=== PATIENT | female | born 1995 | race Caucasian/White ===

== ENCOUNTER 2023-02-07 14:22 | Emergency (ER) | payer BC, SELFPAY ==
[2023-02-07 14:32] VITALS: BP 116/73; PULSE 90; RESP 18; TEMP 36.6; O2SAT 98; BMI 31.1
[2023-02-07 15:15] LABS: Internal Control Within Normal Limits; Strep A Antigen Screen Negative
[2023-02-07 15:16] LABS: Influenza Virus A Antigen Negative; Influenza Virus B Antigen Negative; Internal Control Within Normal Limits; SARS-CoV-2 Ag NEGATIVE (NEGATIVE)
--- NOTE | 2023-02-07 15:25 | ED.GENADUL1 ---
HPI - General Adult General Chief complaint: Upper Respiratory Infection Stated complaint: NAUSEA Time Seen by Provider: 02/07/23 14:53 Source: patient Mode of arrival: walk-in Limitations: no limitations History of Present Illness HPI narrative: Patient presented to us with almost few days history of nausea vomiting and bodyaches and sore throat and runny nose, the patient has been have similar symptoms, no other complaints Related Data Previous Rx's Medication Instructions Recorded ondansetron 4 mg disintegrating 4 mg PO TID PRN nausea and 02/07/23 tablet vomiting 2 days #6 tabs Allergies Allergy/AdvReac Type Severity Reaction Status Date / Time Penicillins AdvReac Intermediate Verified 02/07/23 14:32 Review of Systems ROS Status of ROS 10 or more systems reviewed and unremarkable except as noted in history and below [facility] Social History Smoking status: Current some day smoker Exam Narrative Exam Narrative: Nurses notes and vital signs reviewed and patient is not hypoxic. General: Well-appearing and in no apparent distress. Skin: Warm, dry, no pallor noted. No rash. Head: Normocephalic, atraumatic. Neck: Supple, non-tender. Eye: Pupils are equal, round and EOMI. No scleral icterus. Ears, Nose, Mouth, and Throat: TM are clear, no nasal mucosal hypertrophy. Oral mucosa is moist, no posterior oropharynx erythema, uvula is mid-line Cardiovascular: Regular Rate and Rhythm without murmur, gallop or rub. Respiratory: No accessory muscle use or respiratory distress. Lungs are clear to auscultation, no wheezing, rales or rhonchi Chest Wall: no tenderness Back: No midline thoracic or lumbar vertebral tenderness. No CVA tenderness Musculoskeletal: normal ROM, no calf or popliteal tenderness, no lower extremity edema/swelling GI: Abdomen is soft, non-distended. Normal bowel sounds. No masses appreciated. No tenderness to palpation. No rebound, guarding, or rigidity noted. Neurological: A&O x4. No cranial nerve dysfunction observed. No truncal ataxia. Moves all extremities. Sensation intact. Psychiatric: Cooperative and interactive. Normal mood and affect. Constitutional Vital Signs, click to edit/add: Last Vital Signs Temp 97.9 F 02/07/23 14:32 Pulse 90 02/07/23 14:32 Resp 18 02/07/23 14:32 BP 116/73 02/07/23 14:32 Pulse Ox 98 02/07/23 14:32 O2 Del Method Room Air 02/07/23 14:32 Course Course Hospital Course: Strep and COVID test are negative and the patient was discharged after being treated with Zofran to continue supportive care at home The patient is to follow up with primary care physician in next 2-3 days or to return to the emergency department should any of the signs or symptoms worsen or new symptoms develop. The patient agrees with the following Diagnosis and Treatment plan and the patient will be discharged home. Vital Signs Vital signs: Vital Signs Temperature 97.9 F 02/07/23 14:32 Pulse Rate 90 02/07/23 14:32 Respiratory Rate 18 02/07/23 14:32 Blood Pressure 116/73 02/07/23 14:32 Pulse Oximetry 98 02/07/23 14:32 Oxygen Delivery Method Room Air 02/07/23 14:32 Temperature 97.9 F 02/07/23 14:32 Pulse Rate 90 02/07/23 14:32 Respiratory Rate 18 02/07/23 14:32 Blood Pressure 116/73 02/07/23 14:32 Pulse Oximetry 98 02/07/23 14:32 Oxygen Delivery Method Room Air 02/07/23 14:32 Medical Decision Making Lab Data Labs: Lab Results 02/07/23 Range/Units 14:39 SARS-CoV-2 (PCR) Negative (NEGATIVE) Influenza Type A Ag Negative Influenza Type B Ag Negative Streptococcus Screen Negative Discharge Plan Discharge Chief Complaint: Upper Respiratory Infection Clinical Impression: Acute viral syndrome Patient Disposition: Home, Self-Care Time of Disposition Decision: 15:26 Prescriptions / Home Meds: New ondansetron 4 mg tablet,disintegrating 4 mg PO TID PRN (Reason: nausea and vomiting) 2 Days Qty: 6 0RF Instructions: Viral Syndrome (ED) Stand Alone Forms: Portal Instructions Referrals: Physician,Non-Staff, MD [Primary Care Provider] - 1 week
[2023-02-07] MEDS: ONDANSETRON 4 MG RAPDIS TABLET SL (15:33)
[2023-02-07 15:35] VITALS: BP 136/88; PULSE 88; RESP 18; O2SAT 98
[2023-02-09 13:31] LABS: SARS-CoV-2 NAA INCONCLUSIVE (NOT DETECTE)
== END 2023-02-07 15:38 | disposition home or self-care (01) ==
PROVIDERS: Emergency Provider Emergency Medicine
DX: B34.9 Viral infection, unspecified (principal); F17.200 Nicotine dependence, unspecified, uncomplicated
CPT/HCPCS: 87070; 87635; 87804; 87811; 87880; 99284

== ENCOUNTER 2023-02-17 13:11 | Emergency (ER) | payer BC, SELFPAY ==
[2023-02-17 13:16] VITALS: BP 132/80; PULSE 77; RESP 16; TEMP 36.6; O2SAT 97; BMI 31.1
--- OUTSIDE RECORDS SUMMARY | 2023-02-17 13:18 | XMS_ITS | CCD ---
Author Name Unknown Address [address] [facility] [address] [place] [address] Organization [facility] Care Team Providers Care [id number] Application Developer Name Role Phone LIA LINTON Primary Care Physician Unavailab le NON STAFF Primary Care Provider UnavailZANDRA Simon Attending Provider ROSY SEVERINO Admitting Unavailable ROSY SEVERINO Attending Unavailable ANGELY LINTON Primary Care Unavailable DR DARIA HSIEH Consulting Unavailable MERE ROSY Consulting Unavailable ALON CASH Consulting Unavailable ANGELY LINTON Admitting Unavailable ANGELY LINTON Attending Unavailable ANGELY LINTON Primary Care Unavailable ANGELY LINTON Consulting Unavailable SHERRY LINTONA David Primary Care Unavailable ROSY SEVERINO Consulting Unavailable MARCIE SEVERINOYL Admitting Unavailable ROSY SEVERINO Attending Unavailable ZANDRA Linton Primary Care Provider DO Greyson Reyna Emergency Provider [phone] NO FAMILY, PHYSICIAN Primary Care Provider Unava ilable Fannie Blasria Unavailable Lefty GARCIA Attending Unavailable Sanjeev Ramos Admitting Unavailable Sanjeev Ramos Attending Unavailable Coy Soriano Attending Unavailable DO Dacia Blas Attending Provider [phone] Greyson Reyna Admitting Unavailable Greyson Reyna Attending Unavailable Angely Linton Primary Care UnavailGreyson Azul Admitting Unavailable Greyson Reyna Attending Unavailable NO FAMILY, PHYSICIAN Primary Care Unavailable Wan Dacia Ziggy Admitting Unavailable Wan Dacia Ziggy Primary Care Unavailable Wan Dacia Ziggy Attending Unavailable Allergies Allergy Classification Reported Allergen(s) Allergy Type Date of Onset Reaction(s) Facility (7 sources) Penicillin; Translations: [penicillin] Drug Allergy 2 Eruption of skin (disorder), rash [facility] (5 sources) Penicillins; Translations: [Penicillins] Allergy to substance [address] [facility] Medications Current Medications Medication Drug Class(es) Dates Sig (Normalized) Sig (Original) ALPRAZolam 0.5 mg oral tablet (1 source) Benzodiazepine Start: 01-18-2023 take 1 tablet by mouth twice daily as needed ALPRAZolam 0.5 MG 1 tablet PRN panic attack Orally Twice a day for 6 days Jan, Active cephalexin 500 mg oral capsule (1 source) Cephalosporin Antibacterial Start: 05-21-2021 End: 05-28-2021 take 1 capsule by mouth every twelve hours Keflex 500 mg Cap 500 mg = 1 cap(s), Oral, q12hr, X 7 day(s), # 14 cap(s), Refills(s) 0, Pharmacy: [facility], 157, cm, 05/21/21 9:37:00 EDT, Height/Length Dosing, 93.6, kg, 05/21/21 9:37:00 EDT, Weight Dosing Start Date: 05/21/21 Stop Date: 05/28/21 Status: Ordered doxycycline hyclate 100 mg oral capsule (2 sources) Tetracycline-class Drug Start: 10-11-2022 take 100 mg by mouth twice daily Doxycycline Hyclate Active 100 MG PO Twice daily October 10, 2022 11:00pm erythromycin 0.005 mg/mg ophthalmic ointment (1 source) Macrolide, Macrolide Antimicrobial Start: 11-19-2022 End: 11-24-2022 erythromycin Opth 0.5% Oint 1/4 inch ribbon, Eye-Both, As Directed for 5 day(s), 3.5 gm, Refill(s) 0, [facility], 157, cm, 11/19/22 10:43:00 EDT, Height/Length Dosing, 87.7, kg, 11/19/22 10:43:00 EDT, Weight Dosing Start Date: 11/19/22 Stop Date: 11/24/22 Status: Ordered ferrous sulfate (4 sources) Start: 09-17-2020 ferrous sulfate Refills(s) 0 Start Date: 09/17/20 Status: Ordered Prilosec (4 sources) Proton Pump Inhibitor Start: 09-17-2020 Prilosec Refills(s) 0 Start Date: 09/17/20 Status: Ordered oxyCODONE hydrochloride 5 mg oral tablet (6 sources) Opioid Agonist Start: 08-06-2021 oxyCODONE 5 mg Tab 5 mg = 1 tab(s), Oral, q6hr, PRN Pain 8-10, # 7 tab(s), Refills(s) 0, Pharmacy: [facility], 158, cm, 08/06/21 5:46:00 EDT, Height/Length Dosing, 76.9, kg, 08/06/21 5:46:00 EDT, Weight Dosing Start Date: 08/06/21 Status: Ordered Start: 08-06-2021 oxyCODONE 5 mg Cap 5 mg = 1 cap(s), Oral, q6hr, PRN Pain 8- 10, # 7 cap(s), Refills(s) 0, Pharmacy: [facility], 158, cm, 08/06/21 5:46:00 EDT, Height/Length Dosing, 76.9, kg, 08/06/21 5:46:00 EDT, Weight Dosing Start Date: 08/06/21 Status: Ordered Multivitamins with Vitamin B Complex, Vitamin C, Minerals and L-Methylfolate oral capsule (4 sources) Start: 05-13-2020 Multivitamins with Vitamin B Complex, Vitamin C, Minerals and L-Methylfolate oral capsule 1 cap(s), Oral, Daily, 30 cap(s), Refill(s) 0 Start Date: 05/13/20 Status: Ordered promethazine hydrochloride 25 mg oral tablet (4 sources) Phenothiazine Start: 05-21-2021 take 1 tablet by mouth three times daily promethazine 25 mg Tab 25 mg = 1 tab(s), Oral, TID, # 15 tab(s), Refills(s) 0, Pharmacy: [facility], 157, cm, 05/21/21 9:37:00 EDT, Height/Length Dosing, 93.6, kg, 05/21/21 9:37:00 EDT, Weight Dosing Start Date: 05/21/21 Status: Ordered Zofran ODT 4 mg Tab-Dis (7 sources) Start: 08-06-2021 take 1 tablet by mouth every eight hours as needed for nausea Zofran ODT 4 mg Tab-Dis 4 mg = 1 tab(s), Oral, q8hr, PRN Nausea/Vomiting, # 12 tab(s), Refills(s) 0, Pharmacy: [facility], 158, cm, 08/06/21 5:46:00 EDT, Height/Length Dosing, 76.9, kg, 08/06/21 5:46:00 EDT, Weight Dosing Start Date: 08/06/21 Status: Ordered Start: 05-21-2021 take 1 tablet by heraclio th three times daily Zofran ODT 4 mg Tab-Dis 4 mg = 1 tab(s), Oral, TID, # 15 tab(s), Refills(s) 0, Pharmacy: [facility], 157, cm, 05/21/21 9:37:00 EDT, Height/Length Dosing, 93.6, kg, 05/21/21 9:37:00 EDT, Weight Dosing Start Date: 05/21/21 Status: Ordered Completed/Discontinued Medications Medication Drug Class(es) Dates Sig (Normalized) Sig (Original) ibuprofen 600 mg oral tablet (12 sources) Nonsteroidal Anti-inflammatory Drug Start: 01-29-2021 End: 10-11-2022 take 600 mg by mouth every eight hours Ibuprofen Discontinued 600 MG PO Q8H January 29, 2021 12:00am October 11, 2022 4:54am Start: 09-19-2020 take 1 tablet by heraclio th every six hours ibuprofen 600 mg Tab 600 mg = 1 tab(s), Oral, q6hr, # 15 tab(s), Refills(s) 0, Pharmacy: [facility], 157, cm, 09/17/20 21:15:00 EDT, Height/Length Dosing, 93.2, kg, 09/17/20 21:15:00 EDT, Weight Dosing Start Date: 09/19/20 Status: Ordered Start: 10-11-2017 End: 04-30-2020 take 600 mg by mouth every eight hours Ibuprofen Discontinued 600 MG PO Q8H October 10, 2017 11:00pm April 30, 2020 11:25am naproxen 500 mg oral tablet (7 sources) Nonsteroidal Anti-inflammatory Drug Start: 05-21-2021 End: 10-11-2022 take 500 mg by mouth twice daily Naproxen Discontinued 500 MG PO Twice daily July 23, 2022 11:00pm October 11, 2022 4:54am ondansetron 4 mg disintegrating oral tablet (4 sources) Serotonin-3 Receptor Antagonist Start: 01-29-2021 End: 10-11-2022 take 4 mg by mouth every eight hours Ondansetron Discontinued 4 MG PO Q8H January 29, 2021 12:00am October 11, 2022 4:54am Pseudoephedrine-Guai fenesin (Mucinex D Maximum Strength) 120-1,200 mg tablet extended release 12 hr (4 sources) Start: 10-11-2017 End: 04-30-2020 take 120-1200 mg by mouth every twelve hours Pseudoephedrine-G uaifenesin (Mucinex D Maximum Strength) 120-1,200 mg tablet extended release 12 hr Discontinued 1 TAB PO Daily October 10, 2017 11:00pm April 30, 2020 11:25am Start: 10-11-2017 End: 04-30-2020 take 120-1200 mg by mouth every twelve hours Pseudoephedrine-Guaifenesin (Mucinex D Maximum Strength) 120-1,200 mg tablet extended release 12 hr Discontinued 1 TAB PO Daily October 11, 2017 12:00am April 30, 2020 12:25pm Problems Active Problems Problem Classification Problem Date Documented Date Episodic/Chronic Abdominal pain (2 sources) Pelvic and perineal pain; Translations: [Pelvic and perineal pain] Onset: 08-06-2021 Episodic Acute bronchitis (1 source) Acute bronchitis; Translations: [Acute bronchitis] Episodic Anxiety disorders (4 sources) Panic disorder [episodic paroxysmal anxiety]; Translations: [Generalized anxiety disorder] Chronic Genitourinary symptoms and ill-defined conditions (1 source) History of urinary tract infection; Translations: [Personal history of urinary (tract) infections] Episodic Induced (1 source) Secondary hemorrhage due to and following induced termination of ; Translations: [Delayed or excessive hemorrhage following (induced) termination of ] Episodic Inflammation; infection of eye (except that caused by tuberculosis or sexually transmitteddisease) (1 source) Photokeratitis, bilateral; Translations: [Bilateral photokeratitis of eyes] Onset: 11-19-2022 Episodic Intracranial injury (4 sources) Concussion with no loss of consciousness; Translations: [Concussion without loss of consciousness, initial encounter] 01-29-2021 Episodic Malaise and fatigue (1 source) Other fatigue; Translations: [OTHER FATIGUE] Onset: 10-27-2021 Episodic Nutritional deficiencies (1 source) Vitamin D deficiency, unspecified; Translations: [VITAMIN D DEFICIENCY UNSPECIFIED] Onset: 10-27-2021 Chronic Open wounds of head; neck; and trunk (4 sources) Scalp laceration; Translations: [Laceration without foreign body of scalp, initial encounter] 01-29-2021 Episodic Other aftercare (4 sources) Surgical follow-up; Translations: [Encounter for removal of sutures] 02-10-2021 Episodic Other aftercare (1 source) Other residential (current) drug therapy Episodic Other complications of (1 source) Complication of , childbirth and/or the puerperium; Translations: [Other specified diseases and conditions complicating ] Episodic Other connective tissue disease (3 sources) Pain in right finger(s); Translations: [PAIN IN RIGHT FINGERS] Onset: 12-01-2021 Episodic Other female genital disorders (1 source) Abnormal uterine bleeding; Translations: [Abnormal uterine and vaginal bleeding, unspecified] Onset: 08-06-2021 Chronic Other injuries and conditions due to external causes (4 sources) Closed injury of head; Translations: [Unspecified injury of head, initial encounter] 01-29-2021 Episodic Other nervous system disorders (3 sources) Carpal tunnel syndrome; Translations: [Carpal tunnel syndrome, unspecified upper limb] 07-24-2022 Chronic Other screening for suspected conditions (not mental disorders or infectious disease) (3 sources) Encounter for screening for diabetes mellitus; Translations: [Encounter for screening for lipoid disorders] Onset: 10-27-2021 Episodic Other upper respiratory infections (4 sources) Upper respiratory infection; Translations: [Acute upper respiratory infection, unspecified] 05-07-2020 Episodic Skin and subcutaneous tissue infections (3 sources) Cellulitis of right finger; Translations: [Paronychia] Onset: 12-02-2021 10-11-2022 Episodic Sprains and strains (3 sources) Sprain of shoulder; Translations: [Unspecified sprain of unspecified shoulder joint, initial encounter] 07-24-2022 Episodic Substance-related disorders (1 source) Nicotine dependence, cigarettes, uncomplicated; Translations: [NICOTINE DEPEND CIGARETTES UNCOMP] Onset: 12-02-2021 Chronic Substance-related disorders (4 sources) Marijuana user 05-13-2020 Episodic Unclassified (1 source) Other residential (current) drug therapy; Translations: [Other residential (current) drug therapy] Onset: 01-18-2023 Unclassified (1 source) Fever, unspecified; Translations: [Fever, unspecified] Onset: 10-11-2022 Unclassified (1 source) Pain in right shoulder; Translations: [Pain in right shoulder] Onset: 07-24-2022 Urinary tract infections (2 sources) Urinary tract infectious disease; Translations: [Urinary tract infection, site not specified] Onset: 05-21-2021 Episodic Past or Other Problems Problem Classification Problem Date Documented Da te Episodic/Chronic Hemorrhage during ; abruptio placenta; placenta previa (4 sources) Hemorrhage in early , unspecified; Translations: [HEMORRHAGE EARLY UNS] Onset: 07-12-2021 Episodic Unclassified (8 sources) Onset: 05-13-2020 Resolved: 09-18-2020 09-20-2020 Results Test Name Value Interpretation Reference Range Facility [facility], Urineon Toxassure, Urine Summary FINAL Normal . [facility] Comment on above: Order Comment: Reaso n for Exam High risk medication use Specimen Comment: ToxAssure, ToxAssure FLEX or MAT drug testing: Specimen Comment: -Technical component - Data analysis performed at Specimen Comment: [address], [place] [address]. Result Comment: ==== TOXASSURE COMP DRUG ANALYSIS,UR ==== Test Result Flag Units Drug Present Fluoxetine PRESENT Norfluoxetine PRESENT Norfluoxetine is an expected metabolite of fluoxetine. ==== Test Result Flag Units Ref Range Creatinine 210 mg/dL >=20 ==== Declared Medications: Medication list was not provided. ==== For clinical consultation, please call . ==== Performed at: [facility] [address] [place] [id number] Cota: Lacy Herron [facility], Phone: [phone] PERFORMED BY: [facility] [place] [address] PATHOLOGIST LOCOMOTIVE DRIVER LE HERRON M.D. Performed By: #### T OXASSURE #### [facility] , URINE DRUG SCREEN (IN-HOUSE) on 01-18-2023 URINE DRUG SCREEN (IN-HOUSE) [employer] Other .HPV Genotypes 16/18,45on HPV 16 DNA Probe+sig amp Ql (Cvx) Negative Invalid Interpretation Code Negative [facility] Comment on above: Performed By: #### 3 [id number] #### [facility] [address] [place] [address] HPV 18+45 E6+E7 mRNA DAYNA+probe Ql (Cvx) Positive Abnormal Negative [facility] Comment on above: Result Comment: Perf ormed at: =[facility] [employer] [address] [place], [place] [id number] MD Elaine Cedeño Performed By: #### 3 [id number], [id number] #### [facility] [address] [place] [address] .HPV, Aptima High 16/18,45on 01-13-2023 HPV 16+18+31+33+35+39+45+ 51+52+56+58+59+66+68 DNA Probe+sig amp Ql (Cvx) Positive Abnormal Negative [facility] Comment on above: Result Comment: This nucleic acid amplification test detects fourteen high-risk HPV types (16,18,31,33,35,39,45,51,52,56,58,59,66,68) without differentiation. Performed at: =G [employer] [address] [id number] MD Elaine Cedeño Performed By: #### 3 [id number], [id number], [id number] #### [facility] [address] [place] [address] PAP [id number] 01-13-2023 Cytology report Cyto stain Doc (Cvx/Vag) Note Abnormal [facility] Comment on above: Result Comment: TEST S RESULT FLAG UNITS REF RANGE LAB Clinician Provided Cytology Information Source.............[employer] No. of containers..01 ThinPrep Vial DIAGNOSIS: [A] 01 EPITHELIAL CELL ABNORMALITY. LOW GRADE SQUAMOUS INTRAEPITHELIAL LESION (LSIL). ATYPICAL SQUAMOUS CELLS, CANNOT EXCLUDE HIGH-GRADE SQUAMOUS INTRAEPITHELIAL LESION (ASC-H). Specimen adequacy: 01 Satisfactory for evaluation. Endocervical and/or squamous metaplastic cells (endocervical component) are present. Performed by: Candy Zelaya, Liner Helper (ASC) Electronically si... Keya Cramer MD, Pathologist . 01 Pathologist ICD10: 01 R87.612, R87.611 Note: Note 01 The Pap smear is a screening test designed to aid in the detection of premalignant and malignant conditions of the uterine cervix. It is not a diagnostic procedure and should not be used as the sole means of detecting cervical cancer. Both false-positive and false-negative reports do occur. Test Methodology: Note 01 This liquid based ThinPrep(R) pap test was screened with the use of an image guided system. . 01 See below for HPV testing results. FLAG LEGEND: L-Low Normal,H-High Normal,LL-Alert Low,HH-Alert High <-Panic Low,>-Panic High,A-Abnormal,AA-Critical Abnormal Performed at: [facility] [id number] [place] [address] Gala Henry MD, Performed at: [id number] [id number] MD Elaine Cedeño Performed By: #### 3 [id number], [id number], [id number], [id number] #### [facility] [address] [place] [address] Physician Read PAPon 023 Pathologist review Jovanny (Unsp spec) [Interp] Note Invalid Interpretation Code [facility] Comment on above: Result Comment: TEST S RESULT FLAG UNITS REF RANGE LAB Physician Read Pap Note 01 Performed FLAG LEGEND: L-Low Normal,H-High Normal,LL-Alert Low,HH-Alert High <-Panic Low,>-Panic High,A-Abnormal,AA-Critical Abnormal Performed at: 01 [address] [facility] [address] [place] [address] Gala Henry MD, Performed at: [facility] [address] [place], [place] [id number] MD Elaine Cedeño Performed By: #### 3 [id number], [id number], [id number], [id number] #### [facility] [address] [place] [address] PAP [id number] 01-06-2023 Collection Technique BRUSH-SPATULA Normal F [facility] Comment on above: Performed By: #### 3 [id number], [id number], [id number] #### [facility] [address] [place] [address] Gynecological Body Site ENDOCERVIX Normal [facility] Comment on above: Performed By: #### 3 [id number], [id number], [id number], [id number] #### [facility] [address] [place] [address] Physician Orderon 01-06-2023 Physician Order [id number] #1.00TIFF Normal [facility] Registrationon 11-20-2022 Registration [id number] #1.00TIFF Normal [facility] Consenton 11-19-2022 Consent [id number] #1.00TIFF Normal [facility] Consent for Treatmenton 11-08 Consent for Treatment [id number] #1.00TIFF Normal [facility] Discharge Instructionson Discharge Instructions [id number] #1.00TIFF Normal [facility] ED Clinical Summaryon 2022 ED Clinical Summary [address] [address] ED Clinical Summary Person Information Name: AKOSUA ORTIZ [facility]iff[facility] Age: 27 Years : 1995 Sex: Female Language: South Korean PCP: LIA LINTON Marital Status: Single Phone: [phone] Visit Id: Visit Reason: Eye foreign body; BILATERAL EYE PAIN Speciality: Acuity: 4 Enc Type: Emergency Med Service: Emergency Arrival: 11/19/2022 10:31:28 Discharge: 11/19/2022 12:22:09 LOS: 000 01:51 Checkin: 11/19/2022 10:31:28 Checkout: 11/19/2022 12:22:09 Dispo Type: Home (Routine DC) EVENTS: Event Name Event Status Request Date/Time Start Date/Time Complete Date/Time Arrive Complete 11/19/2022 10:31:28 11/19/2022 10:31:28 11/19/2022 10:31:28 Document Home Meds Request 11/19/2022 10:31:28 Triage Complete 11/19/2022 10:31:28 11/19/2022 10:43:29 11/19/2022 10:43:29 Workers Comp Request 11/19/2022 10:43:30 Bed Assign Complete 11/19/2022 10:43:43 11/19/2022 10:43:43 11/19/2022 10:43:43 Dr Exam Complete 11/19/2022 10:43:43 11/19/2022 10:46:05 11/19/2022 10:46:05 RN Exam Complete 11/19/2022 10:43:43 11/19/2022 11:05:03 11/19/2022 11:05:03 Meds Admin Complete 11/19/2022 10:45:55 11/19/2022 11:15:22 Registration Complete 11/19/2022 10:46:05 11/19/2022 11:55:59 11/19/2022 11:55:59 Discharge Complete 11/19/2022 11:48:14 11/19/2022 12:22:13 11/19/2022 12:22:13 Reg Complete Request 11/19/2022 11:55:59 Reg Bed Request Complete 11/19/2022 11:55:59 11/19/2022 11:55:59 11/19/2022 11:55:59 Transfer Complete 11/19/2022 12:22:13 11/19/2022 12:22:13 11/19/2022 12:22:13 ADDRESS: [facility] [place] [id number] PHYS DOC NOTES: MEDICAL INFORMATION: Prescriptions Given: New Medications [facility], [address] [place], [place] [id number], [phone] erythromycin ophthalmic (erythromycin Opth 0.5% Oint) 1/4 inch ribbon Both eyes As Directed for 5 Days. Refills: 0. Medications to Continue with No Changes Other Medications ferrous sulfate ibuprofen (ibuprofen 600 mg Tab) 1 Tablets By Mouth every 6 hours. Refills: 0. multivitamin, ( Multivitamins with Vitamin B Complex, Vitamin C, Minerals and L-Methylfolate oral capsule) 1 Capsules By Mouth every day. naproxen (Naprosyn 500 mg Tab) 1 Tablets By Mouth 2 times a day as needed for pain. Refills: 0. omeprazole (Prilosec) ondansetron (Zofran ODT 4 mg Tab-Dis) 1 Tablets By Mouth every 8 hours as needed Nausea/Vomiting. Refills: 0. ondansetron (Zofran ODT 4 mg Tab-Dis) 1 Tablets By Mouth 3 times a day. Refills: 0. oxycodone (oxyCODONE 5 mg Cap) 1 Capsules By Mouth every 6 hours as needed Pain 8-10. Refills: 0. oxycodone (oxyCODONE 5 mg Tab) 1 Tablets By Mouth every 6 hours as needed Pain 8-10. Refills: 0. promethazine (promethazine 25 mg Tab) 1 Tablets By Mouth 3 times a day. Refills: 0. PATIENT EDUCATION INFORMATION: Instructions: Ultraviolet Keratitis; How to Use Eye Drops and Eye Ointments Follow up: With: Address: When: Occupational Health: [facility] [phone] In 3 days 11/22/2022 Comments: follow-up occupational health for your Workmen's Comp claim. With: Address: When: Ree Ulloa [facility] [address], [place] [id number] [facility] (1) In 2 days 11/21/2022 Comments: Repeat exam in 48 hours, return to the ED with new or worsening symptoms. Use ibuprofen for discomfort. Use eye ointment as prescribed. 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 History of Present Illness 27-year-old female to the emergency department with chief complaint of foreign body sensation in her bilateral eyes. 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 Patient reports she was wearing her shield. She denies any grinding or standing. She reports she has pain and foreign body sensation in her bilateral eyes ever since. She denies any injuries. She denies any vision changes. Review of Systems A 10 point review of systems is negative except as noted above. Medical and Surgical History: Reviewed and noted Social history: Lives at home Tobacco: Denies Physical Exam Vitals & Measurements T: 36.7 ?C(Oral) HR: 81(Peripheral) RR: 18 BP: 126/82 SpO2: 98% HT: 157 cm WT: 87.7 kg BMI: 35.58 VITALS: I have reviewed the triage vital signs. GENERAL: Well developed, well appearing adult in no acute distress. NEURO: Alert and oriented. Moves all extremities. Face is symmetric and expressive. EYES: PERRL. Conjunctival injection bilaterally. No Milena sign. There is punctate uptake diffusely consistent with UV keratitis. No hyphema. No foreign bodies noted. No lacerations noted. No abrasions noted. Globes are soft bilaterally. SKIN: Warm and dry. Normal turgor. No rash or lesions appreciated. PSYCH: Mood, affect, and interaction is appropriate to the setting. Medical Decision Making 27-year-old female to the emergency department with what appears to be Welders flash. Vital stable, the patient is afebrile. Patient reports her visual acuity is intact, no changes. We will treat with her erythromycin ointment. Follow-up with ophthalmology for repeat exam. Return precautions were discussed. All questions were answered. The patient was discharged home. Assessment/Plan Industrial Maintenance Technician's flash of both eyes (H16.133: Photokeratitis, bilateral) Orders: erythromycin ophthalmic, 1/4 inch ribbon, Eye-Both, As Directed for 5 day(s), 3.5 gm, Refill(s) 0, [facility], 157, cm, 11/19/22 10:43:00 EDT, Height/Length Dosing, 87.7, kg, 11/19/22 10:43:00 EDT, Weight Dosing fluorescein ophthalmic, 1 mg, 1 EA, Test, OPTH, Once, Stop date 11/19/22 10:45:00 EDT, STAT, Start date 11/19/22 10:45:00 EDT tetracaine ophthalmic, 2 drop(s), Soln-Opth, Eye-Both, Once, Stop date 11/19/22 10:45:00 EDT, STAT, Start date 11/19/22 10:45:00 EDT Medications Administered Given fluorescein ophthalmic 1 mg test, 1 mg, OPTH tetracaine Opth 0.5% Fany, 2 drop(s), Eye-Both Disposition Plan Patient Discharge Condition Stable Discharge Disposition Home Discharge Prescription List Prescriptions erythromycin Opth 0.5% Oint, 1/4 inch ribbon, Eye-Both, As Directed Follow-up With When Contact Information Occupational Health: [facility] [place] [phone] In 3 days 11/22/2022 EDT Additional Instructions: follow-up occupational health for your Workmen's Comp claim. Ree Ray In 2 days 11/21/2022 EDT 278 [facility] [address] [place] [id number] Business (1) Additional Instructions: Repeat exam in 48 hours, return to the ED with new or worsening symptoms. Use ibuprofen for discomfort. Use eye ointment as prescribed. Patient Education Ultraviolet Keratitis How to Use Eye Drops and Eye Ointments Problem List/Past Medical History Ongoing Marijuana use Historical Medications Inpatient No active inpatient medications Home erythromycin Opth 0.5% Oint, 1/4 inch ribbon, Eye-Both, As Directed ferrous sulfate ibuprofen 600 mg Tab, 600 mg= 1 tab(s), Oral, q6hr Naprosyn 500 mg Tab, 500 mg= 1 tab(s), Oral, BID, PRN oxyCODONE 5 mg Cap, 5 mg= 1 cap(s), Oral, q6hr, PRN oxyCODONE 5 mg Tab, 5 mg= 1 tab(s), Oral, q6hr, PRN Multivitamins with Vitamin B Complex, Vitamin C, Minerals and L-Methylfolate oral capsule, 1 cap(s), Oral, Daily Prilosec promethazine 25 mg Tab, 25 mg= 1 tab(s), Oral, TID Zofran ODT 4 mg Tab-Dis, 4 mg= 1 tab(s), Oral, TID Zofran ODT 4 mg Tab-Dis, 4 mg= 1 tab(s), Oral, q8hr, PRN Allergies penicillin (Rash) Social History Alcohol - Denies Alcohol Use, 09/17/2020 Current, 05/13/2020 Substance Abuse - Denies Substance Abuse, 09/17/2020 Past, Marijuana, IV drug use: No., 05/13/2020 Tobacco - Denies Tobacco Use, 09/17/2020 Never (less than 100 in lifetime) Tobacco Use:. Never Smokeless Tobacco Use:., 05/13/2020 Lab Results No qualifying data available. Diagnostic Results No qualifying data available. Normal [facility] Comment on above: Result Comment: Elec tronically Signed By: Coy Soriano DO\.br\Date and Time Signed: 11/19/22 14:42 EDT ED Patient Education Noteon 11-19-2022 ED Patient Education Note Caregiving How to Use Eye Drops and Eye Ointments Your health care provider may prescribe or recommend eye drops or ointments to treat dry eye syndrome, allergies, infections, and other eye conditions. Eye drops and ointments may also be used during an eye exam or before or after surgery on your eye. You should use eye drops and ointments only as told by your health care provider. You may need to have a caregiver or family member help you place eye drops or ointment in your eye. What are the risks? ? Burning or itching sensations. ? Tears. ? Redness. ? Allergic reactions. ? Swollen eyelids. ? Blurry vision. ? Infection. How to use eye drops Follow these steps when putting eye drops in your eye: 1. Wash your hands with soap and water for at least 20 seconds. 2. Follow any instructions for mixing or shaking eye drops prior to using them. 3. straight line edger front of a mirror so that you can see your eye well. 4. Place one finger under your eye and use it to gently pull your lower lid downward. This forms a small pocket to place the drop. Keep that finger in place. 5. Using your other hand, hold the dropper between your thumb and index finger. 6. Position the dropper just above the edge of your lower eyelid. Do not touch the dropper to your lid or your eyeball. 7. Steady your hand. One way to do this is to lean your index finger against your brow. 8. Look up slightly. 9. Slowly and gently squeeze the recommended number of drops into your eye near the lower lid. If you are not sure whether you got a drop in your eye, you can safely place another drop. 10. Gently close your eye. Try not to squeeze your eye closed. Doing so can decrease the amount of medicine that stays in your eye 11. Place a finger between your lower eyelid and your nose. Press gently for 1 minute. This increases the amount of time that the medicine is exposed to the eye and can help prevent certain side effects. 12. Do not rub your eye. How to apply eye ointments Follow these steps when applying eye ointments: 1. Wash your hands with soap and water for at least 20 seconds. 2. straight line edger front of a mirror so that you can see your eye well. 3. Place one finger under your eye and use it to gently pull your lower lid downward. Keep that finger in place. 4. Using your other hand, hold the tip of the tube between your thumb and index finger. Brace your other fingers against your cheek or nose. 5. Hold the tube just above the edge of your lower eyelid. Do not touch the tube to your lid or your eyeball. 6. Squeeze the end of the tube to apply a thin layer of the recommended amount of ointment to the inside of your lower lid. 7. Let go of your lower lid. 8. Gently pull up on your upper lid and look down. This will spread the ointment over the surface of your eye. 9. Let go of the upper lid. 10. Gently close your eyes. Do not squeeze your eye closed. Doing so can decrease the amount of medicine that stays in your eye. If you can, leave your eyes closed for 1 minute. 11. Do not rub your eyes. If you applied the ointment correctly, your vision will be blurry for a while. This is normal. Preventing infection ? Before and after using eye drops or ointments, wash your hands with soap and water for at least 20 seconds.. ? Try not to touch the tip of the dropper or tube to your eye. A dropper or tube that has touched the eye can get germs on it (get contaminated). ? Before and after using the drops or ointments, use a clean facial tissue to wipe the dropper or tube or use clean water to wash off the dropper or tube. General tips ? Make sure you use the eye drops or ointment only as told by your health care provider. ? Ask for help from a caregiver or family member if you are unable to apply the eye drops or ointment. ? If you have been told to use both eye drops and an eye ointment, apply the eye drops first, waiting at least 5 minutes between drops and then wait at least 5 minutes before you apply the ointment. ? Keep all follow-up visits. This is important. Contact a health care provider if: ? Your eyes become itchy. ? Your eyelids swell. ? Your eyes hurt. ? Any symptom that the eye drops or ointments were supposed to treat gets worse. ? You have pus or watery mucus coming out of your eye. ? You have new crust on your eyelashes or near your eye. Summary ? Your health care provider may prescribe or recommend eye drops or ointments to relieve symptoms like redness, dryness, and itchiness. ? Be sure to wash your hands with soap and water for at least 20 seconds before applying eye drops or ointment. ? You may need to have a caregiver or family member help you place eye drops or ointment in your eye. ? Use eye drops or ointment only as told by your health care provider. This information is not intended to replace advice given to you by your health care provider. Make sure you dis (more content not included)... 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 It is important that you follow up with a doctor, nurse practitioner, or physician?s golf course assistant for ongoing care. If your symptoms become worse or you do not improve as expected and you are unable to reach your usual health care provider, you should return to the Emergency Department. We are available 24 hours a day. LAMONTEJuan AKOSUA David has been given the following list of patient education materials, prescriptions and follow-up instructions: Follow-up Instructions: With: Address: When: Occupational Health: [facility] [place] [phone] In 3 days 11/22/2022 Comments: follow-up occupational health for your Workmen's Comp claim. With: Address: When: Reetanika Bell [address] [place] [address] [address], [place] [phone] Business (1) In 2 days 11/21/2022 Comments: Repeat exam in 48 hours, return to the ED with new or worsening symptoms. Use ibuprofen for discomfort. Use eye ointment as prescribed. In the event that this physician does not participate in your insurance network, please consult with your insurance company to find a nearby participating provider. Patient Education Materials: Ultraviolet Keratitis; How to Use Eye Drops and Eye Ointments A MESSAGE TO ALL PATIENTS REGARDING OPIOIDS PRESCRIPTION OPIOIDS: WHAT YOU NEED TO KNOW Prescription opioids can be used to help relieve cpzhxoyb-lm-crzwyf pain and are often prescribed following a surgery or injury, or for certain health conditions. These medications can be an important part of the treatment but also come with serious risks. It is important to work with your healthcare provider to make sure you are getting the safest, most effective care. WHAT ARE THE RISKS AND SIDE EFFECTS OF OPIOID USE? Prescription opioids carry serious risks of addiction and overdose, especially with prolonged use. An opioid overdose, often marked by slowed breathing, can cause sudden . The use of prescription opioids can have a number of side effects as well, even when taken as directed: ? Tolerance?meaning you might need to take more of the medication for the same pain relief ? Physical dependence?meaning you have symptoms of withdrawal when a medication is stopped ? Increased sensitivity to pain ? Constipation ? Nausea, vomiting, and dry mouth ? Sleepiness and dizziness ? Confusion ? Depression ? Low levels of testosterone that can result in lower sex drive, energy, and strength ? Itching and sweating RISKS ARE GREATER WITH: ? History of drug misuse, substance use disorder, or overdose ? Mental health conditions (such as depression or anxiety) ? Sleep apnea ? Older age (65 years and older) ? Avoid alcohol while taking prescription opioids. Also, unless specifically advised by your health care provider, medications to avoid include: ? Benzodiazepines (such as Xanax or Valium) ? Muscle relaxants (such as Soma or Flexeril) ? Hypnotics (such as Ambien or Lunesta) ? Other prescription opioids KNOW YOUR OPTIONS Talk to your health care provider about ways to manage your pain that don?t involve prescription opioids. Some of these options may actually work better and have fewer risks and side effects. Options may include: ? Pain relievers such as acetaminophen, ibuprofen, and naproxen ? Some medication that are also used for depression or seizures ? Physical therapy and exercise ? Cognitive behavioral therapy, a psychological, goal-directed approach, in which patients learn how to modify physical, behavioral, and emotional triggers of pain and stress. IF YOU ARE PRESCRIBED OPIOIDS FOR PAIN: ? Never take opioids in greater amounts or more often than prescribed. ? Follow up with your primary health care provider. o Work together to create a plan on how to manage your pain. o Talk about ways to help manage your pain that don?t involve prescription opioids. o Talk about any and all concerns and side effects. ? Help prevent misuse and abuse o Never sell or share prescription opioids. o Never use another person?s prescription opioids. ? Store prescription opioids in a secure place and out of reach of others (this may include visitors, children, friends, and family). ? Safely dispose of unused prescription opioids: Find your community drug take-back program or your pharmacy mail-back program, or flush them down the toilet, following guid (more content not included)... Normal [facility] Workers Comp Formson 023 Workers Comp Forms [id number] #[id number] Normal [facility] COVID CepheidOrdered By: Desiree Reyna on 10-11-2022 SARS-CoV-2 (COVID-19) Ab IA Ql Negative Negative [facility] Comment on above: This is a duplicate Cepheid Xpert Xpress CoV-2/Flu/RSV Plus RNA by RT-PCR result to be used for statistical tracking purpose only. SARS-CoV-2 (COVID-19) RNA DAYNA+probe Ql (Unsp spec) [facility] COVID-19 / Flu A/B / RSV PCR on 10-11-2022 SARS-CoV-2 (COVID-19) RNA DAYNA+probe Ql (Unsp spec) COVID-19 Cepheid Result Negative for SARS-CoV-2 RNA by RT-PCR Flu A Cepheid Result Negative for Flu A RNA by RT-PCR Flu B Cepheid Result Negative for Flu B RNA by RT-PCR RSV Cepheid Result Negative for RSV RNA by RT-PCR COVID19 Blank Space Reference: Negative COVID19 Blank Space Cepheid Disclaimer The Cepheid Xpert Xpress CoV-2/Flu/RSV Plus has Cepheid Disclaimer not been FDA cleared or approved; this test has Cepheid Disclaimer been authorized by FDA under an EUA for use by Cepheid Disclaimer authorized laboratories; this test has been Cepheid Disclaimer authorized only for the simultaneous qualitative Cepheid Disclaimer detection and differentiation of nucleic acids from Cepheid Disclaimer SARS-CoV-2, influenza A, influenza B, and Cepheid Disclaimer respiratory syncytial virus (RSV), and not for any Cepheid Disclaimer other viruses or pathogens; and this test is only Cepheid Disclaimer authorized for the duration of the declaration that Cepheid Disclaimer circumstances exist justifying the authorization of Cepheid Disclaimer emergency use of in vitro diagnostic tests for Cepheid Disclaimer detection and/or diagnosis of COVID-19 under Cepheid Disclaimer Section 564(b)(1) of the Act, 21 U.S.C. 360bbb- Cepheid Disclaimer 3(b)(1), unless the authorization is terminated or Cepheid Disclaimer revoked sooner. PERFORMED BY: [place] [address] PATHOLOGIST LOCOMOTIVE DRIVER LE HERRON M.D. Normal [facility] Comment on above: Performed By: #### C OVID19 FLU RSV, CEPHEID NEG #### [address] Cepheid COVID PCR Negativeon 10-11-2022 SARS-CoV-2 (COVID-19) RNA DAYNA+probe Ql (Unsp spec) Negative Normal Negative [facility] Comment on above: Result Comment: This is a duplicate Cepheid Xpert Xpress CoV-2/Flu/RSV Plus RNA by RT-PCR result to be used for statistical tracking purpose only. PERFORMED BY: [place] [address] PATHOLOGIST LOCOMOTIVE DRIVER LE HERRON M.D. Performed By: #### C OVID19 FLU RSV, CEPHEID NEG #### [address] XR shoulder RT min 2V*on XR shoulder RT min 2V* [facility] Main [place] [address] [place] [address] XRay Report Signed Patient: Akosua Ortiz MR#: [id number] : 1995 Acct:[id number] Age/Sex: 27 / F ADM Date: 07/24/22 Loc: ER Room: Type: [facility] ER Attending Dr: Copies to: Greyson Reyna DO Ordering Provider: Greyson Reyna DO Date of Service: 07/24/22 XR/XR shoulder RT min 2V*: Extremity Injury, Upper RIGHT SHOULDER - 3 views CLINICAL HISTORY: Right arm pain with numbness and tingling. COMPARISON: Chest x-ray 04/30/2020 AP, Y and Grashey views were obtained. There is no evidence of fracture or dislocation. There are no significant soft tissue abnormalities. XR/XR shoulder RT min 2V* IMPRESSION: NO ACUTE BONY INJURY. Impression dictated by: Hyun Briones M.D.07/24/2022 8:57 AM Dictation Location: [place] [address] Transcribed By: [facility] 07/24/22856 Dictated By: Hyun Briones MD 07/24/2256 Signed By: 07/24/2257 Normal [facility] Urine culture routineOrdered By: Angely Linton on 09-17-2021 Bacteria identified Cx Nom (U) Escherichia coli [facility] VIT D 25-OH LABCORPon 2021 Vitamin D, 25-Hydroxy 38.4 ng/mL Normal 30.0-100.0 [facility] Comment on above: Result Comment: Saundra min D deficiency has been defined by the [place] of [employer] and an Endocrine Society practice guideline as a level of serum 25-OH vitamin D less than 20 ng/mL (1,2). The Endocrine Society went on to further define vitamin D insufficiency as a level between 21 and 29 ng/mL (2). 1. IOM ([place] of [employer]). 2010. Dietary reference intakes for calcium and D. [place]: The National Academies Press. 2. Sarah MF, Mp [place], Cortney KLEIN, et al. Evaluation, treatment, and prevention of vitamin D deficiency: an Endocrine Society clinical practice guideline. JCEM. 2010; 96(7):1911-30. Performed By: #### V ITADLC #### [facility] [address] [place] [address] [address] Lauren Quezada CBC AUTO DIFFon 09-11-2021 BASO # 0.0 103/ul Normal 0.0-0.1 [facility] Comment on above: Performed By: #### C BC ####[facility] [address] [place] [address]DrOxana Quezada Basophils/100 WBC (Bld) 0.6 % Normal 0.2-2.0 [facility] Comment on above: Performed By: #### C BC ####[facility] [address] [place] [address]DrOxana Quezada EO # 0.0 103/ul Normal 0.0-0.7 [facility] Comment on above: Performed By: #### C BC ####[facility] [address] [place] [address]Dr. Lauren Quezada Eosinophils/100 WBC (Bld) 0.5 % Critically low 0.9-7.0 [facility] Comment on above: Performed By: #### C BC ####[facility] [address] [place], [place] [address]Dr. Lauren Quezada Erythrocyte distribution width (RBC) [Ratio] 13.6 % Normal 11.0-15.0 [facility] Comment on above: Performed By: #### C BC ####[facility] [address] [place], [place] [address]Dr. Lauren Quezada Hematocrit (Bld) [Volume fraction] 36.3 % Normal 36.0-48.0 [facility] Comment on above: Performed By: #### C BC ####[facility] [address] [place], [place] [address]Dr. Lauren Quezada Hemoglobin (Bld) [Mass/Vol] 12.0 g/dL Normal 12.0-16.0 [facility] Comment on above: Performed By: #### C BC ####[facility] [address] [place], [place] [address]Dr. Lauren Quezada IG # 0.01 10e3/ul Normal 0.00-0.03 [facility] Comment on above: Performed By: #### C BC ####[facility] [address] [place], [place] [address]Dr. Lauren Quezada IG % 0.2 % Normal 0.0-0.5 [facility] Comment on above: Performed By: #### C BC ####[facility] [address] [place], [place] [address]Dr. Lauren Quezada LYMPH # 2.3 103/ul Normal 1.2-3.8 [facility] Comment on above: Performed By: #### C BC ####[facility] [address] [place], [place] [address]Dr. Lauren Quezada Lymphocytes/100 WBC (Bld) 36.6 % Normal 20.5-60.0 [facility] Comment on above: Performed By: #### C BC ####[facility] [address] [place] [address]Dr. Lauren Quezada MANUAL DIFF REQ NO Normal [facility] Comment on above: Performed By: #### C BC ####[facility] [address] [place] [address]Dr. Lauren Quezada MCH (RBC) [Entitic mass] 27.6 pg Normal 26.7-34.0 [facility] Comment on above: Performed By: #### C BC ####[facility] [address] [place] [address]Dr. Lauren Quezada MCHC (RBC) [Mass/Vol] 33.1 g/dL Normal 29.9-35.2 [facility] Comment on above: Performed By: #### C BC ####[facility] [address] [place], [place] [address]Dr. Lauren Quezada MCV (RBC) [Entitic vol] 83.4 fL Normal 81.0-99.0 [facility] Comment on above: Performed By: #### C BC ####[facility] [address] [place], [place] [address]Dr. Lauren Quezada MONO # 0.5 103/ul Normal 0.3-0.8 [facility] Comment on above: Performed By: #### C BC ####[facility] [address] [place], [place] [address]Dr. Lauren Quezada Monocytes/100 WBC (Bld) 7.3 % Normal 1.7-12.0 [facility] Comment on above: Performed By: #### C BC ####[facility] [address] [place], [place] [address]Dr. Lauren Quezada NEUT # 3.4 103/ul Normal 1.4-6.5 [facility] Comment on above: Performed By: #### C BC ####[facility] [address] [place], [place] [address]Dr. Lauren Quezada Neutrophils/100 WBC (Bld) 54.8 % Normal 43.0-75.0 [facility] Comment on above: Performed By: #### C BC ####[facility] [address] [place] [address]Dr. Lauren Quezada Platelet mean volume (Bld) [Entitic vol] 10.6 fL Normal 9.5-13.5 [facility] Comment on above: Performed By: #### C BC ####[facility] [address] [place] [address]Dr. Lauren Quezada PLT 282 103/ul Normal 150-450 [facility] Comment on above: Performed By: #### C BC ####[facility] [address] [place] [address]Dr. Lauren Quezada RBC 4.35 106/ul Normal 4.20-5.40 [facility] Comment on above: Performed By: #### C BC ####[facility] [address] [place] [address]Dr. Lauren Quezaad WBC 6.2 103/ul Normal 4.0-11.0 [facility] Comment on above: Performed By: #### C BC ####[facility] [address] [place] [address]DrOxana Quezada FREE T4on 09-11-2021 Free T4 [Mass/Vol] 0.78 ng/dL Normal 0.76-1.46 [facility] Comment on above: Performed By: #### F T4 #### [facility] [address] [place] [address] [address] Lauren Quezada GLYCOHEMOGLOBIN A1Con 2021 ADA RECOMMENDATION SEE BELOW Normal [facility] Comment on above: Result Comment: ADA RECOMMENDED LIMIT 4.0 - 6.0 ADA THERAPEUTIC TARGET < 7.0 ACTION SUGGESTED > 7.0 Performed By: #### A 1C #### [facility] [address] [place] [address] [address] Lauren Quezada Glucose [Mass/Vol] 114 mg/dL Normal [facility] Comment on above: Performed By: #### A 1C #### [facility] [address] [place] [address] [address] Lauren Quezada HbA1c (Bld) [Mass fraction] 5.6 % Normal 4.5-6.2 [facility] Comment on above: Performed By: #### A 1C #### [facility] [address] [place] [address] [address] Lauren Quezada LIPID PROFILEon 09-11-2021 CHOL-HDL RATIO NORM SEE BELOW Normal [facility] Comment on above: Result Comment: 3.3 - 4.4 LOW RISK 4.4 - 7.1 AVERAGE RISK 7.1 - 11.0 MODERATE RISK >11.0 HIGH RISK Performed By: #### C MP, TSH, LIPID #### [facility] [address] [place] [address] [address] Lauren Quezada Cholesterol [Mass/Vol] 152 mg/dL Normal <=200 [facility] Comment on above: Performed By: #### C MP, TSH, LIPID #### [facility] [address] [place] [address] Dr. Lauren Quezada Cholesterol in HDL [Mass/Vol] 43 mg/dL Normal 40-60 [facility] Comment on above: Performed By: #### C MP, TSH, LIPID #### [facility] [address] [place] [address] [address] Lauren Quezada Cholesterol in LDL [Mass/Vol] 96.4 mg/dL Normal [facility] Comment on above: Performed By: #### C MP, TSH, LIPID #### [facility] [address] [place] [address] [address] Lauren Quezada Cholesterol.total/Cho lesterol in HDL [Mass ratio] 3.5 {ratio} Normal [facility] Comment on above: Performed By: #### C MP, TSH, LIPID #### [facility] [address] [place] [address] [address] Lauren Quezada HDL NORMAL > or = 60 mg/dl - LOW CARDIOVASCULAR RISK <40 mg/dl - HIGH CARDIOVASCULAR RISK Normal [facility] Comment on above: Performed By: #### C MP, TSH, LIPID #### [facility] [address] [place] [address] [address] Lauren Quezada LDL CALC NORMAL SEE BELOW Normal [facility] Comment on above: Result Comment: <100 mg/dl OPTIMAL 100 - 129 mg/dl NEAR OR ABOVE OPTIMAL 130 - 159 mg/dl BORDERLINE HIGH 160 - 189 mg/dl HIGH >190 mg/dl VERY HIGH Performed By: #### C MP, TSH, LIPID #### [facility] [address] [place] [address] Dr. Lauren Quezada Triglyceride [Mass/Vol] 63 mg/dL Normal <=150 [facility] Comment on above: Performed By: #### C MP, TSH, LIPID #### [facility] [address] [place] [address] Dr. Lauren Quezada VLDL CALC 12.6 mg/dL Normal [facility] Comment on above: Performed By: #### C MP, TSH, LIPID #### [facility] [address] [place] [address] Dr. Lauren Quezada PROF 14(COMP METB)on 022 Albumin [Mass/Vol] 4.1 g/dL Normal 3.4-5.0 [facility] Comment on above: Performed By: #### C MP, TSH, LIPID #### [facility] [address] [place] [address] Dr. Lauren Quezada Albumin/Globulin [Mass ratio] 1.2 {ratio} Normal [facility] Comment on above: Performed By: #### C MP, TSH, LIPID #### [facility] [address] [place] [address] Dr. Lauren Quezada ALP [Catalytic activity/Vol] 66 U/L Normal 46-116 [facility] Comment on above: Performed By: #### C MP, TSH, LIPID #### [facility] [address] [place] [address] Dr. Lauren Quezada ALT [Catalytic activity/Vol] 7 U/L Critically low 14-59 [facility] Comment on above: Performed By: #### C MP, TSH, LIPID #### [facility] [address] [place] [address] Dr. Lauren Quezada Anion gap [Moles/Vol] 12.2 mmol/L Normal [facility] Comment on above: Performed By: #### C MP, TSH, LIPID #### [facility] [address] [address] [address] Lauren Quezada AST [Catalytic activity/Vol] 15 U/L Normal 15-37 [facility] Comment on above: Performed By: #### C MP, TSH, LIPID #### [facility] [address] [address] [address] Lauren Quezada Bilirubin [Mass/Vol] 0.5 mg/dL Normal 0.2-1.0 [facility] Comment on above: Performed By: #### C MP, TSH, LIPID #### [facility] [address] [address] [address] Lauren Quezada Calcium [Mass/Vol] 8.9 mg/dL Normal 8.5-10.1 [facility] Comment on above: Performed By: #### C MP, TSH, LIPID #### [facility] [address] [place] [address] Dr. Lauren Quezada Chloride [Moles/Vol] 103 mmol/L Normal 98-107 [facility] Comment on above: Performed By: #### C MP, TSH, LIPID #### [facility] [address] [place] [address] Dr. Lauren Quezada CO2 [Moles/Vol] 27.4 mmol/L Normal 21.0-32.0 [facility] Comment on above: Performed By: #### C MP, TSH, LIPID #### [facility] [address] [place] [address] Dr. Lauren Quezada Creatinine [Mass/Vol] 0.67 mg/dL Normal 0.55-1.02 [facility] Comment on above: Performed By: #### C MP, TSH, LIPID #### [facility] [address] [address] [address] Lauren Quezada EGFR-AF TURKISH >60 Normal >=60 [facility] Comment on above: Performed By: #### C MP, TSH, LIPID #### [facility] [address] [place] [address] Dr. Lauren Quezada EGFR-NON AF TURKISH >60 Normal >=60 [facility] Comment on above: Performed By: #### C MP, TSH, LIPID #### [facility] [address] [address] [address] Lauren Quezada Globulin (S) [Mass/Vol] 3.4 g/dL Normal [facility] Comment on above: Performed By: #### C MP, TSH, LIPID #### [facility] [address] [address] [address] Lauren Quezada Glucose [Mass/Vol] 75 mg/dL Normal 74-106 [facility] Comment on above: Performed By: #### C MP, TSH, LIPID #### [facility] [address] [place] [address] Dr. Lauren Quezada Potassium [Moles/Vol] 3.6 mmol/L Normal 3.5-5.1 [facility] Comment on above: Performed By: #### C MP, TSH, LIPID #### [facility] [address] [place] [address] Dr. Lauren Quezada Protein [Mass/Vol] 7.5 g/dL Normal 6.4-8.2 [facility] [place] [facility] Comment on above: Performed By: #### C MP, TSH, LIPID #### [facility] [address] [place] [address] Dr. Lauren Quezada Sodium [Moles/Vol] 139 mmol/L Normal 136-145 [facility] Comment on above: Performed By: #### C MP, TSH, LIPID #### [facility] [address] [place] [address] Dr. Lauren Quezada Urea nitrogen [Mass/Vol] 12.0 mg/dL Normal 7.0-18.0 [facility] Comment on above: Performed By: #### C MP, TSH, LIPID #### [facility] [address] [place] [address] Dr. Lauren Quezada Urea nitrogen/Creatinine [Mass ratio] 17.9 mg/mg Normal [facility] Comment on above: Performed By: #### C MP, TSH, LIPID #### [facility] [address] [place] [address] Dr. Lauren Quezada TSHon 09-11-2021 TSH 0.504 uIU/mL Normal 0.358-3.[address] [facility] Comment on above: Performed By: #### C MP, TSH, LIPID #### [facility] [address] [address] [address] Lauren Quezada CHEMISTRYOrdered By: SYSTEM SYSTEM on 08-06-2021 Albumin [Mass/Vol] 4.3 g/dL Normal 3.3 - 5.0 gm/dL [facility] Albumin/Globulin [Mass ratio] 1.3 {ratio} Normal 1.1 - 2.2 [facility] ALP [Catalytic activity/Vol] 43 [iU]/d Normal 21 - 98 Int._Unit/L [facility] ALT No additional P-5'-P [Catalytic activity/Vol] 7 [iU]/d Normal 6 - 46 Int._Unit/L [facility] Anion gap [Moles/Vol] 10 mmol/L Normal 6 - 16 mEq/L [facility] AST [Catalytic activity/Vol] 16 [iU]/d Normal 5 - 43 Int._Unit/L [facility] Bilirubin [Mass/Vol] 0.6 mg/dL Normal 0.0 - 1 .1 mg/dL [facility] Bilirubin.direct [Mass/Vol] mg/dL Normal 0.1 - 0.4 mg/dL [facility] Bilirubin.indirect [Mass or moles/Vol] Unable to Calculate mg/dL Invalid Interpretation Code 0.1 - 0.9 mg/dL [facility] Calcium [Mass/Vol] 9.2 mg/dL Normal 8.9 - 11. 1 mg/dL [facility] Chloride [Moles/Vol] 104 mmol/L Normal 101 - 1 11 mmol/L [facility] CO2 [Moles/Vol] 25 mmol/L Normal 21 - 31 mmol/L [facility] Creatinine [Mass/Vol] 0.6 mg/dL Normal 0.5 - 1.3 mg/dL [facility] GFR/1.73 sq M.predicted among blacks MDRD (S/P/Bld) [Vol rate/Area] mL/min/1.73 m2 Normal >=59mL/min/1 .73 m2 [facility] Chem S GFR/1.73 sq M.predicted among non-blacks MDRD (S/P/Bld) [Vol rate/Area] mL/min/1.73 m2 Normal >=59mL/min/1 .73 m2 [facility] Chem S Globulin (S) [Mass/Vol] 3.4 g/dL Normal 1.4 - 4.0 gm/dL [facility] Glucose [Mass/Vol] 91 mg/dL Normal 55 - 199 mg/dL [facility]n 5175 m[IU]/mL High 1 - 3 mIU/mL [facility] Lipase [Catalytic activity/Vol] 31 U/L Normal 13 - 58 unit/L [facility] Potassium [Moles/Vol] 3.2 mmol/L Low 3.5 - 5.3 mmol/L [facility] Protein [Mass/Vol] 7.7 g/dL Normal 6.0 - 7.8 gm/dL [facility] Sodium [Moles/Vol] 136 mmol/L Normal 135 - 145 mmol/L [facility] Urea nitrogen [Mass/Vol] 13 mg/dL Normal 5 - 21 mg/dL [facility] Urea nitrogen/Creatinine [Mass ratio] 22 mg/mg High 10 - 20 [facility] HEMATOLOGYOrdered By: SYSTEM SYSTEM on 08-06-2021 Basophils/100 WBC (Bld) 0.6 % Normal 0.0 - 2.0 % [facility] Basophils/Leukocytes Auto (Bld) [Pure # fraction] 0.0 E9/L Normal 0.0 - 0.2 E9/L [facility] Eosinophils/100 WBC (Bld) 0.6 % Normal 0.0 - 8.0 % [facility] Eosinophils/Leukocyte s Auto (Bld) [Pure # fraction] 0.0 E9/L Normal 0.0 - 0.5 E9/L [facility] Lymphocytes/100 WBC (Bld) 37.7 % Normal 14.0 - 50.0 % [facility] Lymphocytes/Leukocyte s Auto (Bld) [Pure # fraction] 2.7 E9/L Normal 1.0 - 4.0 E9/L [facility] Monocytes/100 WBC (Bld) 9.0 % Normal 4.0 - 14.0 % [facility] Monocytes/Leukocytes Auto (Bld) [Pure # fraction] 0.6 E9/L Normal 0.2 - 1.0 E9/L [facility] Neutrophils/100 WBC (Bld) 52.1 % Normal 36.0 - 75.0 % [facility] Neutrophils/Leukocyte s Auto (Bld) [Pure # fraction] 3.7 E9/L Normal 2.0 - 7.5 E9/L [facility] HEMATOLOGYOrdered By: Geoffrey Farah on 08-06-2021 Erythrocyte distribution width (RBC) [Ratio] 15.2 % High 10.9 - 14.2 % [facility] Hematocrit (Bld) [Volume fraction] 34.8 % Normal 34.0 - 46.0 % [facility] Hemoglobin (Bld) [Mass/Vol] 11.9 g/dL Low 12.0 - 16.0 gm/dL [facility] MCH (RBC) [Entitic mass] 28.2 pg Normal 27.0 - 34.0 pg [facility] MCHC (RBC) [Mass/Vol] 34.2 g/dL Normal 31.4 - 36.0 gm/dL [facility] MCV (RBC) [Entitic vol] 82.5 fL Normal 80.0 - 100.0 fL [facility] Platelet mean volume (Bld) [Entitic vol] 8.9 fL Normal 6.4 - 10.8 fL [facility] Platelets (Bld) [#/Vol] 287.0 E9/L Normal 150.0 - 500.0 E9/L [facility] RBC (Bld) [#/Vol] 4.2 E12/L Low 4.3 - 5.9 E12/L [facility] WBC corrected for nucl RBC Auto (Bld) [#/Vol] 7.1 E9/L Normal 4.0 - 11.0 E9/L [facility] SEROLOGYOrdered By: Corrine choi on 08-06-2021 HCG.beta subunit (U) [Moles/Vol] Positive (08/06/21 6:08 AM) Normal [facility] URINALYSISOrdered By: Corrine Jc on 08-06-2021 Bilirubin Ql (U) Negative (08/06/21 6:08 AM) Normal Negative [facility]A Auto SS Clarity (U) Clear (08/06/21 6:08 AM) Normal Clear [facility] SS Color (U) Yellow (08/06/21 6:08 AM) Normal Yellow [facility] Auto SS Epithelial cells.squamous LM.HPF (Urine sed) [#/Area] 3-4 /HPF Normal 0-2/HPF [facility]A Aut o SS Glucose Test strip (U) [Mass/Vol] Negative (08/06/21 6:08 AM) Normal Negative [facility] Hemoglobin Ql (U) 2+ *ABN* (08/06/21 6:08 AM) Invalid Interpretation Code Negative [facility] Ketones (U) [Mass/Vol] Negative (08/06/21 6:08 AM) Normal Negative [facility] Auto SS [place].plasma/Lithiu m.RBC (Bld) [Mass ratio] 0-3 /HPF Normal 0-3/HPF [facility] Mucus Ql (Urine sed) 3+ (08/06/21 6:08 AM) Normal [facility] Nitrite Ql (U) Negative (08/06/21 6:08 AM) Normal Negative [facility] pH (U) 6.0 *NA* (08/06/21 6:08 AM) Invalid Interpretation Code 5.0 - 9.0 [facility] Protein (U) [Mass/Vol] Negative (08/06/21 6:08 AM) Normal Negative [facility] Specific gravity (U) [Rel density] >=1.030 *NA* (08/06/21 6:08 AM) Invalid Interpretation Code 1.005 - 1.030 [facility] UA Spec Desc Clean Catch (08/06/21 6:08 AM) Normal [facility] Urobilinogen Qn (U) 0.5474415 {Lashay'U}/dL Normal 0.0 - 1.0 EU/dL [facility] WBC Auto Ql (U) Negative (08/06/21 6:08 AM) Normal Negative [facility] Auto SS WBC LM.HPF (Urine sed) [#/Area] 0-5 /HPF Normal 0-5/HPF [facility] SS GENITAL CULTUREon 07-16-2021 Genital Culture, Routine Final report Normal [facility] Comment on above: Performed By: #### C XGENIT ####[facility] [id number] [place], [place] [id number]. Lauren Quezada Result 1 Comment Normal [facility] Comment on above: Result Comment: Rout ine genital tori. Performed By: #### C XGENIT ####[facility] [id number] [place], [place] [address]TyDr. Lauren Quezada CBC AUTO DIFFon 07-12-2021 BASO # 0.1 103/ul Normal 0.0-0.1 [facility] Comment on above: Performed By: #### C BC #### [facility] [address] [address] [address] Lauren Quezada Basophils/100 WBC (Bld) 0.8 % Normal 0.2-2.0 [facility] Comment on above: Performed By: #### C BC #### [facility] [address] [address] [address] Lauren Quezada EO # 0.1 103/ul Normal 0.0-0.7 [facility] Comment on above: Performed By: #### C BC #### [facility] [address] [address] [address] Lauren Quezada Eosinophils/100 WBC (Bld) 1.5 % Normal 0.9-7.0 [facility] Comment on above: Performed By: #### C BC #### [facility] [address] [address] [address] Lauren Quezada Erythrocyte distribution width (RBC) [Ratio] 13.7 % Normal 11.0-15.0 [facility] Comment on above: Performed By: #### C BC #### [facility] [address] [address] [address] Lauren Quezada Hematocrit (Bld) [Volume fraction] 31.5 % Critically low 36.0-48.0 [facility] Comment on above: Performed By: #### C BC #### [facility] [address] [address] [address] Lauren Quezada Hemoglobin (Bld) [Mass/Vol] 10.2 g/dL Critically low 12.0-16.0 [facility] Comment on above: Performed By: #### C BC #### [facility] [address] [place] [address] Dr. Lauren Quezada IG # 0.01 10e3/ul Normal 0.00-0.03 [facility] Comment on above: Performed By: #### C BC #### [facility] [address] [place] [address] Dr. Lauren Quezada IG % 0.2 % Normal 0.0-0.5 [facility] Comment on above: Performed By: #### C BC #### [facility] [address] [place] [address] Dr. Lauren Quezada LYMPH # 2.4 103/ul Normal 1.2-3.8 [facility] Comment on above: Performed By: #### C BC #### [facility] [address] [place] [address] Dr. Lauren Quezada Lymphocytes/100 WBC (Bld) 36.8 % Normal 20.5-60.0 [facility] Comment on above: Performed By: #### C BC #### [facility] [address] [place] [address] Dr. Lauren Quezada MANUAL DIFF REQ NO Normal [facility] Comment on above: Performed By: #### C BC #### [facility] [address] [place] [address] Dr. Lauren Quezada MCH (RBC) [Entitic mass] 27.6 pg Normal 26.7-34.0 [facility] Comment on above: Performed By: #### C BC #### [facility] [address] [place] [address] Dr. Lauren Quezada MCHC (RBC) [Mass/Vol] 32.4 g/dL Normal 29.9-35.2 [facility] Comment on above: Performed By: #### C BC #### [facility] [address] [place] [address] Dr. Lauren Quezada MCV (RBC) [Entitic vol] 85.1 fL Normal 81.0-99.0 [facility] Comment on above: Performed By: #### C BC #### [facility] [address] [address] [address] Lauren Quezada MONO # 0.9 103/ul Critically high 0.3-0.8 [facility] Comment on above: Performed By: #### C BC #### [facility] [address] [address] [address] Lauren Quezada Monocytes/100 WBC (Bld) 13.4 % Critically high 1.7-12.0 [facility] Comment on above: Performed By: #### C BC #### [facility] [address] [place] [address] Dr. Lauren Quezada NEUT # 3.1 103/ul Normal 1.4-6.5 [facility] Comment on above: Performed By: #### C BC #### [facility] [address] [place] [address] Dr. Lauren Quezada Neutrophils/100 WBC (Bld) 47.3 % Normal 43.0-75.0 [facility] Comment on above: Performed By: #### C BC #### [facility] [address] [place] [address] Dr. Lauren Quezada Platelet mean volume (Bld) [Entitic vol] 10.6 fL Normal 9.5-13.5 [facility] Comment on above: Performed By: #### C BC #### [facility] [address] [place] [address] Dr. Lauren Quezada PLT 227 103/ul Normal 150-450 [facility] Comment on above: Performed By: #### C BC #### [facility] [address] [place] [address] Dr. Lauren Quezada RBC 3.70 106/ul Critically low 4.20-5.40 [facility] Comment on above: Performed By: #### C BC #### [facility] [address] [place] [address] Dr. Lauren Quezada WBC 6.5 103/ul Normal 4.0-11.0 [facility] Comment on above: Performed By: #### C BC #### [facility] [address] [address] [address] Lauren Quezada PREG QUANT HCGon 07-12-2021 HCG QUANT 26946 mIU/mL Normal [facility] Comment on above: Performed By: #### P REGQNT ####[facility] [id number] [address]Dr[address] Lauren Quezada HCG RANGE SEE BELOW Normal [facility] Comment on above: Result Comment: 5-50 0-1 WEEK 40-300 1-2 WEEKS 100-1,000 2-3 WEEKS 500-6,000 3-4 WEEKS 5,000-200,000 1-2 MONTHS 10,000-100,000 2-3 MONTHS 3,000-50,000 2ND TRIMESTER 1,000-50,000 3RD TRIMESTER Performed By: #### P REGQNT ####[facility] [id number] [address]Dr. Lauren Quezada PROF CHEM 8 (BAS METB)on Anion gap [Moles/Vol] 11.9 mmol/L Normal [facility] Comment on above: Performed By: #### B MP #### [facility] [address] [address] [address] Lauren Quezada Calcium [Mass/Vol] 8.7 mg/dL Normal 8.5-10.1 [facility] Comment on above: Performed By: #### B MP #### [facility] [address] [place] [address] Dr. Lauren Quezada Chloride [Moles/Vol] 105 mmol/L Normal 98-107 [facility] Comment on above: Performed By: #### B MP #### [facility] [address] [address] [address] Lauren Quezada CO2 [Moles/Vol] 26.7 mmol/L Normal 21.0-32.0 [facility] Comment on above: Performed By: #### B MP #### [facility] [address] [address] [address] Lauren Quezada Creatinine [Mass/Vol] 0.51 mg/dL Critically low 0.55-1.02 [facility] Comment on above: Performed By: #### B MP #### [facility] [address] [address] [address] Lauren Quezada EGFR-AF TURKISH >60 Normal >=60 [facility] Comment on above: Performed By: #### B MP #### [facility] [address] [address] [address] Lauren Quezada EGFR-NON AF TURKISH >60 Normal >=60 [facility] Comment on above: Performed By: #### B MP #### [facility] [address] [address] [address] Lauren Quezada Glucose [Mass/Vol] 77 mg/dL Normal 74-106 [facility] Comment on above: Performed By: #### B MP #### [facility] [address] [address] [address] Lauren Quezada Potassium [Moles/Vol] 3.6 mmol/L Normal 3.5-5.1 [facility] Comment on above: Performed By: #### B MP #### [facility] [address] [place] [address] Dr. Lauren Quezada Sodium [Moles/Vol] 140 mmol/L Normal 136-145 [facility] Comment on above: Performed By: #### B MP #### [facility] [address] [place] [address] Dr. Lauren Quezada Urea nitrogen [Mass/Vol] 10.0 mg/dL Normal 7.0-18.0 [facility] Comment on above: Performed By: #### B MP #### [facility] [address] [address] [address] Lauren Quezada Urea nitrogen/Creatinine [Mass ratio] 19.6 mg/mg Normal [facility] Comment on above: Performed By: #### B MP #### [facility] [address] [place] [address] Dr. Lauren Quezada US PREG TVon 07-12-2021 US PREG TV PELVIC ULTRASOUND CLINICAL HISTORY: Ectopic fetus. COMPARISON: None. FINDINGS: Sonographic imaging of the pelvis was performed via transvaginal approach. The uterus measures 9 x 6.1 x 4.8 cm and demonstrates homogeneous echotexture without focal mass lesion. There is an intrauterine gestational sac identified. The cervix is unremarkable measuring 4 cm with no endocervical fluid or free fluid in the cul-de-sac. A yolk sac and a pole are identified, and there is a crown-rump length of approximately 5.4 mm suggesting an estimated gestational age of 6 weeks 2 days. cardiac activity of 120 bpm is noted. The right ovary measures 3.5 x 3.4 x 2.4 cm and appears to contain a 16 mm hypoechoic structure which may represent corpus luteal cyst or functional change. This is seen on image 19 and image 15. Small follicles are noted within the ovaries bilaterally. The left ovary measures 3.4 x 2.5 x 1.8 cm and appears within normal limits. No free fluid is identified. IMPRESSION: Single live intrauterine with an estimated gestational age of approximately 6 weeks 2 days and cardiac activity of 120 bpm. Probable corpus luteal cyst or functional change within the right ovary. Medical and radiographic follow-up is recommended. Electronically authenticated by: ALON CASH Date: 2021-07-12 01:23 Normal [facility] WET PREPon 07-12-2021 CLUE CELLS NONE SEEN Normal NONE SEEN [facility] Comment on above: Performed By: #### W P #### [facility] [address] [place] [address] Dr. Lauren Quezada FUNGAL ELEMENTS NONE SEEN Normal NONE SEEN [facility] Comment on above: Performed By: #### W P #### [facility] [address] [place] [address] Dr. Lauren Quezada RBC -WET PREP NONE SEEN Normal NONE SEEN [facility] Comment on above: Performed By: #### W P #### [facility] [address] [place] [address] Dr. Lauren Quezada TRICHOMONAS NONE SEEN Normal NONE SEEN [facility] Comment on above: Performed By: #### W P #### [facility] [address] [place] [address] Dr. Lauren Quezada WBC- WET PREP NONE SEEN Normal NONE SEEN [facility] Comment on above: Performed By: #### W P #### [facility] [address] [place] [address] Dr. Lauren Quezada WET PREP BACTERIA RARE Abnormal NONE SEEN [facility] Comment on above: Performed By: #### W P #### [facility] [address] [address] [address] Lauren Quezada CHEMISTRYOrdered By: SYSTEM SYSTEM on 05-21-2021 Albumin [Mass/Vol] 4.3 g/dL Normal 3.3 - 5.0 gm/dL [facility] Albumin/Globulin [Mass ratio] 1.3 {ratio} Normal 1.1 - 2.2 [facility] ALP [Catalytic activity/Vol] 47 [iU]/d Normal 21 - 98 Int._Unit/L [facility] ALT No additional P-5'-P [Catalytic activity/Vol] 11 [iU]/d Normal 6 - 46 Int._Unit/L [facility] Anion gap [Moles/Vol] 12 mmol/L Normal 6 - 16 mEq/L [facility] AST [Catalytic activity/Vol] 19 [iU]/d Normal 5 - 43 Int._Unit/L [facility] Bilirubin [Mass/Vol] 0.7 mg/dL Normal 0.0 - 1 .1 mg/dL [facility] Bilirubin.direct [Mass/Vol] 0.1 mg/dL Normal 0.1 - 0.4 mg/dL [facility] Bilirubin.indirect [Mass or moles/Vol] 0.6 mg/dL Normal 0.1 - 0.9 mg/dL [facility] Calcium [Mass/Vol] 8.9 mg/dL Normal 8.9 - 11. 1 mg/dL [facility] Chloride [Moles/Vol] 106 mmol/L Normal 101 - 1 11 mmol/L [facility] CO2 [Moles/Vol] 23 mmol/L Normal 21 - 31 mmol/L [facility] Creatinine [Mass/Vol] 0.6 mg/dL Normal 0.5 - 1.3 mg/dL [facility] GFR/1.73 sq M.predicted among blacks MDRD (S/P/Bld) [Vol rate/Area] mL/min/1.73 m2 Normal >=59mL/min/1 .73 m2 [facility] Chem S GFR/1.73 sq M.predicted among non-blacks MDRD (S/P/Bld) [Vol rate/Area] mL/min/1.73 m2 Normal >=59mL/min/1 .73 m2 [facility] Chem S Globulin (S) [Mass/Vol] 3.2 g/dL Normal 1.4 - 4.0 gm/dL [facility] Glucose [Mass/Vol] 113 mg/dL Normal 55 - 199 mg/dL [facility] Lipase [Catalytic activity/Vol] 25 U/L Normal 13 - 58 unit/L [facility] Potassium [Moles/Vol] 3.9 mmol/L Normal 3.5 - 5.3 mmol/L [facility] Protein [Mass/Vol] 7.5 g/dL Normal 6.0 - 7.8 gm/dL [facility] Sodium [Moles/Vol] 137 mmol/L Normal 135 - 145 mmol/L [facility] Urea nitrogen [Mass/Vol] 14 mg/dL Normal 5 - 21 mg/dL [facility] Urea nitrogen/Creatinine [Mass ratio] 23 mg/mg High 10 - 20 [facility] HEMATOLOGYOrdered By: SYSTEM SYSTEM on 05-21-2021 Basophils/100 WBC (Bld) 0.4 % Normal 0.0 - 2.0 % [facility] Basophils/Leukocytes Auto (Bld) [Pure # fraction] 0.0 E9/L Normal 0.0 - 0.2 E9/L [facility] Eosinophils/100 WBC (Bld) 0.3 % Normal 0.0 - 8.0 % [facility] Eosinophils/Leukocyte s Auto (Bld) [Pure # fraction] 0.0 E9/L Normal 0.0 - 0.5 E9/L [facility] Lymphocytes/100 WBC (Bld) 2.4 % Low 14.0 - 50.0 % [facility] Lymphocytes/Leukocyte s Auto (Bld) [Pure # fraction] 0.2 E9/L Low 1.0 - 4.0 E9/L [facility] Monocytes/100 WBC (Bld) 5.3 % Normal 4.0 - 14.0 % [facility] Monocytes/Leukocytes Auto (Bld) [Pure # fraction] 0.5 E9/L Normal 0.2 - 1.0 E9/L [facility] Neutrophils/100 WBC (Bld) 91.6 % High 36.0 - 75.0 % [facility] Neutrophils/Leukocyte s Auto (Bld) [Pure # fraction] 9.1 E9/L High 2.0 - 7.5 E9/L [facility] HEMATOLOGYOrdered By: Rachel trejo on 05-21-2021 Erythrocyte distribution width (RBC) [Ratio] 15.0 % High 10.9 - 14.2 % [facility] Hematocrit (Bld) [Volume fraction] 38.5 % Normal 34.0 - 46.0 % [facility] Hemoglobin (Bld) [Mass/Vol] 12.9 g/dL Normal 12.0 - 16.0 gm/dL [facility] MCH (RBC) [Entitic mass] 27.5 pg Normal 27.0 - 34.0 pg [facility] MCHC (RBC) [Mass/Vol] 33.6 g/dL Normal 31.4 - 36.0 gm/dL [facility] MCV (RBC) [Entitic vol] 81.8 fL Normal 80.0 - 100.0 fL [facility] Platelet mean volume (Bld) [Entitic vol] 9.0 fL Normal 6.4 - 10.8 fL [facility] Platelets (Bld) [#/Vol] 230.0 E9/L Normal 150.0 - 500.0 E9/L [facility] RBC (Bld) [#/Vol] 4.7 E12/L Normal 4.3 - 5.9 E12/L [facility] WBC corrected for nucl RBC Auto (Bld) [#/Vol] 9.9 E9/L Normal 4.0 - 11.0 E9/L [facility] SEROLOGYOrdered By: Megan beckford on 05-21-2021 Beta hCG Ql Negative (05/21/21 9:54 AM) Normal [facility] URINALYSISOrdered By: Megan Bailey on 05-21-2021 Bacteria LM Ql (Urine sed) 3+ /HPF Invalid Interpretation Code Trace/HPF [facility] UA Auto SS Bilirubin Ql (U) Negative (05/21/21 11:17 AM) Normal Negative [facility] Auto SS Clarity (U) SL CLOUDY Invalid Interpretation Code [facility] UA Auto SS Color (U) Yellow (05/21/21 11:17 AM) Normal Yellow [facility] UA Auto SS Epithelial cells.squamous LM.HPF (Urine sed) [#/Area] 3-4 /HPF Normal 0-2/HPF [facility] UA Aut o SS Glucose Test strip (U) [Mass/Vol] Negative (05/21/21 11:17 AM) Normal Negative [facility] UA Auto SS Hemoglobin Ql (U) Negative (05/21/21 11:17 AM) Normal Negative [facility] UA Auto SS Ketones (U) [Mass/Vol] Negative (05/21/21 11:17 AM) Normal Negative [facility] UA Auto SS [place].plasma/Lithiu m.RBC (Bld) [Mass ratio] 0-3 /HPF Normal 0-3/HPF [facility] UA Auto SS Mucus Ql (Urine sed) 1+ (05/21/21 11:17 AM) Normal [facility] UA Auto SS Nitrite Ql (U) Positive *ABN* (05/21/21 11:17 AM) Invalid Interpretation Code Negative [facility] UA Auto SS pH (U) 6.0 *NA* (05/21/21 11:17 AM) Invalid Interpretation Code 5.0 - 9.0 [facility] UA Auto SS Protein (U) [Mass/Vol] Negative (05/21/21 11:17 AM) Normal Negative [facility] UA Auto SS Specific gravity (U) [Rel density] 1.025 *NA* (05/21/21 11:17 AM) Invalid Interpretation Code 1.005 - 1.030 [facility] UA Auto SS UA Spec Desc Clean Catch (05/21/21 11:17 AM) Normal [facility] UA Auto SS Urobilinogen Qn (U) [id number] {Lashay'U}/dL Normal 0.0 - 1.0 EU/dL [facility] UA Auto SS WBC Auto Ql (U) Trace *ABN* (05/21/21 11:17 AM) Invalid Interpretation Code Negative [facility] UA Auto SS WBC LM.HPF (Urine sed) [#/Area] 0-5 /HPF Normal 0-5/HPF [facility] UA Auto SS Vital Signs Date Time Vital Sign Value Performing Clinician Facility 01-18-2023 09:00-0500 Body height 158.12 cm Dacia Blas Other [facility] Other 01-18-2023 09:00-0500 Body mass index (BMI) [Ratio] 34.87 kg/m2 Daciaziggy Blas Other [facility] Other 01-18-2023 09:00-0500 Body weight 87.18 kg Daciaziggy Blas Other [facility] Other 01-18-2023 09:00-0500 Diastolic blood pressure 66 mm[Hg] Dacia Wan Other [facility] Other 01-18-2023 09:00-0500 Respiratory rate 18 /min Daciaziggy Blas Other [facility] Other 01-18-2023 09:00-0500 SaO2% (BldA) [Mass fraction] 97 % Dacia Blas Other [facility] Other 01-18-2023 09:00-0500 Systolic blood pressure 98 mm[Hg] Dacia Blas Other [facility] Other 11-19-2022 10:40-0400 Body temperature 98.06 [degF] Coy Soriano [facility] 11-19-2022 10:40-0400 Diastolic blood pressure 82 mm[Hg] Coy Soriano [facility] 11-19-2022 10:40-0400 Heart rate 81 /min Coy Soriano [facility] 11-19-2022 10:40-0400 Respiratory rate 18 /min Coy Soriano [facility] 11-19-2022 10:40-0400 SaO2% (BldA) [Mass fraction] 98 % Coy Bo [facility] 11-19-2022 10:40-0400 Systolic blood pressure 126 mm[Hg] Coy Soriano [facility] 10-11-2022 07:52-0400 Diastolic blood pressure 55 mm[Hg] 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 Angely Royer Work Phone: [facility] 10-11-2022 07:52-0400 Heart rate 99 /min 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 Angely Royer Work Phone: [facility] 10-11-2022 07:52-0400 Respiratory rate 18 /min 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 Angely Royer Work Phone: [facility] 10-11-2022 07:52-0400 SaO2% (BldA) [Mass fraction] 98 % 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 Angely Royer Work Phone: [facility] 10-11-2022 07:52-0400 Systolic blood pressure 116 mm[Hg] 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 Angely Royer Work Phone: [facility] 10-11-2022 05:41-0400 Body height 157.48 cm 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 Angely Royer Work Phone: [facility] 10-11-2022 05:41-0400 Body temperature 99.4 [degF] 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 Angely Royer Work Phone: [facility] 10-11-2022 05:41-0400 Body weight 79.37 kg 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 Angely Royer Work Phone: [facility] 07-24-2022 03:01-0400 Body temperature 97.6 [degF] 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 Angely Royer Work Phone: [facility] 07-24-2022 03:01-0400 Diastolic blood pressure 74 mm[Hg] 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 Angely Royer Work Phone: [facility] 07-24-2022 03:01-0400 Heart rate 85 /min 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 Angely Royer Work Phone: [facility] 07-24-2022 03:01-0400 Respiratory rate 18 /min 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 Linton Work Phone: [facility] 07-24-2022 03:01-0400 SaO2% (BldA) [Mass fraction] 99 % 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 Linton Work Phone: [facility] 07-24-2022 03:01-0400 Systolic blood pressure 143 mm[Hg] 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 Linton Work Phone: [facility] 07-24-2022 03:00-0400 Body height 157.48 cm 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 Linton Work Phone: [facility] 07-24-2022 03:00-0400 Body weight 90.8 kg 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 Linton Work Phone: [facility] 08-06-2021 09:40-0400 Diastolic blood pressure 72 mm[Hg] Eren Vitaly [facility] 08-06-2021 09:40-0400 Heart rate 80 /min Eren Vitaly [facility] 08-06-2021 09:40-0400 Respiratory rate 16 /min Eren Vitaly [facility] 08-06-2021 09:40-0400 SaO2% (BldA) [Mass fraction] 99 % Eren Vitaly [facility] 08-06-2021 09:40-0400 Systolic blood pressure 108 mm[Hg] Eren Vitaly [facility] 08-06-2021 07:15-0400 Diastolic blood pressure 65 mm[Hg] Eren Vitaly [facility] 08-06-2021 07:15-0400 Heart rate 86 /min Eren Vitaly [facility] 08-06-2021 07:15-0400 Respiratory rate 16 /min Eren Vitaly [facility] 08-06-2021 07:15-0400 SaO2% (BldA) [Mass fraction] 99 % Eren Vitaly [facility] 08-06-2021 07:15-0400 Systolic blood pressure 103 mm[Hg] Eren Vitaly [facility] 08-06-2021 05:44-0400 Body temperature 97.88 [degF] Eren Viatly [facility] 08-06-2021 05:44-0400 Diastolic blood pressure 74 mm[Hg] Eren Vitaly [facility] 08-06-2021 05:44-0400 Heart rate 72 /min Eren Vitaly [facility] 08-06-2021 05:44-0400 Respiratory rate 16 /min Eren Vitaly [facility] 08-06-2021 05:44-0400 SaO2% (BldA) [Mass fraction] 100 % Eren Vitaly [facility] 08-06-2021 05:44-0400 Systolic blood pressure 131 mm[Hg] Eren Vitaly [facility] 05-21-2021 11:49-0400 Diastolic blood pressure 58 mm[Hg] [facility] 05-21-2021 11:49-0400 Heart rate 90 /min [facility] 05-21-2021 11:49-0400 Mean blood pressure 79 mm[Hg] [facility] 05-21-2021 11:49-0400 Respiratory rate 16 /min [facility] 05-21-2021 11:49-0400 SaO2% (BldA) [Mass fraction] 98 % [facility] 05-21-2021 11:49-0400 Systolic blood pressure 120 mm[Hg] [facility] 05-21-2021 10:59-0400 Diastolic blood pressure 70 mm[Hg] [facility] 05-21-2021 10:59-0400 Heart rate 98 /min [facility] 05-21-2021 10:59-0400 Mean blood pressure 83 mm[Hg] [facility] 05-21-2021 10:59-0400 Respiratory rate 16 /min [facility] 05-21-2021 10:59-0400 SaO2% (BldA) [Mass fraction] 100 % [facility] 05-21-2021 10:59-0400 Systolic blood pressure 109 mm[Hg] [facility] 05-21-2021 09:34-0400 Body temperature 98.06 [degF] [facility] 05-21-2021 09:34-0400 Diastolic blood pressure 58 mm[Hg] [facility] 05-21-2021 09:34-0400 Heart rate 101 /min [facility] 05-21-2021 09:34-0400 Respiratory rate 18 /min [facility] 05-21-2021 09:34-0400 SaO2% (BldA) [Mass fraction] 101 % [facility] 05-21-2021 09:34-0400 Systolic blood pressure 119 mm[Hg] [facility] Encounters Encounter Date Encounter Type Care Provider Facility Start: 01-18-2023 Office outpatient ne w 30 minutes Dacia COLLAZO [facility]ulia Start: 01-18-2023 End: 01-18-2023 ambulatory Dacia Wasserman [facility] Other Start: 01-18-2023 End: 01-18-2023 Departed Referred DO Dacia Blas Work Phone: [facility] [place] Work Phone: Start: 01-06-2023 End: 01-07-2023 ambulatory Sanjeev Ramos Facility:[facility] Start: 01-06-2023 End: 01-06-2023 Lab Drop off Sanjeev De Richard [facility] Start: 11-19-2022 End: 11-20-2022 ambulatory Lefty GARCIA Facility:[facility] Start: 11-19-2022 End: 11-19-2022 Emergency department patient visit Coy Soriano Facility:[facility] Start: 11-19-2022 End: 11-19-2022 Emergency department patient visit Coy Soriano [facility] Start: 10-11-2022 End: 10-11-2022 Emergency department patient visit Greyson Reyna Facility:[facility] Start: 10-11-2022 End: 10-11-2022 Emergency department patient visit ZANDRA Linton Work Phone: [facility] Work Phone: Start: 07-24-2022 End: 07-24-2022 Emergency department patient visit Greyson Reyna Facility:[facility] Start: 07-24-2022 End: 07-24-2022 Emergency department patient visit 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 Linton Work Phone: [facility] Work Phone: Start: 12-01-2021 End: 12-01-2021 ambulatory ANGELY LINTON Facility: Start: 10-27-2021 Encounter for [facility] adult medical examination without abnormal findings ANGELY LINTON [facility] Start: 09-11-2021 End: 09-12-2021 ambulatory ANGELY LINTON Facility:[facility] Start: 09-11-2021 End: 09-12-2021 Encounter for general adult medical examination without abnormal findings ANGELY LINTON Facility:[facility] Start: 09-10-2021 End: 09-10-2021 Departed Referred [facility] [place] Start: 08-06-2021 End: 08-06-2021 Emergency department patient visit Eren SOxana Haider [facility] Start: 07-12-2021 End: 07-12-2021 ambulatory ROSY SEVERINO Facility:[facility] Start: 05-21-2021 End: 05-21-2021 Emergency department patient visit Samantha Perkins [facility] Procedures Date Procedure Procedure Detail Performing Clinician Start: 10-11-2022 SARS-CoV-2, Influenz a & RSV (PCR) ZANDRA Angely Linton Work Phone: Start: 07-24-2022 Plain X-ray of right shoulder ZANDRA Angely Linton Work Phone: Urine culture Plan of Treatment Date Care Activity Detail Author Start: 07-24-2022 Plain X-ray of right shoulder XR shoulder RT min 2V* [facility] Start: 07-24-2022 XR Shoulder - right Views [facility] Drugs identified in Urine [facility] Patient Education [facility] Work Phone: Patient referral [facility] Work Phone: Immunizations Immunization Date Immunization Notes Care Provider Maicol cortez 09-17-2020 tetanus toxoid, reduced diphtheria toxoid, and acellular pertussis vaccine, adsorbed; Translations: [Boost[facility] (Tdap)] [facility] NEGATED: Highlighted row has not occurred!01-18-2023 Flu Shot - Documentation Purposes Only Patient Objection Dacia Blas Other [facility] Other Payers Date Payer Category Payer [facility] [id number] 2023 Unknown [id number] 2022 Unknown [id number] 2022 Self-pay [id number] 1996 Unknown [id number] 1996 Unknown [id number] 1996 Unknown [id number] 1996 Unknown [id number] 1996 Unknown [id number] 1996 Unknown [id number] 1959 Unknown [id number] Unknown Regular Insurance [id number] Unknown HCAP/HFA/FAP Active [id number] Unknown [id number] Unknown [id number] Unknown [id number] Social History Date Type Detail Facility Start: 05-13-2020 End: 02-10-2021 Tobacco smoking status Never smoked tobacco (finding) [facility] Tobacco smoking status Never [facility] Sex Assigned At Female [facility] Start: 1995 Sex Assigned At Female F [facility] Start: 07-24-2022 Tobacco smoking stat us NHIS Smoker (finding) [facility] Start: 10-11-2022 End: 10-11-2022 Tobacco smoking status NHIS Current some day smoker [facility] Functional Status Date Assessment Result Facility 11-19-2022 Functional Status N/A [facility] 08-06-2021 Functional Status N/A [facility] Clinical Notes 05-21-2021 to 01-18-2023 Note Date & Type Note Facility 01-18-2023 Evaluation note Encounter Date Diagnosis Assessment Notes Jan, Generalized anxiety disorder (ICD-10 - F41.1) Discussed options for PRN treatments for anxiety, will trial alprazolam to use occasionally for panic attack. Discussed if anxiety persisting daily should consider trial of daily medication. Will f/u in 2 months for recheck I have personally reviewed the OARRS report for this patient. I have considered the risks of abuse, dependence, addiction and diversion. I believe that it is clinically appropriate for this patient to be prescribed this medication based on documented diagnosis. 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: Photokeratitis, bilateral) Orders: erythromycin ophthalmic, 1/4 inch ribbon, Eye-Both, As Directed for 5 day(s), 3.5 gm, Refill(s) 0, [facility], 157, cm, 11/19/22 10:43:00 EDT, Height/Length Dosing, 87.7, kg, 11/19/22 10:43:00 EDT, Weight Dosing fluorescein ophthalmic, 1 mg, 1 EA, Test, OPTH, Once, Stop date 11/19/22 10:45:00 EDT, STAT, Start date 11/19/22 10:45:00 EDT tetracaine ophthalmic, 2 drop(s), Soln-Opth, Eye-Both, Once, Stop date 11/19/22 10:45:00 EDT, STAT, Start date 11/19/22 10:45:00 EDT [facility]10-12-2023 Hospital Discharge instructions Patient Education 11/19/2022 11:50:54 Ultraviolet Keratitis Ultraviolet Keratitis Ultraviolet keratitis is a condition that occurs when ultraviolet (UV) light damages the cornea. The cornea is the clear cover on the front part of the eye. It helps to focus light, protect the eyes from dust and other objects, and filter UV rays. This condition is often painful but usually improves on its own without treatment. What are the causes? This condition happens when too much UV light enters the cornea. Sources of UV light include: Direct sunlight. Sunlight that has been reflected by snow, sand, or water. Tools used for welding. Halogen lamps. What increases the risk? The following factors may make you more likely to develop this condition: Not wearing eye protection while doing certain activities, such as: ?Welding. ?Participating in snow sports, such as skiing, snowshoeing, or mountaineering. ?Lying in a tanning bed. Using a halogen desk lamp for work. Working regularly with photographic lighting. What are the signs or symptoms? Symptoms of this condition usually start 6 12 hours after UV light has damaged the cornea. Symptomsmay include: Tears, or watery eyes. Light sensitivity. A feeling that there is something gritty in the eyes. Swollen eyelids. Severe eye pain. Decreased vision. How is this diagnosed? This condition is diagnosed based on your symptoms and your recent history of exposure to the sun or strong light. To confirm the diagnosis, your health care provider will examine your eye using an eye drop stain and a special light. How is this treated? This condition usually improves on its own within 24 48 hours with no permanent damage. Your healthcare provider may recommend the following treatment: Putting ice packs on the eyelids to help with pain and swelling. Taking medicines for pain. Applying antibiotic drops or ointment to the eye to prevent infection. Applying dilating drops to temporarily make the pupils bigger. This can decrease light sensitivity. Wearing an eye patch to help with discomfort and healing. In rare cases, a bandage soft contact lens may be used. Follow these instructions at home: Medicines Take vymq-gyt-qpsawwo and prescription medicines only as told by your health care provider. If you were prescribed an antibiotic drop or ointment, apply it as told by your health care provider. Do not stop using the antibiotic even if your condition improves. Managing pain and swelling If directed, put ice on your eye. To do this: Put ice in a plastic bag. Place a towel between your skin and the bag. Leave the ice on for 10 20 minutes, 2 8 times a day. General instructions Wear an eye patch as told by your health care provider. If your health care provider puts patches on your eyes, it is important to leave them on. Do not rub your eyes. Keep all follow-up visits as told by your health care provider. This is important. If you miss these visits, you may develop a severe eye infection or a permanent loss of vision. Contact a health care provider if: Your pain is severe and is not helped with medicines. Your pain or vision problems last more than 48 hours. Get help right away if: Your vision worsens significantly. You have white or yellow discharge in your eye. You have a white spot on your eye. Summary Ultraviolet keratitis is a condition that occurs when ultraviolet (UV) light damages the cornea. Ultraviolet keratitis typically causes light sensitivity, pain, and decreased vision starting 6 12 hours after exposure to strong UV light. This condition usually improves on its own within 24 48 hours with no permanent damage. This information is not intended to replace advice given to you by your health care provider. Make sure you discuss any questions you have with your health care provider. Document Revised: 12/08/2019 Document Reviewed: 12/08/2019 [employer] Patient Education 2022 [employer] 11/19/2022 11:50:54 How to Use Eye Drops and Eye Ointments How to Use Eye Drops and Eye Ointments Your health care provider may prescribe or recommend eye drops or ointments to treat dry eye syndrome, allergies, infections, and other eye conditions. Eye drops and ointments may also be used duringan eye exam or before or after surgery on your eye. You should use eye drops and ointments only as told by your health care provider. You may need to have a caregiver or family member help you place eye drops or ointment in your eye. What are the risks? Burning or itching sensations. Tears. Redness. Allergic reactions. Swollen eyelids. Blurry vision. Infection. How to use eye drops Follow these steps when putting eye drops in your eye: 1.Wash your hands with soap and water for at least 20 seconds. 2.Follow any instructions for mixing or shaking eye drops prior to using them. 3.straight line edger front of a mirror so that you can see your eye well. 4.Place one finger under your eye and use it to gently pull your lower lid downward. This forms a small pocket to place the drop. Keep that finger in place. 5.Using your other hand, hold the dropper between your thumb and index finger. 6.Position the dropper just above the edge of your lower eyelid. Do not touch the dropper to your lid or your eyeball. 7.Steady your hand. One way to do this is to lean your index finger against your brow. 8.Look up slightly. 9.Slowly and gently squeeze the recommended number of drops into your eye near the lower lid. If you are not sure whether you got a drop in your eye, you can safely place another drop. 10.Gently close your eye. Try not to squeeze your eye closed. Doing so can decrease the amount of medicine that stays in your eye 11.Place a finger between your lower eyelid and your nose. Press gently for 1 minute. This increases the amount of time that the medicine is exposed to the eye and can help prevent certain side effects. 12.Do not rub your eye. How to apply eye ointments Follow these steps when applying eye ointments: 1.Wash your hands with soap and water for at least 20 seconds. 2.straight line edger front of a mirror so that you can see your eye well. 3.Place one finger under your eye and use it to gently pull your lower lid downward. Keep that finger in place. 4.Using your other hand, hold the tip of the tube between your thumb and index finger. Brace your other fingers against your cheek or nose. 5.Hold the tube just above the edge of your lower eyelid. Do not touch the tube to your lid or youreyeball. 6.Squeeze the end of the tube to apply a thin layer of the recommended amount of ointment to the inside of your lower lid. 7.Let go of your lower lid. 8.Gently pull up on your upper lid and look down. This will spread the ointment over the surface ofyour eye. 9.Let go of the upper lid. 10.Gently close your eyes. Do not squeeze your eye closed. Doing so can decrease the amount of medicine that stays in your eye. If you can, leave your eyes closed for 1 minute. 11.Do not rub your eyes. If you applied the ointment correctly, your vision will be blurry for a while. This is normal. Preventing infection Before and after using eye drops or ointments, wash your hands with soap and water for at least 20 seconds.. Try not to touch the tip of the dropper or tube to your eye. A dropper or tube that has touched theeye can get germs on it (get contaminated). Before and after using the drops or ointments, use a clean facial tissue to wipe the dropper or tube or use clean water to wash off the dropper or tube. General tips Make sure you use the eye drops or ointment only as told by your health care provider. Ask for help from a caregiver or family member if you are unable to apply the eye drops or ointment. If you have been told to use both eye drops and an eye ointment, apply the eye drops first, waitingat least 5 minutes between drops and then wait at least 5 minutes before you apply the ointment. Keep all follow-up visits. This is important. Contact a health care provider if: Your eyes become itchy. Your eyelids swell. Your eyes hurt. Any symptom that the eye drops or ointments were supposed to treat gets worse. You have pus or watery mucus coming out of your eye. You have new crust on your eyelashes or near your eye. Summary Your health care provider may prescribe or recommend eye drops or ointments to relieve symptoms like redness, dryness, and itchiness. Be sure to wash your hands with soap and water for at least 20 seconds before applying eye drops orointment. You may need to have a caregiver or family member help you place eye drops or ointment in your eye. Use eye drops or ointment only as told by your health care provider. This information is not intended to replace advice given to you by your health care provider. Make sure you discuss any questions you have with your health care provider. Document Revised: 05/28/2021 Document Reviewed: 05/28/2021 [employer] Patient Education 2022 [employer] Follow Up Care 11/19/2022 10:32:09 With:Occupational Health: [facility] [phone] Address:Unknown When:11/22/2022 11:46:37 Comments:follow-up occupational health for your Workmen's Comp claim. With:Ree Bell Address: [address] [place], [place] [id number] Business (1) When:11/21/2022 11:47:08 Comments:Repeat exam in 48 hours, return to the ED with new or worsening symptoms. Use ibuprofen for discomfort. Use eye ointment as prescribed. [facility]06-29-2022 Evaluation + Plan noteExtracted from: Title:ED Note Author:Eren Haider DO Date :08/06/21 Pelvic pain (R10.2: Pelvic a nd perineal pain) Vaginal bleeding (N93.9: Abnormal uterine and vaginal bleeding, unspecified) Orders: ondansetron, 4 mg = 2 mL, Injection, IV Push, Once, Stop date 08/06/21 5:49:00 EDT, STAT, Start date 08/06/21 5:49:00 EDT, 08/06/21 5:49:00 EDT Sodium Chloride 0.9% intravenous solution, 1,000 mL, Soln-IV, IV, Once, Stop date 08/06/21 5:49:00 EDT, STAT, Start date 08/06/21 5:49:00 EDT, Infuse over 61, minute(s) Sodium Chloride 0.9% intravenous solution, Soln-IV, Misc, Once, Stop date 08/06/21 5:58:29 EDT, Physician Stop, 08/06/21 5:58:29 EDT Automated Diff Basic Metabolic Panel Beta hCG Quantitative CBC w/ Auto Diff eGFR Hepatic Function Panel Lipase Level U Beta Hcg Qual UA With Cult Reflex Addendum by Coy Soriano DO on August 06, 2021 09:17:15 EDT Patient signed out to me by Dr. Haidre with quantitative hCG and ultrasound pending. Patient seen examined the bedside. Her abdomen is benign. Her vitals are stable. hCG is elevated. An ultrasound was ordered to rule out ectopic and to evaluate for IUP. Ultrasound report is at 1.6 cm endometrioma which is heterogeneous. There is no definitive gestational sac. There is no ectopic visualized. Patient's history, presentation, exam, diagnostic work-up, vitals were discussed with the on-call [employer] REGISTERED NURSE Dr. Gray. As her was performed at [facility] she reports they would have sent pathology to assure that they obtain products of conception. Her care will be determined by the results of this. He reports that she needs to call the PP office today to follow-up on the pathology report so that they can continue appropriate care depending on those results. I discussed findings and recommendations of my ADVANCED PRACTICE REGISTERED NURSE with the patient. She does show me that she has the phone number for the clinic. I discussed with her that she needs to call the clinic upon discharge to arrange for plan for further care and follow-up with them. She agrees with this plan. Her vitals remained stable. She denies any active vaginal bleeding at this time. Patient requests a work note. She requests a stronger pain medication for home. Return precautions were discussed. All questions were answered. The patient was discharged home. Coy Soriano DO [facility]06-29-2022 Hospital Discharge instructions Patient Education 08/06/2021 09:24:07 Vaginal Bleeding During , First Trimester Vaginal Bleeding During , First Trimester A small amount of bleeding from the vagina (spotting) is relatively common during early . It usually stops on its own. Various things may cause bleeding or spotting during early . Some bleeding may be related to the , and some may not. In many cases, the bleeding is normal and is not a problem. However, bleeding can also be a sign of something serious. Be sure to tell your health care provider about any vaginal bleeding right away. Some possible causes of vaginal bleeding during the first trimester include: Infection or inflammation of the cervix. Growths (polyps) on the cervix. Miscarriage or threatened miscarriage. tissue developing outside of the uterus (ectopic ). A mass of tissue developing in the uterus due to an egg being fertilized incorrectly (molar ). Follow these instructions at home: Activity Follow instructions from your health care provider about limiting your activity. Ask what activities are safe for you. If needed, make plans for someone to help with your regular activities. Do not have sex or orgasms until your health care provider says that this is safe. General instructions Take kkpf-man-gawfhtn and prescription medicines only as told by your health care provider. Pay attention to any changes in your symptoms. Do not use tampons or douche. Write down how many pads you use each day, how often you change pads, and how soaked (saturated) they are. If you pass any tissue from your vagina, save the tissue so you can show it to your health care provider. Keep all follow-up visits as told by your health care provider. This is important. Contact a health care provider if: You have vaginal bleeding during any part of your . You have cramps or labor pains. You have a fever. Get help right away if: You have severe cramps in your back or abdomen. You pass large clots or a large amount of tissue from your vagina. Your bleeding increases. You feel light-headed or weak, or you faint. You have chills. You are leaking fluid or have a gush of fluid from your vagina. Summary A small amount of bleeding (spotting) from the vagina is relatively common during early . Various things may cause bleeding or spotting in early . Be sure to tell your health care provider about any vaginal bleeding right away. This information is not intended to replace advice given to you by your health care provider. Make sure you discuss any questions you have with your health care provider. Document Released: 11/04/2005 Document Revised: 05/16/2019 Document Reviewed: 04/29/2017 [employer] Patient Education 2020 [employer] Follow Up Care 08/06/2021 05:36:46 With:[facility] Address:Unknown When:08/09/2021 09:23:12 Comments:Call the office of the [facility] in which you had your procedure today. Asked them for the results of your pathology testing. Discussed with them your ED visit today for vaginal bleeding and pain. Your hCG level was 5,175 today, discuss this with them. Arrange for follow-upat their clinic. With:LIA LINTON Address:Unknown When:08/09/2021 09:22:50 Comments:Call the office of your primary care doctor to arrange for follow-up within the above-stated timeframe. Follow-up with your primary care doctor about this ED visit. You should review your labs, imaging, and diagnoses from this ED visit with your primary care physician. If you were prescribed medications you should discuss possible side-effects and drug interactions with your pharmacist. Call 911 or go to the nearest Emergency Department if you develop any new or worsening symptoms.Seek immediate medical attention if you develop:worsening abdominal pain, new or worsening nausea, new or worsening vomiting, new or worsening diarrhea, chest pain, shortness of breath, pain with urination, problems urinating, fever, chills, weakness, or any new or worsening symptoms. [facility]04-13-2022 Hospital Discharge instructions Patient Education 05/21/2021 12:12:36 Urinary Tract Infection, Adult Urinary Tract Infection, Adult A urinary tract infection (UTI) is an infection of any part of the urinary tract. The urinary tractincludes the kidneys, ureters, bladder, and urethra. These organs make, store, and get rid of urinein the body. Your health care provider may use other names to describe the infection. An upper UTI affects the ureters and kidneys (pyelonephritis). A lower UTI affects the bladder (cystitis) and urethra (urethritis). What are the causes? Most urinary tract infections are caused by bacteria in your genital area, around the entrance to your urinary tract (urethra). These bacteria grow and cause inflammation of your urinary tract. What increases the risk? You are more likely to develop this condition if: You have a urinary catheter that stays in place (indwelling). You are not able to control when you urinate or have a bowel movement (you have incontinence). You are female and you: ?Use a spermicide or diaphragm for control. ?Have low estrogen levels. ?Are . You have certain genes that increase your risk (genetics). You are sexually active. You take antibiotic medicines. You have a condition that causes your flow of urine to slow down, such as: ?An enlarged prostate, if you are male. ?Blockage in your urethra (stricture). ?A kidney stone. ?A nerve condition that affects your bladder control (neurogenic bladder). ?Not getting enough to drink, or not urinating often. You have certain medical conditions, such as: ?Diabetes. ?A weak disease-fighting system (immunesystem). ?Sickle cell disease. ?Gout. ?Spinal cord injury. What are the signs or symptoms? Symptoms of this condition include: Needing to urinate right away (urgently). Frequent urination or passing small amounts of urine frequently. Pain or burning with urination. Blood in the urine. Urine that smells bad or unusual. Trouble urinating. Cloudy urine. Vaginal discharge, if you are female. Pain in the abdomen or the lower back. You may also have: Vomiting or a decreased appetite. Confusion. Irritability or tiredness. A fever. Diarrhea. The first symptom in older adults may be confusion. In some cases, they may not have any symptoms until the infection has worsened. How is this diagnosed? This condition is diagnosed based on your medical history and a physical exam. You may also have other tests, including: Urine tests. Blood tests. Tests for sexually transmitted infections (STIs). If you have had more than one UTI, a cystoscopy or imaging studies may be done to determine the cause of the infections. How is this treated? Treatment for this condition includes: Antibiotic medicine. Ewsr-xfb-dgvgwjb medicines to treat discomfort. Drinking enough water to stay hydrated. If you have frequent infections or have other conditions such as a kidney stone, you may need to see a health care provider who specializes in the urinary tract (urologist). In rare cases, urinary tract infections can cause sepsis. Sepsis is a life- threatening condition that occurs when the body responds to an infection. Sepsis is treated in the hospital with IV antibiotics, fluids, and other medicines. Follow these instructions at home: Medicines Take lyxd-gnl-frhzjle and prescription medicines only as told by your health care provider. If you were prescribed an antibiotic medicine, take it as told by your health care provider. Do notstop using the antibiotic even if you start to feel better. General instructions Make sure you: ?Empty your bladder often and completely. Do not hold urine for long periods of time. ?Empty your bladder after sex. ?Wipe from front to back after a bowel movement if you are female. Use each tissue one time when you wipe. Drink enough fluid to keep your urine pale yellow. Keep all follow-up visits as told by your health care provider. This is important. Contact a health care provider if: Your symptoms do not get better after 1 2 days. Your symptoms go away and then return. Get help right away if you have: Severe pain in your back or your lower abdomen. A fever. Nausea or vomiting. Summary A urinary tract infection (UTI) is an infection of any part of the urinary tract, which includes the kidneys, ureters, bladder, and urethra. Most urinary tract infections are caused by bacteria in your genital area, around the entrance to your urinary tract (urethra). Treatment for this condition often includes antibiotic medicines. If you were prescribed an antibiotic medicine, take it as told by your health care provider. Do notstop using the antibiotic even if you start to feel better. Keep all follow-up visits as told by your health care provider. This is important. This information is not intended to replace advice given to you by your health care provider. Make sure you discuss any questions you have with your health care provider. Document Released: 11/04/2005 Document Revised: 01/12/2019 Document Reviewed: 08/04/2018 [employer] Patient Education 2020 [employer] Follow Up Care 05/21/2021 09:33:16 With:LIA LINTON Address:Unknown When:05/24/2021 12:01:45 [facility]04-13-2022 Evaluation + Plan noteExtracted from: Title:ED Note Author:Silvestre Gregory PA-C te:05/21/21 UTI (urinary tract infection ) (N39.0: Urinary tract infection, site not specified) Orders: cephalexin, 500 mg = 1 cap(s), Oral, q12hr, X 7 day(s), # 14 cap(s), Refills(s) 0, Pharmacy: [id number], 157, cm, 05/21/21 9:37:00 EDT, Height/Length Dosing, 93.6, kg, 05/21/21 9:37:00 EDT, Weight Dosing ketorolac, 30 mg = 1 mL, Injection, IV Push, Once, Stop date 05/21/21 11:09:00 EDT, STAT, Start date 05/21/21 11:09:00 EDT, 05/21/21 11:09:00 EDT naproxen, 500 mg = 1 tab(s), Oral, BID, PRN for pain, # 20 tab(s), Refills(s) 0, Pharmacy: [id number], 157, cm, 05/21/21 9:37:00 EDT, Height/Length Dosing, 93.6, kg, 05/21/21 9:37:00 EDT, Weight Dosing ondansetron, 4 mg = 1 tab(s), Oral, TID, # 15 tab(s), Refills(s) 0, Pharmacy: [facility], 157, cm, 05/21/21 9:37:00 EDT, Height/Length Dosing, 93.6, kg, 05/21/21 9:37:00 EDT, Weight Dosing ondansetron, 4 mg = 2 mL, Injection, IV Push, Once, Stop date 05/21/21 9:36:00 EDT, STAT, Start date 05/21/21 9:36:00 EDT, 05/21/21 9:36:00 EDT promethazine, 12.5 mg = 0.5 tab(s), Tab, Oral, Once, Stop date 05/21/21 11:31:00 EDT, STAT, Start date 05/21/21 11:31:00 EDT, 05/21/21 11:31:00 EDT Sodium Chloride 0.9% intravenous solution, 1,000 mL, Soln-IV, IV, Once, Stop date 05/21/21 9:36:00 EDT, STAT, Start date 05/21/21 9:36:00 EDT, mL/hr, Infuse over 61, minute(s) Automated Diff Basic Metabolic Panel Beta hCG Qual CBC w/ Auto Diff eGFR Extra Blue Tube Hepatic Function Panel Lipase Level UA With Cult Reflex Urine Culture Diagnostic Tests Pending * Urine Culture 05/21/21 [facility] Work Phone: History general Narrative - Reported* Type Description Date Medical History adhd Medical History bipolar Medical History anxiety Surgical History Hospitalization History see above Hospitalization History child [employer] Other Hospital course Narrative No data available for this section [facility] No data available for this section [facility] No data available for this section [facility] Chief Complaint and Reason for Visit Chief Complaint N39.0 Chief Complaint R Arm Numbness Chief Complaint R Arm Numbness Abscess x3 mos,Concern for Covid Chief Complaint High risk medication use Advance Directives No Advanced Directives Records Found Advance Directive Response Recorded Date/ Time Advance Directives No October 4:18pm Advance Directive Response Recorded Date/ Time Advance Directives No October 3:18pm Summary Purpose Family History No Family History Records Found No data available for this section No data available for this section No Family History Records FoundNo Family History Records Found Additional Source Comments Care Team (unrecognized sect ion and content) Team Status: Inactive Member Role Status Dates NON STAFF Primary Care Provider Active Angely Linton APRN [employer] Attending Provider Heladio gandhi Team Status: Active Member Role Status Dates NON STAFF Primary Care Provider Active Team Status: Active Member Role Status Dates Angely Linton APRN [employer] Primary Care Provider Active Team Status: Inactive Member Role Status Dates Angely Linton APRN [employer] Primary Care Provider Active Greyson Reyna DO Emergency Provider Active Team Status: Active Member Role Status Dates PHYSICIAN NO FAMILY Primary Care Provider Active Team Status: Inactive Member Role Status Dates PHYSICIAN NO FAMILY Primary Care Provider Active Greyson Reyna DO Emergency Provider Active Team Status: Inactive Member Role Status Dates Dacia Blas DO Attending Provider Active Goals (unrecognized section and content) Goals may be documented in a n alternate section INFORMATION SOURCE (unrecogn ized section and content) DATE CREATED AUTHOR 12/02/2021 [facility] DATE CREATED AUTHOR AUTHOR'S ORGANIZ ATION 01/19/2023 [facility] DATE CREATED AUTHOR AUTHOR'S ORGANIZ ATION 01/26/2023 [facility] REASON FOR VISIT (unrecogniz ed section and content) EST CARE FOR RECORDS PERTAINING TO PATIENTS WHO ARE OR HAVE BEEN ENROLLED IN A CHEMICAL DEPENDENCY/SUBSTANCEABUSE PROGRAM, SOME INFORMATION MAY BE OMITTED. This clinical summary was aggregated from multiple sources. Caution should be exercised in using it in the provision of clinical care. This summary normalizes information from multiple sources, and as a consequence, information in this document may materially change the coding, format and clinical context of patient data. In addition, data may be omitted in some cases. CLINICAL DECISIONS SHOULD BE BASED ON THE PRIMARY CLINICAL RECORDS. [facility] [employer] [facility]. provides no warranty or guarantee of the accuracy or completeness of information in this document.
--- NOTE | 2023-02-17 14:40 | ED.EYEPROB1 ---
HPI - Eye Problem General Chief complaint: Eye Problems Stated complaint: DOUBLE VISION Time Seen by Provider: 02/17/23 13:41 Source: patient Mode of arrival: walk-in Limitations: no limitations History of Present Illness HPI Narrative: this patient's here for evaluation of blurry vision. She says started bothering her yesterday. She did not have an abrupt onset of a severe headache neck pain or vomiting. [facility] home from work. She said her eye doctor can't see her for a couple weeks. She has not had her eyes evaluated for nearly 4 years because she just recently got her insurance back. She still wearing her old glasses. She does not have dysarthria or dysphasia. Has not had recent head trauma injury or concussion. Does not have tingling numbness weakness of the extremities. She's not had previous central nervous system disease or stroke. No history of cardiac problems. I don't believe she is on any ongoing medication. She does not have any visual field loss but she describes things as being blurry. Her visual acuity in the left eye is 20/50 in right eye is 20/40 with her corrective lenses.she's not had a drainage discharge or redness of the eye. she is not having globe pain. Related Data Previous Rx's Medication Instructions Recorded ondansetron 4 mg disintegrating 4 mg PO TID PRN nausea and 02/07/23 tablet vomiting 2 days #6 tabs Allergies Allergy/AdvReac Type Severity Reaction Status Date / Time Penicillins AdvReac Intermediate Verified 02/17/23 13:20 [facility] Social History Smoking status: Current every day smoker Exam Narrative Exam Narrative: awake alert no apparent distress ambulation and gait cognition and mentation GCS are all normal. Problem focused eye examination shows extraocular muscles be normal. Pupillary light response is normal. There is no disconjugate gaze. There is no nystagmus. There are no visual field defects or losses. The globes are nontender. Cranial nerves II-12 are normal. Movement of the trunk torso or extremities is normal. There is no dysarthria or dysphasia. She doesn't consistently describe double vision but rather a blurriness of vision. There is noted black spots or floaters. Constitutional Vital Signs, click to edit/add: Last Vital Signs Temp 97.9 F 01/10/24 13:16 Pulse 77 02/17/23 13:16 Resp 16 02/17/23 13:16 BP 132/80 02/17/23 13:16 Pulse Ox 97 02/17/23 13:16 O2 Del Method Room Air 02/17/23 13:16 Course Vital Signs Vital signs: Vital Signs Temperature 97.9 F 02/17/23 13:16 Pulse Rate 77 02/17/23 13:16 Respiratory Rate 16 02/17/23 13:16 Blood Pressure 132/80 02/17/23 13:16 Pulse Oximetry 97 02/17/23 13:16 Oxygen Delivery Method Room Air 02/17/23 13:16 Temperature 97.9 F 02/17/23 13:16 Pulse Rate 77 02/17/23 13:16 Respiratory Rate 16 02/17/23 13:16 Blood Pressure 132/80 02/17/23 13:16 Pulse Oximetry 97 02/17/23 13:16 Oxygen Delivery Method Room Air 02/17/23 13:16 MDM - Eye Problem MDM Narrative Medical decision making narrative: patient came right out and told us that the reason she came in is that she needed a note that she went to the hospital when she left work yesterday. Nonetheless at this history of one to be cautious we did do a CT scan and make sure there is no obvious abnormalities in the brainstem lesion. I don't believe she needs an MR or CTA at this time. I went back and reexamined her any. Did confrontation testing and peripheral field vision testing and it is all normal. I believe her problem may be related to the anterior chambers so she should follow-up with her eye doctor as necessary Discharge Plan Discharge Chief Complaint: Eye Problems Clinical Impression: Visual disturbance, subjective Patient Disposition: Home, Self-Care Time of Disposition Decision: 15:38 Prescriptions / Home Meds: No Action ondansetron 4 mg tablet,disintegrating 4 mg PO TID PRN (Reason: nausea and vomiting) 2 Days Qty: 6 0RF Additional Instructions: follow-up with the local eye doctor as soon as possible to have your vision checked Stand Alone Forms: Portal Instructions Referrals: Dacia Blas DO [Primary Care Provider] - 1 week
--- NOTE | 2023-02-17 14:42 | CT_ITS ---
The [address] [address] Patient Name: AKOSUA ORTIZ MRN: [id number] date: 1995 Sex: F Assigned Patient Location: ER Current Patient Location: ER Accession/Order Number: [id number] Exam Date: 02/17/2023 14:55 Report Date: 02/17/2023 15:09 At the request of: ROCCO PROCTOR Procedure: CT head/brain wo con EXAM: CT scan of the head without contrast. Dose reduction technique used: Automated exposure control and/or adjustment of the mA and/or kV according to patient size and/or use of iterative reconstruction technique. REASON FOR EXAM: double vision COMPARISON: None FINDINGS: No intracranial hemorrhage, mass effect, midline shift, fractures or evidence of acute ischemic infarct. No hydrocephalus. Paranasal sinuses and mastoid air cells are clear. Remainder unremarkable. CT/CT head/brain wo con IMPRESSION: Negative head CT. Electronically authenticated by: JENNIFER BLUM Date: 02/17/2023 15:09
[2023-02-17 15:22] VITALS: BP 117/67; PULSE 74; RESP 18; O2SAT 97
== END 2023-02-17 15:44 | disposition home or self-care (01) ==
PROVIDERS: Emergency Provider Emergency Medicine Emergency Medical Services; PCP Family Medicine
DX: H53.8 Other visual disturbances (principal); F17.210 Nicotine dependence, cigarettes, uncomplicated
CPT/HCPCS: 70450; 99284

== ENCOUNTER 2023-05-25 23:22 | Emergency (ER) | payer BC, SELFPAY ==
[2023-05-25 23:27] VITALS: BP 129/68; PULSE 106; TEMP 36.8; O2SAT 98; BMI 32.0
--- NOTE | 2023-05-25 23:57 | ED_ITS ---
HPI HPI - General Adult General Chief complaint: Upper Respiratory Infection Stated complaint: body aches Time Seen by Provider: 05/25/23 23:51 Source: patient Mode of arrival: walk-in History of Present Illness HPI narrative: patient presents complaining of chills, body aches, nausea and sore throat that started around 4pm. No dyspnea. No urinary symptoms. Denies exposure to anyone ill Onset (ago): hour(s) Related Data Home Medications ?Medication ?Instructions ?Recorded ?Confirmed alprazolam 0.5 mg tablet 0.5 mg PO DAILY PRN anxiety 05/26/23 05/26/23 norethindrone 1 mg-ethinyl 1 tab PO DAILY 05/26/23 05/26/23 estradiol 20 mcg (24)-iron 75 mg (4) tablet (Yovany 24 Fe) quetiapine 50 mg tablet,extended 50 mg PO DAILY 05/26/23 05/26/23 release 24 hr Allergies Allergy/AdvReac Type Severity Reaction Status Date / Time Penicillins AdvReac Intermediate Verified 05/25/23 23:31 Opioid HPI Opioid Management Most Recent Opioid Data: No Data to Display Review of Systems ROS Status of ROS 10 or more systems reviewed and unremark able except as noted in history and below PFSH PFSH Social History Smoking status: Current every day smoker Exam Constitutional Vital Signs, click to edit/add: Last Vital Signs Temp 98.2 F 05/25/23 23:27 Pulse 106 H 05/25/23 23:27 Resp 16 05/25/23 23:27 BP 129/68 05/25/23 23:27 Pulse Ox 98 05/25/23 23:27 O2 Del Method Room Air 05/25/23 23:51 Common normals: no apparent distress, average body habitus, oriented x3, no limitations, healthy appearing, alert and well nourished [facility] Common normals: normocephalic and head/scalp atraumatic Other: mild erythema oral airway Eye Common normals: EOMs intact bilaterally and conjunctivae normal Respiratory Common normals: normal respiratory effort, no retractions, no use of accessory muscles and clear to auscultation bilaterally Cardio Common normals: regular rate, regular rhythm, S1 normal heart sound and S2 normal heart sound GI Common normals: Normal to inspection, nondistended, normoactive bowel sounds present, soft to palpation and non-tender Extremity Common normals: normal to inspection and full ROM Neuro Common normals: oriented x3, CN's II-XII intact bilaterally, moves all extremities and no focal motor deficits Psych Appearance: grossly normal Course Vital Signs Vital signs: Vital Signs Temperature 98.2 F 05/25/23 23:27 Pulse Rate 106 H 05/25/23 23:27 Respiratory Rate 16 05/25/23 23:27 Blood Pressure 129/68 05/25/23 23:27 Pulse Oximetry 98 05/25/23 23:27 Temperature 98.2 F 05/25/23 23:27 Pulse Rate 106 H 05/25/23 23:27 Respiratory Rate 16 05/25/23 23:27 Blood Pressure 129/68 05/25/23 23:27 Pulse Oximetry 98 05/25/23 23:27 Oxygen Delivery Method Room Air 05/25/23 23:51 Medical Decision Making MDM Narrative Medical decision making narrative: patient presents with chills, body aches, nausea and sore throat. strep swab neg. Neg COVID19 and influenza. Patient hydrated with normal saline. WBC mild elevated and UA without signs of infection. Patient in no distress. Advised of working diagnosis of viral syndrome and advised she will need followup recheck Lab Data Labs: Lab Results 05/25/23 05/26/23 05/26/23 Range/Units 23:35 00:12 00:40 WBC 12.8 H (4.0-11.0) 10^3/uL RBC 4.59 (4.20-5.40) 10^6/uL Hgb 13.0 (12.0-16.0) g/dL Hct 40.3 (36.0-48.0) % MCV 87.8 (81.0-99.0) fL MCH 28.3 (26.7-34.0) pg MCHC 32.3 (29.9-35.2) g/dL RDW 12.6 (11.0-15.0) % Plt Count 314 (150-450) 10^3/uL MPV 10.4 (9.5-13.5) fL Neut % (Auto) 84.5 H (43.0-75.0) % Lymph % (Auto) 9.0 L (20.5-60.0) % [place] % (Auto) 5.7 (1.7-12.0) % Eos % (Auto) 0.1 L (0.9-7.0) % Baso % (Auto) 0.5 (0.2-2.0) % Neut # (Auto) 10.8 H (1.4-6.5) 10^3/uL Lymph # (Auto) 1.2 (1.2-3.8) 10^3/uL [place] # (Auto) 0.7 (0.3-0.8) 10^3/uL Eos # (Auto) 0.0 (0.0-0.7) 10^3/uL Baso # (Auto) 0.1 (0.0-0.1) 10^3/uL Abs Immat Gran (auto) 0.03 (0.00-0.03) 10^3/uL Imm/Tot Granulo (auto) 0.2 (0.0-0.5) % Sodium 138 (136-145) mmol/L Potassium 3.9 (3.5-5.1) mmol/L Chloride 103 (98-107) mmol/L Carbon Dioxide 27.5 (21.0-32.0) mmol/L Anion Gap 11.4 BUN 10.0 (7.0-18.0) mg/dL Creatinine 0.80 (0.55-1.02) mg/dL Est GFR ( Amer) >60 (>=60) Est GFR (Non-Af Amer) >60 (>=60) BUN/Creatinine Ratio 12.5 Glucose 95 (74-106) mg/dL Lactate 1.2 (0.4-2.0) mmol/L Calcium 9.2 (8.5-10.1) mg/dL Total Bilirubin 0.3 (0.2-1.0) mg/dL AST 13 L (15-37) U/L ALT 11 L (14-59) U/L Alkaline Phosphatase 62 (46-116) U/L Total Protein 7.8 (6.4-8.2) g/dL Albumin 4.0 (3.4-5.0) g/dL Globulin 3.8 g/dL Albumin/Globulin Ratio 1.1 Urine Color Lt. yellow (YELLOW) Urine Clarity Clear (CLEAR) Urine pH 6.0 (5.0-9.0) Ur Specific [place] 1.025 (1.005-1.025) Urine Protein Negative (NEG/TRACE) mg/dL Urine Glucose (UA) Negative (NEGATIVE) mg/dL Urine Ketones Negative (NEGATIVE) mg/dL Urine Occult Blood Moderate A (NEGATIVE) Urine Nitrite Negative (NEGATIVE) Urine Bilirubin Negative (NEGATIVE) Urine Urobilinogen 0.2 (0.2-1.0) EU/dL Ur Leukocyte Esterase Negative (NEGATIVE) Urine RBC 0-2 (0-2) #/HPF Urine WBC None seen (NONE SEEN) #/HPF Ur Squamous Epith Cells Few A (NONE/RARE) #/LPF Urine Crystals None seen (None Seen) #/HPF Urine Bacteria None seen (NONE SEEN) #/HPF Urine Casts None seen (NONE SEEN) #/LPF Urine Mucus None seen (NONE SEEN) Ur Culture Indicated? No Urine HCG, Qual Negative (NEGATIVE) Influenza Type A Ag Negative Influenza Type B Ag Negative SARS-CoV-2 Ag (CV2AG) Negative (NEGATIVE) Streptococcus Screen Negative Discharge Plan Discharge Stand Alone Forms: Portal Instructions Chief Complaint: Upper Respiratory Infection Clinical Impression: Acute viral syndrome Patient Disposition: Home, Self-Care Prescriptions / Home Meds: No Action quetiapine 50 mg tablet extended release 24 hr 50 mg PO DAILY Yovany 24 Fe 1 mg-20 mcg (24)/75 mg (4) tablet 1 tab PO DAILY alprazolam 0.5 mg tablet 0.5 mg PO DAILY PRN (Reason: anxiety) Print Language: [place] Instructions: Viral Syndrome (ED) Additional Instructions: follow up with your doctor in the next couple of days . Return if any worsening Referrals: Dacia Blas DO [Primary Care Provider] - 1 week Discharge Date/Time: 05/26/23 01:51
[2023-05-25 23:59] LABS: Internal Control Within Normal Limits; Strep A Antigen Screen Negative
[2023-05-26 00:04] LABS: Influenza Virus A Antigen Negative; Influenza Virus B Antigen Negative; Internal Control Within Normal Limits
[2023-05-26 00:05] LABS: SARS-CoV-2 Ag NEGATIVE (NEGATIVE)
[2023-05-26] MEDS: 0.9 % SODIUM CHLORIDE 1,000 ML 999 ML IV (00:20)
[2023-05-26] MEDS: ONDANSETRON PF 4 MG/2 ML VIAL IV (00:21)
[2023-05-26 00:22] LABS: Basophils Absolute Auto 0.1 10^3/uL (0.0-0.1); Basophils Percent Auto 0.5 % (0.2-2.0); Eosinophils Percent Auto 0.1 % (0.9-7.0); Hematocrit 40.3 % (36.0-48.0); Immature Granulocytes Abs Auto 0.03 10^3/uL (0.00-0.03); Immature Granulocytes Pct Auto 0.2 % (0.0-0.5); Lymphocytes Absolute Auto 1.2 10^3/uL (1.2-3.8); Mean Corpuscular HGB Conc 32.3 g/dL (29.9-35.2); Mean Corpuscular Hemoglobin 28.3 pg (26.7-34.0); Mean Corpuscular Volume 87.8 fL (81.0-99.0); Mean Platelet Volume 10.4 fL (9.5-13.5); Monocytes Absolute Auto 0.7 10^3/uL (0.3-0.8); Monocytes Percent Auto 5.7 % (1.7-12.0); Neutrophils Absolute Auto 10.8 10^3/uL (1.4-6.5); Neutrophils Percent Auto 84.5 % (43.0-75.0); Platelet Count 314 10^3/uL (150-450); Red Blood Count 4.59 10^6/uL (4.20-5.40); Red Cell Distribution Width 12.6 % (11.0-15.0); White Blood Count 12.8 10^3/uL (4.0-11.0)
[2023-05-26 00:35] LABS: Alanine Aminotransferase 11 U/L (14-59); Albumin Globulin Ratio 1.1; Alkaline Phosphatase 62 U/L (46-116); Anion Gap 11.4; Aspartate Amino Transferase 13 U/L (15-37); BUN Creatinine Ratio 12.5; Bilirubin Total 0.3 mg/dL (0.2-1.0); Calcium 9.2 mg/dL (8.5-10.1); Carbon Dioxide 27.5 mmol/L (21.0-32.0); Chloride 103 mmol/L (98-107); Estimated GFR (African America >60 (>=60); Estimated GFR (Non-African Ame >60 (>=60); Globulin 3.8 g/dL; Glucose 95 mg/dL (74-106); Potassium 3.9 mmol/L (3.5-5.1); Sodium 138 mmol/L (136-145); Total Protein 7.8 g/dL (6.4-8.2)
[2023-05-26 00:38] LABS: Lactate/Lactic Acid 1.2 mmol/L (0.4-2.0)
[2023-05-26 00:54] LABS: Bilirubin Urine NEGATIVE (NEGATIVE); Blood Urine MODERATE (NEGATIVE); Clarity Urine CLEAR (CLEAR); Color Urine LT. YELLOW (YELLOW); Glucose Urine UA NEGATIVE (NEGATIVE); Ketones Urine NEGATIVE (NEGATIVE); Leukocyte Esterase Urine NEGATIVE (NEGATIVE); Nitrite Urine NEGATIVE (NEGATIVE); Protein Urine NEGATIVE (NEG/TRACE); Specific Gravity Urine 1.025 (1.005-1.025); Urobilinogen Urine 0.2 EU/dL (0.2-1.0)
[2023-05-26 00:55] LABS: HCG Qualitative Urine* NEGATIVE (NEGATIVE); Urine Microscopic Indicated YES
[2023-05-26 01:02] LABS: Bacteria Urine NONE SEEN #/HPF (NONE SEEN); Cast Seen? NONE SEEN #/LPF (NONE SEEN); Crystals Seen? None Seen #/HPF (None Seen); Mucus Urine NONE SEEN (NONE SEEN); RBC Urine 0-2 #/HPF (0-2); Squamous Epithelial Cell Urine FEW #/LPF (NONE/RARE); Urine Culture Indicated NO; WBC Urine NONE SEEN #/HPF (NONE SEEN)
--- OUTSIDE RECORDS SUMMARY | 2023-05-26 01:45 | XMS_ITS | CCD ---
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 [A] 01 EPITHELIAL CELL ABNORMALITY. LOW GRADE SQUAMOUS INTRAEPITHELIAL LESION (LSIL). ATYPICAL SQUAMOUS CELLS, CANNOT EXCLUDE HIGH-GRADE SQUAMOUS INTRAEPITHELIAL LESION (ASC-H). Specimen adequacy: 01 Satisfactory for evaluation. Endocervical and/or squamous metaplastic cells (endocervical component) are present. Performed by: 01 Candy Zelaya, Sales And Business Development Manager (ASC) Electronically si... 01 Keya Cramer MD, Pathologist . 01 Pathologist [...] Low,>-Panic High,A-Abnormal,AA-Critical Abnormal Performed at: [address] [id number] Gala Henry MD, Performed at: [facility] [address] [id number] MD Elaine Cedeño Performed By: #### 3 [id number], [id number], [id number], [id number] ####[address] [place] [address] Physician Read PAPon 023 Pathologist review Jovanny (Unsp spec) [Interp] Note Invalid Interpretation Code [facility] Comment on above: Result Comment: TEST S RESULT FLAG UNITS REF RANGE LAB Physician Read Pap Note 01 Performed FLAG LEGEND: L-Low Normal,H-High Normal,LL-Alert Low,HH-Alert High <-Panic Low,>-Panic High,A-Abnormal,AA-Critical Abnormal Performed at: [address] [place] [address] Gala Henry MD, Performed at: [facility] [address] [id number] MD Elaine Cedeño Performed By: #### 3 [id number], [id number], [id number], [id number] ####[facility] [address] [place] [address] PAP [id number] 01-06-2023 Collection Technique BRUSH-SPATULA Normal F [facility] Comment on above: Performed By: #### 3 [id number], [id number], [id number], [id number] ####[address] [place] [address] Gynecological Body Site ENDOCERVIX Normal [facility] Comment on above: Performed By: #### 3 [id number], [id number], [id number], [id number] ####[address] [place] [address] Physician Orderon 01-06-2023 Physician Order [id number] #1.00TIFF Normal [facility] Registrationon 11-20-2022 Registration [id number] #1.00TIFF Normal [facility] Consenton 11-19-2022 Consent [id number] #1.00TIFF Normal [facility] Consent for Treatmenton 11-08 Consent for Treatment [id number] #1.00TIFF Normal [facility] Discharge Instructionson Discharge Instructions [id number] #1.00TIFF Normal [facility] ED Clinical Summaryon 2022 ED Clinical Summary [address] [address] ED Clinical Summary Person Information Name: AKOSUA ORTIZ [facility] Age: 27 Years : 1995 Sex: Female Language: Pakistani PCP: LIA LINTON Marital Status: Single Phone: [phone] Visit Id: Visit Reason: Eye foreign body; [...] 11/19/2022 12:22:13 11/19/2022 12:22:13 11/19/2022 12:22:13 ADDRESS: [address] [place] [address] [place] [id number] PHYS DOC NOTES: MEDICAL INFORMATION: Prescriptions Given: New Medications [facility], [address] [place] [id number], [phone] erythromycin ophthalmic (erythromycin Opth 0.5% Oint) 1/4 [...] Follow up: With: Address: When: Occupational Health: [facility] [phone] In 3 days 11/22/2022 Comments: follow-up occupational health for your Workmen's Comp claim. With: Address: When: Ree Bell [address] [place] [address] [address], [place] [address] Business (1) In 2 days 11/21/2022 Comments: Repeat exam in 48 hours, return to the ED with new or worsening symptoms. Use ibuprofen for discomfort. Use eye ointment as prescribed. DIAGNOSIS: 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 Normal [facility] ED Note-Physicianon 11-20-19 ED Note-Physician Basic Information [...] answered. The patient was discharged home. 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 Ree Bell In 2 days 11/21/[address] [place] [phone] Business (1) Additional Instructions: Repeat exam in [...] Diagnostic Results No qualifying data available. Normal [facility] Comment on above: Result Comment: Elec tronically [...] eye drops prior to using them. 3. management trainee program stores front of a mirror so that you [...] water for at least 20 seconds. 2. management trainee program stores front of a mirror so that you [...] you dis (more content not included)... Normal [facility] ED Patient Summaryon 023 ED Patient Summary [address] [address] Patient Discharge Instructions Person Information Name: AKOSUA ORTIZ Age: 27 Years Arrival Date: 11/19/2022 10:31:28 Discharge Diagnosis: 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 Primary Care Physician: LIA LINTON Provider Information Primary Provider: Coy Soriano DO Advanced Gmat Tutor:None The exam and treatment you received in the Emergency Department were for an urgent problem and are not intended as complete care. It is important that you follow up with a doctor, nurse practitioner, or physician?s cardiovascular physician assistant for ongoing care. If your symptoms become worse or you do not improve as expected and you are unable to reach your usual health care provider, you should return to the Emergency Department. We are available 24 hours a day. AKOSUA ORTIZ has been given the following list of patient education materials, prescriptions and follow-up instructions: Follow-up Instructions: With: Address: When: Occupational Health: [facility] [phone] In 3 days 11/22/2022 Comments: follow-up occupational health for your Workmen's Comp claim. With: Address: When: Ree Bell [address] [place] [address] [address] [address] Business (1) In 2 days 11/21/2022 Comments: [...] opioids can be used to help relieve pbmsaxhl-ap-keweqg pain and are often prescribed following a [...] toilet, following guid (more content not included)... [facility] Workers Comp Formson 023 Workers Comp Forms [id number] #1.00TIFF [facility] COVID CepheidOrdered By: Desiree Reyna on 10-11-2022 SARS-CoV-2 (COVID-19) Ab IA Ql Negative Negative [facility] Comment on above: This is a duplicate Cepheid Xpert Xpress CoV-2/Flu/RSV Plus RNA by RT-PCR result to be used for statistical tracking purpose only. SARS-CoV-2 (COVID-19) RNA DAYNA+probe Ql (Unsp spec) [facility] COVID-19 / Flu A/B / RSV PCR [...] or Cepheid Disclaimer revoked sooner. PERFORMED BY: [place] [address] PATHOLOGIST RAWHIDE TRIMMER LE HERRON M.D. Normal [facility] Comment on above: Performed By: #### C OVID19 FLU RSV, CEPHEID NEG #### [facility] [address] Cepheid COVID PCR Negativeon 10-11-2022 SARS-CoV-2 (COVID-19) RNA DAYNA+probe Ql (Unsp spec) Negative Normal Negative [facility] Comment on above: Result Comment: This is a duplicate Cepheid Xpert Xpress CoV-2/Flu/RSV Plus RNA by RT-PCR result to be used for statistical tracking purpose only. PERFORMED BY: [facility] [address] [place] [address] PATHOLOGIST RAWHIDE TRIMMER LE HERRON M.D. Performed By: #### C OVID19 FLU RSV, CEPHEID NEG #### [facility] [address] [place] [id number] [facility] XR shoulder RT min 2V*on XR shoulder RT min 2V* [facility] [address] [place] [address] [place] [address] XRay Report Signed Patient: Akosua Ortiz MR#: [id number] 927 : 1995 Acct:[id number] Age/Sex: 27 / F ADM Date: 07/24/22 Loc: ER Room: Type: [facility] ER Attending Dr: Copies to: Greyson Reyna [...] Hyun Briones M.D.07/24/2022 8:57 AM Dictation Location: [place] [address] Transcribed By: [facility] 07/24/22 0857 Dictated By: Hyun Briones MD 07/24/22 0856 Signed By: 07/24/22 0857 Normal [facility] Urine culture routineOrdered By: Елена Linton on 09-17-2021 Bacteria identified Cx Nom (U) Escherichia coli [facility] VIT D 25-OH [facility]on 2021 Vitamin D, 25-Hydroxy 38.4 ng/mL Normal 30.0-100.0 [facility] Comment on above: Result Comment: Saundra min D deficiency has been defined by the [place] of Medicine and an Endocrine Society practice guideline as a level of serum 25-OH vitamin D less than 20 ng/mL (1,2). The Endocrine Society went on to further define vitamin D insufficiency as a level between 21 and 29 ng/mL (2). 1. IOM ([place] of Medicine). 2010. Dietary reference intakes for calcium and D. [place]: The National Academies Press. 2. Sarah CHAVARRIA, Mp TOMLINSON, Cortney KLEIN, et al. Evaluation, treatment, and prevention of vitamin D deficiency: an Endocrine Society clinical practice guideline. JCEM. 2010; 96(7):1911-30. Performed By: #### V ITADLC #### [facility] [address] [place], [place] [address] Dr. Lauren Quezada CBC AUTO DIFFon 09-11-2021 BASO # 0.0 103/ul Normal 0.0-0.1 [facility] Comment on above: Performed By: #### C BC ####[facility] [address] [place] [address]DrOxana Quezada Basophils/100 WBC (Bld) 0.6 % Normal 0.2-2.0 [facility] Comment on above: Performed By: #### C BC ####[facility] [address] [place] [id number] Quezada EO # 0.0 103/ul Normal 0.0-0.7 [facility] Comment on above: Performed By: #### C BC ####[facility] [address] [place] [address]Dr. Lauren Quezada Eosinophils/100 WBC (Bld) 0.5 % Critically low 0.9-7.0 [facility] Comment on above: Performed By: #### C BC ####[facility] [address] [place] [address]DrOxana Quezada Erythrocyte distribution width (RBC) [Ratio] 13.6 % Normal 11.0-15.0 [facility] Comment on above: Performed By: #### C BC ####[facility] [address] [place] [address]DrOxana Quezada Hematocrit (Bld) [Volume fraction] 36.3 % Normal 36.0-48.0 [facility] Comment on above: Performed By: #### C BC ####[facility] [address] [place] [id number]. Lauren Quezada Hemoglobin (Bld) [Mass/Vol] 12.0 g/dL Normal 12.0-16.0 [facility] Comment on above: Performed By: #### C BC ####[facility] [address] [place] [address]Dr. Lauren Quezada IG # 0.01 10e3/ul Normal 0.00-0.03 [facility] Comment on above: Performed By: #### C BC ####[facility] [address] [place] [address]Dr. Lauren Quezada IG % 0.2 % Normal 0.0-0.5 [facility] Comment on above: Performed By: #### C BC ####[facility] [address] [place] [address]Dr. Lauren Quezada LYMPH # 2.3 103/ul Normal 1.2-3.8 [facility] Comment on above: Performed By: #### C BC ####[facility] [address] [place] [address]Dr. Lauren Quezada Lymphocytes/100 WBC (Bld) 36.6 % Normal 20.5-60.0 [facility] Comment on above: Performed By: #### C BC ####[facility] [address] [place] [id number]. Lauren Quezada MANUAL DIFF REQ NO Normal [facility] Comment on above: Performed By: #### C BC ####[facility] [address] [place], [place] [address]Dr. Lauren Quezada MCH (RBC) [Entitic mass] 27.6 pg Normal 26.7-34.0 [facility] Comment on above: Performed By: #### C BC ####[facility] [address] [place] [id number]. Lauren Quezada MCHC (RBC) [Mass/Vol] 33.1 g/dL Normal 29.9-35.2 [facility] Comment on above: Performed By: #### C BC ####[facility] [address] [place] [id number]. Lauren Quezada MCV (RBC) [Entitic vol] 83.4 fL Normal 81.0-99.0 [facility] Comment on above: Performed By: #### C BC ####[facility] [address] [place] [id number]. Lauren Quezada MONO # 0.5 103/ul Normal 0.3-0.8 [facility] Comment on above: Performed By: #### C BC ####[facility] [address] [place], [place] [address]Dr. Lauren Quezada Monocytes/100 WBC (Bld) 7.3 % Normal 1.7-12.0 [facility] Comment on above: Performed By: #### C BC ####[facility] [address] [place], [place] [address]Dr. Lauren Quezada NEUT # 3.4 103/ul Normal 1.4-6.5 [facility] Comment on above: Performed By: #### C BC ####[facility] [address] [place], [place] [address]Dr. Lauren Quezada Neutrophils/100 WBC (Bld) 54.8 % Normal 43.0-75.0 [facility] Comment on above: Performed By: #### C BC ####[facility] [address] [place], [place] [address]Dr. Lauren Quezada Platelet mean volume (Bld) [Entitic vol] 10.6 fL Normal 9.5-13.5 [facility] Comment on above: Performed By: #### C BC ####[facility] [address] [place], [place] [address]Dr. Lauren Quezada PLT 282 103/ul Normal 150-450 [facility] Comment on above: Performed By: #### C BC ####[facility] [address] [place], [place] [address]Dr. Lauren Damien RBC 4.35 106/ul Normal 4.20-5.40 [facility] Comment on above: Performed By: #### C BC ####[facility] [address] [place], [place] [address]IrDr. Lauren Quezada WBC 6.2 103/ul Normal 4.0-11.0 [facility] Comment on above: Performed By: #### C BC ####[facility] [address] [place], [place] [address]WfDr. Lauren Quezada FREE T4on 09-11-2021 Free T4 [Mass/Vol] 0.78 ng/dL Normal 0.76-1.46 [facility] Comment on above: Performed By: #### F T4 #### [facility] [address] [place] [address] [address] Lauren Quezada GLYCOHEMOGLOBIN A1Con 2021 ADA RECOMMENDATION SEE BELOW Normal [facility] Comment on above: Result Comment: ADA RECOMMENDED LIMIT 4.0 - 6.0 ADA THERAPEUTIC TARGET < 7.0 ACTION SUGGESTED > 7.0 Performed By: #### A 1C #### [facility] [address] [place] [address] [address] Lauren Quezada Glucose [Mass/Vol] 114 mg/dL Normal [facility] Comment on above: Performed By: #### A 1C #### [facility] [address] [place] [address] [address] Lauren Quezada HbA1c (Bld) [Mass fraction] 5.6 % Normal 4.5-6.2 [facility] Comment on above: Performed By: #### A 1C #### [facility] [address] [place] [address] [address] Lauren Quezada LIPID PROFILEon 09-11-2021 CHOL-HDL RATIO NORM SEE BELOW Normal [facility] Comment on above: Result Comment: 3.3 - 4.4 LOW RISK 4.4 - 7.1 AVERAGE RISK 7.1 - 11.0 MODERATE RISK >11.0 HIGH RISK Performed By: #### C MP, TSH, LIPID #### [facility] [address] [place] [address] [address] Lauren Quezada Cholesterol [Mass/Vol] 152 mg/dL Normal <=200 [facility] Comment on above: Performed By: #### C MP, TSH, LIPID #### [facility] [address] [place] [address] [address] Lauren Quezada Cholesterol in HDL [Mass/Vol] 43 mg/dL Normal 40-60 [facility] Comment on above: Performed By: #### C MP, TSH, LIPID #### [facility] [address] [place] [address] [address] Lauren Quezada Cholesterol in LDL [Mass/Vol] 96.4 mg/dL Normal [facility] Comment on above: Performed By: #### C MP, TSH, LIPID #### [facility] [address] [place] [address] [address] Lauren Quezada Cholesterol.total/Cho lesterol in HDL [Mass ratio] 3.5 {ratio} Normal [facility] Comment on above: Performed By: #### C MP, TSH, LIPID #### [facility] [address] [place] [address] Dr. Lauren Quezada HDL NORMAL > or = 60 mg/dl - LOW CARDIOVASCULAR RISK <40 mg/dl - HIGH CARDIOVASCULAR RISK Normal [facility] Comment on above: Performed By: #### C MP, TSH, LIPID #### [facility] [address] [place] [address] [address] Lauren Quezada LDL CALC NORMAL SEE BELOW Normal [facility] Comment on above: Result Comment: <100 mg/dl OPTIMAL 100 - 129 mg/dl NEAR OR ABOVE OPTIMAL 130 - 159 mg/dl BORDERLINE HIGH 160 - 189 mg/dl HIGH >190 mg/dl VERY HIGH Performed By: #### C MP, TSH, LIPID #### [facility] [address] [place] [address] [address] Lauren Quezada Triglyceride [Mass/Vol] 63 mg/dL Normal <=150 [facility] Comment on above: Performed By: #### C MP, TSH, LIPID #### [facility] [address] [place] [address] [address] Lauren Quezada VLDL CALC 12.6 mg/dL Normal [facility] Comment on above: Performed By: #### C MP, TSH, LIPID #### [facility] [address] [place] [address] [address] Lauren Quezada PROF 14(COMP METB)on 022 Albumin [Mass/Vol] 4.1 g/dL Normal 3.4-5.0 [facility] Comment on above: Performed By: #### C MP, TSH, LIPID #### [facility] [address] [place] [address] [address] Lauren Quezada Albumin/Globulin [Mass ratio] 1.2 {ratio} Normal [facility] Comment on above: Performed By: #### C MP, TSH, LIPID #### [facility] [address] [place] [address] [address] Lauren Quezada ALP [Catalytic activity/Vol] 66 U/L Normal 46-116 [facility] Comment on above: Performed By: #### C MP, TSH, LIPID #### [facility] [address] [place] [address] [address] Lauren Quezada ALT [Catalytic activity/Vol] 7 U/L Critically low 14-59 [facility] Comment on above: Performed By: #### C MP, TSH, LIPID #### [facility] [address] [place] [address] [address] Lauren Quezada Anion gap [Moles/Vol] 12.2 mmol/L Normal [facility] Comment on above: Performed By: #### C MP, TSH, LIPID #### [facility] [address] [place] [address] [address] Lauren Quezada AST [Catalytic activity/Vol] 15 U/L Normal 15-37 [facility] Comment on above: Performed By: #### C MP, TSH, LIPID #### [facility] [address] [place] [address] [address] Lauren Quezada Bilirubin [Mass/Vol] 0.5 mg/dL Normal 0.2-1.0 [facility] Comment on above: Performed By: #### C MP, TSH, LIPID #### [facility] [address] [place] [address] [address] Lauren Quezada Calcium [Mass/Vol] 8.9 mg/dL Normal 8.5-10.1 [facility] Comment on above: Performed By: #### C MP, TSH, LIPID #### [facility] [address] [place] [address] [address] Lauren Quezada Chloride [Moles/Vol] 103 mmol/L Normal 98-107 [facility] Comment on above: Performed By: #### C MP, TSH, LIPID #### [facility] [address] [place] [address] [address] Lauren Quezada CO2 [Moles/Vol] 27.4 mmol/L Normal 21.0-32.0 [facility] Comment on above: Performed By: #### C MP, TSH, LIPID #### [facility] [address] [place] [address] [address] Lauren Quezada Creatinine [Mass/Vol] 0.67 mg/dL Normal 0.55-1.02 [facility] Comment on above: Performed By: #### C MP, TSH, LIPID #### [facility] [address] [place] [address] Dr. Lauren Quezada EGFR-AF [place]ONG [place]ER >60 Normal >=60 [facility] Comment on above: Performed By: #### C MP, TSH, LIPID #### [facility] [address] [place] [address] Dr. Lauren Quezada EGFR-NON AF [place] >60 Normal >=60 [facility] Comment on above: Performed By: #### C MP, TSH, LIPID #### [facility] [address] [place] [address] Dr. Lauren Quezada Globulin (S) [Mass/Vol] 3.4 g/dL Normal [facility] Comment on above: Performed By: #### C MP, TSH, LIPID #### [facility] [address] [place] [address] Dr. Lauren Quezada Glucose [Mass/Vol] 75 mg/dL Normal 74-106 [facility] Comment on above: Performed By: #### C MP, TSH, LIPID #### [facility] [address] [place] [address] Dr. Lauren Quezada Potassium [Moles/Vol] 3.6 mmol/L Normal 3.5-5.1 [facility] Comment on above: Performed By: #### C MP, TSH, LIPID #### [facility] [address] [place] [address] [address] Lauren Quezada Protein [Mass/Vol] 7.5 g/dL Normal 6.4-8.2 [facility] Comment on above: Performed By: #### C MP, TSH, LIPID #### [facility] [address] [place] [address] [address] Lauren Quezada Sodium [Moles/Vol] 139 mmol/L Normal 136-145 [facility] Comment on above: Performed By: #### C MP, TSH, LIPID #### [facility] [address] [place] [address] Dr. Lauren Quezada Urea nitrogen [Mass/Vol] 12.0 mg/dL Normal 7.0-18.0 [facility] Comment on above: Performed By: #### C MP, TSH, LIPID #### [facility] [address] [place] [address] Dr. Lauren Quezada Urea nitrogen/Creatinine [Mass ratio] 17.9 mg/mg Normal [facility] Comment on above: Performed By: #### C MP, TSH, LIPID #### [facility] [address] [place] [address] Dr. Lauren Quezada TSHon 09-11-2021 TSH 0.504 uIU/mL Normal 0.358-3.740 [facility] Comment on above: Performed By: #### C MP, TSH, LIPID #### [facility] [address] [place] [address] Dr. Lauren Quezada CHEMISTRYOrdered By: SYSTEM SYSTEM [...] mmol/L Normal 6 - 16 mEq/L F C Remisol AST [Catalytic activity/Vol] 16 [iU]/d Normal 5 - 43 Int._Unit/L [facility] Bilirubin [Mass/Vol] 0.6 mg/dL Normal 0.0 - 1 .1 mg/dL [facility] Remisol Bilirubin.direct [Mass/Vol] mg/dL Normal 0.1 - 0.4 mg/dL [facility] Remisol Bilirubin.indirect [Mass or moles/Vol] Unable to Calculate mg/dL Invalid Interpretation Code 0.1 - 0.9 mg/dL [facility] Calcium [Mass/Vol] 9.2 mg/dL Normal 8.9 - 11. 1 mg/dL [facility] Chloride [Moles/Vol] 104 mmol/L Normal 101 - 1 11 mmol/L [facility] CO2 [Moles/Vol] 25 mmol/L Normal 21 - 31 mmol/L [facility] Creatinine [Mass/Vol] 0.6 mg/dL Normal 0.5 - 1.3 mg/dL [facility] GFR/1.73 sq M.predicted among blacks MDRD (S/P/Bld) [Vol rate/Area] mL/min/1.73 m2 Normal >=59mL/min/1 .73 m2 [facility] Chem S GFR/1.73 sq M.predicted among non-blacks MDRD (S/P/Bld) [Vol rate/Area] mL/min/1.73 m2 Normal >=59mL/min/1 .73 m2 [facility] Chem S Globulin (S) [Mass/Vol] 3.4 g/dL Normal 1.4 - 4.0 gm/dL [facility] Glucose [Mass/Vol] 91 mg/dL Normal 55 - 199 mg/dL [facility] [place]n 5175 m[IU]/mL High 1 - 3 mIU/mL [facility] Lipase [Catalytic activity/Vol] 31 U/L Normal 13 - 58 unit/L [facility] Potassium [Moles/Vol] 3.2 mmol/L Low 3.5 - 5.3 mmol/L [facility] Protein [Mass/Vol] 7.7 g/dL Normal 6.0 - 7.8 gm/dL [facility] Sodium [Moles/Vol] 136 mmol/L Normal 135 - 145 mmol/L [facility] Urea nitrogen [Mass/Vol] 13 mg/dL Normal 5 - 21 mg/dL [facility] Urea nitrogen/Creatinine [Mass ratio] 22 mg/mg High 10 - 20 [facility] HEMATOLOGYOrdered By: [employer] on 08-06-2021 Basophils/100 WBC (Bld) 0.6 [...] (U) [Moles/Vol] Positive (08/06/21 6:08 AM) Normal [facility] Sero URINALYSISOrdered By: Corrine Jc on [...] AM) Normal Negative [facility] UA Auto SS Rowena.plasma/Lithiu m.RBC (Bld) [Mass ratio] 0-3 /HPF Normal 0-3/HPF [facility] Auto SS Mucus Ql (Urine sed) 3+ (08/06/21 6:08 AM) Normal [facility] Auto SS Nitrite Ql (U) Negative (08/06/21 6:08 AM) Normal Negative [facility] UA Auto SS pH (U) 6.0 *NA* (08/06/21 6:08 AM) Invalid Interpretation Code 5.0 - 9.0 [facility] Auto SS Protein (U) [Mass/Vol] Negative (08/06/21 6:08 AM) Normal Negative [facility] Auto SS Specific gravity (U) [Rel density] >=1.030 *NA* (08/06/21 6:08 AM) Invalid Interpretation Code 1.005 - 1.030 [facility] Auto SS UA Spec Desc Clean Catch (08/06/21 6:08 AM) Normal [facility] UA Auto SS Urobilinogen Qn (U) [id number] {Lashay'U}/dL Normal 0.0 - 1.0 EU/dL [facility] Auto SS WBC Auto Ql (U) Negative (08/06/21 6:08 AM) Normal Negative [facility] UA Auto SS WBC LM.HPF (Urine sed) [#/Area] 0-5 /HPF Normal 0-5/HPF [facility] UA Auto SS GENITAL CULTUREon 07-16-2021 Genital Culture, Routine Final report Normal [facility] Comment on above: Performed By: #### C XGENIT ####[facility] [id number] [address]Dr. Lauren Quezada Result 1 Comment Normal [facility] Comment on above: Result Comment: Rout ine genital tori. Performed By: #### C XGENIT ####[facility] [id number] [address]Dr. Lauren Quezada CBC AUTO DIFFon 07-12-2021 BASO # 0.1 103/ul Normal 0.0-0.1 [facility] Comment on above: Performed By: #### C BC #### [facility] [address] [address] [address] Lauren Quezada Basophils/100 WBC (Bld) 0.8 % Normal 0.2-2.0 [facility] Comment on above: Performed By: #### C BC #### [facility] [address] [place] [address] Dr. Lauren Quezada EO # 0.1 103/ul Normal 0.0-0.7 [facility] Comment on above: Performed By: #### C BC #### [facility] [address] [place] [address] Dr. Lauren Quezada Eosinophils/100 WBC (Bld) 1.5 % Normal 0.9-7.0 [facility] Comment on above: Performed By: #### C BC #### [facility] [address] [place] [address] Dr. Lauren Quezada Erythrocyte distribution width (RBC) [Ratio] 13.7 % Normal 11.0-15.0 [facility] Comment on above: Performed By: #### C BC #### [facility] [address] [place] [address] Dr. Lauren Quezada Hematocrit (Bld) [Volume fraction] 31.5 % Critically low 36.0-48.0 [facility] Comment on above: Performed By: #### C BC #### [facility] [address] [place] [address] Dr. Lauren Quezada Hemoglobin (Bld) [Mass/Vol] 10.2 g/dL Critically low 12.0-16.0 [facility] Comment on above: Performed By: #### C BC #### [facility] [address] [place] [address] Dr. Lauren Quezada IG # 0.01 10e3/ul Normal 0.00-0.03 [facility] Comment on above: Performed By: #### C BC #### [facility] [address] [place] [address] Dr. Lauren Quezada IG % 0.2 % Normal 0.0-0.5 [facility] Comment on above: Performed By: #### C BC #### [facility] [address] [place] [address] Dr. Lauren Quezada LYMPH # 2.4 103/ul Normal 1.2-3.8 [facility] Comment on above: Performed By: #### C BC #### [facility] [address] [address] [address] Lauren Quezada Lymphocytes/100 WBC (Bld) 36.8 % Normal 20.5-60.0 [facility] Comment on above: Performed By: #### C BC #### [facility] [address] [address] [address] Lauren Quezada MANUAL DIFF REQ NO Normal [facility] Comment on above: Performed By: #### C BC #### [facility] [address] [place] [address] Dr. Lauren Quezada MCH (RBC) [Entitic mass] 27.6 pg Normal 26.7-34.0 [facility] Comment on above: Performed By: #### C BC #### [facility] [address] [place] [address] Dr. Lauren Quezada MCHC (RBC) [Mass/Vol] 32.4 g/dL Normal 29.9-35.2 [facility] Comment on above: Performed By: #### C BC #### [facility] [address] [place] [address] Dr. Lauren Quezada MCV (RBC) [Entitic vol] 85.1 fL Normal 81.0-99.0 [facility] Comment on above: Performed By: #### C BC #### [facility] [address] [place] [address] Dr. Lauren Quezada MONO # 0.9 103/ul Critically high 0.3-0.8 [facility] Comment on above: Performed By: #### C BC #### [facility] [address] [place] [address] Dr. Lauren Quezada Monocytes/100 WBC (Bld) 13.4 % Critically high 1.7-12.0 [facility] Comment on above: Performed By: #### C BC #### [facility] [address] [place] [address] Dr. Lauren Quezada NEUT # 3.1 103/ul Normal 1.4-6.5 [facility] Comment on above: Performed By: #### C BC #### [facility] [address] [address] [address] Lauren Quezada Neutrophils/100 WBC (Bld) 47.3 % Normal 43.0-75.0 [facility] Comment on above: Performed By: #### C BC #### [facility] [id number] Lauren Quezada Platelet mean volume (Bld) [Entitic vol] 10.6 fL Normal 9.5-13.5 [facility] Comment on above: Performed By: #### C BC #### [facility] [address] [address] [address] Lauren Quezada PLT 227 103/ul Normal 150-450 [facility] Comment on above: Performed By: #### C BC #### [facility] [id number] Lauren Quezada RBC 3.70 106/ul Critically low 4.20-5.40 [facility] Comment on above: Performed By: #### C BC #### [facility] [address] [address] [address] Lauren Quezada WBC 6.5 103/ul Normal 4.0-11.0 [facility] Comment on above: Performed By: #### C BC #### [facility] [id number] Lauren Quezada PREG QUANT HCGon 07-12-2021 HCG QUANT 30051 mIU/mL Normal [facility] Comment on above: Performed By: #### P REGQNT ####[facility] [id number] [address]Dr. Lauren Quezada HCG RANGE SEE BELOW Normal [facility] Comment on above: Result Comment: 5-50 0-1 WEEK 40-300 1-2 WEEKS 100-1,000 2-3 WEEKS 500-6,000 3-4 WEEKS 5,000-200,000 1-2 MONTHS 10,000-100,000 2-3 MONTHS 3,000-50,000 2ND TRIMESTER 1,000-50,000 3RD TRIMESTER Performed By: #### P REGQNT ####[facility] [id number] [id number]. Lauren Quezada PROF CHEM 8 (BAS METB)on Anion gap [Moles/Vol] 11.9 mmol/L Normal [facility] Comment on above: Performed By: #### B MP #### [facility] [address] [address] [address] Lauren Quezada Calcium [Mass/Vol] 8.7 mg/dL Normal 8.5-10.1 [facility] Comment on above: Performed By: #### B MP #### [facility] [address] [address] [address] Lauren Quezada Chloride [Moles/Vol] 105 mmol/L Normal 98-107 [facility] Comment on above: Performed By: #### B MP #### [facility] [address] [place] [address] Dr. Lauren Quezada CO2 [Moles/Vol] 26.7 mmol/L Normal 21.0-32.0 [facility] Comment on above: Performed By: #### B MP #### [facility] [address] [address] [address] Lauren Quezada Creatinine [Mass/Vol] 0.51 mg/dL Critically low 0.55-1.02 [facility] Comment on above: Performed By: #### B MP #### [facility] [address] [place] [address] Dr. Lauren Quezada EGFR-AF [place]ER >60 Normal >=60 [facility] Comment on above: Performed By: #### B MP #### [facility] [address] [address] [address] Lauren Quezada EGFR-NON AF [place]ER >60 Normal >=60 [facility] Comment on above: Performed By: #### B MP #### [facility] [address] [address] [address] Lauren Quezada Glucose [Mass/Vol] 77 mg/dL Normal 74-106 [facility] Comment on above: Performed By: #### B MP #### [facility] [address] [place] [address] Dr. Lauren Quezada Potassium [Moles/Vol] 3.6 mmol/L Normal 3.5-5.1 [facility] Comment on above: Performed By: #### B MP #### [facility] [address] [address] [address] Lauren Quezada Sodium [Moles/Vol] 140 mmol/L Normal 136-145 [facility] Comment on above: Performed By: #### B MP #### [facility] [id number] Lauren Quezada Urea nitrogen [Mass/Vol] 10.0 mg/dL Normal 7.0-18.0 [facility] Comment on above: Performed By: #### B MP #### [facility] [address] [place], [place] [id number] Dr. Lauren Quezada Urea nitrogen/Creatinine [Mass ratio] 19.6 mg/mg Normal [facility] Comment on above: Performed By: #### B MP #### [facility] [address] [place], [place] [id number] Dr. Lauren Quezada US PREG TVon 07-12-2021 [...] ALON CASH Date: 2021-07-12 01:23 Normal [facility] WET PREPon 07-12-2021 CLUE CELLS NONE SEEN Normal NONE SEEN [facility] Comment on above: Performed By: #### W P #### [facility] [address] [address] [address] Lauren Quezada FUNGAL ELEMENTS NONE SEEN Normal NONE SEEN [facility] Comment on above: Performed By: #### W P #### [facility] [address] [address] [address] Lauren Quezada RBC -WET PREP NONE SEEN Normal NONE SEEN [facility] Comment on above: Performed By: #### W P #### [facility] [address] [place] [address] Dr. Lauren Quezada TRICHOMONAS NONE SEEN Normal NONE SEEN [facility] Comment on above: Performed By: #### W P #### [facility] [address] [address] [address] Lauren Quezada WBC- WET PREP NONE SEEN Normal NONE SEEN [facility] Comment on above: Performed By: #### W P #### [facility] [address] [address] [address] Lauren Quezada WET PREP BACTERIA RARE Abnormal NONE SEEN [facility] Comment on above: Performed By: #### W P #### [facility] [address] [address] [address] Lauren Quezada CHEMISTRYOrdered By: SYSTEM SYSTEM [...] mmol/L Normal 6 - 16 mEq/L [facility] Remisol AST [Catalytic activity/Vol] 19 [iU]/d Normal 5 - 43 Int._Unit/L [facility] Bilirubin [Mass/Vol] 0.7 mg/dL Normal 0.0 - 1 .1 mg/dL [facility] Bilirubin.direct [Mass/Vol] 0.1 mg/dL Normal 0.1 - 0.4 mg/dL [facility] Bilirubin.indirect [Mass or moles/Vol] 0.6 mg/dL Normal 0.1 - 0.9 mg/dL [facility] Calcium [Mass/Vol] 8.9 mg/dL Normal 8.9 - 11. 1 mg/dL [facility] Chloride [Moles/Vol] 106 mmol/L Normal 101 - 1 11 mmol/L [facility] CO2 [Moles/Vol] 23 mmol/L Normal 21 - 31 mmol/L [facility] Creatinine [Mass/Vol] 0.6 mg/dL Normal 0.5 - 1.3 mg/dL [facility] GFR/1.73 sq M.predicted among blacks MDRD (S/P/Bld) [Vol rate/Area] mL/min/1.73 m2 Normal >=59mL/min/1 .73 m2 [facility] Chem S GFR/1.73 sq M.predicted among non-blacks MDRD (S/P/Bld) [Vol rate/Area] mL/min/1.73 m2 Normal >=59mL/min/1 .73 m2 [facility] Chem S Globulin (S) [Mass/Vol] 3.2 g/dL Normal 1.4 - 4.0 gm/dL [facility] Glucose [Mass/Vol] 113 mg/dL Normal 55 - 199 mg/dL [facility] Lipase [Catalytic activity/Vol] 25 U/L Normal 13 - 58 unit/L [facility] Potassium [Moles/Vol] 3.9 mmol/L Normal 3.5 - 5.3 mmol/L [facility] Protein [Mass/Vol] 7.5 g/dL Normal 6.0 - 7.8 gm/dL [facility] Sodium [Moles/Vol] 137 mmol/L Normal 135 - 145 mmol/L [facility] Urea nitrogen [Mass/Vol] 14 mg/dL Normal [...] 33.6 g/dL Normal 31.4 - 36.0 gm/dL [facility] HemeAutoSS MCV (RBC) [Entitic vol] 81.8 fL Normal 80.0 - 100.0 fL [facility] HemeAutoSS Platelet mean volume (Bld) [Entitic vol] 9.0 fL Normal 6.4 - 10.8 fL [facility]eAutoSS Platelets (Bld) [#/Vol] 230.0 E9/L Normal 150.0 - 500.0 E9/L [facility]eAutoSS RBC (Bld) [#/Vol] 4.7 E12/L Normal 4.3 - 5.9 E12/L [facility] HemeAutoSS WBC corrected for nucl RBC Auto (Bld) [#/Vol] 9.9 E9/L Normal 4.0 - 11.0 E9/L [facility] HemeAutoSS SEROLOGYOrdered By: Megan beckford on 05-21-2021 Beta hCG Ql Negative (05/21/21 9:54 AM) Normal [facility] Man Sero URINALYSISOrdered By: Megan Bailey on 05-21-2021 Bacteria LM Ql (Urine sed) 3+ /HPF Invalid Interpretation Code Trace/HPF [facility] UA Auto SS Bilirubin Ql (U) Negative (05/21/21 11:17 AM) Normal Negative [facility] UA Auto SS Clarity (U) SL CLOUDY Invalid Interpretation Code [facility] UA Auto SS Color (U) Yellow (05/21/21 11:17 AM) Normal Yellow [facility] UA Auto SS Epithelial cells.squamous LM.HPF (Urine sed) [#/Area] 3-4 /HPF Normal 0-2/HPF [facility] Aut o SS Glucose Test strip (U) [Mass/Vol] Negative (05/21/21 11:17 AM) Normal Negative [facility] UA Auto SS Hemoglobin Ql (U) Negative (05/21/21 11:17 AM) Normal Negative [facility] UA Auto SS Ketones (U) [Mass/Vol] Negative (05/21/21 11:17 AM) Normal Negative [facility] UA Auto SS Rowena.plasma/Lithiu m.RBC (Bld) [Mass ratio] 0-3 /HPF Normal 0-3/HPF [facility] UA Auto SS Mucus Ql (Urine sed) 1+ (05/21/21 11:17 AM) Normal [facility] UA Auto SS Nitrite Ql (U) Positive *ABN* (05/21/21 11:17 AM) Invalid Interpretation Code Negative [facility] UA Auto SS pH (U) 6.0 *NA* (05/21/21 11:17 AM) Invalid Interpretation Code 5.0 - 9.0 [facility] UA Auto SS Protein (U) [Mass/Vol] Negative (05/21/21 11:17 AM) Normal Negative [facility] UA Auto SS Specific gravity (U) [Rel density] 1.025 *NA* (05/21/21 11:17 AM) Invalid Interpretation Code 1.005 - 1.030 [facility] UA Auto SS UA Spec Desc Clean Catch (05/21/21 11:17 AM) Normal [facility] UA Auto SS Urobilinogen Qn (U) [id number] {Lashay'U}/dL Normal 0.0 - 1.0 EU/dL [facility] UA Auto SS WBC Auto Ql (U) Trace *ABN* (05/21/21 11:17 AM) Invalid Interpretation Code Negative [facility] UA Auto SS WBC LM.HPF (Urine sed) [#/Area] 0-5 /HPF Normal 0-5/HPF [facility] UA Auto SS Vital Signs Date Time Vital Sign Value Performing Clinician Facility 05-24-2023 15:39-0400 Body height 158.12 cm [facility] 05-24-2023 15:39-0400 Body mass index (BMI) [Ratio] 34 kg/m2 [facility] 05-24-2023 15:39-0400 Body weight 85.02 kg [facility] 05-24-2023 15:39-0400 Diastolic blood pressure 70 mm[Hg] [facility] 05-24-2023 15:39-0400 Heart rate 81 /min [facility] 05-24-2023 15:39-0400 Respiratory rate 18 /min [facility] 05-24-2023 15:39-0400 SaO2% (BldA) [Mass fraction] 97 % [facility] 05-24-2023 15:39-0400 Systolic blood pressure 106 mm[Hg] [facility] 05-18-2023 05:34-0400 Body temperature 98.24 [degF] Erenscot Yanceyner [facility] 05-18-2023 05:34-0400 Diastolic blood pressure 87 mm[Hg] Eren Vitaly [facility] 05-18-2023 05:34-0400 Heart rate 89 /min Eren Vitaly [facility] 05-18-2023 05:34-0400 Respiratory rate 16 /min Eren Vitaly [facility] 05-18-2023 05:34-0400 SaO2% (BldA) [Mass fraction] 97 % Eren Vitaly [facility] 05-18-2023 05:34-0400 Systolic blood pressure 121 mm[Hg] Eren Vitaly [facility] 04-09-2023 10:56-0500 Body height 158.12 cm [facility] 04-09-2023 10:56-0500 Body mass index (BMI) [Ratio] 33.8 kg/m2 [facility] 04-09-2023 10:56-0500 Body weight 84.56 kg [facility] 04-09-2023 10:56-0500 Diastolic blood pressure 70 mm[Hg] [facility] 04-09-2023 10:56-0500 Heart rate 82 /min [facility] 04-09-2023 10:56-0500 Respiratory rate 18 /min [facility] 04-09-2023 10:56-0500 SaO2% (BldA) [Mass fraction] 99 % [facility] 04-09-2023 10:56-0500 Systolic blood pressure 112 mm[Hg] [facility] 01-18-2023 09:00-0500 Body height 158.12 cm Dacia Blas Other [facility] Other 01-18-2023 09:00-0500 Body mass index (BMI) [Ratio] 34.87 kg/m2 Dacia Blas Other [facility] Other 01-18-2023 09:00-0500 Body weight 87.18 kg Dacia Blas Other [facility] Other 01-18-2023 09:00-0500 Diastolic blood pressure 66 mm[Hg] Dacialux Blas Other [facility] Other 01-18-2023 09:00-0500 Respiratory rate 18 /min Dacia Blas Other [facility] Other 01-18-2023 09:00-0500 SaO2% (BldA) [Mass fraction] 97 % Dacia Blas Other [facility] Other 01-18-2023 09:00-0500 Systolic blood pressure 98 mm[Hg] Dacia Blas Other [facility] Other 11-19-2022 10:40-0400 Body temperature 98.06 [degF] Coy Bo [facility] 11-19-2022 10:40-0400 Diastolic blood pressure 82 mm[Hg] Coy Soriano [facility] 11-19-2022 10:40-0400 Heart rate 81 /min Coy Bo [facility] 11-19-2022 10:40-0400 Respiratory rate 18 /min Coy Soriano [facility] 11-19-2022 10:40-0400 SaO2% (BldA) [Mass fraction] 98 % Coy Soriano [facility] 11-19-2022 10:40-0400 Systolic blood pressure 126 mm[Hg] Coy Bo [facility] 10-11-2022 07:52-0400 Diastolic blood pressure 55 mm[Hg] [employer] Елена Reginaldo Work Phone: [facility] 10-11-2022 07:52-0400 Heart rate 99 /min [employer] Елена Reginaldo Work Phone: [facility] 10-11-2022 07:52-0400 Respiratory rate 18 /min [employer] Елена Reginaldo Work Phone: [facility] 10-11-2022 07:52-0400 SaO2% (BldA) [Mass fraction] 98 % [employer] Елена Reginaldo Work Phone: [facility] 10-11-2022 07:52-0400 Systolic blood pressure 116 mm[Hg] [employer] Елена Reginaldo Work Phone: [facility] 10-11-2022 05:41-0400 Body height 157.48 cm [employer] Елена Reginaldo Work Phone: [facility] 10-11-2022 05:41-0400 Body temperature 99.4 [degF] [employer] Елена Reginaldo Work Phone: [facility] 10-11-2022 05:41-0400 Body weight 79.37 kg [employer] Елена Reginaldo Work Phone: [facility] 07-24-2022 03:01-0400 Body temperature 97.6 [degF] [employer] Елена Reginaldo Work Phone: [facility] 07-24-2022 03:01-0400 Diastolic blood pressure 74 mm[Hg] [employer] Елена Reginaldo Work Phone: [facility] 07-24-2022 03:01-0400 Heart rate 85 /min [employer] Елена Reginaldo Work Phone: [facility] 07-24-2022 03:01-0400 Respiratory rate 18 /min [employer] Елена Reginaldo Work Phone: [facility] 07-24-2022 03:01-0400 SaO2% (BldA) [Mass fraction] 99 % [employer] MODE[employer]ilverio Linton Work Phone: [facility] 07-24-2022 03:01-0400 Systolic blood pressure 143 mm[Hg] [employer] Linton Work Phone: [facility] 07-24-2022 03:00-0400 Body height 157.48 cm [employer] Linton Work Phone: [facility] 07-24-2022 03:00-0400 Body weight 90.8 kg [employer] Linton Work Phone: [facility] 08-06-2021 09:40-0400 Diastolic blood pressure 72 mm[Hg] Eren Vitaly [facility] 08-06-2021 09:40-0400 Heart rate 80 /min Eren Vitaly [facility] 08-06-2021 09:40-0400 Respiratory rate 16 /min Eren Vitaly [facility] 08-06-2021 09:40-0400 SaO2% (BldA) [Mass fraction] 99 % Eren Vitaly [facility] 08-06-2021 09:40-0400 Systolic blood pressure 108 mm[Hg] Eren Vitaly [facility] 08-06-2021 07:15-0400 Diastolic blood pressure 65 mm[Hg] Eren Vitaly [facility] 08-06-2021 07:15-0400 Heart rate 86 /min Eren Vitaly [facility] 08-06-2021 07:15-0400 Respiratory rate 16 /min Eren Vitaly [facility] 08-06-2021 07:15-0400 SaO2% (BldA) [Mass fraction] 99 % Eren Vitaly [facility] 08-06-2021 07:15-0400 Systolic blood pressure 103 mm[Hg] Eren Vitaly [facility] 08-06-2021 05:44-0400 Body temperature 97.88 [degF] Eren Vitaly [facility] 08-06-2021 05:44-0400 Diastolic blood pressure 74 mm[Hg] Eren Vitaly [facility] 08-06-2021 05:44-0400 Heart rate 72 /min Eren Vitaly [facility] 08-06-2021 05:44-0400 Respiratory rate 16 /min Eren Vitaly [facility] 08-06-2021 05:44-0400 SaO2% (BldA) [Mass fraction] 100 % Eren Vitaly [facility] [place] 08-06-2021 05:44-0400 Systolic blood pressure 131 mm[Hg] Eren Vitaly [facility] 05-21-2021 11:49-0400 Diastolic blood pressure 58 mm[Hg] [facility] 05-21-2021 11:49-0400 Heart rate 90 /min [facility] 05-21-2021 11:49-0400 Mean blood pressure 79 mm[Hg] [facility] 05-21-2021 11:49-0400 Respiratory rate 16 /min [facility] 05-21-2021 11:49-0400 SaO2% (BldA) [Mass fraction] 98 % [facility] 05-21-2021 11:49-0400 Systolic blood pressure 120 mm[Hg] [facility] 05-21-2021 10:59-0400 Diastolic blood pressure 70 mm[Hg] [facility] 05-21-2021 10:59-0400 Heart rate 98 /min [facility] 05-21-2021 10:59-0400 Mean blood pressure 83 mm[Hg] [facility] 05-21-2021 10:59-0400 Respiratory rate 16 /min [facility] 05-21-2021 10:59-0400 SaO2% (BldA) [Mass fraction] 100 % [facility] 05-21-2021 10:59-0400 Systolic blood pressure 109 mm[Hg] [facility] 05-21-2021 09:34-0400 Body temperature 98.06 [degF] [facility] 05-21-2021 09:34-0400 Diastolic blood pressure 58 mm[Hg] [facility] 05-21-2021 09:34-0400 Heart rate 101 /min [facility] 05-21-2021 09:34-0400 Respiratory rate 18 /min [facility] 05-21-2021 09:34-0400 SaO2% (BldA) [Mass fraction] 101 % [facility] 05-21-2021 09:34-0400 Systolic blood pressure 119 mm[Hg] [facility] Encounters Encounter Date Encounter Type Care Provider Facility Start: 05-24-2023 End: 05-24-2023 ambulatory [facility] Work Phone: Start: 05-24-2023 End: 05-24-2023 Patient encounter procedure [facility] Nishant Work Phone: Start: 05-18-2023 End: 05-18-2023 Emergency department patient visit Eren Haider Facility:[facility] Start: 05-18-2023 End: 05-18-2023 Emergency department patient visit Eren Haider [facility] Start: 04-09-2023 End: 04-09-2023 Patient encounter procedure [facility] Family [facility] [place] Work Phone: Start: 01-18-2023 Office outpatient ne w 30 minutes Daciaflor Blas [facility] [place] Start: 01-18-2023 End: 01-18-2023 ambulatory Dacia Blas [facility] Other Start: 01-18-2023 End: 01-18-2023 Departed Referred DO Dacia Blas Work Phone: [facility] [place] Work Phone: Start: 01-06-2023 End: 01-07-2023 ambulatory Sanjeev Ramos Facility:[facility] Start: 01-06-2023 End: 01-06-2023 Lab Drop off Sanjeev Ramos [facility] Start: 11-19-2022 End: 11-20-2022 ambulatory Lefty SAN LUIS Facility:[facility] Start: 11-19-2022 End: 11-19-2022 Emergency department patient visit Coy Soriano Facility:[facility] Start: 11-19-2022 End: 11-19-2022 Emergency department patient visit Coy Soriano [facility] Start: 10-11-2022 End: 10-11-2022 Emergency department patient visit Greyson Reyna Facility:[facility] Start: 10-11-2022 End: 10-11-2022 Emergency department patient visit ZANDRA Linton Work Phone: [facility] Work Phone: Start: 07-24-2022 End: 07-24-2022 Emergency department patient visit Greyson Reyna Facility:[facility] Start: 07-24-2022 End: 07-24-2022 Emergency department patient visit ZANDRA Marinellisha Reginaldo Work Phone: [facility] Work Phone: Start: 12-01-2021 End: 12-01-2021 ambulatory ЕЛЕНА LINTON Facility:[facility] Start: 10-27-2021 Encounter for genera l adult medical examination without abnormal findings ЕЛЕНА M REGINALDO [facility] Start: 09-11-2021 End: 09-12-2021 ambulatory ЕЛЕНА LINTON Facility:[facility] Start: 09-11-2021 End: 09-12-2021 Encounter for general adult medical examination without abnormal findings ЕЛЕНА LINTON Facility:[facility] Start: 09-10-2021 End: 09-10-2021 Departed Referred [facility] [place] Start: 08-06-2021 End: 08-06-2021 Emergency department patient visit Eren SOxana Haider [facility] Start: 07-12-2021 End: 07-12-2021 ambulatory ROSY MERE Facility:[facility] Start: 05-21-2021 End: 05-21-2021 Emergency department patient visit Samantha Mu Gregorio [facility] Procedures Date Procedure Procedure Detail Performing Clinician Start: 10-11-2022 SARS-CoV-2, Influenz a & RSV (PCR) ZANDRA Елена Linton Work Phone: Start: 07-24-2022 Plain X-ray of right shoulder [employer] Linton Work Phone: Urine culture Plan of Treatment Date Care Activity Detail Author Start: 05-24-2023 Patient referral [facility] Work Phone: Start: 07-24-2022 Plain X-ray of right shoulder XR shoulder RT min 2V* [facility] Start: 07-24-2022 XR Shoulder - right Views [facility] Drugs identified in Urine [facility] Patient Education [facility] Work Phone: Patient referral [facility] Work Phone: Immunizations Immunization Date Immunization Notes Care Provider Maicol cortez 09-17-2020 tetanus toxoid, reduced diphtheria toxoid, and acellular pertussis vaccine, adsorbed; Translations: [Boostrix (Tdap)] Samantha Perkins [facility] NEGATED: Highlighted row has not occurred!01-18-2023 Flu Shot - Documentation Purposes Only Patient Objection Dacia Blas Other [employer] Other Payers Date Payer Category Payer [facility] [id number] 2023 Unknown [id number] 2022 Unknown [id number] 2022 Self-pay [id number] 1996 Unknown [id number] 1996 Unknown [id number] 1996 Unknown [id number] 1996 Unknown [id number] 1996 Unknown [id number] 1996 Unknown [id number] 1996 Unknown [id number] 1959 Unknown [id number] Unknown Regular Insurance [id number] Unknown HCAP/HFA/FAP Active [id number] Unknown [id number] Unknown [id number] Unknown [id number] Social History Date Type Detail Facility Start: 05-13-2020 End: 04-09-2023 Tobacco smoking status Never smoked tobacco (finding) [facility] Tobacco smoking status Never [facility] Sex Assigned At Female [facility] Start: 1995 Sex Assigned At Female [facility] Start: 07-24-2022 Tobacco smoking stat us MEIS Smoker (finding) [facility] Start: 10-11-2022 End: 10-11-2022 Tobacco smoking status NHIS Current some day smoker [facility] Tobacco Current vaping o r e-cigarette use Smokeless Tobacco Use:. [facility] Tobacco smoking status No Smokin g Status Entered [facility] Functional Status Date Assessment Result Facility 05-18-2023 Functional Status N/A [facility] 11-19-2022 Functional Status N/A [facility] 08-06-2021 Functional Status N/A [facility] Clinical Notes 05-21-2021 to 05-24-2023 Note Date & Type Note Facility 05-24-2023 Hospital Discharg e instructions Ambulatory OrdersReferral to Behavioral Health Time Frame: 05/24/23, Location: None Selected [facility] Work Phone: 05-18-2023 Evaluation + Plan note Extrac latha from: Title:ED Note Author:Eren Haider DO Date :05/18/23 Encounter for test with result negative (Z32.02: Encounter for test, result negative) Orders: U Beta Hcg Qual [facility] [place]04-09-2024 Hospital Discharge instructions Patient Education 05/18/2023 06:09:27 Home Test Information Home Test Information Why am I having this test? A home test helps you determine whether you are or not. There are several types of home tests that can be bought at a store or pharmacy. Home tests are very accurate when: You are at least 3 4 weeks . It has been 1 2 weeks since your missed period. You use the test according to the package instructions. What is being tested? A home test detects the presence of a hormone called human chorionic gonadotropin (hCG) in your urine. HCG is produced by cells of the placenta. The placenta is the organ that forms to nourish and support a developing baby. What kind of sample is taken? Home tests require a urine sample. How do I collect samples at home? Most kits use a plastic testing device with a strip of paper that indicates whether there is hCG inyour urine. Follow the test package instructions very carefully for how to test your urine. Depending on the test, you may need to: Urinate directly onto the stick. Urinate into a cup. Wait for the results as directed by the package instructions. The amount of time may be different for each type of test. How do I prepare for this test? For best results, collect the sample the first time you urinate in the morning. This when the concentration of hCG is highest. How are the results reported? Follow the test package instructions for how to read your test results. Depending on the test, results may be displayed as: A plus or a minus sign. One or two lines. or not . What do the results mean? Positive test result A positive home test means that you are . It is important to schedule an appointment with your health care provider to start care. Your health care provider may perform additional testing to confirm the and to determine that you have a normal . Negative test result If you have a negative home test you may want to wait a few days and then repeat the homepregnancy test. Many kits contain a second test as a back-up. If you have a negative test and also have symptoms of , contact your health care provider.Your health care provider can test a sample of your blood to check for . A blood test may return a positive result even if a urine test was negative because blood tests are more accurate. This means blood tests can detect hCG earlier than urine tests. Talk with your health care provider about what your results mean. Some things to know about a home test Sometimes, a home test may report that you are when you are not (false-positive result). This can happen if you: Are taking certain medicines, such as: ?Medicine to control seizures. ?Anti-anxiety medicine. ?Fertility medicine with hCG. Have a medical condition that affects your hormone levels. Had a recent loss (miscarriage) or . Sometimes, a home test may report that you are not when you are (false-negative result). This can happen if you: Take the test too early in your . Before 3 4 weeks of , there may not be enough hCG to detect. Drink a lot of liquid before the test. Use an test. Are taking certain medicines, such as antihistamines or water pills (diuretics). Questions to ask your health care provider Ask your health care provider, or the department that is doing the test: When will my results be ready? How will I get my results? What are my treatment options? What other tests do I need? What are my next steps? Summary A home test helps you determine whether you are or not by detecting the presenceof the hormone human chorionic gonadotropin (hCG) in a sample of your urine. Follow the test package instructions very carefully. For best results, collect the sample the firsttime you urinate in the morning. This when the concentration of hCG is highest. Home tests are very accurate when you are 3 4 weeks or when it has been 1 2 weeks since your missed period. A positive home test means that you are . It is important to schedule an appointment with your health care provider to start care. This information is not intended to replace advice given to you by your health care provider. Make sure you discuss any questions you have with your health care provider. Document Revised: 10/28/2020 Document Reviewed: 10/28/2020 [employer] Patient Education 2022 [employer]. Follow Up Care 05/18/2023 05:31:15 With:LIA LINTON Address:Unknown When:Within 3 Day(s) [facility]12-11-2023 Evaluation note* Encounter Date Diagnosis Assessment Notes Treatment Notes Treatment Clinical Notes Jan, Generalized anxiety disorder (ICD-10 - [...] medication use (ICD-10 - Z79.899) ?positive on benzodiazepines, will send [employer] Other 11-29-2023 Evaluation + Plan note Diagnostic Tests Pending * PAP [id number] 01/06/23 [facility]10-12-2023 Evaluation + Plan noteExtracted from: Title:ED Note Author:Coy Soriano DO Date: 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 (H16.133: Photokeratitis, bilateral) Orders: erythromycin ophthalmic, 1/4 inch ribbon, Eye-Both, As Directed for 5 day(s), 3.5 gm, Refill(s) 0, [facility], 157, cm, 11/19/22 10:43:00 EDT, Height/Length Dosing, 87.7, kg, 11/19/22 10:43:00 EDT, Weight Dosing fluorescein ophthalmic, 1 mg, 1 EA, Test, OPTH, Once, Stop date 11/19/22 10:45:00 EDT, STAT, Start date 11/19/22 10:45:00 EDT tetracaine ophthalmic, 2 drop(s), Soln-Opth, Eye-Both, Once, Stop date 11/19/22 10:45:00 EDT, STAT, Start date 11/19/22 10:45:00 EDT [facility]10-12-2023 Hospital Discharge instructions Patient Education 11/19/2022 11:50:54 [...] Follow these instructions at home: Medicines Take ivik-qxe-ptfyuku and prescription medicines only as told by [...] provider. Document Revised: 12/08/2019 Document Reviewed: 12/08/2019 [employer] Patient Education 2022 [employer]. 11/19/2022 11:50:54 How to Use Eye Drops [...] shaking eye drops prior to using them. 3.management trainee program stores front of a mirror so that you [...] and water for at least 20 seconds. 2.management trainee program stores front of a mirror so that you [...] provider. Document Revised: 05/28/2021 Document Reviewed: 05/28/2021 [employer] Patient Education 2022 [employer]. Follow Up Care 11/19/2022 10:32:09 With:Occupational Health: [facility] [phone] Address:Unknown When:11/22/2022 11:46:37 Comments:follow-up occupational health for your Workmen's Comp claim. With:Ree Bell Address: [address] [place] [employer], [place] [id number] Business (1) When:11/21/2022 11:47:08 Comments:Repeat exam in 48 hours, return to the ED with new or worsening symptoms. Use ibuprofen for discomfort. Use eye ointment as prescribed. [facility]06-29-2022 Evaluation + Plan noteExtracted from: Title:ED Note [...] Patient signed out to me by Dr. Haider with quantitative hCG and ultrasound pending. Patient [...] work-up, vitals were discussed with the on-call SERVICE GIRL Dr. Gray. As her was performed at [facility] she reports they would have sent pathology to assure that they obtain products of conception. Her care will be determined by the results of this. He reports that she needs to call the [facility] office today to follow-up on the pathology report so that they can continue appropriate care depending on those results. I discussed findings and recommendations of my SERVICE GIRL with the patient. She does show me [...] The patient was discharged home. Coy Soriano [facility]06-29-2022 Hospital Discharge instructions Patient Education 08/06/2021 [...] that this is safe. General instructions Take ikmh-ntw-vxhcckb and prescription medicines only as told by [...] 11/04/2005 Document Revised: 05/16/2019 Document Reviewed: 04/29/2017 [employer] Patient Education 2020 [employer]. Follow Up Care 08/06/2021 05:36:46 With:[facility] [...] weakness, or any new or worsening symptoms. [facility]04-13-2022 Hospital Discharge instructions Patient Education 05/21/2021 12:12:36 [...] Treatment for this condition includes: Antibiotic medicine. Qloe-koq-cxzsmzo medicines to treat discomfort. Drinking enough water [...] Follow these instructions at home: Medicines Take vzvj-pjp-jdwumta and prescription medicines only as told by [...] 11/04/2005 Document Revised: 01/12/2019 Document Reviewed: 08/04/2018 [employer] Patient Education 2020 [employer] Follow Up Care 05/21/2021 09:33:16 With:LIA LINTON Address:Unknown When:05/24/2021 12:01:45 [facility]04-13-2022 Evaluation + Plan noteExtracted from: Title:ED Note Author:Silvestre Gregory PA-C te:05/21/21 UTI (urinary tract infection ) (N39.0: Urinary tract infection, site not specified) Orders: cephalexin, 500 mg = 1 cap(s), Oral, q12hr, X 7 day(s), # 14 cap(s), Refills(s) 0, Pharmacy: [facility], 157, cm, 05/21/21 9:37:00 EDT, Height/Length Dosing, 93.6, kg, 05/21/21 9:37:00 EDT, Weight Dosing ketorolac, 30 mg = 1 mL, Injection, IV Push, Once, Stop date 05/21/21 11:09:00 EDT, STAT, Start date 05/21/21 11:09:00 EDT, 05/21/21 11:09:00 EDT naproxen, 500 mg = 1 tab(s), Oral, BID, PRN for pain, # 20 tab(s), Refills(s) 0, Pharmacy: [facility], 157, cm, 05/21/21 9:37:00 EDT, Height/Length Dosing, 93.6, kg, 05/21/21 9:37:00 EDT, Weight Dosing ondansetron, 4 mg = 1 tab(s), Oral, TID, # 15 tab(s), Refills(s) 0, Pharmacy: [facility], 157, cm, 05/21/21 9:37:00 [...] Diagnostic Tests Pending * Urine Culture 05/21/21 [facility] note[facility] assessment information available [facility] Work Phone: Evaluation note* Diagnosis Onset Date Resolution Status Generalized anxiety disorder acute Panic attacks acute Bipolar disorder acute [facility] Work Phone: History general Narrative - Reported* Type Description Date Medical History adhd Medical History bipolar Medical History anxiety Surgical History Hospitalization History see above Hospitalization History child [employer] Other Hospital course Narrative No data available for this section [facility] No data available for this section [facility] No data available for this section [facility] Chief Complaint and Reason for Visit Chief Complaint N39.0 Chief Complaint R Arm Numbness Chief Complaint R Arm Numbness Abscess x3 mos,Concern for Covid Chief Complaint High risk medication use Chief Complaint 2 month f/u mental health/fmla Reason for Visit Generalized anxiety disorder Panic attacks Bipolar disorder Advance Directives Advance Directive Response Recorded Date/ Time Advance Directives No October 4:18pm Advance Directive Response Recorded Date/ Time Advance Directives No October 3:18pm Summary Purpose Family History Relationship Condition Age at Onset Recorded Date/T jennifer father Family history of mental disorder Unknown Hypertension Unknown family member Family history of other condition Unknow n Not Specified Family history of mental disorder Unknow n Additional Source Comments Care Team (unrecognized sect ion and content) Team Status: Inactive Member Role Status Dates NON STAFF Primary Care Provider Active Елена Linton APRN SOLE TRIMMER-C Attending Provider Heladio tive Team Status: Active Member Role Status Dates NON STAFF Primary Care Provider Active Team Status: Active Member Role Status Dates Елена Linton APRN [employer] TRIMMER-C Primary Care Provider Active Team Status: Inactive Member Role Status Dates Елена Linton APRN SOLE TRIMMER-C Primary Care Provider Active Greyson Reyna DO Emergency Provider Active Team Status: Active Member Role Status Dates PHYSICIAN NO FAMILY Primary Care Provider Active Team Status: Inactive Member Role Status Dates PHYSICIAN NO FAMILY Primary Care Provider Active Greyson Reyna DO Emergency Provider Active Team Status: Inactive Member Role Status Dates Dacia Blas DO Attending Provider Active Team Status: Active Member Role Status Dates Dacia Blas DO Primary Care Provider Active Team Status: Inactive Member Role Status Dates Dacia Blas DO Primary Care Provide r, Attending Provider Active Start: April 09, 2023 End: April 09, 2023 Team Status: Inactive Member Role Status Dates Dacia Blas DO Primary Care Provide r, Attending Provider Active Start: May 24, 2023 End: May 24, 2023 Goals (unrecognized section and content) Goals may be documented in a n alternate section INFORMATION SOURCE (unrecogn ized section and content) DATE CREATED AUTHOR 12/02/2021 [facility] DATE CREATED AUTHOR AUTHOR'S ORGANIZ ATION 03/19/2023 [facility] DATE CREATED AUTHOR AUTHOR'S ORGANIZ ATION 05/20/2023 [facility] REASON FOR VISIT (unrecogniz ed section [...] BE BASED ON THE PRIMARY CLINICAL RECORDS. [facility]. provides no warranty or guarantee of the accuracy or completeness of information in this document.
== END 2023-05-26 01:51 | disposition home or self-care (01) ==
LOC: ER 05-26 01:42
PROVIDERS: Emergency Provider Internal Medicine; PCP Family Medicine
DX: B34.9 Viral infection, unspecified (principal); Z20.822 Contact with and (suspected) exposure to COVID-19; Z79.899 Other long term (current) drug therapy
CPT/HCPCS: 36415; 80053; 81001; 83605; 84703; 85025; 87070; 87804; 87811; 87880; 96374; 99284

== ENCOUNTER 2023-08-12 05:35 | Emergency (ER) | payer BC, SELFPAY ==
[2023-08-12 05:40] VITALS: BP 132/53; PULSE 73; TEMP 36.8; O2SAT 99; BMI 32.0
--- OUTSIDE RECORDS SUMMARY | 2023-08-12 05:46 | XMS_ITS ---
Patient Summarization (C-CDA 2.1 CCD) Created on: August 12, 2023 AKOSUA ORTIZ : 1995 Sex: Female Author Organization Sample organization Care Team Providers Care Hr Specialist Name Role Phone LIA LINTON Primary Care Physician Unavailab le NON STAFF Primary Care Provider UnavailZANDRA Simon Attending Provider ROSY SEVERINO Admitting Unavailable ROSY SEVERINO Attending Unavailable ЕЛЕНА LINTON Primary Care Unavailable DR DARIA HSIEH Consulting Unavailable MARCIE SEVERINOYL Consulting Unavailable ALON CASH Consulting Unavailable ЕЛЕНА LINTON Admitting Unavailable ЕЛЕНА LINTON Attending Unavailable ЕЛЕНА LINTON Primary Care Unavailable ЕЛЕНА LINTON Consulting Unavailable ЕЛЕНА LINTON Primary Care Unavailable MARCIE SEVERINOYL Consulting Unavailable MERE, ROSY Admitting Unavailable ROSY SEVERINO Attending Unavailable ZANDRA Linton Primary Care Provider DO Marguerite Reyna Emergency Provider NO FAMILY, PHYSICIAN Primary Care Provider Unava ilable Fannie Blasria Unavailable DO Fannie Blasrilux Wasserman Attending Provider [phone] DO Wan Dacia Lux Primary Care Provider DO Gurjit Winter Emergency Provider Unavai MD Holden Calvin Admit Provider MD Holden Segal Attending Provider Dacia Blas Primary Care Unavailable Holden Segal Admitting Unavailable Holden Segal Attending Unavailable Marguerite Reyna Admitting Unavailable Marguerite Reyna Attending Unavailable NO FAMILY, PHYSICIAN Primary Care Unavailable Wan, Dacia A Admitting Unavailable Wan, Dacia A Primary Care Unavailable Wan Dacia Lux Attending Unavailable Sanjeev Ramos Admitting Unavailable Sanjeev Ramos Attending Unavailable Sanjeev Ramos Admitting Unavailable Sanjeev Ramos Attending Unavailable Sanjeev Ramos Admitting Unavailable Sanjeev Ramos Attending Unavailable Coy Soriano Attending Unavailable Eren Haider Attending Unavailable Lefty GARCIA Attending Unavailable Allergies Allergy Classification Reported Allergen(s) Allergy Type Date of Onset Reaction(s) Facility Penicillins (antibiotic) (2 sources) Penicillin; Translations: [penicillin] Drug Allergy Eruption of skin (disorder) [facility] (8 sources) Penicillin; Translations: [penicillin] Drug Allergy 2 Eruption of skin (disorder), rash [facility] (5 sources) Penicillins; Translations: [Penicillins] Allergy to substance 2 [facility] Encounters Encounter Date Encounter Type Care Provider Facility Start: 08-05-2023 End: 08-05-2023 ambulatory Sanjeev Ramos Facility:[facility] Start: 08-05-2023 End: 08-05-2023 Lab Drop off Sanjeev Ramos [facility] Start: 07-13-2023 End: 07-13-2023 Lab Drop off Sanjeev De Richard [facility] Start: 07-13-2023 End: 07-13-2023 ambulatory Sanjeev Ramos Facility:[facility] Start: 07-09-2023 End: 07-09-2023 ambulatory DO Dacia A Wan Work Phone: [facility] Work Phone: Start: 07-09-2023 End: 07-09-2023 Patient encounter procedure DO Dacia Wan Work Phone: [facility] [place] Work Phone: Start: 06-28-2023 End: 06-28-2023 ambulatory DO Dacia A Wan Work Phone: [facility] Work Phone: Start: 06-28-2023 End: 06-28-2023 Patient encounter procedure DO Dacia Blas Work Phone: [facility] [place] Work Phone: Start: 06-28-2023 Non-patient / Non-visit DO Fannie Blas Work Phone: [facility] [place] Work Phone: Start: 06-24-2023 End: 06-25-2023 Non-patient / Non-visit DO Dacia Blas Work Phone: [facility] Work Phone: Start: 06-23-2023 End: 06-25-2023 Evaluation and management of inpatient DO Dacia Blas Work Phone: [address] Work Phone: Start: 06-02-2023 End: 06-02-2023 ambulatory [facility] Work Phone: Start: 06-02-2023 End: 06-02-2023 Patient encounter procedure [facility] [place] Work Phone: Start: 05-24-2023 End: 05-24-2023 [facility] Work Phone: Start: 05-24-2023 End: 05-24-2023 Patient encounter procedure [facility] [place] Work Phone: Start: 05-18-2023 End: 05-18-2023 Emergency department patient visit Eren Haider [facility] Start: 04-09-2023 End: 04-09-2023 Patient encounter procedure [facility] [place] Work Phone: Start: 01-18-2023 Office outpatient ne w 30 minutes Daciaflor Blas [facility] [place] Start: 01-18-2023 End: 01-18-2023 ambulatory Dacia Blas [facility] [employer] Other Start: 01-18-2023 End: 01-18-2023 Departed Referred DO Dacia Blas Work Phone: [facility] [place] Work Phone: Start: 01-06-2023 End: 01-06-2023 ambulatory Sanjeev Ramos Facility:[facility] Start: 01-06-2023 End: 01-06-2023 Lab Drop off Sanjeev Santino [facility] Start: 11-19-2022 End: 11-19-2022 ambulatory [place]efty [place] Facility:[facility] Start: 11-19-2022 End: 11-19-2022 Emergency department patient visit Coy Soriano [facility] Start: 10-11-2022 End: 10-11-2022 Emergency department patient visit ZANDRA Linton Work Phone: [facility] Work Phone: Start: 07-24-2022 End: 07-24-2022 Emergency department patient visit ROOF TECHNICIANSilverio Linton Work Phone: [facility] Work Phone: Start: 12-01-2021 End: 12-01-2021 ambulatory ЕЛЕНА LINTON Facility:[facility] Start: 10-27-2021 Encounter for genera l adult medical examination without abnormal findings ЕЛЕНА LINTON [facility] Start: 09-11-2021 End: 09-12-2021 ambulatory ЕЛЕНА LINTON Facility:[facility] Start: 09-11-2021 End: 09-12-2021 Encounter for general adult medical examination without abnormal findings ЕЛЕНА LINTON Facility:[facility] Start: 09-10-2021 End: 09-10-2021 Departed [facility] [place] Start: 08-06-2021 End: 08-06-2021 Emergency department patient visit Eren MartinsOxana Vitaly [facility] Start: 07-12-2021 End: 07-12-2021 ambulatory ROSY BEELER Facility: Start: 05-21-2021 End: 05-21-2021 Emergency department patient visit Samantha Perkins [facility] Goals Date Patient Goal Desired Activity /State Immunizations Immunization Date Immunization Notes Care Provider Maicol cortez 09-17-2020 tetanus toxoid, reduced diphtheria toxoid, and acellular pertussis vaccine, adsorbed; Translations: [Boostrix (Tdap)] [facility] NEGATED: Highlighted row has not occurred!01-18-2023 Flu Shot - Documentation Purposes Only Patient Objection Dacia Blas Other [employer] Other Medications Current Medications Medication Drug Class(es) Dates Sig (Normalized) Sig (Original) cephalexin 500 mg oral capsule (1 source) Cephalosporin Antibacterial Start: 05-21-2021 End: 05-28-2021 take 1 capsule by mouth every twelve hours Keflex 500 mg Cap 500 mg = 1 cap(s), Oral, q12hr, X 7 day(s), # 14 cap(s), Refills(s) 0, Pharmacy: [id number], 157, cm, 05/21/21 9:37:00 EDT, Height/Length Dosing, 93.6, kg, 05/21/21 9:37:00 EDT, Weight Dosing Start Date: 05/21/21 Stop Date: 05/28/21 Status: Ordered erythromycin 0.005 mg/mg ophthalmic ointment (1 source) Macrolide, Macrolide Antimicrobial Start: 11-19-2022 End: 11-24-2022 erythromycin Opth 0.5% Oint 1/4 inch ribbon, Eye-Both, As Directed for 5 day(s), 3.5 gm, Refill(s) 0, [facility], 157, cm, 11/19/22 10:43:00 EDT, Height/Length Dosing, 87.7, kg, 11/19/22 10:43:00 EDT, Weight Dosing Start Date: 11/19/22 Stop Date: 11/24/22 Status: Ordered ferrous sulfate (7 sources) Start: 09-17-2020 ferrous sulfate Refills(s) 0 Start Date: 09/17/20 Status: Ordered naproxen 500 mg oral tablet (15 sources) Nonsteroidal Anti-inflammatory Drug Start: 05-21-2021 End: 10-11-2022 take 1 tablet by mouth twice daily as needed for pain Naprosyn 500 mg Tab 500 mg = 1 tab(s), Oral, BID, PRN for pain, # 20 tab(s), Refills(s) 0, Pharmacy: [facility], 157, cm, 05/21/21 9:37:00 EDT, Height/Length Dosing, 93.6, kg, 05/21/21 9:37:00 EDT, Weight Dosing Start Date: 05/21/21 Status: Ordered 24 hr nicotine 0.875 mg/hr transdermal system (3 sources) Cholinergic Nicotinic Agonist Start: 06-26-2023 apply 1 dose transdermal route once daily Nicotine Active 1 PATCH TRANSDERML Daily June 26, 2023 12:00am Start: 06-25-2023 Nicotine Activ e 21 MG TRANSDERML Daily June 25, 2023 12:00am Prilosec (7 sources) Proton Pump Inhibitor Start: 09-17-2020 Prilosec Refills(s) 0 Start Date: 09/17/20 Status: Ordered oxyCODONE hydrochloride 5 mg oral tablet (12 sources) Opioid Agonist Start: 08-06-2021 oxyCODONE 5 mg Tab 5 mg = 1 tab(s), Oral, q6hr, PRN Pain 8-10, # 7 tab(s), Refills(s) 0, Pharmacy: [facility], 158, cm, 08/06/21 5:46:00 EDT, Height/Length Dosing, 76.9, kg, 08/06/21 5:46:00 EDT, Weight Dosing Start Date: 08/06/21 Status: Ordered Start: 08-06-2021 oxyCODONE 5 mg Cap 5 mg = 1 cap(s), Oral, q6hr, PRN Pain 8- 10, # 7 cap(s), Refills(s) 0, Pharmacy: [facility], 158, cm, 08/06/21 5:46:00 EDT, Height/Length Dosing, 76.9, kg, 08/06/21 5:46:00 EDT, Weight Dosing Start Date: 08/06/21 Status: Ordered Multivitamins with Vitamin B Complex, Vitamin C, Minerals and L-Methylfolate oral capsule (7 sources) Start: 05-13-2020 Multivitamins with Vitamin B Complex, Vitamin C, Minerals and L-Methylfolate oral capsule 1 cap(s), Oral, Daily, 30 cap(s), Refill(s) 0 Start Date: 05/13/20 Status: Ordered promethazine hydrochloride 25 mg oral tablet (7 sources) Phenothiazine Start: 05-21-2021 take 1 tablet by mouth three times daily promethazine 25 mg Tab 25 mg = 1 tab(s), Oral, TID, # 15 tab(s), Refills(s) 0, Pharmacy: [facility], 157, cm, 05/21/21 9:37:00 EDT, Height/Length Dosing, 93.6, kg, 05/21/21 9:37:00 EDT, Weight Dosing Start Date: 05/21/21 Status: Ordered Zofran ODT 4 mg Tab-Dis (13 sources) Start: 08-06-2021 take 1 tablet by mouth every eight hours as needed for nausea Zofran ODT 4 mg Tab-Dis 4 mg = 1 tab(s), Oral, q8hr, PRN Nausea/Vomiting, # 12 tab(s), Refills(s) 0, Pharmacy: [facility], 158, cm, 08/06/21 5:46:00 EDT, Height/Length Dosing, 76.9, kg, 08/06/21 5:46:00 EDT, Weight Dosing Start Date: 08/06/21 Status: Ordered Start: 05-21-2021 take 1 tablet by heraclio th three times daily Zofran ODT 4 mg Tab-Dis 4 mg = 1 tab(s), Oral, TID, # 15 tab(s), Refills(s) 0, Pharmacy: [facility], 157, cm, 05/21/21 9:37:00 EDT, Height/Length Dosing, 93.6, kg, 05/21/21 9:37:00 EDT, Weight Dosing Start Date: 05/21/21 Status: Ordered Completed/Discontinued Medications Medication Drug Class(es) Dates Sig (Normalized) Sig (Original) ALPRAZolam 0.5 mg oral tablet (11 sources) Benzodiazepine Start: 04-09-2023 End: 06-25-2023 take 0.5 mg by mouth once daily Alprazolam Discontinued 0.5 MG PO Daily April 09, 2023 12:18pm June 25, 2023 12:07pm Start: 04-09-2023 End: 04-09-2023 take 0.5 mg by mouth twice daily Alprazolam Discontinued 0.5 MG PO Twice daily April 09, 2023 1:00am April 09, 2023 12:20pm Start: 01-18-2023 take 1 tablet by heraclio th twice daily as needed ALPRAZolam 0.5 MG 1 tablet PRN panic attack Orally Twice a day for 6 days Jan, Active doxycycline hyclate 100 mg oral capsule (7 sources) Tetracycline-class Drug Start: 10-11-2022 End: 04-09-2023 take 100 mg by mouth twice daily Doxycycline Hyclate Discontinued 100 MG PO Twice daily October 11, 2022 12:00am April 09, 2023 12:00pm escitalopram 10 mg oral tablet (5 sources) Serotonin Reuptake Inhibitor Start: 06-25-2023 End: 06-28-2023 take 1 tablet by mouth once daily Escitalopram Oxalate (Lexapro) 10 mg tablet Discontinued 10 MG PO Daily June 26, 2023 12:00am June 28, 2023 3:39pm ibuprofen 600 mg oral tablet (20 sources) Nonsteroidal Anti-inflammatory Drug Start: 01-29-2021 End: 10-11-2022 take 600 mg by mouth every eight hours Ibuprofen Discontinued 600 MG PO Q8H January 29, 2021 1:00am October 11, 2022 5:54am Start: 09-19-2020 take 1 tablet by heraclio th every six hours ibuprofen 600 mg Tab 600 mg = 1 tab(s), Oral, q6hr, # 15 tab(s), Refills(s) 0, Pharmacy: [id number], 157, cm, 09/17/20 21:15:00 EDT, Height/Length Dosing, 93.2, kg, 09/17/20 21:15:00 EDT, Weight Dosing Start Date: 09/19/20 Status: Ordered Start: 10-11-2017 End: 04-30-2020 take 600 mg by mouth every eight hours Ibuprofen Discontinued 600 MG PO Q8H October 11, 2017 12:00am April 30, 2020 12:25pm ondansetron 4 mg disintegrating oral tablet (9 sources) Serotonin-3 Receptor Antagonist Start: 01-29-2021 End: 10-11-2022 take 4 mg by mouth every eight hours Ondansetron Discontinued 4 MG PO Q8H January 29, 2021 1:00am October 11, 2022 5:54am Pseudoephedrine-Guaif enesin (Mucinex D Maximum Strength) 120-1,200 mg tablet extended release 12 hr (9 sources) Start: 10-11-2017 End: 04-30-2020 take 120-1200 mg by mouth every twelve hours Pseudoephedrine-Gu aifenesin (Mucinex D Maximum Strength) 120-1,200 mg tablet extended release 12 hr Discontinued 1 TAB PO Daily October 10, 2017 11:00pm April 30, 2020 11:25am Start: 10-11-2017 End: 04-30-2020 take 120-1200 mg by mouth every twelve hours Pseudoephedrine-Guaifenesin (Mucinex D Maximum Strength) 120-1,200 mg tablet extended release 12 hr Discontinued 1 TAB PO Daily October 11, 2017 12:00am April 30, 2020 12:25pm 24 hr QUEtiapine 50 mg extended release oral tablet (5 sources) Atypical Antipsychotic Start: 05-24-2023 End: 06-24-2023 take 50 mg by mouth once daily at bedtime Quetiapine Discontinued 50 MG PO Daily at bedtime May 24, 2023 12:00am June 24, 2023 4:06am Payers Date Payer Category Payer [facility] [id number] 2023 Unknown [id number] 2022 Unknown [id number] 2022 Self-pay [id number] 1995 Unknown [id number] 1996 Unknown [id number] 1996 Unknown [id number] 1996 Unknown [id number] 1996 Unknown [id number] 1996 Unknown [id number] 1996 Unknown [id number] 1996 Unknown [id number] 1996 Unknown [id number] 1959 Unknown [id number] Unknown Regular Insurance [id number] Unknown HCAP/HFA/FAP Active [id number] Unknown [id number] Unknown [id number] Unknown [id number] Plan of Treatment Date Care Activity Detail Author Start: 06-25-2023 [facility] Start: 06-23-2023 Hospital admission [facility] Start: 05-24-2023 Patient referral [facility] Work Phone: Start: 07-24-2022 Plain X-ray of right shoulder XR shoulder RT min 2V* [facility] Start: 07-24-2022 XR Shoulder - right Views [facility] Drugs identified in Urine [facility] Patient Education [facility] Work Phone: Patient referral [facility] Work Phone: Problems Active Problems Problem Classification Problem Date Documented Date Episodic/Chronic Abdominal pain (2 sources) Pelvic and perineal pain; Translations: [Pelvic and perineal pain] Onset: 08-06-2021 Episodic Acute bronchitis (1 source) Acute bronchitis; Translations: [Acute bronchitis] Episodic Anxiety disorders (20 sources) Panic disorder [episodic paroxysmal anxiety]; Translations: [Generalized anxiety disorder] Chronic Attention-deficit, conduct, and disruptive behavior disorders (5 sources) Attention deficit hyperactivity disorder; Translations: [Attention-deficit hyperactivity [...] of eyes] Onset: 11-19-2022 Episodic Intracranial injury (9 sources) Concussion with no loss of consciousness; Translations: [Concussion without loss of consciousness, initial encounter] 01-29-2021 Episodic Malaise and fatigue (1 source) Other fatigue; Translations: [OTHER FATIGUE] Onset: 10-27-2021 Episodic Mood disorders (13 sources) Bipolar disorder; Translations: [Bipolar disorder, unspecified] Onset: 06-23-2023 04-09-2023 Chronic Nutritional deficiencies (2 sources) Vitamin D deficiency, unspecified; Translations: [Unspecified vitamin D deficiency] Onset: 10-27-2021 06-28-2023 Chronic Open wounds of head; neck; and trunk (9 sources) Scalp laceration; Translations: [Laceration without foreign body of scalp, initial encounter] 01-29-2021 Episodic Other aftercare (9 sources) Surgical follow-up; Translations: [Encounter for removal of sutures] 02-10-2021 Episodic Other aftercare (1 source) Other snf (current) drug therapy Episodic Other aftercare (1 source) Encounter for follow-up examination after completed treatment for conditions other than malignant neoplasm; Translations: [Other follow-up examination] 06-28-2023 Episodic Other complications of (1 source) Complication [...] injuries and conditions due to external causes (9 sources) Closed injury of head; Translations: [Unspecified injury of head, initial encounter] 01-29-2021 Episodic Other nervous system disorders (8 sources) Carpal tunnel syndrome; Translations: [Carpal tunnel syndrome, unspecified upper limb] 07-24-2022 Chronic Other screening for suspected conditions (not mental disorders or infectious disease) (4 sources) Encounter for screening for diabetes mellitus; Translations: [Encounter for screening for lipoid disorders] Onset: 10-27-2021 Episodic Other upper respiratory infections (12 sources) Upper respiratory infection; Translations: [Acute upper respiratory infection, unspecified] 05-07-2020 Episodic Skin and subcutaneous tissue infections (8 sources) Cellulitis of right finger; Translations: [Paronychia] Onset: 12-02-2021 10-11-2022 Episodic Sprains and strains (8 sources) Sprain of shoulder; Translations: [Unspecified sprain of unspecified shoulder joint, initial encounter] 07-24-2022 Episodic Substance-related disorders (1 source) Nicotine dependence, cigarettes, uncomplicated; Translations: [NICOTINE DEPEND CIGARETTES UNCOMP] Onset: 12-02-2021 Chronic Substance-related disorders (7 sources) Marijuana user 05-13-2020 Episodic Unclassified (1 source) Other long chain quiller tender (current) drug therapy; Translations: [Other long chain quiller tender (current) drug therapy] Onset: 01-18-2023 Unclassified (1 source) Fever, unspecified; Translations: [Fever, unspecified] Onset: 10-11-2022 Urinary tract infections (2 sources) Urinary tract infectious disease; Translations: [Urinary tract infection, site not specified] Onset: 05-21-2021 Episodic Past or Other Problems Problem Classification Problem Date Documented Da te Episodic/Chronic Hemorrhage during ; abruptio placenta; placenta previa (4 sources) Hemorrhage in early , unspecified; Translations: [HEMORRHAGE EARLY UNS] Onset: 07-12-2021 Episodic Unclassified (14 sources) Onset: 05-13-2020 Resolved: 09-18-2020 09-20-2020 Procedures Date Procedure Procedure Detail Performing Clinician Start: 10-11-2022 SARS-CoV-2, Influenz a & RSV (PCR) ZANDRA Linton Work Phone: Start: 07-24-2022 Plain X-ray of right shoulder ZANDRA Linton Work Phone: Urine culture Results Test Name Value Interpretation Reference Range Facility Physician Orderon 07-13-2023 Physician Order [id number] Normal [facility] ECG 12 lead ECGon 06-24-2023 ECG 12 lead ECG [facility] [address] Electrocardiograph Report Signed Patient: Akosua Ortiz MR#: [id number] : 1995 Acct:[id number] Age/Sex: 27 / F ADM Date: 06/23/23 Loc: Room: [address] [place] [address] Type: ADM IN Attending Dr: Holden Segal MD Ordering Provider: Holden Segal MD Date of Service: 06/24/23 ECG/ECG 12 lead ECG: antipsychotic therapy Copies to: Test Reason : Blood Pressure : / mmHG Vent. Rate : 065 BPM Atrial Rate : 065 BPM P-R Int : 174 ms QRS Dur : 084 ms QT Int : 392 ms P-R-T Axes : 014 057 049 degrees QTc Int : 407 ms Normal sinus rhythm Low voltage QRS Borderline ECG When compared with ECG of 28-FEB-2014 23:21, Nonspecific T wave abnormality now evident in Anterior leads Confirmed by RICO WILL [facility], MARGUERITE ([id number]) on 06/25/2023 7:52:59 AM Referred By: Electronically Signed By:MARGUERITE GÓMEZ MD [facility] Transcribed By: MUS Signed By Adalberto Gómez MD 06/25/23 0757 Normal [facility] Alanine aminotransferase [En zymatic activity/volume] in Serum or PlasmaOrdered By: Gurjit Winter on 06-23-2023 ALT [Catalytic activity/Vol] 16 U/L Normal 7-52 [facility] Comment on above: Performed By: #### L IPID, CMP, ETOH, CBC, TSH3 wRFLX, [id number] #### [facility] [address] [place] [address] [place] Albumin [Mass/volume] in Ser um or Plasma by Bromocresol green (BCG) dye binding methoOrdered By: Gurjit Winter on 06-23-2023 Albumin BCG dye [Mass/Vol] 4.3 g/dL 3.5-5.7 [facility] Alkaline phosphatase [Enzyma tic activity/volume] in Serum or PlasmaOrdered By: Gurjit Winter on 06-23-2023 ALP [Catalytic activity/Vol] 46 U/L Normal 34-104 [facility] Comment on above: Performed By: #### L IPID, CMP, ETOH, CBC, TSH3 wRFLX, [id number] #### [facility] [address] [place] [id number] [facility] Amphetamine Screen Ql (U)Ord ered By: Gurjit Winter on 06-23-2023 Amphetamines Ql (U) Negative Negative [facility] Aspartate aminotransferase [ Enzymatic activity/volume] in Serum or PlasmaOrdered By: Gurjit Winter on 06-23-2023 AST [Catalytic activity/Vol] 22 U/L Normal 13-39 [facility] Comment on above: Performed By: #### L IPID, CMP, ETOH, CBC, TSH3 wRFLX, [id number] #### [facility] [address] [place] [address] Automated basophil %Ordered By: Gurjit Winter on 06-23-2023 Basophils/100 WBC (Bld) 0.4 % Normal . [facility] Comment on above: Performed By: #### L IPID, CMP, ETOH, CBC, TSH3 wRFLX, [id number] #### [address] Automated basophil countOrde red By: Gurjit Winter on 06-23-2023 Basophils (Bld) [#/Vol] 0.0 10*3/uL Normal 0.0-0.2 [facility] Comment on above: Result Comment: PERF ORMED BY: [place] [address] PATHOLOGIST NEURO UROLOGIST LE HERRON M.D. Performed By: #### L IPID, CMP, ETOH, CBC, TSH3 wRFLX, [id number] #### [address] Automated blood monocyte cou ntOrdered By: Gurjit Winter on 06-23-2023 Monocytes (Bld) [#/Vol] 0.6 10*3/uL Normal 0.0-0.8 [facility] Comment on above: Performed By: #### L IPID, CMP, ETOH, CBC, TSH3 wRFLX, [id number] #### [address] Automated eosinophil %Ordere d By: Gurjit Winter on 06-23-2023 Eosinophils/100 WBC (Bld) 0.4 % Normal . [facility] Comment on above: Performed By: #### L IPID, CMP, ETOH, CBC, TSH3 wRFLX, [id number] #### [facility] [address] Automated eosinophil countOr dered By: Gurjit Winter on 06-23-2023 Eosinophils (Bld) [#/Vol] 0.0 10*3/uL Normal 0.0-0.45 [facility] Comment on above: Performed By: #### L IPID, CMP, ETOH, CBC, TSH3 wRFLX, [id number] #### [facility] [address] Automated monocyte %Ordered By: Gurjit Winter on 06-23-2023 Monocytes/100 WBC (Bld) 9.8 % Normal . [facility] Comment on above: Performed By: #### L IPID, CMP, ETOH, CBC, TSH3 wRFLX, [id number] #### [facility] [address] [place] [address] Automated neutrophil %Ordere d By: Gurjit Winter on 06-23-2023 Neutrophils/100 WBC (Bld) 53.7 % Normal . [facility] Comment on above: Performed By: #### L IPID, CMP, ETOH, CBC, TSH3 wRFLX, [id number] #### [facility] [address] [place] [address] [place] Bacteria [Presence] in Urine by AutomatedOrdered By: Gurjit Winter on 06-23-2023 Bacteria Auto Ql (U) None seen [HPF] None Seen [facility] Barbiturates [Presence] in U rine by Screen methodOrdered By: Gurjit Winter on 06-23-2023 Barbiturates Screen Ql (U) Negative Negative [facility] Benzodiazepines Screen Ql (U )Ordered By: Gurjit Winter on 06-23-2023 Benzodiazepines Ql (U) Positive Negative [facility] Benzoylecgonine [Presence] i n Urine by Screen methodOrdered By: Gurjit Winter on 06-23-2023 Benzoylecgonine Screen Ql (U) Negative Negative [facility] Bilirubin Test strip Ql (U)O rdered By: Gurjit Winter on 06-23-2023 Bilirubin Ql (U) Negative Negative [facility] Bilirubin.total [Mass/volume ] in Serum or PlasmaOrdered By: Gurjit Winter on 06-23-2023 Bilirubin [Mass/Vol] 0.3 mg/dL Normal 0.3-1.0 [facility] Comment on above: Performed By: #### L IPID, CMP, ETOH, CBC, TSH3 wRFLX, [id number] #### [facility] [address] [place] [address] [place] Calcium [Mass/volume] in Ser um or PlasmaOrdered By: Gurjit Winter on 06-23-2023 Calcium [Mass/Vol] 9.0 mg/dL Normal 8.6-10.3 [facility] Comment on above: Performed By: #### L IPID, CMP, ETOH, CBC, TSH3 wRFLX, [id number] #### [facility] [address] [place] [address] [place] Cannabinoids [Presence] in U rine by Screen methodOrdered By: Gurjit Winter on 06-23-2023 Cannabinoids Screen Ql (U) Negative Negative [facility] Comment on above: These are unconfirme d results and should not be used for legal purposes. Drug Cut-Off Concentration: AMPH 1000 ng/mL BRANDEE 200 ng/mL LAWRENCE 200 ng/mL COCM 300 ng/mL OP 300 ng/mL PCP 25 ng/mL THC 20 ng/mL Carbon dioxide, total [Moles /volume] in Serum or PlasmaOrdered By: Gurjit Winter on 06-23-2023 CO2 [Moles/Vol] 29.6 mmol/L Normal 21.0-31.0 [facility] Comment on above: Performed By: #### L IPID, CMP, ETOH, CBC, TSH3 wRFLX, [id number] #### [facility] [address] [place] [id number] [place] Chloride [Moles/volume] in S claude or PlasmaOrdered By: Gurjit Winter on 06-23-2023 Chloride [Moles/Vol] 107 mmol/L Normal 98-107 [facility] Comment on above: Performed By: #### L IPID, CMP, ETOH, CBC, TSH3 wRFLX, [id number] #### [facility] [address] [place] [address] [place] Cholesterol [Mass/volume] in Serum or PlasmaOrdered By: Gurjit Winter on 06-23-2023 Cholesterol [Mass/Vol] 162 mg/dL Normal 140-200 [facility] Comment on above: Chol less than 200 m g/dl low riskChol 201-239 mg/dl borderline riskChol 240 mg/dl and greater high risk Result Comment: Chol less than 200 mg/dl low risk Chol 201-239 mg/dl borderline risk Chol 240 mg/dl and greater high risk Performed By: #### L IPID, CMP, ETOH, CBC, TSH3 wRFLX, [id number] #### [facility] [address] [place] [id number] [facility] Cholesterol in LDL Calc [Mas s/Vol]Ordered By: Gurjit Winter on 06-23-2023 Cholesterol in LDL [Mass/Vol] 107 mg/dL 0-100 [facility] Comment on above: LDL ATP III CLASSIFI CATIONLDL less than 100 mg/dL OptimalLDL 100-129 mg/dL Near or above optimalLDL 130-159 mg/dL Borderline highLDL 160-189 mg/dL HighLDL greater than 189 mg/dL Very high Cholesterol in VLDL Calc [Ma ss/Vol]Ordered By: Gurjit Winter on 06-23-2023 Cholesterol in VLDL [Mass/Vol] 20 mg/dL [facility] Color of Urine by AutoOrdere d By: Gurjit Winter on 06-23-2023 Color (U) Yellow Normal Yellow [facility] Comment on above: Order Comment: Name Collection Type:: Clean-Voided Midstream Performed By: #### U RDS, UHCG, ADDONUAPLUS #### [facility] [address] [place] [id number] [facility] Complete Blood Count Auto Di ffon 06-23-2023 Mean Corpuscular HGB Conc 33.8 g/dL Normal 32.0-35.0 [facility] Comment on above: Performed By: #### L IPID, CMP, ETOH, CBC, TSH3 wRFLX, [id number] #### [address] Monocytes/100 WBC (Bld) 18.86 % Normal 0.00-20.00 [facility] Comment on above: Performed By: #### L IPID, CMP, ETOH, CBC, TSH3 wRFLX, [id number] #### [address] NRBC% 0.1 /100{WBC} Normal 0-0.5 [facility] Comment on above: Performed By: #### L IPID, CMP, ETOH, CBC, TSH3 wRFLX, [id number] #### [address] Comprehensive Metabolic Pane celia 06-23-2023 Albumin [Mass/Vol] 4.3 g/dL Normal 3.5-5.7 [facility] Comment on above: Performed By: #### L IPID, CMP, ETOH, CBC, TSH3 wRFLX, [id number] #### [address] Creatinine Clr Calc Pharmacy 148.61 Normal [facility] Comment on above: Result Comment: PERF ORMED BY: [place] [address] PATHOLOGIST NEURO UROLOGIST LE HERRON M.D. Performed By: #### L IPID, CMP, ETOH, CBC, TSH3 wRFLX, [id number] #### [address] GFR/1.73 sq M.predicted MDRD (S/P/Bld) [Vol rate/Area] mL/min/{1.73_m2} Normal [facility] Comment on above: Performed By: #### L IPID, CMP, ETOH, CBC, TSH3 wRFLX, [id number] #### [address] Creatinine [Mass/volume] in Serum or PlasmaOrdered By: Gurjit Winter on 06-23-2023 Creatinine [Mass/Vol] 0.57 mg/dL Low 0.60-1.20 [facility] Comment on above: Performed By: #### L IPID, CMP, ETOH, CBC, TSH3 wRFLX, [id number] #### [facility] [address] [place] [address] [place] Dipstick and Microscopicon 0 06-23-2023 Appearance (U) Cloudy Critically abnormal Clear [facility] Comment on above: Order Comment: Name Collection Type:: Clean-Voided Midstream Performed By: #### U RDS, UHCG, ADDONUAPLUS #### [facility] [address] [place] [address] [place] Bacteria,Urine None Seen Normal None Seen [facility] Comment on above: Order Comment: Name Collection Type:: Clean-Voided Midstream Performed By: #### U RDS, UHCG, ADDONUAPLUS #### [place] [address] [place] Bilirubin,Urine Negative Normal Negative [facility] Comment on above: Order Comment: Name Collection Type:: Clean-Voided Midstream Performed By: #### U RDS, UHCG, ADDONUAPLUS #### [place] [address] [place] Glucose Ql (U) Normal Normal Normal [facility] Comment on above: Order Comment: Name Collection Type:: Clean-Voided Midstream Performed By: #### U RDS, UHCG, ADDONUAPLUS #### [place] [id number] [place] Hyaline Casts,Urine 0-8 Normal 0-8 [facility] Comment on above: Order Comment: Name Collection Type:: Clean-Voided Midstream Performed By: #### U RDS, UHCG, ADDONUAPLUS #### [place] [address] [place] Ketones Ql (U) Negative Normal Negative [facility] Comment on above: Order Comment: Name Collection Type:: Clean-Voided Midstream Performed By: #### U RDS, UHCG, ADDONUAPLUS #### [place] [address] [place] Leukocyte esterase Test strip Ql (U) Negative Normal Negative [facility] Comment on above: Order Comment: Name Collection Type:: Clean-Voided Midstream Performed By: #### U RDS, UHCG, ADDONUAPLUS #### [place] [address] [place] Nitrite,Urine Negative Normal Negative [facility] Comment on above: Order Comment: Name Collection Type:: Clean-Voided Midstream Performed By: #### U RDS, UHCG, ADDONUAPLUS #### [place] [address] [place] Occult Blood,Urine Negative Normal Negative [facility] Comment on above: Order Comment: Name Collection Type:: Clean-Voided Midstream Performed By: #### U RDS, UHCG, ADDONUAPLUS #### [place] [address] [place] Protein,Urine Negative Normal Negative [facility] Comment on above: Order Comment: Name Collection Type:: Clean-Voided Midstream Performed By: #### U RDS, UHCG, ADDONUAPLUS #### [place] [address] [place] RBC,Urine 5-9 High 0-4 [facility] Comment on above: Order Comment: Name Collection Type:: Clean-Voided Midstream Performed By: #### U RDS, UHCG, ADDONUAPLUS #### [place] [address] [place] Specificy [place],Urine 1.020 Normal 1.001-1.030 [facility] Comment on above: Order Comment: Name Collection Type:: Clean-Voided Midstream Performed By: #### U RDS, UHCG, ADDONUAPLUS #### [place] [address] [place] Squamous Epithelial Cell,Urine 3-4 High 0-2 [facility] Comment on above: Order Comment: Name Collection Type:: Clean-Voided Midstream Performed By: #### U RDS, UHCG, ADDONUAPLUS #### [address] Urobilinogen,Urine Normal Normal Normal [facility] Comment on above: Order Comment: Name Collection Type:: Clean-Voided Midstream Performed By: #### U RDS, UHCG, ADDONUAPLUS #### [place] [address] [place] WBC,Urine 1-2 Normal 0-4 [facility] Comment on above: Order Comment: Name Collection Type:: Clean-Voided Midstream Performed By: #### U RDS, UHCG, ADDONUAPLUS #### [address] Drug Screen,Urineon 06-23-19 24 Amphetamine Screen,Urine Negative Normal Negative [facility] Comment on above: Performed By: #### U RDS, UHCG, ADDONUAPLUS #### [address] Barbiturate Screen,Urine Negative Normal Negative [facility] Comment on above: Performed By: #### U RDS, UHCG, ADDONUAPLUS #### [address] Benzodiazepines Screen,Urine Positive High Negative [facility] Comment on above: Performed By: #### U RDS, UHCG, ADDONUAPLUS #### [address] Cannabinoid Screen,Urine Negative Normal Negative [facility] Comment on above: Result Comment: Thes e are unconfirmed results and should not be used for legal purposes. Drug Cut-Off Concentration: AMPH 1000 ng/mL BRANDEE 200 ng/mL LAWRENCE 200 ng/mL COCM 300 ng/mL OP 300 ng/mL PCP 25 ng/mL THC 20 ng/mL PERFORMED BY: [place] [address] PATHOLOGIST NEURO UROLOGIST LE HERRON M.D. Performed By: #### U RDS, UHCG, ADDONUAPLUS #### [facility] [address] Cocaine Screen,Urine Negative Normal Negative [facility] Comment on above: Performed By: #### U RDS, UHCG, ADDONUAPLUS #### [facility] [address] Opiate Screen,Urine Negative Normal Negative [facility] Comment on above: Performed By: #### U RDS, UHCG, ADDONUAPLUS #### [facility] [address] Phencyclidine Screen,Urine Negative Normal Negative [facility] Comment on above: Performed By: #### U RDS, UHCG, ADDONUAPLUS #### [facility] [address] [place] [address] Erythrocyte distribution wid th [Ratio] by Automated countOrdered By: Gurjit Winter on 06-23-2023 Erythrocyte distribution width (RBC) [Ratio] 13.7 % Normal 11.9-15.3 [facility] Comment on above: Performed By: #### L IPID, CMP, ETOH, CBC, TSH3 wRFLX, [id number] #### [facility] [address] [place] [address] Erythrocytes [#/area] in Uri ne sediment by Automated countOrdered By: Gurjit Winter on 06-23-2023 RBC Auto (Urine sed) [#/Area] 5-9 [HPF] 0-4 [facility] Erythrocytes [#/volume] in B lood by Automated countOrdered By: Gurjit Winter on 06-23-2023 RBC (Bld) [#/Vol] 4.51 10*6/uL Normal 3.60-5.00 [facility] Comment on above: Performed By: #### L IPID, CMP, ETOH, CBC, TSH3 wRFLX, [id number] #### [facility] [address] [place] [address] Ethanol [Mass/volume] in Ser um or PlasmaOrdered By: Gurjit Winter on 06-23-2023 Ethanol [Mass/Vol] mg/dL Normal [facility] Comment on above: Performed By: #### L IPID, CMP, ETOH, CBC, TSH3 wRFLX, [id number] #### [facility] [address] [place] [id number] [place] Ethanol [Mass/Vol] TNP [facility] Comment on above: Test not performed Ethyl Alcohol Profileon 06-08 Percent Ethanol Not performed Normal [facility] Comment on above: Result Comment: PERF ORMED BY: [place] [address] PATHOLOGIST NEURO UROLOGIST LE HERRON M.D. Performed By: #### L IPID, CMP, ETOH, CBC, TSH3 wRFLX, [id number] #### [facility] [address] Glucose [Mass/volume] in Ser um or PlasmaOrdered By: Gurjit Winter on 06-23-2023 Glucose [Mass/Vol] 76 mg/dL Normal 70-100 [facility] Comment on above: ADA recommended refe rence rangeRandom Glucose Reference Range is dependent on time and content of last meal. Glucose of more than 200 mg/dL in a nonstressed, ambulatory subject supports the diagnosis of Diabetes Mellitus. Result Comment: [place] om Glucose Reference Range is dependent on time and content of last meal. Glucose of more than 200 mg/dL in a nonstressed, ambulatory subject supports the diagnosis of Diabetes Mellitus. ADA recommended reference range Performed By: #### L IPID, CMP, ETOH, CBC, TSH3 wRFLX, [id number] #### [facility] [address] [place] [id number] [facility] HCG ( test) IA.rapi d Ql (U)Ordered By: Gurjit Winter on 06-23-2023 HCG ( test) Ql (U) Negative [facility] HCG,Urineon 06-23-2023 Beta HCG ( test) Ql (U) Negative Normal [facility] Comment on above: Order Comment: Name Collection Type:: Clean-Voided Midstream Result Comment: PERF ORMED BY: [facility] [address] PATHOLOGIST NEURO UROLOGIST LE HERRON M.D. Performed By: #### U RDS, UHCG, ADDONUAPLUS #### [address] Hematocrit [Volume Fraction] of Blood by Automated countOrdered By: Gurjit Winter on 06-23-2023 Hematocrit (Bld) [Volume fraction] 37.5 % Normal 34.0-46.4 [facility] Comment on above: Performed By: #### L IPID, CMP, ETOH, CBC, TSH3 wRFLX, [id number] #### [facility] [address] [place] [address] Hemoglobin [Mass/volume] in BloodOrdered By: Gurjit Winter on 06-23-2023 Hemoglobin (Bld) [Mass/Vol] 12.7 g/dL Normal 11.8-15.4 [facility] Comment on above: Performed By: #### L IPID, CMP, ETOH, CBC, TSH3 wRFLX, [id number] #### [facility] [address] [place] [address] Ketones Auto test strip (U) [Mass/Vol]Ordered By: Gurjit Winter on 06-23-2023 Ketones (U) [Mass/Vol] Negative Negative [facility] - UrinalysisOrder ed By: Gurjit Winter on 06-23-2023 Hyaline casts LM Ql (Urine sed) 0-8 [LPF] 0-8 [facility] Leukocytes [#/area] in Urine sediment by Automated countOrdered By: Gurjit Winter on 06-23-2023 WBC Auto (Urine sed) [#/Area] 1-2 [HPF] 0-4 [facility] Leukocytes [#/volume] correc latha for nucleated erythrocytes in Blood by Automated counOrdered By: Gurjit Winter on 06-23-2023 WBC corrected for nucl RBC Auto (Bld) [#/Vol] 6.4 10*3/uL 3.8-11.6 [facility] Leukocytes [#/volume] in Blo od by Automated countOrdered By: Gurjit Winter on 06-23-2023 WBC (Bld) [#/Vol] 6.4 10*3/uL Normal 3.8-11.6 [facility] Comment on above: Performed By: #### L IPID, CMP, ETOH, CBC, TSH3 wRFLX, [id number] #### [facility] [address] Lipid Panelon 06-23-2023 LDL Cholesterol,Calculated 107 mg/dL High 0-100 [facility] Comment on above: Result Comment: LDL ATP III CLASSIFICATION LDL less than 100 mg/dL Optimal LDL 100-129 mg/dL Near or above optimal LDL 130-159 mg/dL Borderline high LDL 160-189 mg/dL High LDL greater than 189 mg/dL Very high Performed By: #### L IPID, CMP, ETOH, CBC, TSH3 wRFLX, [id number] #### [address] Triglyceride w/Reflex 102 mg/dL Normal 0-149 [facility] Comment on above: Result Comment: TRIG ATP III CLASSIFICATION TRIG less than 150 mg/dL Normal TRIG 150-199 mg/dL Borderline high TRIG 200-500 mg/dL High TRIG greater than 500 mg/dL Very high Standard traceable to the Center for Disease Conrtrol and Prevention (CDC) test method. Performed By: #### L IPID, CMP, ETOH, CBC, TSH3 wRFLX, [id number] #### [address] VLDL CHOLESTEROL 20 mg/dL Normal [facility] Comment on above: Performed By: #### L IPID, CMP, ETOH, CBC, TSH3 wRFLX, [id number] #### [facility] [address] Lymphocytes [#/volume] in Bl ood by Automated countOrdered By: Gurjit Winter on 06-23-2023 Lymphocytes (Bld) [#/Vol] 2.3 10*3/uL Normal 1.00-4.8 [facility] Comment on above: Performed By: #### L IPID, CMP, ETOH, CBC, TSH3 wRFLX, [id number] #### [place] [address] [place] Lymphocytes/100 leukocytes i n Blood by Automated countOrdered By: Gurjit Winter on 06-23-2023 Lymphocytes/100 WBC (Bld) 35.7 % Normal . [facility] Comment on above: Performed By: #### L IPID, CMP, ETOH, CBC, TSH3 wRFLX, [id number] #### [address] MCH [Entitic mass] by Automa latha countOrdered By: Gurjit Winter on 06-23-2023 MCH (RBC) [Entitic mass] 28.1 pg Normal 24.7-34.3 [facility] Comment on above: Performed By: #### L IPID, CMP, ETOH, CBC, TSH3 wRFLX, [id number] #### [address] MCHC Auto (RBC) [Mass/Vol]Or dered By: Gurjit Winter on 06-23-2023 MCHC (RBC) [Mass/Vol] 33.8 g/dL 32.0-35.0 [facility] MCV [Entitic volume] by Auto mated countOrdered By: Gurjit Winter on 06-23-2023 MCV (RBC) [Entitic vol] 83.2 fL Normal 80-100 [facility] Comment on above: Performed By: #### L IPID, CMP, ETOH, CBC, TSH3 wRFLX, [id number] #### [address] Monocyte distribution width [Entitic volume] in Blood by AutomatedOrdered By: Gurjit Winter on 06-23-2023 Monocyte distribution width Auto (Bld) [Entitic vol] 18.86 % 0.00-20.00 [facility] Neutrophils [#/volume] in Bl ood by Automated countOrdered By: Gurjit Winter on 06-23-2023 Neutrophils (Bld) [#/Vol] 3.4 10*3/uL Normal 1.8-7.7 [facility] Comment on above: Performed By: #### L IPID, CMP, ETOH, CBC, TSH3 wRFLX, [id number] #### [facility] [address] Nitrite Test strip Ql (U)Ord ered By: Gurjit Winter on 06-23-2023 Nitrite Ql (U) Negative Negative [facility] No Panel InformationOrdered By: Gurjit Winter on 06-23-2023 Estimated GFR (CKD-EPI) > 60.0 mL/Min [facility] Creatinine Clearance (Chem 148.61 [facility] Nucleated erythrocytes [Pres ence] in Blood by Automated countOrdered By: Gurjit Winter on 06-23-2023 Nucleated RBC Auto Ql (Bld) 0.1 /100{WBC} 0-0.5 [facility] Opiates [Presence] in Urine by Screen methodOrdered By: Gurjit Winter on 06-23-2023 Opiates Screen Ql (U) Negative Negative [facility] Phencyclidine Screen Ql (U)O rdered By: Gurjit Winter on 06-23-2023 Phencyclidine Ql (U) Negative Negative [facility] Platelet mean volume [Entiti c volume] in Blood by Automated countOrdered By: Gurjit Winter on 06-23-2023 Platelet mean volume (Bld) [Entitic vol] 8.7 fL Normal 6.3-10.7 [facility] Comment on above: Performed By: #### L IPID, CMP, ETOH, CBC, TSH3 wRFLX, [id number] #### [facility] [address] [place] [address] [place] Platelets [#/volume] in Bloo d by Automated countOrdered By: Gurjit Winter on 06-23-2023 Platelets (Bld) [#/Vol] 306 10*3/uL Normal 150-450 [facility] Comment on above: Performed By: #### L IPID, CMP, ETOH, CBC, TSH3 wRFLX, [id number] #### [facility] [address] Potassium [Moles/volume] in Serum or PlasmaOrdered By: Gurjit Winter on 06-23-2023 Potassium [Moles/Vol] 3.6 mmol/L Normal 3.5-5.1 [facility] Comment on above: Performed By: #### L IPID, CMP, ETOH, CBC, TSH3 wRFLX, [id number] #### [address] Protein Auto test strip (U) [Mass/Vol]Ordered By: Gurjit Winter on 06-23-2023 Protein (U) [Mass/Vol] Negative Negative [facility] Protein [Mass/volume] in Ser um or PlasmaOrdered By: Gurjit Winter on 06-23-2023 Protein [Mass/Vol] 7.3 g/dL Normal 6.4-8.9 [facility] Comment on above: Performed By: #### L IPID, CMP, ETOH, CBC, TSH3 wRFLX, [id number] #### [address] Serum globulin measurement b y calculation (mass/volume)Ordered By: Gurjit Winter on 06-23-2023 Globulin (S) [Mass/Vol] 3.0 g/dL Normal [facility] Comment on above: Performed By: #### L IPID, CMP, ETOH, CBC, TSH3 wRFLX, [id number] #### [address] Serum or plasma albumin/glob ulin mass ratioOrdered By: Gurjit Winter on 06-23-2023 Albumin/Globulin [Mass ratio] 1.4 {ratio} Normal [facility] Comment on above: Performed By: #### L IPID, CMP, ETOH, CBC, TSH3 wRFLX, [id number] #### [address] Serum or plasma anion gap de terminationOrdered By: Gurjit Winter on 06-23-2023 Anion gap [Moles/Vol] 8.0 mmol/L Normal 6.0-15.0 [facility] Comment on above: Performed By: #### L IPID, CMP, ETOH, CBC, TSH3 wRFLX, [id number] #### [facility] [address] Serum or plasma high density lipoprotein (HDL) cholesterol measurementOrdered By: Gurjit Winter on 06-23-2023 Cholesterol in HDL [Mass/Vol] 35 mg/dL Normal 23-92 [facility] Comment on above: HDL CHOL ATP-III CLA SSIFICATION Cardiovascular RiskHDL > or equal to 60 mg/dL LOWHDL < 40 mg/dL HIGH Result Comment: HDL CHOL ATP-III CLASSIFICATION Cardiovascular Risk HDL > or equal to 60 mg/dL LOW HDL < 40 mg/dL HIGH Performed By: #### L IPID, CMP, ETOH, CBC, TSH3 wRFLX, [id number] #### [facility] [address] [place] [address] Serum or plasma total choles terol/high density lipoprotein (HDL) cholesterol mass ratOrdered By: Gurjit Winter on 06-23-2023 Cholesterol.total/Hannah sterol in HDL [Mass ratio] 4.6 {ratio} Normal <5.0 [facility] Comment on above: Performed By: #### L IPID, CMP, ETOH, CBC, TSH3 wRFLX, [id number] #### [facility] [address] [place] [address] Sodium [Moles/volume] in Ser um or PlasmaOrdered By: Gurjit Winter on 06-23-2023 Sodium [Moles/Vol] 141 mmol/L Normal 136-145 [facility] Comment on above: Performed By: #### L IPID, CMP, ETOH, CBC, TSH3 wRFLX, [id number] #### [facility] [address] [place] [address] Specific gravity Auto test s trip (U) [Rel density]Ordered By: Gurjit Winter on 06-23-2023 Specific gravity (U) [Rel density] 1.020 1.001-1.030 [facility] Squamous epithelial cells de tection in urine sediment by light microscopyOrdered By: Gurjit Winter on 06-23-2023 Epithelial cells.squamous LM Ql (Urine sed) 3-4 [HPF] 0-2 [facility] Thyroid Stim Hormone w/Rflxo n 06-23-2023 Thyroid Stim Hormone w/Rflx 0.95 u[iU]/mL Normal 0.45-5.33 [facility] Comment on above: Performed By: #### L IPID, CMP, ETOH, CBC, TSH3 wRFLX, [id number] #### [facility] [address] Thyrotropin [Units/volume] i n Serum or PlasmaOrdered By: Gurjit Winter on 06-23-2023 TSH Qn 0.95 m[IU]/L 0.45-5.33 [facility] Triglyceride [Mass/volume] i n Serum or PlasmaOrdered By: Gurjit Winter on 06-23-2023 Triglyceride [Mass/Vol] 102 mg/dL 0-149 [facility] Comment on above: TRIG ATP III CLASSIF ICATIONTRIG less than 150 mg/dL NormalTRIG 150-199 mg/dL Borderline highTRIG 200-500 mg/dL High TRIG greater than 500 mg/dL Very highStandard traceable to the Center for Disease Conrtrol and Prevention (CDC) test method. Urea nitrogen [Mass/volume] in Serum or PlasmaOrdered By: Gurjit Winter on 06-23-2023 Urea nitrogen [Mass/Vol] 6 mg/dL Low 7-25 [facility] Comment on above: Performed By: #### L IPID, CMP, ETOH, CBC, TSH3 wRFLX, [id number] #### [facility] [address] [address] Urine clarity by refractomet ry automatedOrdered By: Gurjit Winter on 06-23-2023 Clarity Refractometry automated (U) Cloudy Clear [facility] Urine glucose measurement by automated test strip (mass/volume)Ordered By: Gurjit Winter on 06-23-2023 Glucose Auto test strip (U) [Mass/Vol] Normal mg/dL Normal [facility] Urine hemoglobin detection b y automated test stripOrdered By: Gurjit Winter on 06-23-2023 Hemoglobin Auto test strip Ql (U) Negative Negative [facility] Urine leukocyte esterase det ection by automated test stripOrdered By: Gurjit Winter on 06-23-2023 Leukocyte esterase Auto test strip Ql (U) Negative Negative [facility] Urine pH measurement by auto mated test stripOrdered By: Gurjit Winter on 06-23-2023 pH (U) 6.0 [pH] Normal 5.0-9.0 [facility] Comment on above: Order Comment: Name Collection Type:: Clean-Voided Midstream Performed By: #### U RDS, UHCG, ADDONUAPLUS #### [facility] [address] Urobilinogen Auto test strip (U) [Mass/Vol]Ordered By: Gurjit Winter on 06-23-2023 Urobilinogen (U) [Mass/Vol] Normal mg/dL Normal [facility] Vitamin D 25 Hydroxy Totalon 06-23-2023 Vitamin D 25 Hydroxy Total 24.6 ng/mL Low 30-100 [facility] Comment on above: Result Comment: ALEJANDRA MIN D STATUS 25(OH)VITAMIN D RANGE (ng/mL) Deficient <20 Insufficient 20 to <30 Sufficient 30 to 100 Reference: Sarah MF,Mp NC, Cortney KLEIN, et al. Evaluation,treatment, and prevention of vitamin D deficiency; an Endocrine Society clinical practice guideline. JCEM. 2010; 96(7):1911-30. PERFORMED BY: [place] [address] PATHOLOGIST NEURO UROLOGIST LE HERRON M.D. Performed By: #### L IPID, CMP, ETOH, CBC, TSH3 wRFLX, [id number] #### [facility] [address] [place] [address] Vitamin D+Metabolites [Mass/ volume] in Serum or PlasmaOrdered By: Gurjit Winter on 06-23-2023 Vitamin D+Metabolites [Mass/Vol] 24.6 ng/mL 30-100 [facility] Comment on above: VITAMIN D STATUS 25( [place])VITAMIN D RANGE (ng/mL) Deficient <20 Insufficient 20 to <30Sufficient 30 to 100Reference: Sarah MF,Mp NC, Cortney KLEIN, et al. Evaluation,treatment, and prevention of vitamin D deficiency; an Endocrine Society clinical practice guideline. JCEM. 2010; 96(3):1911-30. Consent for Treatmenton Consent for Treatment [id number]#1 .00TIFF Normal [facility] Discharge Instructionson Discharge Instructions [id number]# 1.00TIFF Normal [facility] ED Clinical Summaryon 2023 ED Clinical Summary [place] [id number] ED Clinical Summary Person Information Name: AKOSUA ORTIZ Tiff/[facility] Age: 27 Years : 1995 Sex: Female Language: Namibian PCP: LIA LINTON Marital Status: Single Phone: [phone] Visit Id: Visit Reason: Medical problem - [...] 05/18/2023 06:09:26 05/18/2023 06:09:26 05/18/2023 06:09:26 ADDRESS: [address] [place] [address] [place] [id number] [facility] DOC NOTES: MEDICAL INFORMATION: Prescriptions Given: Medications [...] Encounter for test with result negative Normal [facility] ED Note-Physicianon 05-18-19 ED Note-Physician Basic Information Time Seen: Eren Haider DO 05/18/2023 05:35 Chief Complaint Wants test. Concerned [...] and Complexity of Problems Differential Diagnosis: [] MDM Data External documents reviewed: N/A My EKG [...] 05:51:00) Diagnostic Results No qualifying data available. Normal [facility] Comment on above: Result Comment: Elec [...] provider. Document Revised: 10/28/2020 Document Reviewed: 10/28/2020 Elsevier Patient Education ? 2022 [employer] Normal [facility] ED Patient Summaryon 024 ED Patient Summary [address] [address] Patient Discharge Instructions Person Information Name: AKOSUA ORTIZ Age: 27 Years Arrival Date: 05/18/2023 05:28:58 Discharge Diagnosis: Encounter for test with result negative Primary Care Physician: LIA LINTON Provider Information Primary Provider: Eren Haider DO Advanced Glove Tagger:Irvin The exam and treatment you received in the Emergency Department were for an urgent problem and are not intended as complete care. It is important that you follow up with a doctor, nurse practitioner, or physician?s administrative assistant receptionist for ongoing care. If your symptoms become [...] opioids can be used to help relieve veahuujv-sd-xftfxv pain and are often prescribed following a [...] guidance from the Food and Drug Administration (www.fda.gov/Drugs/Re sourcesForYou). ? Visit www.cdc.gov/drugoverd ose to learn about the risks of opioids abuse and overdose. ? If you believe you may be struggling with addiction, tell your health respiratory care instructor and ask for guidance or call SAMHSA?S National Helpline at 9-235-766-HELP. v Source: US Department of Health and Human Services/Center for Disease C (more content not included)... Normal [facility] U BetaHcg QualOrdered By: Don Pinzon on 05-18-2023 HCG.beta subunit (U) [Moles/Vol] Negative Normal [facility] Comment on above: Performed By: #### 2 [id number] ####[facility] [address] [place] [address] Toxassure, Urineon 3 Toxassure, Urine Summary FINAL Normal . [facility] Comment on above: Order Comment: Reaso n for Exam High risk medication use Specimen Comment: ToxAssure, ToxAssure FLEX or MAT drug testing: Specimen Comment: -Technical component - Data analysis performed at Specimen Comment: [address] , [place] [address]. Result Comment: ====== TOXASSURE COMP DRUG ANALYSIS,UR ====== Test Result Flag Units Drug Present Fluoxetine PRESENT Norfluoxetine PRESENT Norfluoxetine is an expected metabolite of fluoxetine. ====== Test Result Flag Units Ref Range Creatinine 210 mg/dL >=20 ====== Declared Medications: Medication list was not provided. ====== For clinical consultation, please call . ====== Performed at: [facility] [address] [place] [id number] Medical Records Library Professor: Lacy Herron [facility], Phone: [phone] PERFORMED BY: [place] [address] PATHOLOGIST NEURO UROLOGIST LE HERRON M.D. Performed By: #### L IPID, CMP, ETOH, CBC, TSH3 wRFLX, [id number] #### [facility] [address] URINE DRUG SCREEN (IN-HOUSE) on 01-18-2023 URINE DRUG SCREEN (IN-HOUSE) [employer] Other .HPV Genotypes 16/18,45on HPV 16 DNA Probe+sig amp Ql (Cvx) Negative Invalid Interpretation Code Negative [facility] Comment on above: Performed By: #### 3 [id number], [id number], [id number], [id number] ####[facility] [address] [place] [address] HPV 18+45 E6+E7 mRNA DAYNA+probe Ql (Cvx) Positive Abnormal Negative [facility] Comment on above: Result Comment: Perf ormed at: [facility] [address] [place] [id number] MD Elaine Cedeño Performed By: #### 3 [id number], [id number], [id number], [id number] ####[facility] [address] [place] [address] .HPV, Aptima High 16/18,45on 01-13-2023 HPV 16+18+31+33+35+39+45+51 +52+56+58+59+66+68 DNA Probe+sig amp Ql (Cvx) Positive Abnormal Negative [facility] Comment on above: Result Comment: This nucleic acid amplification test detects fourteen high-risk HPV types (16,18,31,33,35,39,45,51,52,56,58,59,66,68) without differentiation. Performed at: [facility] [address] [place], [place] [id number] MD Elaine Cedeño Performed By: #### 3 [id number], [id number], [id number], [id number] ####[facility] [address] [place] [address] PAP [id number] 01-13-2023 Cytology report Cyto stain Doc (Cvx/Vag) Note Abnormal [facility] Comment on above: Result Comment: TEST S [...] component) are present. Performed by: Candy Zelaya, Warehouse Material Handler (ASCP) Electronically si... 01 Keya Cramer MD, Pathologist [...] High <-Panic Low,>-Panic High,A-Abnormal,AA-Critical Abnormal Performed at: [facility] [address] Gala Henry MD, Performed at: [facility] [address] [id number] MD Elaine Cedeño Performed By: #### 3 [id number], [id number], [id number], [id number] ####[facility] [address] [place] [address] Physician Read Saul 023 Pathologist review Jovanny (Unsp spec) [Interp] Note Invalid Interpretation Code [facility] Comment on above: Result Comment: TEST S RESULT FLAG UNITS REF RANGE LAB Physician Read Pap Note 01 Performed FLAG LEGEND: L-Low Normal,H-High Normal,LL-Alert Low,HH-Alert High <-Panic Low,>-Panic High,A-Abnormal,AA-Critical Abnormal Performed at: [address] [address] Gala Henry MD, Performed at: [facility] [id number] MD Elaine Cedeño Performed By: #### 3 [id number], [id number], [id number], [id number] ####[place] [address] [place] [address] PAP [id number] 01-06-2023 Collection Technique BRUSH-SPATULA Normal [facility] Comment on above: Performed By: #### 3 [id number], [id number], [id number], [id number] ####[facility] [address] [place] [address] Gynecological Body Site ENDOCERVIX Normal [facility] Comment on above: Performed By: #### 3 [id number], [id number], [id number], [id number] ####[place] [address] [place] [address] Physician Orderon 01-06-2023 Physician Order [id number]#1 .00TIFF Normal [facility] Registrationon 11-20-2022 Registration [id number]#1 .00TIFF Normal [facility] Consenton 11-19-2022 Consent [id number]#1 .00TIFF Normal [facility] Consent for Treatmenton 11-08 Consent for Treatment [id number]#1 .00TIFF Normal [facility] Discharge Instructionson Discharge Instructions [id number]#1 .00TIFF Normal [facility] ED Clinical Summaryon 2022 ED Clinical Summary [place] [id number] ED Clinical Summary Person Information Name: AKOSUA ORTIZ Tiff/[facility] Age: 27 Years : 1995 Sex: Female Language: Namibian PCP: LIA LINTON Marital Status: Single Phone: [phone] Visit Id: Visit Reason: Eye foreign body; [...] 11/19/2022 12:22:13 11/19/2022 12:22:13 11/19/2022 12:22:13 ADDRESS: [address] [place] [address] MIGUELITO BEDNER [place] [id number] PHYS DOC NOTES: MEDICAL INFORMATION: Prescriptions Given: New Medications [facility], [address] [place], [place] [id number], [phone] erythromycin ophthalmic (erythromycin Opth 0.5% Oint) 1/4 [...] up: With: Address: When: Occupational Health: [facility] [phone] In 3 days 11/22/2022 Comments: follow-up occupational health for your Workmen's Comp claim. With: Address: When: Ree Bell [address] [place] [address] [address], [place] [address] [facility] (1) In 2 days 11/21/2022 Comments: Repeat exam in 48 hours, return to the ED with new or worsening symptoms. Use ibuprofen for discomfort. Use eye ointment as prescribed. 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 The patient was discharged home. 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 Ree Bell In 2 days 11/21/2022 EDT [address] [place] [address]- Business (1) Additional Instructions: Repeat exam in [...] Diagnostic Results No qualifying data available. Normal [facility] Comment on above: Result Comment: Elec tronically Signed By: Coy Soriano DO.br\Date and Time Signed: 11/19/22 14:42 EDT ED [...] eye drops prior to using them. 3. grinder dresser front of a mirror so that you [...] water for at least 20 seconds. 2. grinder dresser front of a mirror so that you [...] you dis (more content not included)... 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 It is important that you follow up with a doctor, nurse practitioner, or physician?s administrative assistant receptionist for ongoing care. If your symptoms become [...] Instructions: With: Address: When: Occupational Health: [facility] [phone] In 3 days 11/22/2022 Comments: follow-up occupational health for your Workmen's Comp claim. With: Address: When: Ree Bell [address] [place] [address] [address], [place] [address] Business (1) In 2 days 11/21/2022 Comments: [...] opioids can be used to help relieve vetdirvv-ib-mjvisa pain and are often prescribed following a [...] following guid (more content not included)... Normal [facility] Workers Comp Formson 023 Workers Comp Forms [id number]#1 .00TIFF [facility] COVID CepheidOrdered By: Desiree Reyna on 10-11-2022 SARS-CoV-2 (COVID-19) Ab IA Ql Negative Negative [facility] Comment on above: This is a duplicate Cepheid Xpert Xpress CoV-2/Flu/RSV Plus RNA by RT-PCR result to be used for statistical tracking purpose only. SARS-CoV-2 (COVID-19) RNA DAYNA+probe Ql (Unsp spec) [facility] COVID-19 / Flu A/B / RSV PCR [...] or Cepheid Disclaimer revoked sooner. PERFORMED BY: [facility] [address] [place] [address] PATHOLOGIST NEURO UROLOGIST LE HERRON M.D. Normal [facility] Comment on above: Performed By: #### C OVID19 FLU RSV, CEPHEID NEG #### [address] Cepheid COVID PCR Negativeon 10-11-2022 SARS-CoV-2 (COVID-19) RNA DAYNA+probe Ql (Unsp spec) Negative Normal Negative [facility] Comment on above: Result Comment: This is a duplicate Cepheid Xpert Xpress CoV-2/Flu/RSV Plus RNA by RT-PCR result to be used for statistical tracking purpose only. PERFORMED BY: [facility] [address] [place] [address] PATHOLOGIST NEURO UROLOGIST LE HERRON M.D. Performed By: #### L IPID, CMP, ETOH, CBC, TSH3 wRFLX, [id number] #### [facility] [address] Urine culture routineOrdered By: Елена Linton on 09-17-2021 Bacteria identified Cx Nom (U) Escherichia coli [facility] VIT D 25-OH LABCORPon 2021 Vitamin D, 25-Hydroxy 38.4 ng/mL Normal 30.0-100.0 [facility] Comment on above: Result Comment: Alejandra min D deficiency has been defined by the [place] of Medicine and an Endocrine Society practice guideline as a level of serum 25-OH vitamin D less than 20 ng/mL (1,2). The Endocrine Society went on to further define vitamin D insufficiency as a level between 21 and 29 ng/mL (2). 1. IOM ([place] of Medicine). 2010. Dietary reference intakes for calcium and D. [place]: The National Academies Press. 2. Sarah MF, Mp NC, Cortney KLEIN, et al. Evaluation, treatment, and prevention of vitamin D deficiency: an Endocrine Society clinical practice guideline. JCEM. 2010; 96(7):1911-30. Performed By: #### V ITADLC #### [facility] [address] [place], [place] [address] Dr. Lauren Quezada CBC AUTO DIFFon 09-11-2021 BASO # 0.0 103/ul Normal 0.0-0.1 [facility] Comment on above: Performed By: #### C BC ####[facility] [address] [place], [place] [address]HjDr. Lauren Quezada Basophils/100 WBC (Bld) 0.6 % Normal 0.2-2.0 [facility] Comment on above: Performed By: #### C BC ####[facility] [address] [place] [address]Dr. Lauren Quezada EO # 0.0 103/ul Normal 0.0-0.7 [facility] Comment on above: Performed By: #### C BC ####[facility] [address] [place], [place] [address]Dr. Lauren Quezada Eosinophils/100 WBC (Bld) 0.5 % Critically low 0.9-7.0 [facility] Comment on above: Performed By: #### C BC ####[facility] [address] [place], [place] [address]Dr. Lauren Quezada Erythrocyte distribution width (RBC) [Ratio] 13.6 % Normal 11.0-15.0 [facility] Comment on above: Performed By: #### C BC ####[facility] [address] [place], [place] [address]Dr. Lauren Quezada Hematocrit (Bld) [Volume fraction] 36.3 % Normal 36.0-48.0 [facility] Comment on above: Performed By: #### C BC ####[facility] [address] [place], [place] [address]Dr. Lauren Quezada Hemoglobin (Bld) [Mass/Vol] 12.0 g/dL Normal 12.0-16.0 [facility] Comment on above: Performed By: #### C BC ####[facility] [address] [place], [place] [address]Dr. aLuren Quezada IG # 0.01 10e3/ul Normal 0.00-0.03 [facility] Comment on above: Performed By: #### C BC ####[facility] [address] [place], [place] [address]Dr. Lauren Quezada IG % 0.2 % Normal 0.0-0.5 [facility] Comment on above: Performed By: #### C BC ####[facility] [address] [place], [place] [address]Dr. Carlaruby Quezada LYMPH # 2.3 103/ul Normal 1.2-3.8 [facility] Comment on above: Performed By: #### C BC ####[facility] [address] [place] [address]Dr. Lauren Damien Lymphocytes/100 WBC (Bld) 36.6 % Normal 20.5-60.0 [facility] Comment on above: Performed By: #### C BC ####[facility] [address] [place] [address]Dr. Carlaruby Quezada MANUAL DIFF REQ NO Normal [facility] Comment on above: Performed By: #### C BC ####[facility] [address] [place] [address]Dr. Lauren Damien MCH (RBC) [Entitic mass] 27.6 pg Normal 26.7-34.0 [facility] Comment on above: Performed By: #### C BC ####[facility] [address] [place], [place] [address]Dr. Carlaruby Quezada MCHC (RBC) [Mass/Vol] 33.1 g/dL Normal 29.9-35.2 [facility] Comment on above: Performed By: #### C BC ####[facility] [address] [place], [place] [address]Dr. Carlaruby Quezada MCV (RBC) [Entitic vol] 83.4 fL Normal 81.0-99.0 [facility] Comment on above: Performed By: #### C BC ####[facility] [address] [place], [place] [address]Dr. Lauren Quezada MONO # 0.5 103/ul Normal 0.3-0.8 [facility] Comment on above: Performed By: #### C BC ####[facility] [address] [place], [place] [address]Dr. Carlaruby Quezada Monocytes/100 WBC (Bld) 7.3 % Normal 1.7-12.0 [facility] Comment on above: Performed By: #### C BC ####[facility] [address] [place], [place] [address]Dr. Lauren Quezada NEUT # 3.4 103/ul Normal 1.4-6.5 [facility] Comment on above: Performed By: #### C BC ####[facility] [address] [place] [address]Dr. Lauren Quezada Neutrophils/100 WBC (Bld) 54.8 % Normal 43.0-75.0 [facility] Comment on above: Performed By: #### C BC ####[facility] [address] [place] [address]Dr. Lauren Quezada Platelet mean volume (Bld) [Entitic vol] 10.6 fL Normal 9.5-13.5 [facility] Comment on above: Performed By: #### C BC ####[facility] [address] [place] [address]Dr. Lauren Quezada PLT 282 103/ul Normal 150-450 [facility] Comment on above: Performed By: #### C BC ####[facility] [address] [place] [address]Dr. Lauren Quezada RBC 4.35 106/ul Normal 4.20-5.40 [facility] Comment on above: Performed By: #### C BC ####[facility] [address] [place], [place] [address]Dr. Lauren Quezada WBC 6.2 103/ul Normal 4.0-11.0 [facility] Comment on above: Performed By: #### C BC ####[facility] [address] [place] [address]DrOxana Quezada FREE T4on 09-11-2021 Free T4 [Mass/Vol] 0.78 ng/dL Normal 0.76-1.46 [facility] Comment on above: Performed By: #### F T4 #### [facility] [address] [place] [address] Dr. Lauren Quezada GLYCOHEMOGLOBIN A1Con 2021 ADA RECOMMENDATION SEE BELOW Normal [facility] Comment on above: Result Comment: ADA RECOMMENDED LIMIT 4.0 - 6.0 ADA THERAPEUTIC TARGET < 7.0 ACTION SUGGESTED > 7.0 Performed By: #### A 1C #### [facility] [address] [place] [address] [address] Lauren Quezada Glucose [Mass/Vol] 114 mg/dL Normal [facility] Comment on above: Performed By: #### A 1C #### [facility] [address] [place] [address] [address] Lauren Quezada HbA1c (Bld) [Mass fraction] 5.6 % Normal 4.5-6.2 [facility] Comment on above: Performed By: #### A 1C #### [facility] [address] [place] [address] [address] Lauren Quezada LIPID PROFILEon 09-11-2021 CHOL-HDL RATIO NORM SEE BELOW Normal [facility] Comment on above: Result Comment: 3.3 - 4.4 LOW RISK 4.4 - 7.1 AVERAGE RISK 7.1 - 11.0 MODERATE RISK >11.0 HIGH RISK Performed By: #### C MP, TSH, LIPID #### [facility] [address] [place] [address] Dr. Lauren Quezada Cholesterol [Mass/Vol] 152 mg/dL Normal <=200 Th [facility] Comment on above: Performed By: #### C MP, TSH, LIPID #### [facility] [address] [place] [address] Dr. Lauren Quezada Cholesterol in HDL [Mass/Vol] 43 mg/dL Normal 40-60 [facility] Comment on above: Performed By: #### C MP, TSH, LIPID #### [facility] [address] [place] [address] Dr. Lauren Quezada Cholesterol in LDL [Mass/Vol] 96.4 mg/dL Normal [facility] Comment on above: Performed By: #### C MP, TSH, LIPID #### [facility] [address] [place] [address] Dr. Lauren Quezada Cholesterol.total/Hannah sterol in HDL [Mass ratio] 3.5 {ratio} Normal [facility] Comment on above: Performed By: #### C MP, TSH, LIPID #### [facility] [address] [place] [address] Dr. Lauren Quezada HDL NORMAL > or = 60 mg/dl - LO W CARDIOVASCULAR RISK <40 mg/dl - HIGH CARDIOVASCULAR RISK Normal [facility] Comment on above: Performed By: #### C MP, TSH, LIPID #### [facility] [address] [address] [address] Lauren Quezada LDL CALC NORMAL SEE BELOW Normal [facility] Comment on above: Result Comment: <100 mg/dl OPTIMAL 100 - 129 mg/dl NEAR OR ABOVE OPTIMAL 130 - 159 mg/dl BORDERLINE HIGH 160 - 189 mg/dl HIGH >190 mg/dl VERY HIGH Performed By: #### C MP, TSH, LIPID #### [facility] [address] [address] [address] Lauren Quezada Triglyceride [Mass/Vol] 63 mg/dL Normal <=150 T [facility] Comment on above: Performed By: #### C MP, TSH, LIPID #### [facility] [address] [place] [address] Dr. Lauren Quezada VLDL CALC 12.6 mg/dL Normal [facility] Comment on above: Performed By: #### C MP, TSH, LIPID #### [facility] [address] [place] [address] Dr. Lauren Quezada PROF 14(COMP METB)on 022 Albumin [Mass/Vol] 4.1 g/dL Normal 3.4-5.0 [facility] Comment on above: Performed By: #### C MP, TSH, LIPID #### [facility] [address] [place] [address] Dr. Lauren Quezada Albumin/Globulin [Mass ratio] 1.2 {ratio} Normal [facility] Comment on above: Performed By: #### C MP, TSH, LIPID #### [facility] [address] [address] [address] Lauren Quezada ALP [Catalytic activity/Vol] 66 U/L Normal 46-116 [facility] Comment on above: Performed By: #### C MP, TSH, LIPID #### [facility] [address] [place] [address] Dr. Lauren Quezada ALT [Catalytic activity/Vol] 7 U/L Critically low 14-59 [facility] Comment on above: Performed By: #### C MP, TSH, LIPID #### [facility] [address] [place] [address] Dr. Lauren Quezada Anion gap [Moles/Vol] 12.2 mmol/L Normal Th [facility] Comment on above: Performed By: #### C MP, TSH, LIPID #### [facility] [address] [address] [address] Lauren Quezada AST [Catalytic activity/Vol] 15 U/L Normal 15-37 [facility] Comment on above: Performed By: #### C MP, TSH, LIPID #### [facility] [address] [address] [address] Lauren Quezada Bilirubin [Mass/Vol] 0.5 mg/dL Normal 0.2-1.0 [facility] Comment on above: Performed By: #### C MP, TSH, LIPID #### [facility] [address] [place] [address] Dr. Lauren Quezada Calcium [Mass/Vol] 8.9 mg/dL Normal 8.5-10.1 [facility] Comment on above: Performed By: #### C MP, TSH, LIPID #### [facility] [address] [place] [address] Dr. Lauren Quezada Chloride [Moles/Vol] 103 mmol/L Normal 98-107 [facility] Comment on above: Performed By: #### C MP, TSH, LIPID #### [facility] [address] [place] [address] Dr. Lauren Quezada CO2 [Moles/Vol] 27.4 mmol/L Normal 21.0-32.0 [facility] Comment on above: Performed By: #### C MP, TSH, LIPID #### [facility] [address] [place] [address] Dr. Lauren Quezada Creatinine [Mass/Vol] 0.67 mg/dL Normal 0.55-1.02 [facility] Comment on above: Performed By: #### C MP, TSH, LIPID #### [facility] [address] [place] [address] Dr. Lauren Quezada EGFR-AF NAMIBIAN >60 Normal >=60 [facility] Comment on above: Performed By: #### C MP, TSH, LIPID #### [facility] [address] [address] [address] Lauren Quezada EGFR-NON AF NAMIBIAN >60 Normal >=60 [facility] Comment on above: Performed By: #### C MP, TSH, LIPID #### [facility] [address] [place] [address] Dr. Lauren Quezada Globulin (S) [Mass/Vol] 3.4 g/dL Normal T [facility] Comment on above: Performed By: #### C MP, TSH, LIPID #### [facility] [address] [place] [address] Dr. Lauren Quezada Glucose [Mass/Vol] 75 mg/dL Normal 74-106 [facility] Comment on above: Performed By: #### C MP, TSH, LIPID #### [facility] [address] [place] [address] Dr. Lauren Quezada Potassium [Moles/Vol] 3.6 mmol/L Normal 3.5-5.1 [facility] Comment on above: Performed By: #### C MP, TSH, LIPID #### [facility] [address] [place] [address] Dr. Lauren Quezada Protein [Mass/Vol] 7.5 g/dL Normal 6.4-8.2 [facility] Comment on above: Performed By: #### C MP, TSH, LIPID #### [facility] [address] [place] [address] Dr. Lauren Quezada Sodium [Moles/Vol] 139 mmol/L Normal 136-145 [facility] Comment on above: Performed By: #### C MP, TSH, LIPID #### [facility] [address] [place] [address] Dr. Lauren Quezada Urea nitrogen [Mass/Vol] 12.0 mg/dL Normal 7.0-18.0 [facility] Comment on above: Performed By: #### C MP, TSH, LIPID #### [facility] [address] [place] [address] Dr. Lauren Quezada Urea nitrogen/Creatinine [Mass ratio] 17.9 mg/mg Normal [facility] Comment on above: Performed By: #### C MP, TSH, LIPID #### [facility] [address], [place] [address] Dr. Lauren Quezada TSHon 09-11-2021 TSH 0.504 uIU/mL Normal 0.358-3.740 [facility] Comment on above: Performed By: #### C MP, TSH, LIPID #### [facility] [address] [place], [place] [address] Dr. Lauren Quezada CHEMISTRYOrdered By: SYSTEM SYSTEM [...] 10 mmol/L Normal 6 - 16 mEq/L [facility] Remisol AST [Catalytic activity/Vol] 16 [iU]/d Normal [...] MDRD (S/P/Bld) [Vol rate/Area] mL/min/1.73 m2 Normal >=59mL/min/ 1.73 m2 [facility] Chem S GFR/1.73 sq M.predicted among non-blacks MDRD (S/P/Bld) [Vol rate/Area] mL/min/1.73 m2 Normal >=59mL/min/ 1.73 m2 [facility] Chem S Globulin (S) [Mass/Vol] 3.4 g/dL Normal 1.4 - 4.0 gm/dL [facility] Glucose [Mass/Vol] 91 mg/dL Normal 55 - 199 mg/dL [facility] HCG.beta subunit Qn 5175 m[IU]/mL High 1 - 3 mIU/mL [facility] Lipase [Catalytic activity/Vol] 31 U/L Normal 13 - 58 unit/L [facility] Potassium [Moles/Vol] 3.2 mmol/L Low 3.5 [...] Normal 0.0 - 8.0 % [facility] HemeAutoSS Eosinophils/Leukocytes Auto (Bld) [Pure # fraction] 0.0 E9/L Normal 0.0 - 0.5 E9/L [facility]eAutoSS Lymphocytes/100 WBC (Bld) 37.7 % Normal 14.0 - 50.0 % [facility]eAutoSS Lymphocytes/Leukocytes Auto (Bld) [Pure # fraction] 2.7 E9/L Normal 1.0 - 4.0 E9/L [facility]eAutoSS Monocytes/100 WBC (Bld) 9.0 % Normal 4.0 - 14.0 % [facility]eAutoSS Monocytes/Leukocytes Auto (Bld) [Pure # fraction] 0.6 E9/L Normal 0.2 - 1.0 E9/L [facility]eAuto[facility] Neutrophils/100 WBC (Bld) 52.1 % Normal 36.0 - 75.0 % [facility]eAutoSS Neutrophils/Leukocytes Auto (Bld) [Pure # fraction] 3.7 E9/L [...] HemeAutoSS Platelets (Bld) [#/Vol] 287.0 E9/L Normal 150. 0 - 500.0 E9/L [facility]eAutoSS RBC (Bld) [...] AM) Normal Negative [facility] UA Auto SS [place].plasma/[place]. RBC (Bld) [Mass ratio] 0-3 /HPF Normal 0-3/HPF [facility] UA A uto SS Mucus Ql (Urine sed) 3+ (08/06/21 [...] [facility] UA Auto SS Urobilinogen Qn (U) [id number] {Lashay'U}/dL Normal 0.0 - 1.0 EU/dL [facility] UA Auto SS WBC Auto Ql (U) Negative (08/06/21 6:08 AM) Normal Negative [facility] UA Auto SS WBC LM.HPF (Urine sed) [#/Area] 0-5 /HPF Normal 0-5/HPF [facility] UA Auto SS GENITAL CULTUREon 07-16-2021 Genital Culture, Routine Final report Normal [facility] Comment on above: Performed By: #### C XGENIT ####[facility] [id number] [address]Dr. Lauren Quezada Result 1 Comment Normal [facility] Comment on above: Result Comment: Rout ine genital tori. Performed By: #### C XGENIT ####[facility] [id number] [address]Dr. Lauren Quezada CBC AUTO DIFFon 07-12-2021 BASO # 0.1 103/ul Normal 0.0-0.1 [facility] Comment on above: Performed By: #### C BC #### [facility] [address] [address] [address] Lauren Quezada Basophils/100 WBC (Bld) 0.8 % Normal 0.2-2.0 [facility] Comment on above: Performed By: #### C BC #### [facility] [address] [address] [address] Lauren Quezada EO # 0.1 103/ul Normal 0.0-0.7 [facility] Comment on above: Performed By: #### C BC #### [facility] [address] [address] [address] Lauren Quezada Eosinophils/100 WBC (Bld) 1.5 % Normal 0.9-7.0 [facility] Comment on above: Performed By: #### C BC #### [facility] [address] [address] [address] Lauren Quezada Erythrocyte distribution width (RBC) [Ratio] 13.7 % Normal 11.0-15.0 [facility] Comment on above: Performed By: #### C BC #### [facility] [address] [address] [address] Lauren Quezada Hematocrit (Bld) [Volume fraction] 31.5 % Critically low 36.0-48.0 [facility] Comment on above: Performed By: #### C BC #### [facility] [address] [place] [address] Dr. Lauren Quezada Hemoglobin (Bld) [Mass/Vol] 10.2 g/dL Critically low 12.0-16.0 [facility] Comment on above: Performed By: #### C BC #### [facility] [address] [place] [address] Dr. Lauren Quezada IG # 0.01 10e3/ul Normal 0.00-0.03 [facility] Comment on above: Performed By: #### C BC #### [facility] [address] [place] [address] Dr. Lauren Quezada IG % 0.2 % Normal 0.0-0.5 [facility] Comment on above: Performed By: #### C BC #### [facility] [address] [place] [address] Dr. Lauren Quezada LYMPH # 2.4 103/ul Normal 1.2-3.8 [facility] Comment on above: Performed By: #### C BC #### [facility] [address] [place] [address] Dr. Lauren Quezada Lymphocytes/100 WBC (Bld) 36.8 % Normal 20.5-60.0 [facility] Comment on above: Performed By: #### C BC #### [facility] [address] [place] [address] Dr. Lauren Quezada MANUAL DIFF REQ NO Normal [facility] Comment on above: Performed By: #### C BC #### [facility] [address] [place] [address] Dr. Lauren Quezada MCH (RBC) [Entitic mass] 27.6 pg Normal 26.7-34.0 [facility] Comment on above: Performed By: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 [facility] Fam[facility]x Problem: Diagnosed with Mental Illness Social History Smoking Status: Current every day smoker Tobacco Type: e-cigarettes Substance Use Type: None Meds Medications and Allergies Allergies Penicillins Allergy (Unknown, Verified 06/02/23 09:54) Hives, rash Home Medications alprazolam 0.5 mg tablet 0.5 mg PO DAILY PRN anxiety 30 days #30 tabs 04/09/23 [Rx Confirmed 06/23/23] Exam Physical Exam Vital Signs: Temp Pulse Resp BP Pulse Ox O2 Del Method 98.2 F 70 16 94/51 L 100 Room Air 06/24/23 07:30 06/24/23 07:30 06/24/23 07:30 06/24/23 07:30 06/24/23 07:30 06/24/23 09:00 Results - Psychiatry Labs 06/23/23 17:59 06/23/23 17:59 Psychiatry Labs: 06/23/23 06/23/23 17:59 18:07 RBC 4.51 Hgb 12.7 Hct 37.5 MCV 83.2 MCH 28.1 MCHC 33.8 RDW 13.7 Plt Count 306 MPV 8.7 Sodium 141 Potassium 3.6 Chloride 107 Carbon Dioxide 29.6 Anion Gap 8.0 BUN 6 L Creatinine 0.57 L Calcium 9.0 Total Bilirubin 0.3 AST 22 ALT 16 Alkaline Phosphatase 46 Total Protein 7.3 Albumin 4.3 Urine Color Yellow Urine Appearance Cloudy A Urine pH 6.0 Ur Specific Og[place] 1.020 Urine Protein Negative Urine Glucose (UA) Normal Urine Ketones Negative Urine Occult Blood Negative Urine Nitrite Negative Ur Leukocyte Esterase Negative Urine RBC 5-9 H Urine WBC 1-2 Assessment/Plan (1) Bipolar disorder: Plan Bipolar disorder by history Prescriptions reviewed and last Xanax prescription was in April Consider other medications once patient is more cooperative for assessment Documented By: Holden Segal MD 06/24/23 1202 Signed By: <Electronically signed by Holden Segal MD> 06/24/23 1206 [facility] Work Phone: 1(172) 614-995304-15-2024 Hospital Discharge instructionsAmbulatory Orders* Referral to Behavioral Health Time Frame: 05/24/23, Location: None [facility] Work Phone: 1(180) 315-122504-09-2024 Evaluation + Plan noteExtracted from: Title:ED Note Author:Vitaly Eren JANEOxana Date :05/18/23 Encounter for test with result negative (Z32.02: Encounter for test, result negative) Orders: U Beta Hcg Qual [facility]04-09-2024 Hospital Discharge instructions Patient Education 05/18/2023 06:09:27 [...] provider. Document Revised: 10/28/2020 Document Reviewed: 10/28/2020 [employer] Patient Education 2022 [employer]. 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 (H16.133: Photokeratitis, bilateral) Orders: erythromycin ophthalmic, 1/4 inch ribbon, Eye-Both, As Directed for 5 day(s), 3.5 gm, Refill(s) 0, [id number], 157, cm, 11/19/22 10:43:00 EDT, Height/Length Dosing, 87.7, kg, 11/19/22 10:43:00 EDT, Weight Dosing fluorescein ophthalmic, 1 mg, 1 EA, Test, OPTH, Once, Stop date 11/19/22 10:45:00 EDT, STAT, Start date 11/19/22 10:45:00 EDT tetracaine ophthalmic, 2 drop(s), Soln-Opth, Eye-Both, Once, Stop date 11/19/22 10:45:00 EDT, STAT, Start date 11/19/22 10:45:00 EDT [facility]10-12-2023 Hospital Discharge instructions Patient Education 11/19/2022 11:50:54 [...] Follow these instructions at home: Medicines Take vqso-ofe-dnkeuui and prescription medicines only as told by [...] provider. Document Revised: 12/08/2019 Document Reviewed: 12/08/2019 [employer] Patient Education 2022 [employer]. 11/19/2022 11:50:54 How to Use Eye Drops [...] shaking eye drops prior to using them. 3.grinder dresser front of a mirror so that you [...] and water for at least 20 seconds. 2.grinder dresser front of a mirror so that you [...] provider. Document Revised: 05/28/2021 Document Reviewed: 05/28/2021 [employer] Patient Education 2022 [employer]. Follow Up Care 11/19/2022 10:32:09 With:Occupational Health: [facility] [phone] Address:Unknown When:11/22/2022 11:46:37 Comments:follow-up occupational health for your Workmen's Comp claim. With:Ree Bell Address: [address] [place] [id number] Business (1) When:11/21/2022 11:47:08 Comments:Repeat exam in 48 hours, return to the ED with new or worsening symptoms. Use ibuprofen for discomfort. Use eye ointment as prescribed. [facility]06-29-2022 Evaluation + Plan noteExtracted from: Title:ED Note [...] work-up, vitals were discussed with the on-call DIMMER BOARD OPERATOR Dr. Gray. As her was performed at [facility] she reports they would have sent pathology to assure that they obtain products of conception. Her care will be determined by the results of this. He reports that she needs to call the [facility] office today to follow-up on the pathology report so that they can continue appropriate care depending on those results. I discussed findings and recommendations of my DIMMER BOARD OPERATOR with the patient. She does show me [...] The patient was discharged home. Coy Soriano [facility]06-29-2022 Hospital Discharge instructions Patient Education 08/06/2021 09:24:07 [...] that this is safe. General instructions Take ucfd-olp-dyxlaac and prescription medicines only as told by [...] 11/04/2005 Document Revised: 05/16/2019 Document Reviewed: 04/29/2017 [employer] Patient Education 2020 [employer]. Follow Up Care 08/06/2021 05:36:46 With:[facility] [...] weakness, or any new or worsening symptoms. [facility]04-13-2022 Hospital Discharge instructions Patient Education 05/21/2021 12:12:36 [...] Treatment for this condition includes: Antibiotic medicine. Crxb-skj-lcjajml medicines to treat discomfort. Drinking enough water [...] Follow these instructions at home: Medicines Take qzvz-xrd-dbihbos and prescription medicines only as told by [...] 11/04/2005 Document Revised: 01/12/2019 Document Reviewed: 08/04/2018 [employer] Patient Education [employer]. Follow Up Care 05/21/2021 09:33:16 With:LIA LINTON Address:Unknown When:05/24/2021 12:01:45 [facility]04-13-2022 Evaluation + Plan noteExtracted from: Title:ED Note Author:Silvestre Gregory PA-C te:05/21/21 UTI (urinary tract infection ) (N39.0: Urinary tract infection, site not specified) Orders: cephalexin, 500 mg = 1 cap(s), Oral, q12hr, X 7 day(s), # 14 cap(s), Refills(s) 0, Pharmacy: [facility], 157, cm, 05/21/21 9:37:00 EDT, Height/Length Dosing, 93.6, kg, 05/21/21 9:37:00 EDT, Weight Dosing ketorolac, 30 mg = 1 mL, Injection, IV Push, Once, Stop date 05/21/21 11:09:00 EDT, STAT, Start date 05/21/21 11:09:00 EDT, 05/21/21 11:09:00 EDT naproxen, 500 mg = 1 tab(s), Oral, BID, PRN for pain, # 20 tab(s), Refills(s) 0, Pharmacy: [facility], 157, cm, 05/21/21 9:37:00 EDT, Height/Length Dosing, 93.6, kg, 05/21/21 9:37:00 EDT, Weight Dosing ondansetron, 4 mg = 1 tab(s), Oral, TID, # 15 tab(s), Refills(s) 0, Pharmacy: [facility], 157, cm, 05/21/21 9:37:00 [...] Diagnostic Tests Pending * Urine Culture [facility]21/21 [facility] information available [facility] Work Phone: Evaluation note* Diagnosis Onset Date Resolution Status Generalized anxiety disorder acute Panic attacks acute Bipolar disorder acute [facility] Work Phone: Evaluation note* Diagnosis Onset Date Resolution Status Generalized anxiety disorder acute Panic attacks acute Bipolar disorder acute Bipolar disorder acute URI (upper respiratory infection) acute Bipolar disorder acute [facility] Work Phone: Evaluation note* Diagnosis Onset Date Resolution Status URI (upper respiratory infection) acute Generalized anxiety disorder acute Vitamin D insufficiency none active Hospital discharge follow-up noneactive [facility] Work Phone: History general Narrative - Reported* Type Description Date Medical History adhd Medical History bipolar Medical History anxiety Surgical History Hospitalization History see above Hospitalization History child [facility] [facility] course Narrative No data available for this section [facility] No data available for this section [facility] No data available for this section [facility] Chief Complaint and Reason for Visit Chief Complaint N39.0 Chief Complaint R Arm Numbness Chief Complaint R Arm Numbness Abscess x3 mos,Concern for Covid Chief Complaint High risk medication use Chief Complaint 2 month f/u mental health/fmla Reason for Visit Generalized anxiety disorder Panic attacks Bipolar disorder Chief Complaint 2 month f/u mental health/fmla 1 WEEK Reason for Visit Generalized anxiety disorder Panic attacks Bipolar disorder Chief Complaint 2 month f/u mental health/fmla 1 WEEK mhp took xanax mhp took xanax Reason for Visit Generalized anxiety disorder Panic attacks Bipolar disorder Bipolar disorder URI (upper respiratory infection) Bipolar disorder Chief Complaint 2 month f/u mental health/fmla 1 WEEK mhp took xanax mhp took xanax Amb Documentation FMLA paperwork/hospital follow up Reason for Visit Generalized anxiety disorder Panic attacks Bipolar disorder Bipolar disorder URI (upper respiratory infection) Bipolar disorder Chief Complaint mental health/fmla 1 WEEK mhp took xanax mhp took xanax Amb Documentation FMLA paperwork/hospital follow up talk about medication/ additional paperwork Reason for Visit URI (upper respirato ry infection) Generalized anxiety disorder Vitamin D insufficiency Hospital discharge follow-up Advance Directives No Advanced Directives Records Found Advance Directive Response Recorded Date/ Time Advance Directives No October 4:18pm Advance Directive Response Recorded Date/ Time Advance Directives No October 3:18pm Summary Purpose Family History No Family History Records Found Relationship Condition Age at Onset Recorded Date/T jennifer father Family history of mental disorder Unknown Hypertension Unknown family member Family history of other condition Unknow n Not Specified Family history of mental disorder Unknow n Additional Source Comments Care Team (unrecognized sect ion and content) Team Status: Inactive Member Role Status Dates NON STAFF Primary Care Provider Active Елена Brit Royer , ROOF TECHNICIAN [employer]AR [employer]C Attending Provider Heladio gandhi Team Status: Active Member Role Status Dates NON STAFF Primary Care Provider Active Team Status: Active Member Role Status Dates Елена Linton APRN [employer]AR [employer]ER-C Primary Care Provider Active Team Status: Inactive Member Role Status Dates Елена Linton APRN GEAR SH[employer]ER-C Primary Care Provider Active Marguerite Reyna , DO Emergency Provider Active Team Status: Active Member Role Status Dates PHYSICIAN NO FAMILY Primary Care Provider Active Team Status: Inactive Member Role Status Dates PHYSICIAN NO FAMILY Primary Care Provider Active Marguerite Reyna , DO Emergency Provider Active Team Status: Inactive Member Role Status Dates Dacia Blas , DO Attending Provider Active Team Status: Active Member Role Status Dates Dacia Blas , DO Primary Care Provider Active Team Status: Inactive Member Role Status Dates Dacia Blas , DO Primary Care Provide r, Attending Provider Active Start: April 09, 2023 End: April 09, 2023 Team Status: Inactive Member Role Status Dates Dacia Blas , DO Primary Care Provide r, Attending Provider Active Start: May 24, 2023 End: May 24, 2023 Team Status: Inactive Member Role Status Dates Dacia Blas , DO Primary Care Provide r, Attending Provider Active Start: June 02, 2023 End: June 02, 2023 Team Status: Inactive Member Role Status Dates Dacia Blas , DO Primary Care Provider Active Start: June 23, 2023 End: June 25, 2023 Gurjit Winter , DO Emergency Provider Active Start: June 23, 2023 End: June 25, 2023 Holden Segal MD Admit Provider, Atte nding Provider Active Start: June 23, 2023 End: June 25, 2023 Team Status: Active Member Role Status Dates Dacia Blas , DO Primary Care Provider Active Start: June 24, 2023 Gurjit Winter , DO Emergency Provider Active Start: June 24, 2023 Holden Segal MD Admit Provider, Atte nding Provider, Other Provider Active Start: June 24, 2023 Team Status: Active Member Role Status Dates Dacia Blas , DO Primary Care Provider Active Start: June 28, 2023 Griselda Munoz LPN Attending Provider Active Sta rt: June 28, 2023 Team Status: Inactive Member Role Status Dates Dacia Blas DO Primary Care Provider Active Start: June 28, 2023 End: June 28, 2023 Lonnie Pemberton APRN Attending Provider Active Start: June 28, 2023 End: June 28, 2023 Team Status: Active Member Role Status Dates Dacia Blas , Primary Care Provider Active Start: June 24, 2023 End: June 25, 2023 Gurjit Winter DO Emergency Provider Active Start: June 24, 2023 End: June 25, 2023 Holden Segal MD Admit Provider, Atte nding Provider, Other Provider Active Start: June 24, 2023 End: June 25, 2023 Team Status: Inactive Member Role Status Dates Dacia Blas DO Primary Care Provider Active Start: July 09, 2023 End: July 09, 2023 Lonnie Pemberton APRN Attending Provider Active Start: July 09, 2023 End: July 09, 2023 Goals (unrecognized section and content) Goals may be documented in a n alternate section INFORMATION SOURCE (unrecogn ized section and content) DATE CREATED AUTHOR 12/02/2021 [facility] DATE CREATED AUTHOR AUTHOR'S ORGANIZ ATION 07/31/2023 [facility] DATE CREATED AUTHOR AUTHOR'S ORGANIZ ATION 08/07/2023 [facility] REASON FOR VISIT (unrecogniz ed section [...] BE BASED ON THE PRIMARY CLINICAL RECORDS. [employer] provides no warranty or guarantee of the accuracy or completeness of information in this document.
--- NOTE | 2023-08-12 05:53 | ED_ITS ---
HPI - Female Genitourinary General Chief complaint: Urogenital-Female Stated complaint: VAGINAL BLEEDING Time Seen by Provider: 08/12/23 05:50 History of Present Illness HPI Narrative: [id number] LMP 07/01. Presents complaining of spotting this AM. mild cramping. No nausea or vomiting. Feels well. No urinary symptoms. Noticed blood after wiping Related Data Home Medications ?Medication ?Instructions ?Recorded ?Confirmed alprazolam 0.5 mg tablet 0.5 mg PO DAILY PRN anxiety 05/26/23 05/26/23 norethindrone 1 mg-ethinyl 1 tab PO DAILY 05/26/23 05/26/23 estradiol 20 mcg (24)-iron 75 mg (4) tablet (Yovany 24 Fe) quetiapine 50 mg tablet,extended 50 mg PO DAILY 05/26/23 05/26/23 release 24 hr Allergies Allergy/AdvReac Type Severity Reaction Status Date / Time Penicillins AdvReac Intermediate Hives Verified 08/12/23 05:43 Review of Systems ROS Status of ROS 10 or more systems reviewed and unremark able except as noted in history and below PFSH PFS Social History Smoking status: Current every day smoker Exam Constitutional Vital Signs, click to edit/add: Last Vital Signs Temp 98.3 F 08/12/23 05:40 Pulse 78 08/12/23 07:02 Resp 18 08/12/23 07:02 BP 130/70 08/12/23 07:02 Pulse Ox 98 08/12/23 07:02 O2 Del Method Room Air 08/12/23 05:40 Common normals: no apparent distress, average body habitus, oriented x3, no limitations, healthy appearing, alert and well nourished [facility] Common normals: normocephalic and head/scalp atraumatic Eye Common normals: PERRL, EOMs intact bilaterally and conjunctivae normal Respiratory Common normals: normal respiratory effort, no retractions, no use of accessory muscles and clear to auscultation bilaterally Cardio Common normals: regular rate, regular rhythm, S1 normal heart sound and S2 normal heart sound GI Common normals: Normal to inspection, nondistended, normoactive bowel sounds present, soft to palpation and non-tender Common normals: external appearance normal, appearance of the vagina normal and appearance of the cervix normal Other: small amount of discharge in vault. No blood seen Extremity Common normals: normal to inspection and full ROM Neuro Common normals: oriented x3, CN's II-XII intact bilaterally, moves all extremities, no focal motor deficits and no sensory deficits noted Psych Appearance: grossly normal Course Vital Signs Vital signs: Vital Signs Temperature 98.3 F 08/12/23 05:40 Pulse Rate 73 08/12/23 05:40 Respiratory Rate 18 08/12/23 05:40 Blood Pressure 132/53 08/12/23 05:40 Pulse Oximetry 99 08/12/23 05:40 Oxygen Delivery Method Room Air 08/12/23 05:40 Temperature 98.3 F 08/12/23 05:40 Pulse Rate 78 08/12/23 07:02 Respiratory Rate 18 08/12/23 07:02 Blood Pressure 130/70 08/12/23 07:02 Pulse Oximetry 98 08/12/23 07:02 Oxygen Delivery Method Room Air 08/12/23 05:40 MDM - Female Genitourinary MDM Narrative Medical decision making narrative: [id number] presents <2 months with spotting this AM. Mild cramping. Normal vital signs. speculum exam with small amount of discharge. No blood seen. samples collected for GC/chlamydia/wet prep Lab Data Labs: Lab Results 08/12/23 08/12/23 Range/Units 06:02 06:30 WBC 7.0 (4.0-11.0) 10^3/uL RBC 3.90 L (4.20-5.40) 10^6/uL Hgb 11.3 L (12.0-16.0) g/dL Hct 34.0 L (36.0-48.0) % MCV 87.2 (81.0-99.0) fL MCH 29.0 (26.7-34.0) pg MCHC 33.2 (29.9-35.2) g/dL RDW 13.8 (11.0-15.0) % Plt Count 270 (150-450) 10^3/uL MPV 10.8 (9.5-13.5) fL Neut % (Auto) 52.4 (43.0-75.0) % Lymph % (Auto) 35.3 (20.5-60.0) % Garden % (Auto) 10.8 (1.7-12.0) % Eos % (Auto) 0.6 L (0.9-7.0) % Baso % (Auto) 0.6 (0.2-2.0) % Neut # (Auto) 3.7 (1.4-6.5) 10^3/uL Lymph # (Auto) 2.5 (1.2-3.8) 10^3/uL Garden # (Auto) 0.8 (0.3-0.8) 10^3/uL Eos # (Auto) 0.0 (0.0-0.7) 10^3/uL Baso # (Auto) 0.0 (0.0-0.1) 10^3/uL Abs Immat Gran (auto) 0.02 (0.00-0.03) 10^3/uL Imm/Tot Granulo (auto) 0.3 (0.0-0.5) % Sodium 139 (136-145) mmol/L Potassium 3.8 (3.5-5.1) mmol/L Chloride 104 (98-107) mmol/L Carbon Dioxide 25.1 (21.0-32.0) mmol/L Anion Gap 13.7 BUN 10.0 (7.0-18.0) mg/dL Creatinine 0.55 (0.55-1.02) mg/dL Est GFR ( Amer) >60 (>=60) Est GFR (Non-Af Amer) >60 (>=60) BUN/Creatinine Ratio 18.2 Glucose 105 (74-106) mg/dL Calcium 8.7 (8.5-10.1) mg/dL HCG, Quant 32237 mIU/mL Urine Color Lt. yellow (YELLOW) Urine Clarity Clear (CLEAR) Urine pH 6.5 (5.0-9.0) Ur Specific [place] 1.025 (1.005-1.025) Urine Protein Negative (NEG/TRACE) mg/dL Urine Glucose (UA) Negative (NEGATIVE) mg/dL Urine Ketones Negative (NEGATIVE) mg/dL Urine Occult Blood Trace-i (NEGATIVE) Urine Nitrite Negative (NEGATIVE) Urine Bilirubin Negative (NEGATIVE) Urine Urobilinogen 0.2 (0.2-1.0) EU/dL Ur Leukocyte Esterase Negative (NEGATIVE) Urine RBC 0-2 (0-2) #/HPF Urine WBC 2-5 A (NONE SEEN) #/HPF Ur Squamous Epith Cells Moderate A (NONE/RARE) #/LPF Urine Crystals None seen (None Seen) #/HPF Amorphous Sediment Moderate Urine Bacteria Small A (NONE SEEN) #/HPF Urine Casts None seen (NONE SEEN) #/LPF Urine Mucus Moderate A (NONE SEEN) Ur Culture Indicated? No Discharge Plan Discharge Stand Alone Forms: Portal Instructions Chief Complaint: Urogenital-Female Clinical Impression: Miscarriage, threatened, early Patient Disposition: Home, Self-Care Prescriptions / Home Meds: No Action quetiapine 50 mg tablet extended release 24 hr 50 mg PO DAILY Yovany 24 Fe 1 mg-20 mcg (24)/75 mg (4) tablet 1 tab PO DAILY alprazolam 0.5 mg tablet 0.5 mg PO DAILY PRN (Reason: anxiety) Print Language: Puerto Rican Instructions: Threatened Miscarriage (ED) Additional Instructions: follow up with your Pitch Filler as planned. Return if increased bleeding or pain Referrals: Dacia Blas DO [Primary Care Provider] - 1 week Discharge Date/Time: 08/12/23 07:03
[2023-08-12 06:19] LABS: Bilirubin Urine NEGATIVE (NEGATIVE); Blood Urine TRACE-I (NEGATIVE); Clarity Urine CLEAR (CLEAR); Color Urine LT. YELLOW (YELLOW); Glucose Urine UA NEGATIVE (NEGATIVE); Ketones Urine NEGATIVE (NEGATIVE); Leukocyte Esterase Urine NEGATIVE (NEGATIVE); Nitrite Urine NEGATIVE (NEGATIVE); Protein Urine NEGATIVE (NEG/TRACE); Specific Gravity Urine 1.025 (1.005-1.025); Urobilinogen Urine 0.2 EU/dL (0.2-1.0); pH Urine 6.5 (5.0-9.0)
[2023-08-12 06:20] LABS: Urine Microscopic Indicated YES
[2023-08-12 06:31] LABS: Amorphous Sediment Urine MODERATE; Bacteria Urine SMALL #/HPF (NONE SEEN); Cast Seen? NONE SEEN #/LPF (NONE SEEN); Crystals Seen? None Seen #/HPF (None Seen); Mucus Urine MODERATE (NONE SEEN); RBC Urine 0-2 #/HPF (0-2); Squamous Epithelial Cell Urine MODERATE #/LPF (NONE/RARE); Urine Culture Indicated NO
[2023-08-12 07:02] VITALS: BP 130/70; PULSE 78; O2SAT 98
[2023-08-12 07:22] LABS: Basophils Percent Auto 0.6 % (0.2-2.0); Eosinophils Percent Auto 0.6 % (0.9-7.0); Hemoglobin 11.3 g/dL (12.0-16.0); Immature Granulocytes Abs Auto 0.02 10^3/uL (0.00-0.03); Immature Granulocytes Pct Auto 0.3 % (0.0-0.5); Lymphocytes Absolute Auto 2.5 10^3/uL (1.2-3.8); Lymphocytes Percent Auto 35.3 % (20.5-60.0); Mean Corpuscular HGB Conc 33.2 g/dL (29.9-35.2); Mean Corpuscular Volume 87.2 fL (81.0-99.0); Mean Platelet Volume 10.8 fL (9.5-13.5); Monocytes Absolute Auto 0.8 10^3/uL (0.3-0.8); Monocytes Percent Auto 10.8 % (1.7-12.0); Neutrophils Absolute Auto 3.7 10^3/uL (1.4-6.5); Neutrophils Percent Auto 52.4 % (43.0-75.0); Platelet Count 270 10^3/uL (150-450); Red Cell Distribution Width 13.8 % (11.0-15.0)
[2023-08-12 07:23] LABS: Anion Gap 13.7; BUN Creatinine Ratio 18.2; Calcium 8.7 mg/dL (8.5-10.1); Carbon Dioxide 25.1 mmol/L (21.0-32.0); Chloride 104 mmol/L (98-107); Estimated GFR (African America >60 (>=60); Estimated GFR (Non-African Ame >60 (>=60); Glucose 105 mg/dL (74-106); Potassium 3.8 mmol/L (3.5-5.1); Sodium 139 mmol/L (136-145)
[2023-08-12 07:46] LABS: HCG Quantitative 14462 mIU/mL
[2023-08-16 21:07] LABS: Neisseria gonorrhoeae, NAA Negative (Negative)
== END 2023-08-12 07:03 | disposition home or self-care (01) ==
PROVIDERS: Emergency Provider Internal Medicine; PCP Family Medicine
DX: O20.0 Threatened abortion (principal); Z3A.00 Weeks of gestation of pregnancy not specified
CPT/HCPCS: 36415; 80048; 81001; 84702; 85025; 87210; 87491; 87591; 99283

== ENCOUNTER 2023-08-18 00:41 | Emergency (ER) | payer BC, SELFPAY ==
[2023-08-18 00:44] VITALS: BP 122/67; PULSE 73; TEMP 36.8; O2SAT 99; BMI 32.0
--- NOTE | 2023-08-18 01:21 | ED.ABDPAIN1 ---
HPI - Abdominal Pain General Chief Complaint: Abdominal Pain Stated Complaint: ABD PAIN Time Seen by Provider: 08/18/23 00:45 Source: patient Mode of arrival: walk-in Limitations: no limitations History of Present Illness HPI narrative: This 28-year-old female G4, P1 who was last menstrual period was at the end of June and was seen here on August 11 due to cramping and bleeding presents for evaluation and requesting a work note. The patient states she works at [employer] and cannot do the heavy lifting that they require of her for a twin or 12-hour shifts. She states she wants to continue working but cannot do the heavy lifting. She denies that she is having any abdominal pain at this time but has intermittent abdominal cramps and had some light vaginal bleeding that was she was seen for on August 11. She has not seen an SENIOR COLDFUSION DEVELOPER at this time. At the time she was seen on August 11 her beta quantitative hCG was greater than 14,000. She has a follow-up appointment with Dr. Farrar but not until September. Related Data Home Medications ?Medication ?Instructions ?Recorded ?Confirmed alprazolam 0.5 mg tablet 0.5 mg PO DAILY PRN anxiety 05/26/23 05/26/23 norethindrone 1 mg-ethinyl 1 tab PO DAILY 05/26/23 05/26/23 estradiol 20 mcg (24)-iron 75 mg (4) tablet (Yovany 24 Fe) quetiapine 50 mg tablet,extended 50 mg PO DAILY 05/26/23 05/26/23 release 24 hr Allergies Allergy/AdvReac Type Severity Reaction Status Date / Time Penicillins AdvReac Intermediate Hives Verified 08/12/23 05:43 Review of Systems ROS Status of ROS 10 or more systems reviewed and unremarkable except as noted in history and below [facility] Social History Smoking status: Current every day smoker Exam Narrative Exam Narrative: Patient is awake alert oriented x 3, no distress noted, vital signs reviewed and are stable. HEENT exam is normal. Lungs are clear, heart regular rate and rhythm S1-S2, pulses are brisk and equal bilaterally. Abdomen is soft, nondistended nontender with no rebound guarding or rigidity. Patient declined pelvic exam. Lower extremity exam is normal with no calf swelling or tenderness. Constitutional Vital Signs, click to edit/add: Last Vital Signs Temp 98.3 F 08/18/23 00:44 Pulse 73 08/18/23 00:44 Resp 15 08/18/23 00:44 BP 122/67 08/18/23 00:44 Pulse Ox 99 08/18/23 00:44 O2 Del Method Room Air 08/18/23 00:44 Course Vital Signs Vital signs: Vital Signs Temperature 98.3 F 08/18/23 00:44 Pulse Rate 73 08/18/23 00:44 Respiratory Rate 15 08/18/23 00:44 Blood Pressure 122/67 08/18/23 00:44 Pulse Oximetry 99 08/18/23 00:44 Oxygen Delivery Method Room Air 08/18/23 00:44 Temperature 98.3 F 08/18/23 00:44 Pulse Rate 73 08/18/23 00:44 Respiratory Rate 15 08/18/23 00:44 Blood Pressure 122/67 08/18/23 00:44 Pulse Oximetry 99 08/18/23 00:44 Oxygen Delivery Method Room Air 08/18/23 00:44 MDM - Abdominal Pain MDM Narrative Medical decision making narrative: This 28 year old female presents requesting a note for her job. Her last menstrual period was in June. She was seen on August 11 for some cramping and vaginal bleeding and was told that she may have a threatened miscarriage. This is her fourth . She terminated 1 , had 1 miscarriage and has 1 child. She has not been seen by an SENIOR COLDFUSION DEVELOPER yet but has an appointment in September with Dr. Farrar. Her vital signs are stable. She denies any vaginal bleeding or zakia abdominal pain at this time. She declined a pelvic exam or any blood work. Her quant was greater than 14,000 on August 11. She states she is strictly here for a work note because she cannot do the heavy lifting for 8-10 or 12 hours at her current job. She states she wants to work but request a work note for lifting nothing greater than 15 pounds. She was encouraged to return to the emergency department for abdominal pain vaginal bleeding. I did offer her an outpatient ultrasound requisition but she declined this as well. She was discharged home with a note for work. Discharge Plan Discharge Stand Alone Forms: Portal Instructions Chief Complaint: Abdominal Pain Clinical Impression: Miscarriage, threatened, early Patient Disposition: Home, Self-Care Time of Disposition Decision: 01:20 Condition: Good Prescriptions / Home Meds: No Action quetiapine 50 mg tablet extended release 24 hr 50 mg PO DAILY Yovany 24 Fe 1 mg-20 mcg (24)/75 mg (4) tablet 1 tab PO DAILY alprazolam 0.5 mg tablet 0.5 mg PO DAILY PRN (Reason: anxiety) Print Language: Bermudian Instructions: Threatened Miscarriage (ED) Referrals: Bill Farrar DO [Physician] - 1 week Dacia Blas DO [Primary Care Provider] - 1 week
== END 2023-08-18 01:39 | disposition home or self-care (01) ==
PROVIDERS: Emergency Provider Emergency Medicine; PCP Family Medicine
DX: O20.0 Threatened abortion (principal); Z3A.00 Weeks of gestation of pregnancy not specified
CPT/HCPCS: 99281

== ENCOUNTER 2023-09-02 01:19 | Emergency (ER) | payer BC, SELFPAY ==
[2023-09-02 01:22] VITALS: BP 121/74; PULSE 113; TEMP 37.1; O2SAT 95; BMI 33.8
--- OUTSIDE RECORDS SUMMARY | 2023-09-02 01:26 | XMS_ITS | CCD ---
Author Organization [facility] CliniSyct Care Team Providers Care Slip Maker Name Role Phone LIA LINTON Primary Care Physician Unavailab isela NON STAFF Primary Care Provider UnavailZANDRA Simon Attending Provider [phone] ROSY SEVERINO Admitting Unavailable ROSY SEVERINO Attending Unavailable ЕЛЕНА LINTON Primary Care Unavailable DR DARIA HSIEH Consulting Unavailable ROSY SEVERINO Consulting Unavailable ALON CASH Consulting Unavailable ЕЛЕНА LINTON Admitting Unavailable ЕЛЕНА LINTON Attending Unavailable ЕЛЕНА LINTON Primary Care Unavailable ЕЛЕНА LINTON Consulting Unavailable ЕЛЕНА LINTON Primary Care Unavailable ROSY SEVERINO Consulting Unavailable ROSY SEVERINO Admitting Unavailable ROSY SEVERINO Attending Unavailable ZANDRA Linton Primary Care Provider DO Marguerite Reyna Emergency Provider NO FAMILY, PHYSICIAN Primary Care Provider Unava ilable Dacia Blas Unavailable DO Dacia Blas Attending Provider [phone] DO Dacia Blas Primary Care Provider DO Gurjit Winter Emergency Provider Unavai MD Holden Calvin Admit Provider MD Holden Segal Attending Provider [phone] Sanjeev Ramos Admitting Unavailable Sanjeev Ramos Attending Unavailable Coy Soriano Attending Unavailable DO Eren Haider Attending Unavailable Sanjeev Ramos Attending Unavailable Sanjeev Ramos Admitting Unavailable Lefty GARCIA Attending Unavailable Sanjeev Ramos Attending Unavailable Sanjeev Ramos Admitting Unavailable Sanjeev Ramos Admitting Unavailable Sanjeev Ramos Attending Unavailable Sanjeev Ramos Attending Unavailable Sanjeev Ramos Admitting Unavailable Marguerite Reyna Admitting Unavailable Marguerite Reyna Attending Unavailable NO FAMILY, PHYSICIAN Primary Care Unavailable Dacia Blas Admitting Unavailable Dacia Blas Attending Unavailable Dacia Blas Primary Care Unavailable David Jones Admitting Unavailab David Harrington Attending Unavailab le Dacia Blas Primary Care Unavailable Dacia Blas Primary Care Unavailable Holden Segal Admitting Unavailable Holden Segal Attending Unavailable Allergies Allergy Classification Reported Allergen(s) Allergy Type Date of Onset Reaction(s) Facility Penicillins (antibiotic) (1 source) Penicillin; Translations: [penicillin] Drug Allergy Eruption of skin (disorder) [facility] (10 sources) Penicillin; Translations: [penicillin] Drug Allergy 2 Eruption of skin (disorder), rash [facility] (5 sources) Penicillins; Translations: [Penicillins] Allergy to substance 2 [facility] Medications Current Medications Medication Drug Class(es) Dates Sig (Normalized) Sig (Original) cephalexin 500 mg oral capsule (1 source) Cephalosporin Antibacterial Start: 05-21-2021 End: 05-28-2021 take 1 capsule by mouth every twelve hours Keflex 500 mg Cap 500 mg = 1 cap(s), Oral, q12hr, X 7 day(s), # 14 cap(s), Refills(s) 0, Pharmacy: [facility], 157, cm, 05/21/21 9:37:00 EDT, Height/Length Dosing, 93.6, kg, 05/21/21 9:37:00 EDT, Weight Dosing Start Date: 05/21/21 Stop Date: 05/28/21 Status: Ordered erythromycin 0.005 mg/mg ophthalmic ointment (1 source) Macrolide, Macrolide Antimicrobial Start: 11-19-2022 End: 11-24-2022 erythromycin Opth 0.5% Oint 1/4 inch ribbon, Eye-Both, As Directed for 5 day(s), 3.5 gm, Refill(s) 0, [facility], 157, cm, 11/19/22 10:43:00 EDT, Height/Length Dosing, 87.7, kg, 11/19/22 10:43:00 EDT, Weight Dosing Start Date: 11/19/22 Stop Date: 11/24/22 Status: Ordered ferrous sulfate (8 sources) Start: 09-17-2020 ferrous sulfate Refills(s) 0 Start Date: 09/17/20 Status: Ordered naproxen 500 mg oral tablet (16 sources) Nonsteroidal Anti-inflammatory Drug Start: 05-21-2021 End: 10-11-2022 take 1 tablet by mouth twice daily as needed for pain Naprosyn 500 mg Tab 500 mg = 1 tab(s), Oral, BID, PRN for pain, # 20 tab(s), Refills(s) 0, Pharmacy: [facility], 157, cm, 05/21/21 9:37:00 [...] TRANSDERML Daily June 25, 2023 12:00am Prilosec (8 sources) Proton Pump Inhibitor Start: 09-17-2020 Prilosec Refills(s) 0 Start Date: 09/17/20 Status: Ordered oxyCODONE hydrochloride 5 mg oral tablet (14 sources) Opioid Agonist Start: 08-06-2021 oxyCODONE 5 mg Tab 5 mg = 1 tab(s), Oral, q6hr, PRN Pain 8-10, # 7 tab(s), Refills(s) 0, Pharmacy: [facility], 158, cm, 08/06/21 5:46:00 EDT, Height/Length Dosing, 76.9, kg, 08/06/21 5:46:00 EDT, Weight Dosing Start Date: 08/06/21 Status: Ordered Start: 08-06-2021 oxyCODONE 5 mg Cap 5 mg = 1 cap(s), Oral, q6hr, PRN Pain 8- 10, # 7 cap(s), Refills(s) 0, Pharmacy: [facility], 158, cm, 08/06/21 5:46:00 EDT, Height/Length Dosing, 76.9, kg, 08/06/21 5:46:00 EDT, Weight Dosing Start Date: 08/06/21 Status: Ordered Multivitamins with Vitamin B Complex, Vitamin C, Minerals and L-Methylfolate oral capsule (8 sources) Start: 05-13-2020 Multivitamins with Vitamin B Complex, Vitamin C, Minerals and L-Methylfolate oral capsule 1 cap(s), Oral, Daily, 30 cap(s), Refill(s) 0 Start Date: 05/13/20 Status: Ordered promethazine hydrochloride 25 mg oral tablet (8 sources) Phenothiazine Start: 05-21-2021 take 1 tablet by mouth three times daily promethazine 25 mg Tab 25 mg = 1 tab(s), Oral, TID, # 15 tab(s), Refills(s) 0, Pharmacy: [facility], 157, cm, 05/21/21 9:37:00 EDT, Height/Length Dosing, 93.6, kg, 05/21/21 9:37:00 EDT, Weight Dosing Start Date: 05/21/21 Status: Ordered Zofran ODT 4 mg Tab-Dis (15 sources) Start: 08-06-2021 take 1 tablet by mouth every eight hours as needed for nausea Zofran ODT 4 mg Tab-Dis 4 mg = 1 tab(s), Oral, q8hr, PRN Nausea/Vomiting, # 12 tab(s), Refills(s) 0, Pharmacy: [facility], 158, cm, 08/06/21 5:46:00 EDT, Height/Length Dosing, 76.9, kg, 08/06/21 5:46:00 EDT, Weight Dosing Start Date: 08/06/21 Status: Ordered Start: 05-21-2021 take 1 tablet by heraclio th three times daily Zofran ODT 4 mg Tab-Dis 4 mg = 1 tab(s), Oral, TID, # 15 tab(s), Refills(s) 0, Pharmacy: [facility], 157, cm, 05/21/21 9:37:00 [...] q6hr, # 15 tab(s), Refills(s) 0, Pharmacy: [facility], 157, cm, 09/17/20 21:15:00 [...] 24, 2023 12:00am June 24, 2023 4:06am Problems Active Problems Problem Classification Problem Date [...] 02-10-2021 Episodic Other aftercare (1 source) Other exterminator (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) drug therapy Episodic Other aftercare (1 [...] CIGARETTES UNCOMP] Onset: 12-02-2021 Chronic Substance-related disorders (8 sources) Marijuana user 05-13-2020 Episodic Unclassified (1 source) Other exterminator (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) drug therapy; Translations: [Other exterminator (current) drug therapy] Onset: 01-18-2023 Unclassified (1 [...] [HEMORRHAGE EARLY UNS] Onset: 07-12-2021 Episodic Unclassified (16 sources) Onset: 05-13-2020 Resolved: 09-18-2020 09-20-2020 Results Test Name Value Interpretation Reference Range Facility C Urineon 08-21-2023 Bacteria identified Cx Nom (U) Microbiology PROCEDURE: Urine Culture [R1] SOURCE: U CleanCatch BODY SITE: COLLECTED DATE/TIME: 08/19/2023 08:45 EDT RECEIVED DATE/TIME: 08/19/2023 18:20 EDT START DATE/TIME: 08/19/2023 18:20 EDT FREE TEXT SOURCE: Richard WILL, Sanjeev Ramos MD, Sanjeev De FINAL REPORTS Final Report [] Verified Date/Time: 08/21/2023 09:51 EDT 1,000 cfu/ml Mixed skin contaminants Performing Locations R1: This test was performed at: [facility], [address] [place] [address], [id number] , [place], Normal [facility] Comment on above: Performed By: #### 2 [id number] #### [facility] [address] [place] [address] HIV Screen 4th Generation wR fxon 08-21-2023 HIV 1+2 Ab+HIV1 p24 Ag IA Ql Non-Reactive Invalid Interpretation Code Non Reactive [facility] Comment on above: Result Comment: HIV- 1/HIV-2 antibodies and HIV-1 p24 antigen were NOT detected. There is no laboratory evidence of HIV infection. HIV Negative Performed at: [address] [id number] PhD Travis Blank Performed By: #### 9 [id number] #### [facility] [address] [place] [address] Hep Bs Agon 08-21-2023 HBV surface Ag IA Ql Negative Invalid Interpretation Code Negative [facility] Comment on above: Result Comment: Perf ormed at: [address] [id number] PhD Travis Blank Performed By: #### 2 [id number] #### [facility] [address] [place] [address] RPR with Conf Rfxon 08-21-19 24 Reagin Ab RPR Ql (S) Non-Reactive Invalid Interpretation Code Non Reactive [facility] Comment on above: Result Comment: Perf ormed at: [address] [id number] PhD Travis Blank Performed By: #### 1 [id number] #### [facility] [address] [place] [address] Rubella IgGon 08-21-2023 Rubella virus IgG Qn (S) 1.52 [IU]/mL Invalid Interpretation Code Immune >0.99 [facility] Comment on above: Result Comment: Non- immune <0.90 Equivocal 0.90 - 0.99 Immune >0.99 Performed at: [address] [id number] PhD Travis Blank Performed By: #### 1 [id number] #### [facility] [address] [place] [address] ABO/Rhon 08-19-2023 ABO/Rh Positive Invalid Interpretation Code [facility] Comment on above: Performed By: #### 2 [id number] #### [facility] [address] [place] [address] ABSCon 08-19-2023 ABSC Gel Interp Negative Normal [facility] Comment on above: Performed By: #### 1 [id number] #### [facility] [address] [place] [address] BLOOD BANKOrdered By: Pascale Zavala on 08-19-2023 ABO/Rh Interp Positive Invalid Interpretation Code [facility] BB Subsection ABSC Gel Interp Negative (08/19/23 8:48 AM) Normal [facility] BB Subsection Physician Orderon 07-13-2023 Physician Order [id number] Normal [facility] ECG 12 lead ECGon 06-24-2023 ECG 12 lead ECG [facility] Main [address] [address] Electrocardiograph Report Signed Patient: Akosua Ortiz MR#: [id number] : 1995 Acct:[id number] Age/Sex: 27 / F ADM Date: 06/23/23 Loc: Room: 3Z2448-5 Type: ADM IN Attending Dr: Holden Segal [...] in Anterior leads Confirmed by [facility] ([id number] on 06/25/2023 7:52:59 AM Referred By: Electronically Signed By:MARGUERITE GÓMEZ MD [facility] Transcribed By: MUS Signed By Adalberto Gómez MD 06/25/23 0753 Normal [facility] Alanine aminotransferase [En zymatic activity/volume] in Serum or PlasmaOrdered By: Gurjit Winter on 06-23-2023 ALT [Catalytic activity/Vol] 16 U/L Normal 7-52 [facility] Comment on above: Performed By: #### E CELESTINO, LIPID, TSH3 wRFLX, [id number], CBC, CMP #### [address] Albumin [Mass/volume] in Ser um or Plasma by Bromocresol green (BCG) dye binding methoOrdered By: Gurjit Winter on 06-23-2023 Albumin BCG dye [Mass/Vol] 4.3 g/dL 3.5-5.7 [facility] Alkaline phosphatase [Enzyma tic activity/volume] in Serum or PlasmaOrdered By: Gurjit Winter on 06-23-2023 ALP [Catalytic activity/Vol] 46 U/L Normal 34-104 [facility] Comment on above: Performed By: #### E CELESTINO, LIPID, TSH3 wRFLX, [id number], CBC, CMP #### [address] Amphetamine Screen Ql (U)Ord ered By: Gurjit Winter on 06-23-2023 Amphetamines Ql (U) Negative Negative [facility] Aspartate aminotransferase [ Enzymatic activity/volume] in Serum or PlasmaOrdered By: Gurjit Winter on 06-23-2023 AST [Catalytic activity/Vol] 22 U/L Normal 13-39 [facility] Comment on above: Performed By: #### E CELESTINO, LIPID, TSH3 wRFLX, [id number], CBC, CMP #### [address] Automated basophil %Ordered By: Gurjit Winter on 06-23-2023 Basophils/100 WBC (Bld) 0.4 % Normal . [facility] Comment on above: Performed By: #### E CELESTINO, LIPID, TSH3 wRFLX, [id number], CBC, CMP #### [address] Automated basophil countOrde red By: Gurjit Winter on 06-23-2023 Basophils (Bld) [#/Vol] 0.0 10*3/uL Normal 0.0-0.2 [facility] Comment on above: Result Comment: PERF ORMED BY: [place] [address] PATHOLOGIST PIT CLERK LE HERRON M.D. Performed By: #### E CELESTINO, LIPID, TSH3 wRFLX, [id number], CBC, CMP #### [address] Automated blood monocyte cou ntOrdered By: Gurjit Winter on 06-23-2023 Monocytes (Bld) [#/Vol] 0.6 10*3/uL Normal 0.0-0.8 [facility] Comment on above: Performed By: #### E CELESTINO, LIPID, TSH3 wRFLX, [id number], CBC, CMP #### [facility] [address] Automated eosinophil %Ordere d By: Gurjit Winter on 06-23-2023 Eosinophils/100 WBC (Bld) 0.4 % Normal . [facility] Comment on above: Performed By: #### E CELESTINO, LIPID, TSH3 wRFLX, [id number], CBC, CMP #### [address] Automated eosinophil countOr dered By: Gurjit Winter on 06-23-2023 Eosinophils (Bld) [#/Vol] 0.0 10*3/uL Normal 0.0-0.45 [facility] Comment on above: Performed By: #### E CELESTINO, LIPID, TSH3 wRFLX, [id number], CBC, CMP #### [address] Automated monocyte %Ordered By: Gurjit Winter on 06-23-2023 Monocytes/100 WBC (Bld) 9.8 % Normal . [facility] Comment on above: Performed By: #### E CELESTINO, LIPID, TSH3 wRFLX, [id number], CBC, CMP #### [facility] [address] [place] [address] Automated neutrophil %Ordere d By: Gurjit Winter on 06-23-2023 Neutrophils/100 WBC (Bld) 53.7 % Normal . [facility] Comment on above: Performed By: #### E CELESTINO, LIPID, TSH3 wRFLX, [id number], CBC, CMP #### [address] Bacteria [Presence] in Urine by AutomatedOrdered By: Gurjit Winter on 06-23-2023 Bacteria Auto Ql (U) None seen [HPF] None Seen [facility] Barbiturates [Presence] in U rine by Screen methodOrdered By: Gurjit Winter on 06-23-2023 Barbiturates Screen Ql (U) Negative Negative [facility] Benzodiazepines Screen Ql (U )Ordered By: Gurjit Winter on 06-23-2023 Benzodiazepines Ql (U) Positive Negative [facility] Benzoylecgonine [Presence] i n Urine by Screen methodOrdered By: Gurjit Winter on 06-23-2023 Benzoylecgonine Screen Ql (U) Negative Negative [facility] Bilirubin Test strip Ql (U)O rdered By: Gurjit Winter on 06-23-2023 Bilirubin Ql (U) Negative Negative [facility] Bilirubin.total [Mass/volume ] in Serum or PlasmaOrdered By: Gurjit Winter on 06-23-2023 Bilirubin [Mass/Vol] 0.3 mg/dL Normal 0.3-1.0 [facility] Comment on above: Performed By: #### E CELESTINO, LIPID, TSH3 wRFLX, [id number], CBC, CMP #### [facility] [address] [place] [address] Calcium [Mass/volume] in Ser um or PlasmaOrdered By: Gurjit Winter on 06-23-2023 Calcium [Mass/Vol] 9.0 mg/dL Normal 8.6-10.3 [facility] Comment on above: Performed By: #### E CELESTINO, LIPID, TSH3 wRFLX, [id number], CBC, CMP #### [facility] [address] Cannabinoids [Presence] in U rine by Screen methodOrdered By: Gurjit Winter on 06-23-2023 Cannabinoids Screen Ql (U) Negative Negative [facility] Comment on above: These are unconfirme d results and should not be used for legal purposes. Drug Cut-Off Concentration: AMPH 1000 ng/mL BRANDEE 200 ng/mL LAWRENCE 200 ng/mL COCM 300 ng/mL OP 300 ng/mL PCP 25 ng/mL THC 20 ng/mL Carbon dioxide, total [Moles /volume] in Serum or PlasmaOrdered By: Gurjit Winter on 06-23-2023 CO2 [Moles/Vol] 29.6 mmol/L Normal 21.0-31.0 [facility] Comment on above: Performed By: #### E CELESTINO, LIPID, TSH3 wRFLX, [id number], CBC, CMP #### [facility] [address] [place] [address] [place] Chloride [Moles/volume] in S claude or PlasmaOrdered By: Gurjit Winter on 06-23-2023 Chloride [Moles/Vol] 107 mmol/L Normal 98-107 [facility] Comment on above: Performed By: #### E CELESTINO, LIPID, TSH3 wRFLX, [id number], CBC, CMP #### [facility] [address] [place] [id number] [place] Cholesterol [Mass/volume] in Serum or PlasmaOrdered By: Gurjit Winter on 06-23-2023 Cholesterol [Mass/Vol] 162 mg/dL Normal 140-200 [facility] Comment on above: Chol less than 200 m g/dl low riskChol 201-239 mg/dl borderline riskChol 240 mg/dl and greater high risk Result Comment: Chol less than 200 mg/dl low risk Chol 201-239 mg/dl borderline risk Chol 240 mg/dl and greater high risk Performed By: #### E CELESTINO, LIPID, TSH3 wRFLX, [id number], CBC, CMP #### [facility] [address] [place] [id number] [place] Cholesterol in LDL Calc [Mas s/Vol]Ordered By: Gurjit Winter on 06-23-2023 Cholesterol in LDL [Mass/Vol] 107 mg/dL 0-100 [facility] Comment on above: LDL ATP III CLASSIFI CATIONLDL less than 100 mg/dL OptimalLDL 100-129 mg/dL Near or above optimalLDL 130-159 mg/dL Borderline highLDL 160-189 mg/dL HighLDL greater than 189 mg/dL Very high Cholesterol in VLDL Calc [Ma ss/Vol]Ordered By: Gurjit Winter on 06-23-2023 Cholesterol in VLDL [Mass/Vol] 20 mg/dL [facility] Color of Urine by AutoOrdere d By: Gurjit Winter on 06-23-2023 Color (U) Yellow Normal Yellow [facility] Comment on above: Order Comment: Name Collection Type:: Clean-Voided Midstream Performed By: #### U RDS, ADDONUAPLUS, UHCG #### [address] Complete Blood Count Auto Di ffon 06-23-2023 Mean Corpuscular HGB Conc 33.8 g/dL Normal 32.0-35.0 [facility] Comment on above: Performed By: #### E CELESTINO, LIPID, TSH3 wRFLX, [id number], CBC, CMP #### [address] Monocytes/100 WBC (Bld) 18.86 % Normal 0.00-20.00 [facility] Comment on above: Performed By: #### E CELESTINO, LIPID, TSH3 wRFLX, [id number], CBC, CMP #### [address] NRBC% 0.1 /100{WBC} Normal 0-0.5 [facility] Comment on above: Performed By: #### E CELESTINO, LIPID, TSH3 wRFLX, [id number], CBC, CMP #### [address] Comprehensive Metabolic Pane celia 06-23-2023 Albumin [Mass/Vol] 4.3 g/dL Normal 3.5-5.7 [facility] Comment on above: Performed By: #### E CELESTINO, LIPID, TSH3 wRFLX, [id number], CBC, CMP #### [address] Creatinine Clr Calc Pharmacy 148.61 Normal [facility] Comment on above: Result Comment: PERF ORMED BY: [place] [address] PATHOLOGIST PIT CLERK LE HERRON M.D. Performed By: #### E CELESTINO, LIPID, TSH3 wRFLX, [id number], CBC, CMP #### [address] GFR/1.73 sq M.predicted MDRD (S/P/Bld) [Vol rate/Area] mL/min/{1.73_m2} Normal [facility] Comment on above: Performed By: #### E CELESTINO, LIPID, TSH3 wRFLX, [id number], CBC, CMP #### [facility] [address] [place] [id number] [place] Creatinine [Mass/volume] in Serum or PlasmaOrdered By: Gurjit Winter on 06-23-2023 Creatinine [Mass/Vol] 0.57 mg/dL Low 0.60-1.20 [facility] Comment on above: Performed By: #### E CELESTINO, LIPID, TSH3 wRFLX, [id number], CBC, CMP #### [facility] [address] [place] [address] [place] Dipstick and Microscopicon 0 06-23-2023 Appearance (U) Cloudy Critically abnormal Clear [facility] Comment on above: Order Comment: Name Collection Type:: Clean-Voided Midstream Performed By: #### U RDS, ADDONUAPLUS, UHCG #### [place] [address] [place] Bacteria,Urine None Seen Normal None Seen [facility] Comment on above: Order Comment: Name Collection Type:: Clean-Voided Midstream Performed By: #### U RDS, ADDONUAPLUS, UHCG #### [facility] [address] [place] [id number] [place] Bilirubin,Urine Negative Normal Negative [facility] Comment on above: Order Comment: Name Collection Type:: Clean-Voided Midstream Performed By: #### U RDS, ADDONUAPLUS, UHCG #### [facility] [address] [place] [id number] [place] Glucose Ql (U) Normal Normal Normal [facility] Comment on above: Order Comment: Name Collection Type:: Clean-Voided Midstream Performed By: #### U RDS, ADDONUAPLUS, UHCG #### [place] [id number] [place] Hyaline Casts,Urine 0-8 Normal 0-8 [facility] Comment on above: Order Comment: Name Collection Type:: Clean-Voided Midstream Performed By: #### U RDS, ADDONUAPLUS, UHCG #### [place] [address] [place] Ketones Ql (U) Negative Normal Negative [facility] Comment on above: Order Comment: Name Collection Type:: Clean-Voided Midstream Performed By: #### U RDS, ADDONUAPLUS, UHCG #### [place] [address] [place] Leukocyte esterase Test strip Ql (U) Negative Normal Negative [facility] Comment on above: Order Comment: Name Collection Type:: Clean-Voided Midstream Performed By: #### U RDS, ADDONUAPLUS, UHCG #### [place] [address] [place] Nitrite,Urine Negative Normal Negative [facility] Comment on above: Order Comment: Name Collection Type:: Clean-Voided Midstream Performed By: #### U RDS, ADDONUAPLUS, UHCG #### [place] [address] [place] Occult Blood,Urine Negative Normal Negative [facility] Comment on above: Order Comment: Name Collection Type:: Clean-Voided Midstream Performed By: #### U RDS, ADDONUAPLUS, UHCG #### [place] [address] [place] Protein,Urine Negative Normal Negative [facility] Comment on above: Order Comment: Name Collection Type:: Clean-Voided Midstream Performed By: #### U RDS, ADDONUAPLUS, UHCG #### [place] [address] [place] RBC,Urine 5-9 High 0-4 [facility] Comment on above: Order Comment: Name Collection Type:: Clean-Voided Midstream Performed By: #### U RDS, ADDONUAPLUS, UHCG #### [place] [address] [place] Specificy [place],Urine 1.020 Normal 1.001-1.030 [facility] Comment on above: Order Comment: Name Collection Type:: Clean-Voided Midstream Performed By: #### U RDS, ADDONUAPLUS, UHCG #### [address] Squamous Epithelial Cell,Urine 3-4 High 0-2 [facility] Comment on above: Order Comment: Name Collection Type:: Clean-Voided Midstream Performed By: #### U RDS, ADDONUAPLUS, UHCG #### [address] Urobilinogen,Urine Normal Normal Normal [facility] Comment on above: Order Comment: Name Collection Type:: Clean-Voided Midstream Performed By: #### U RDS, ADDONUAPLUS, UHCG #### [place] [address] [place] WBC,Urine 1-2 Normal 0-4 [facility] Comment on above: Order Comment: Name Collection Type:: Clean-Voided Midstream Performed By: #### U RDS, ADDONUAPLUS, UHCG #### [address] Drug Screen,Urineon 06-23-19 24 Amphetamine Screen,Urine Negative Normal Negative [facility] Comment on above: Performed By: #### U RDS, ADDONUAPLUS, UHCG #### [address] Barbiturate Screen,Urine Negative Normal Negative [facility] Comment on above: Performed By: #### U RDS, ADDONUAPLUS, UHCG #### [address] Benzodiazepines Screen,Urine Positive High Negative [facility] Comment on above: Performed By: #### U RDS, ADDONUAPLUS, UHCG #### [address] Cannabinoid Screen,Urine Negative Normal Negative [facility] Comment on above: Result Comment: Thes e are unconfirmed results and should not be used for legal purposes. Drug Cut-Off Concentration: AMPH 1000 ng/mL BRANDEE 200 ng/mL LAWRENCE 200 ng/mL COCM 300 ng/mL OP 300 ng/mL PCP 25 ng/mL THC 20 ng/mL PERFORMED BY: [place] [address] PATHOLOGIST PIT CLERK LE HERRON M.D. Performed By: #### U RDS, ADDONUAPLUS, UHCG #### [address] Cocaine Screen,Urine Negative Normal Negative [facility] Comment on above: Performed By: #### U RDS, ADDONUAPLUS, UHCG #### [address] Opiate Screen,Urine Negative Normal Negative [facility] Comment on above: Performed By: #### U RDS, ADDONUAPLUS, UHCG #### [address] Phencyclidine Screen,Urine Negative Normal Negative [facility] Comment on above: Performed By: #### U RDS, ADDONUAPLUS, UHCG #### [address] Erythrocyte distribution wid th [Ratio] by Automated countOrdered By: Gurjit Winter on 06-23-2023 Erythrocyte distribution width (RBC) [Ratio] 13.7 % Normal 11.9-15.3 [facility] Comment on above: Performed By: #### E CELESTINO, LIPID, TSH3 wRFLX, [id number], CBC, CMP #### [facility] [address] [place] [address] Erythrocytes [#/area] in Uri ne sediment by Automated countOrdered By: Gurjit Winter on 06-23-2023 RBC Auto (Urine sed) [#/Area] 5-9 [HPF] 0-4 [facility] Erythrocytes [#/volume] in B lood by Automated countOrdered By: Gurjit Winter on 06-23-2023 RBC (Bld) [#/Vol] 4.51 10*6/uL Normal 3.60-5.00 [facility] Comment on above: Performed By: #### E CELESTINO, LIPID, TSH3 wRFLX, [id number], CBC, CMP #### [facility] [address] Ethanol [Mass/volume] in Ser um or PlasmaOrdered By: Gurjit Winter on 06-23-2023 Ethanol [Mass/Vol] mg/dL Normal [facility] Comment on above: Performed By: #### E CELESTINO, LIPID, TSH3 wRFLX, [id number], CBC, CMP #### [facility] [address] Ethanol [Mass/Vol] TNP [facility] Comment on above: Test not performed Ethyl Alcohol Profileon 06-08 Percent Ethanol Not performed Normal [facility] Comment on above: Result Comment: PERF ORMED BY: [place] [address] PATHOLOGIST PIT CLERK LE HERRON M.D. Performed By: #### E CELESTINO, LIPID, TSH3 wRFLX, [id number], CBC, CMP #### [facility] [address] Glucose [Mass/volume] in Ser um or PlasmaOrdered By: Gurjit Winter on 06-23-2023 Glucose [Mass/Vol] 76 mg/dL Normal 70-100 [facility] Comment on above: ADA recommended refe rence rangeRandom Glucose Reference Range is dependent on time and content of last meal. Glucose of more than 200 mg/dL in a nonstressed, ambulatory subject supports the diagnosis of Diabetes Mellitus. Result Comment: [place] om Glucose Reference Range is dependent on time and content of last meal. Glucose of more than 200 mg/dL in a nonstressed, ambulatory subject supports the diagnosis of Diabetes Mellitus. ADA recommended reference range Performed By: #### E CELESTINO, LIPID, TSH3 wRFLX, [id number], CBC, CMP #### [facility] [address] [place] [id number] [facility] HCG ( test) IA.rapi d Ql (U)Ordered By: Gurjit Winter on 06-23-2023 HCG ( test) Ql (U) Negative [facility] HCG,Urineon 06-23-2023 Beta HCG ( test) Ql (U) Negative Normal [facility] Comment on above: Order Comment: Name Collection Type:: Clean-Voided Midstream Result Comment: PERF ORMED BY: [place] [address] PATHOLOGIST PIT CLERK LE HERRON M.D. Performed By: #### U RDS, ADDONUAPLUS, CG #### [address] Hematocrit [Volume Fraction] of Blood by Automated countOrdered By: Gurjit Winter on 06-23-2023 Hematocrit (Bld) [Volume fraction] 37.5 % Normal 34.0-46.4 [facility] Comment on above: Performed By: #### E CELESTINO, LIPID, TSH3 wRFLX, [id number], CBC, CMP #### [address] Hemoglobin [Mass/volume] in BloodOrdered By: Gurjit Winter on 06-23-2023 Hemoglobin (Bld) [Mass/Vol] 12.7 g/dL Normal 11.8-15.4 [facility] Comment on above: Performed By: #### E CELESTINO, LIPID, TSH3 wRFLX, [id number], CBC, CMP #### [facility] [address] [place] [address] Ketones Auto test strip (U) [Mass/Vol]Ordered By: Gurjit Winter on 06-23-2023 Ketones (U) [Mass/Vol] Negative Negative [facility] Laboratory - UrinalysisOrder ed By: Gurjit Winter on 06-23-2023 Hyaline casts LM Ql (Urine sed) 0-8 [LPF] 0-8 [facility] Leukocytes [#/area] in Urine sediment by Automated countOrdered By: Gurjit Winter on 06-23-2023 WBC Auto (Urine sed) [#/Area] 1-2 [HPF] 0-4 [facility] Leukocytes [#/volume] correc latha for nucleated erythrocytes in Blood by Automated counOrdered By: Gurjit Diggsarthy on 06-23-2023 WBC corrected for nucl RBC Auto (Bld) [#/Vol] 6.4 10*3/uL 3.8-11.6 [facility] Leukocytes [#/volume] in Blo od by Automated countOrdered By: Gurjit Diggsarthy on 06-23-2023 WBC (Bld) [#/Vol] 6.4 10*3/uL Normal 3.8-11.6 [facility] Comment on above: Performed By: #### E CELESTINO, LIPID, TSH3 wRFLX, [id number], CBC, CMP #### [facility] [address] Lipid Panelon 06-23-2023 LDL Cholesterol,Calculated 107 mg/dL High 0-100 [facility] Comment on above: Result Comment: LDL ATP III CLASSIFICATION LDL less than 100 mg/dL Optimal LDL 100-129 mg/dL Near or above optimal LDL 130-159 mg/dL Borderline high LDL 160-189 mg/dL High LDL greater than 189 mg/dL Very high Performed By: #### E CELESTINO, LIPID, TSH3 wRFLX, [id number], CBC, CMP #### [facility] [address] Triglyceride w/Reflex 102 mg/dL Normal 0-149 [facility] Comment on above: Result Comment: TRIG ATP III CLASSIFICATION TRIG less than 150 mg/dL Normal TRIG 150-199 mg/dL Borderline high TRIG 200-500 mg/dL High TRIG greater than 500 mg/dL Very high Standard traceable to the Center for Disease Conrtrol and Prevention (CDC) test method. Performed By: #### E CELESTINO, LIPID, TSH3 wRFLX, [id number], CBC, CMP #### [facility] [address] VLDL CHOLESTEROL 20 mg/dL Normal [facility] Comment on above: Performed By: #### E CELESTINO, LIPID, TSH3 wRFLX, [id number], CBC, CMP #### [facility] [address] [place] [id number] [place] Lymphocytes [#/volume] in Bl ood by Automated countOrdered By: Gurjit Winter on 06-23-2023 Lymphocytes (Bld) [#/Vol] 2.3 10*3/uL Normal 1.00-4.8 [facility] Comment on above: Performed By: #### E CELESTINO, LIPID, TSH3 wRFLX, [id number], CBC, CMP #### [facility] [address] Lymphocytes/100 leukocytes i n Blood by Automated countOrdered By: Gurjit Winter on 06-23-2023 Lymphocytes/100 WBC (Bld) 35.7 % Normal . [facility] Comment on above: Performed By: #### E CELESTINO, LIPID, TSH3 wRFLX, [id number], CBC, CMP #### [facility] [address] MCH [Entitic mass] by Automa latha countOrdered By: Gurjit Winter on 06-23-2023 MCH (RBC) [Entitic mass] 28.1 pg Normal 24.7-34.3 [facility] Comment on above: Performed By: #### E CELESTINO, LIPID, TSH3 wRFLX, [id number], CBC, CMP #### [facility] [address] [place] [address] MCHC Auto (RBC) [Mass/Vol]Or dered By: Gurjit Winter on 06-23-2023 MCHC (RBC) [Mass/Vol] 33.8 g/dL 32.0-35.0 [facility] MCV [Entitic volume] by Auto mated countOrdered By: Gurjit Winter on 06-23-2023 MCV (RBC) [Entitic vol] 83.2 fL Normal 80-100 [facility] Comment on above: Performed By: #### E CELESTINO, LIPID, TSH3 wRFLX, [id number], CBC, CMP #### [facility] [address] Monocyte distribution width [Entitic volume] in Blood by AutomatedOrdered By: Gurjit Winter on 06-23-2023 Monocyte distribution width Auto (Bld) [Entitic vol] 18.86 % 0.00-20.00 [facility] Neutrophils [#/volume] in Bl ood by Automated countOrdered By: Gurjit Winter on 06-23-2023 Neutrophils (Bld) [#/Vol] 3.4 10*3/uL Normal 1.8-7.7 [facility] Comment on above: Performed By: #### E CELESTINO, LIPID, TSH3 wRFLX, [id number], CBC, CMP #### [facility] [address] Nitrite Test strip Ql (U)Ord ered By: Gurjit Winter on 06-23-2023 Nitrite Ql (U) Negative Negative [facility] No Panel InformationOrdered By: Gurjit Winter on 06-23-2023 Estimated GFR (CKD-EPI) > 60.0 mL/Min [facility] Pharmacy Creatinine Clearance (Chem 148.61 [facility] Nucleated erythrocytes [Pres ence] in Blood by Automated countOrdered By: Gurjit Winter on 06-23-2023 Nucleated RBC Auto Ql (Bld) 0.1 /100{WBC} 0-0.5 [facility] Opiates [Presence] in Urine by Screen methodOrdered By: Gurjit Winter on 06-23-2023 Opiates Screen Ql (U) Negative Negative [facility] Phencyclidine Screen Ql (U)O rdered By: Gurjit Winter on 06-23-2023 Phencyclidine Ql (U) Negative Negative [facility] Platelet mean volume [Entiti c volume] in Blood by Automated countOrdered By: Gurjit Winter on 06-23-2023 Platelet mean volume (Bld) [Entitic vol] 8.7 fL Normal 6.3-10.7 [facility] Comment on above: Performed By: #### E CELESTINO, LIPID, TSH3 wRFLX, [id number], CBC, CMP #### [facility] [address] Platelets [#/volume] in Bloo d by Automated countOrdered By: Gurjit Winter on 05-15-2024 Platelets (Bld) [#/Vol] 306 10*3/uL Normal 150-450 [facility] Comment on above: Performed By: #### E CELESTINO, LIPID, TSH3 wRFLX, [id number], CBC, CMP #### [address] Potassium [Moles/volume] in Serum or PlasmaOrdered By: Gurjit Winter on 06-23-2023 Potassium [Moles/Vol] 3.6 mmol/L Normal 3.5-5.1 [facility] Comment on above: Performed By: #### E CELESTINO, LIPID, TSH3 wRFLX, [id number], CBC, CMP #### [address] Protein Auto test strip (U) [Mass/Vol]Ordered By: Gurjit Winter on 06-23-2023 Protein (U) [Mass/Vol] Negative Negative [facility] Protein [Mass/volume] in Ser um or PlasmaOrdered By: Gurjit Winter on 06-23-2023 Protein [Mass/Vol] 7.3 g/dL Normal 6.4-8.9 [facility] Comment on above: Performed By: #### E CELESTINO, LIPID, TSH3 wRFLX, [id number], CBC, CMP #### [address] Serum globulin measurement b y calculation (mass/volume)Ordered By: Gurjit Winter on 06-23-2023 Globulin (S) [Mass/Vol] 3.0 g/dL Normal [facility] Comment on above: Performed By: #### E CELESTINO, LIPID, TSH3 wRFLX, [id number], CBC, CMP #### [facility] [address] [place] [address] Serum or plasma albumin/glob ulin mass ratioOrdered By: Gurjit Winter on 06-23-2023 Albumin/Globulin [Mass ratio] 1.4 {ratio} Normal [facility] Comment on above: Performed By: #### E CELESTINO, LIPID, TSH3 wRFLX, [id number], CBC, CMP #### [facility] [address] Serum or plasma anion gap de terminationOrdered By: Gurjit Winter on 06-23-2023 Anion gap [Moles/Vol] 8.0 mmol/L Normal 6.0-15.0 [facility] Comment on above: Performed By: #### E CELESTINO, LIPID, TSH3 wRFLX, [id number], CBC, CMP #### [facility] [address] Serum or plasma high density lipoprotein (HDL) cholesterol measurementOrdered By: Gurjit Winter on 06-23-2023 Cholesterol in HDL [Mass/Vol] 35 mg/dL Normal 23-92 [facility] Comment on above: HDL CHOL ATP-III CLA SSIFICATION Cardiovascular RiskHDL > or equal to 60 mg/dL LOWHDL < 40 mg/dL HIGH Result Comment: HDL CHOL ATP-III CLASSIFICATION Cardiovascular Risk HDL > or equal to 60 mg/dL LOW HDL < 40 mg/dL HIGH Performed By: #### E CELESTINO, LIPID, TSH3 wRFLX, [id number], CBC, CMP #### [facility] [address] [place] [address] Serum or plasma total choles terol/high density lipoprotein (HDL) cholesterol mass ratOrdered By: Gurjit Winter on 06-23-2023 Cholesterol.total/Hannah sterol in HDL [Mass ratio] 4.6 {ratio} Normal <5.0 [facility] Comment on above: Performed By: #### E CELESTINO, LIPID, TSH3 wRFLX, [id number], CBC, CMP #### [facility] [address] [place] [address] Sodium [Moles/volume] in Ser um or PlasmaOrdered By: Gurjit Winter on 06-23-2023 Sodium [Moles/Vol] 141 mmol/L Normal 136-145 [facility] Comment on above: Performed By: #### E CELESTINO, LIPID, TSH3 wRFLX, [id number], CBC, CMP #### [facility] [address] [place] [address] Specific gravity Auto test s trip (U) [Rel density]Ordered By: Gurjit Winter on 06-23-2023 Specific gravity (U) [Rel density] 1.020 1.001-1.030 [facility] Squamous epithelial cells de tection in urine sediment by light microscopyOrdered By: Gurjit Winter on 06-23-2023 Epithelial cells.squamous LM Ql (Urine sed) 3-4 [HPF] 0-2 [facility] Thyroid Stim Hormone w/Rflxo n 06-23-2023 Thyroid Stim Hormone w/Rflx 0.95 u[iU]/mL Normal 0.45-5.33 [facility] Comment on above: Performed By: #### E CELESTINO, LIPID, TSH3 wRFLX, [id number], CBC, CMP #### [facility] [address] Thyrotropin [Units/volume] i n Serum or PlasmaOrdered By: Gurjit Winter on 06-23-2023 TSH Qn 0.95 m[IU]/L 0.45-5.33 [facility] Triglyceride [Mass/volume] i n Serum or PlasmaOrdered By: Gurjit Winter on 06-23-2023 Triglyceride [Mass/Vol] 102 mg/dL 0-149 [facility] Comment on above: TRIG ATP III CLASSIF ICATIONTRIG less than 150 mg/dL NormalTRIG 150-199 mg/dL Borderline highTRIG 200-500 mg/dL High TRIG greater than 500 mg/dL Very highStandard traceable to the Center for Disease Conrtrol and Prevention (CDC) test method. Urea nitrogen [Mass/volume] in Serum or PlasmaOrdered By: Gurjit Winter on 06-23-2023 Urea nitrogen [Mass/Vol] 6 mg/dL Low 7-25 [facility] Comment on above: Performed By: #### E CELESTINO, LIPID, TSH3 wRFLX, [id number], CBC, CMP #### [facility] [address] [place] [address] [place] Urine clarity by refractomet ry automatedOrdered By: Gurjit Winter on 06-23-2023 Clarity Refractometry automated (U) Cloudy Clear [facility] Urine glucose measurement by automated test strip (mass/volume)Ordered By: Gurjit Winter on 06-23-2023 Glucose Auto test strip (U) [Mass/Vol] Normal mg/dL Normal [facility] Urine hemoglobin detection b y automated test stripOrdered By: Gurjit Winter on 06-23-2023 Hemoglobin Auto test strip Ql (U) Negative Negative [facility] Urine leukocyte esterase det ection by automated test stripOrdered By: Gurjit Winter on 06-23-2023 Leukocyte esterase Auto test strip Ql (U) Negative Negative [facility] Urine pH measurement by auto mated test stripOrdered By: Gurjit Winter on 06-23-2023 pH (U) 6.0 [pH] Normal 5.0-9.0 [facility] Comment on above: Order Comment: Name Collection Type:: Clean-Voided Midstream Performed By: #### U RDS, ADDONUAPLUS, UHCG #### [facility] [address] Urobilinogen Auto test strip (U) [Mass/Vol]Ordered By: Gurjit Winter on 06-23-2023 Urobilinogen (U) [Mass/Vol] Normal mg/dL Normal [facility] Vitamin D 25 Hydroxy Totalon 06-23-2023 Vitamin D 25 Hydroxy Total 24.6 ng/mL Low 30-100 [facility] Comment on above: Result Comment: ALEJANDRA MIN D STATUS 25(OH)VITAMIN D RANGE (ng/mL) Deficient <20 Insufficient 20 to <30 Sufficient 30 to 100 Reference: Sarah MF,Mp NC, Cortney KLEIN, et al. Evaluation,treatment, and prevention of vitamin D deficiency; an Endocrine Society clinical practice guideline. JCEM. 2010; 96(7):1911-30. PERFORMED BY: [place] [address] PATHOLOGIST PIT CLERK LE HERRON M.D. Performed By: #### E CELESTINO, LIPID, TSH3 wRFLX, [id number], CBC, CMP #### [facility] [address] Vitamin D+Metabolites [Mass/ volume] in Serum or PlasmaOrdered By: Gurjit Winter on 06-23-2023 Vitamin D+Metabolites [Mass/Vol] 24.6 ng/mL 30-100 [facility] Comment on above: VITAMIN D STATUS 25( [place])VITAMIN D RANGE (ng/mL) Deficient <20 Insufficient 20 to <30Sufficient 30 to 100Reference: Sarah MF,Mp TOMILNSON, Cortney KLEIN, et al. Evaluation,treatment, and prevention of vitamin D deficiency; an Endocrine Society clinical practice guideline. JCEM. 2010; 96(7):1911-30. Consent for Treatmenton Consent for Treatment [id number] .00TIFF Normal [facility] Discharge Instructionson Discharge Instructions [id number]# 1.00TIFF Normal [facility] ED Clinical Summaryon 2023 ED Clinical Summary [address] [address] ED Clinical Summary Person Information Name: AKOSUA ORTIZ Tiff/[facility] Age: 27 Years : 1995 Sex: Female Language: Palauan PCP: LIA LINTON Marital Status: Single Phone: [phone] Visit Id: Visit Reason: Medical problem - [...] 05/18/2023 06:09:26 05/18/2023 06:09:26 05/18/2023 06:09:26 ADDRESS: [address] [place] [address] [place] [id number] [facility] DOC NOTES: MEDICAL INFORMATION: Prescriptions Given: Medications [...] Encounter for test with result negative Normal [facility] ED Note-Physicianon 05-18-19 ED Note-Physician Basic Information [...] and Complexity of Problems Differential Diagnosis: [] [facility] Data External documents reviewed: N/A My [...] Diagnostic Results No qualifying data available. Normal [facility] Comment on above: Result Comment: Elec tronically [...] Reviewed: 10/28/2020 Elsevier Patient Education ? 2022 [employer] Normal [facility] ED Patient Summaryon 024 ED Patient Summary [place] [id number] Patient Discharge Instructions Person Information Name: AKOSUA ORTIZ Age: 27 Years Arrival Date: 05/18/2023 05:28:58 Discharge Diagnosis: Encounter for test with result negative Primary Care Physician: LIA LINTON Provider Information Primary Provider: Eren Haider DO Advanced Roll Capper:None The exam and treatment you received in the Emergency Department were for an urgent problem and are not intended as complete care. It is important that you follow up with a doctor, nurse practitioner, or physician?s district administrative assistant for ongoing care. If your symptoms [...] opioids can be used to help relieve wtjroueo-tv-xpbhma pain and are often prescribed following a [...] be struggling with addiction, tell your health patient care technician and ask for guidance or call [facility]?S National Helpline at 1-012-820-JHJJ. v Source: US Department of Health and Human Services/Center for Disease C (more content not included)... Normal [facility] SEROLOGYOrdered By: Ashley Pinzon on 05-18-2023 HCG.beta subunit (U) [Moles/Vol] Negative Normal [facility] Man Sero U BetaHcg Qualon 05-18-2023 HCG.beta subunit (U) [Moles/Vol] Negative Normal [facility] Comment on above: Performed By: #### 2 [id number] ####[facility] [id number] [place] [address] Toxassure, Urineon 3 Toxassure, Urine Summary FINAL Normal . [facility] Comment on above: Order Comment: Reaso n for Exam High risk medication use Specimen Comment: ToxAssure, ToxAssure FLEX or MAT drug testing: Specimen Comment: -Technical component - Data analysis performed at Specimen Comment: [address] , [place] [address]. Result Comment: ====== TOXASSURE COMP DRUG ANALYSIS,UR ====== Test Result Flag Units Drug Present Fluoxetine PRESENT Norfluoxetine PRESENT Norfluoxetine is an expected metabolite of fluoxetine. ====== Test Result Flag Units Ref Range Creatinine 210 mg/dL >=20 ====== Declared Medications: Medication list was not provided. ====== For clinical consultation, please call . ====== Performed at: [facility] [address] [place] [id number] Marble Cutter: Lacy Herron [facility], Phone: [phone] PERFORMED BY: [place] [address] [place] [address] PATHOLOGIST PIT CLERK LE HERRON M.D. Performed By: #### T OXASSURE #### [facility] , URINE DRUG SCREEN (IN-HOUSE) on 01-18-2023 URINE DRUG SCREEN (IN-HOUSE) itravel Other .HPV Genotypes 16/18,45on HPV 16 DNA Probe+sig amp Ql (Cvx) Negative Invalid Interpretation Code Negative [facility] Comment on above: Performed By: #### 3 [id number], [id number], [id number], [id number] ####[place] [address] [place] [address] HPV 18+45 E6+E7 mRNA DAYNA+probe Ql (Cvx) Positive Abnormal Negative [facility] Comment on above: Result Comment: Perf ormed at: =G [facility] [id number] MD Elaine Cedeño Performed By: #### 3 [id number], [id number], [id number], [id number] ####[place] [address] [place] [address] .HPV, Aptima High 16/18,45on 01-13-2023 HPV 16+18+31+33+35+39+45+51 +52+56+58+59+66+68 DNA Probe+sig amp Ql (Cvx) Positive Abnormal Negative [facility] Comment on above: Result Comment: This nucleic acid amplification test detects fourteen high-risk HPV types (16,18,31,33,35,39,45,51,52,56,58,59,66,68) without differentiation. Performed at: =G [address] [id number] MD Elaine Cedeño Performed By: #### 3 [id number], [id number], [id number], [id number] ####[place] [address] [place] [address] PAP [id number] 01-13-2023 Cytology report Cyto stain Doc (Cvx/Vag) Note Abnormal [facility] Comment on above: Result Comment: TEST S [...] component) are present. Performed by: Candy Zelaya, Multimedia Instructional Designer ([facility]) Electronically si... Keya Cramer MD, Pathologist . [...] Low,>-Panic High,A-Abnormal,AA-Critical Abnormal Performed at: [address] [facility] [place] [address] Gala Henry MD, Performed at: [facility] [id number] MD Elaine Cedeño Performed By: #### 3 [id number], [id number], [id number], [id number] ####[address] [place] [place] [address] Physician Read PAPon 023 Pathologist review Jovanny (Unsp spec) [Interp] Note Invalid Interpretation Code [facility] Comment on above: Result Comment: TEST S RESULT FLAG UNITS REF RANGE LAB Physician Read Pap Note 01 Performed FLAG LEGEND: L-Low Normal,H-High Normal,LL-Alert Low,HH-Alert High <-Panic Low,>-Panic High,A-Abnormal,AA-Critical Abnormal Performed at: 01 [facility] [address] [id number] Gala Henry MD, Performed at: [facility] [address] [id number] MD Elaine Cedeño Performed By: #### 3 [id number], [id number], [id number], [id number] ####[address] [place] [address] PAP [phone] 01-06-2023 Collection Technique BRUSH-SPATULA Normal [facility] Comment on above: Performed By: #### 3 [id number], [id number], [id number], [id number] ####[address] [place] [address] Gynecological Body Site ENDOCERVIX Normal [facility] Comment on above: Performed By: #### 3 [id number], [id number], [id number], [id number] ####[facility] [address] [id number] Physician Orderon 01-06-2023 Physician Order [id number] .00TIFF Normal [facility] Registrationon 11-20-2022 Registration [id number] .00TIFF Normal [facility] Consenton 11-19-2022 Consent [id number] .00TIFF Normal [facility] Consent for Treatmenton 11-08 Consent for Treatment [id number] .00TIFF Normal [facility] Discharge Instructionson Discharge Instructions [id number] .00TIFF Normal [facility] ED Clinical Summaryon 2022 ED Clinical Summary [address] [address] ED Clinical Summary Person Information Name: AKOSUA ORTIZ/[facility] Age: 27 Years : 1995 Sex: Female Language: Palauan PCP: LIA LINTON Marital Status: Single Phone: [phone] Visit Id: Visit Reason: Eye foreign body; [...] 11/19/2022 12:22:13 11/19/2022 12:22:13 11/19/2022 12:22:13 ADDRESS: [address] [place] [address] [place] [id number] PHYS DOC NOTES: MEDICAL INFORMATION: Prescriptions Given: New Medications [facility], [address] [place], [place] [id number], [phone] erythromycin ophthalmic (erythromycin Opth 0.5% Oint) 1/4 [...] Follow up: With: Address: When: Occupational Health: [facility] [phone] In 3 days 11/22/2022 Comments: follow-up occupational health for your Workmen's Comp claim. With: Address: When: Ree Bell [address] [place] [address] [address], [place] [address] [facility] () In 2 days 11/21/2022 Comments: Repeat exam in 48 hours, return to the ED with new or worsening symptoms. Use ibuprofen for discomfort. Use eye ointment as prescribed. DIAGNOSIS: Gis Software Engineer's flash of both eyes Normal [facility] ED Note-Physicianon 11-20-19 ED Note-Physician Basic Information [...] answered. The patient was discharged home. 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 Ree Bell In 2 days 11/21/[address] [place] [phone] Business (1) Additional Instructions: Repeat exam in [...] Results No qualifying data available. Normal [facility] Comment on above: Result Comment: Elec tronically [...] eye drops prior to using them. 3. historic interpreter front of a mirror so that you [...] water for at least 20 seconds. 2. historic interpreter front of a mirror so that you [...] you dis (more content not included)... Normal [facility] ED Patient Summaryon 023 ED Patient Summary [id number] Patient Discharge Instructions Person Information Name: AKOSUA ORTIZ Age: 27 Years Arrival Date: 11/19/2022 10:31:28 Discharge Diagnosis: Gis Software Engineer's flash of both eyes Primary Care Physician: LIA LINTON Provider Information Primary Provider: Coy Soriano DO Advanced Roll Capper:None The exam and treatment you received in the Emergency Department were for an urgent problem and are not intended as complete care. It is important that you follow up with a doctor, nurse practitioner, or physician?s district administrative assistant for ongoing care. If your symptoms [...] Follow-up Instructions: With: Address: When: Occupational Health: [facility] [phone] In 3 days 11/22/2022 Comments: follow-up occupational health for your Workmen's Comp claim. With: Address: When: [address], [place] [address] Business (1) In 2 days 11/21/2022 Comments: [...] opioids can be used to help relieve ncnuzslq-rb-rtsxzw pain and are often prescribed following a [...] following guid (more content not included)... Normal [facility] Workers Comp Formson 11-19- 023 Workers Comp Forms [id number] .00TIFF Normal [facility] COVID CepheidOrdered By: Desiree Reyna on 10-11-2022 SARS-CoV-2 (COVID-19) Ab IA Ql Negative Negative [facility] Comment on above: This is a duplicate Cepheid Xpert Xpress CoV-2/Flu/RSV Plus RNA by RT-PCR result to be used for statistical tracking purpose only. SARS-CoV-2 (COVID-19) RNA DAYNA+probe Ql (Unsp spec) [facility] COVID-19 / Flu A/B / RSV PCR [...] or Cepheid Disclaimer revoked sooner. PERFORMED BY: [facility] [address] [place] [address] PATHOLOGIST PIT CLERK LE HERRON M.D. Normal [facility] Comment on above: Performed By: #### U DORETHA RANGEL MIGDALIA #### [facility] [id number] [facility] Cepheid COVID PCR Negativeon 10-11-2022 SARS-CoV-2 (COVID-19) RNA DAYNA+probe Ql (Unsp spec) Negative Normal Negative [facility] Comment on above: Result Comment: This is a duplicate Cepheid Xpert Xpress CoV-2/Flu/RSV Plus RNA by RT-PCR result to be used for statistical tracking purpose only. PERFORMED BY: [facility] [address] [place] [address] PATHOLOGIST PIT CLERK LE HERRON M.D. Performed By: #### U RDS, ADDONUAPLUS, CG #### [address] Urine culture routineOrdered By: Елена Linton on 09-17-2021 Bacteria identified Cx Nom (U) Escherichia coli [facility] VIT D 25-OH [facility] 2021 Vitamin D, 25-Hydroxy 38.4 ng/mL Normal 30.0-100.0 [facility] Comment on above: Result Comment: Alejandra min D deficiency has been defined by the [place] of Medicine and an Endocrine Society practice guideline as a level of serum 25-OH vitamin D less than 20 ng/mL (1,2). The Endocrine Society went on to further define vitamin D insufficiency as a level between 21 and 29 ng/mL (2). 1. IOM ([place] of Medicine). 2010. Dietary reference intakes for calcium and D. [place]: The National Academies Press. 2. Sarah MF, Mp [place], Cortney KLEIN, et al. Evaluation, treatment, and prevention of vitamin D deficiency: an Endocrine Society clinical practice guideline. JCEM. 2010; 96(7):1911-30. Performed By: #### V ITADLC #### [facility] [address] [place], [place] [address] Dr. Lauren Quezada CBC AUTO DIFFon 09-11-2021 BASO # 0.0 103/ul Normal 0.0-0.1 [facility] Comment on above: Performed By: #### C BC ####[facility] [address] [place] [address]Dr. Lauren Quezada Basophils/100 WBC (Bld) 0.6 % Normal 0.2-2.0 [facility] Comment on above: Performed By: #### C BC ####[facility] [address] [place] [address]Dr. Lauren Quezada EO # 0.0 103/ul Normal 0.0-0.7 [facility] Comment on above: Performed By: #### C BC ####[facility] [address] [place], [place] [address]Dr. Lauren Quezada Eosinophils/100 WBC (Bld) 0.5 % Critically low 0.9-7.0 [facility] Comment on above: Performed By: #### C BC ####[facility] [address] [place], [place] [address]Dr. Lauren Quezada Erythrocyte distribution width (RBC) [Ratio] 13.6 % Normal 11.0-15.0 [facility] Comment on above: Performed By: #### C BC ####[facility] [address] [place], [place] [address]Dr. Lauren Quezada Hematocrit (Bld) [Volume fraction] 36.3 % Normal 36.0-48.0 [facility] Comment on above: Performed By: #### C BC ####[facility] [address] [place], [place] [address]Dr. Lauren Quezada Hemoglobin (Bld) [Mass/Vol] 12.0 g/dL Normal 12.0-16.0 [facility] Comment on above: Performed By: #### C BC ####[facility] [address] [place], [place] [address]Dr. Lauren Quezada IG # 0.01 10e3/ul Normal 0.00-0.03 [facility] Comment on above: Performed By: #### C BC ####[facility] [address] [place], [place] [address]Dr. Lauren Quezada IG % 0.2 % Normal 0.0-0.5 [facility] Comment on above: Performed By: #### C BC ####[facility] [address] [place] [id number]. Lauren Damien LYMPH # 2.3 103/ul Normal 1.2-3.8 [facility] Comment on above: Performed By: #### C BC ####[facility] [address] [place] [address]Dr. Carlaruby Quezada Lymphocytes/100 WBC (Bld) 36.6 % Normal 20.5-60.0 [facility] Comment on above: Performed By: #### C BC ####[facility] [address] [place] [address]Dr. Carlaruby Quezada MANUAL DIFF REQ NO Normal [facility] Comment on above: Performed By: #### C BC ####[facility] [address] [place] [address]Dr. Carlaruby Quezada MCH (RBC) [Entitic mass] 27.6 pg Normal 26.7-34.0 [facility] Comment on above: Performed By: #### C BC ####[facility] [address] [place] [address]Dr. Carlaruby Quezada MCHC (RBC) [Mass/Vol] 33.1 g/dL Normal 29.9-35.2 [facility] Comment on above: Performed By: #### C BC ####[facility] [address] [place] [address]Dr. Lauren Quezada MCV (RBC) [Entitic vol] 83.4 fL Normal 81.0-99.0 [facility] Comment on above: Performed By: #### C BC ####[facility] [address] [place] [address]Dr. Lauren Quezada MONO # 0.5 103/ul Normal 0.3-0.8 [facility] Comment on above: Performed By: #### C BC ####[facility] [address] [place] [address]Dr. Lauren Quezada Monocytes/100 WBC (Bld) 7.3 % Normal 1.7-12.0 [facility] Comment on above: Performed By: #### C BC ####[facility] [address] [place] [id number]. Lauren Quezada NEUT # 3.4 103/ul Normal 1.4-6.5 [facility] Comment on above: Performed By: #### C BC ####[facility] [address] [place] [address]Dr. Lauren Quezada Neutrophils/100 WBC (Bld) 54.8 % Normal 43.0-75.0 [facility] Comment on above: Performed By: #### C BC ####[facility] [address] [place] [id number]. Lauren Quezada Platelet mean volume (Bld) [Entitic vol] 10.6 fL Normal 9.5-13.5 [facility] Comment on above: Performed By: #### C BC ####[facility] [address] [place] [id number]. Lauren Quezada PLT 282 103/ul Normal 150-450 [facility] Comment on above: Performed By: #### C BC ####[facility] [address] [place] [address]Dr. Lauren Quezada RBC 4.35 106/ul Normal 4.20-5.40 [facility] Comment on above: Performed By: #### C BC ####[facility] [address] [place] [address]Dr. Lauren Quezada WBC 6.2 103/ul Normal 4.0-11.0 [facility] Comment on above: Performed By: #### C BC ####[facility] [address] [place] [address]Dr. Lauren Quezada FREE T4on 09-11-2021 Free T4 [Mass/Vol] 0.78 ng/dL Normal 0.76-1.46 [facility] Comment on above: Performed By: #### F T4 #### [facility] [id number] Lauren Quezada GLYCOHEMOGLOBIN A1Con 2021 ADA RECOMMENDATION SEE BELOW Normal [facility] Comment on above: Result Comment: ADA RECOMMENDED LIMIT 4.0 - 6.0 ADA THERAPEUTIC TARGET < 7.0 ACTION SUGGESTED > 7.0 Performed By: #### A 1C #### [facility] [address] [place] [address] [address] Lauren Quezada Glucose [Mass/Vol] 114 mg/dL Normal [facility] Comment on above: Performed By: #### A 1C #### [facility] [address] [place] [address] [address] Lauren Quezada HbA1c (Bld) [Mass fraction] 5.6 % Normal 4.5-6.2 [facility] Comment on above: Performed By: #### A 1C #### [facility] [address] [place] [address] [address] Lauren Quezada LIPID PROFILEon 09-11-2021 CHOL-HDL RATIO NORM SEE BELOW Normal [facility] Comment on above: Result Comment: 3.3 - 4.4 LOW RISK 4.4 - 7.1 AVERAGE RISK 7.1 - 11.0 MODERATE RISK >11.0 HIGH RISK Performed By: #### C MP, TSH, LIPID #### [facility] [address] [place] [address] Dr. Lauren Quezada Cholesterol [Mass/Vol] 152 mg/dL Normal <=200 [facility] Comment on above: Performed By: #### C MP, TSH, LIPID #### [facility] [address] [place] [address] Dr. Lauren Quezada Cholesterol in HDL [Mass/Vol] 43 mg/dL Normal 40-60 [facility] Comment on above: Performed By: #### C MP, TSH, LIPID #### [facility] [address] [place] [address] Dr. Lauren Quezada Cholesterol in LDL [Mass/Vol] 96.4 mg/dL Normal [facility] Comment on above: Performed By: #### C MP, TSH, LIPID #### [facility] [address] [place] [address] [address] Lauren Quezada Cholesterol.total/Hannah sterol in HDL [Mass ratio] 3.5 {ratio} Normal [facility] Comment on above: Performed By: #### C MP, TSH, LIPID #### [facility] [address] [place] [address] [address] Lauren Quezada HDL NORMAL > or = 60 mg/dl - LO W CARDIOVASCULAR RISK <40 mg/dl - HIGH CARDIOVASCULAR RISK Normal [facility] Comment on above: Performed By: #### C MP, TSH, LIPID #### [facility] [address] [place] [address] [address] Lauren Quezada LDL CALC NORMAL SEE BELOW Normal [facility] Comment on above: Result Comment: <100 mg/dl OPTIMAL 100 - 129 mg/dl NEAR OR ABOVE OPTIMAL 130 - 159 mg/dl BORDERLINE HIGH 160 - 189 mg/dl HIGH >190 mg/dl VERY HIGH Performed By: #### C MP, TSH, LIPID #### [facility] [address] [place] [address] [address] Lauren Quezada Triglyceride [Mass/Vol] 63 mg/dL Normal <=150 [facility] Comment on above: Performed By: #### C MP, TSH, LIPID #### [facility] [address] [place] [address] [address] Lauren Quezada VLDL CALC 12.6 mg/dL Normal [facility] Comment on above: Performed By: #### C MP, TSH, LIPID #### [facility] [address] [place] [address] Dr. Lauren Quezada PROF 14(COMP METB)on 022 Albumin [Mass/Vol] 4.1 g/dL Normal 3.4-5.0 [facility] Comment on above: Performed By: #### C MP, TSH, LIPID #### [facility] [address] [place] [address] Dr. Lauren Quezada Albumin/Globulin [Mass ratio] 1.2 {ratio} Normal [facility] Comment on above: Performed By: #### C MP, TSH, LIPID #### [facility] [address] [place] [address] Dr. Lauren Quezada ALP [Catalytic activity/Vol] 66 U/L Normal 46-116 [facility] Comment on above: Performed By: #### C MP, TSH, LIPID #### [facility] [address] [place] [address] Dr. Lauren Quezada ALT [Catalytic activity/Vol] 7 U/L Critically low 14-59 [facility] Comment on above: Performed By: #### C MP, TSH, LIPID #### [facility] [address] [place] [address] Dr. Lauren Quezada Anion gap [Moles/Vol] 12.2 mmol/L Normal Th e [facility] Comment on above: Performed By: #### C MP, TSH, LIPID #### [facility] [address] [place] [address] Dr. Lauren Quezada AST [Catalytic activity/Vol] 15 U/L Normal 15-37 [facility] Comment on above: Performed By: #### C MP, TSH, LIPID #### [facility] [address] [place] [address] Dr. Lauren Quezada Bilirubin [Mass/Vol] 0.5 mg/dL Normal 0.2-1.0 [facility] Comment on above: Performed By: #### C MP, TSH, LIPID #### [facility] [address] [place] [address] Dr. Lauren Quezada Calcium [Mass/Vol] 8.9 mg/dL Normal 8.5-10.1 [facility] Comment on above: Performed By: #### C MP, TSH, LIPID #### [facility] [address] [place] [address] Dr. Lauren Quezada Chloride [Moles/Vol] 103 mmol/L Normal 98-107 [facility] Comment on above: Performed By: #### C MP, TSH, LIPID #### [facility] [address] [place] [address] Dr. Lauren Quezada CO2 [Moles/Vol] 27.4 mmol/L Normal 21.0-32.0 [facility] Comment on above: Performed By: #### C MP, TSH, LIPID #### [facility] [address] [place] [address] Dr. Lauren Quezada Creatinine [Mass/Vol] 0.67 mg/dL Normal 0.55-1.02 [facility] Comment on above: Performed By: #### C MP, TSH, LIPID #### [facility] [address] [place] [address] [address] Lauren Quezada EGFR-AF GUYANESE >60 Normal >=60 [facility] Comment on above: Performed By: #### C MP, TSH, LIPID #### [facility] [address] [place] [address] [address] Lauren Quezada EGFR-NON AF GUYANESE >60 Normal >=60 [facility] Comment on above: Performed By: #### C MP, TSH, LIPID #### [facility] [address] [place] [address] [address] Lauren Quezada Globulin (S) [Mass/Vol] 3.4 g/dL Normal [facility] Comment on above: Performed By: #### C MP, TSH, LIPID #### [facility] [address] [place] [address] [address] Lauren Quezada Glucose [Mass/Vol] 75 mg/dL Normal 74-106 [facility] Comment on above: Performed By: #### C MP, TSH, LIPID #### [facility] [address] [place] [address] [address] Lauren Quezada Potassium [Moles/Vol] 3.6 mmol/L Normal 3.5-5.1 [facility] Comment on above: Performed By: #### C MP, TSH, LIPID #### [facility] [address] [place] [address] [address] Lauren Quezada Protein [Mass/Vol] 7.5 g/dL Normal 6.4-8.2 [facility] Comment on above: Performed By: #### C MP, TSH, LIPID #### [facility] [address] [place] [address] [address] Lauren Quezada Sodium [Moles/Vol] 139 mmol/L Normal 136-145 [facility] Comment on above: Performed By: #### C MP, TSH, LIPID #### [facility] [address] [place] [address] [address] Lauren Quezada Urea nitrogen [Mass/Vol] 12.0 mg/dL Normal 7.0-18.0 [facility] Comment on above: Performed By: #### C MP, TSH, LIPID #### [facility] [address] [place], [place] [address] Dr. Lauren Quezada Urea nitrogen/Creatinine [Mass ratio] 17.9 mg/mg Normal [facility] Comment on above: Performed By: #### C MP, TSH, LIPID #### [facility] [address] [place], [place] [address] Dr. Lauren Quezada TSHon 09-11-2021 TSH 0.504 uIU/mL Normal 0.358-3.740 [facility] Comment on above: Performed By: #### C MP, TSH, LIPID #### [facility] [address] [place], [place] [address] Dr. Lauren Quezada CHEMISTRYOrdered By: SYSTEM SYSTEM [...] rate/Area] mL/min/1.73 m2 Normal >=59mL/min/ 1.73 m2 FT Chem S GFR/1.73 sq M.predicted among non-blacks MDRD (S/P/Bld) [Vol rate/Area] mL/min/1.73 m2 Normal >=59mL/min/ 1.73 m2 [facility] Chem S Globulin [...] 13 mg/dL Normal 5 - 21 mg/dL FT Remisol Urea nitrogen/Creatinine [Mass ratio] 22 mg/mg [...] 7.1 E9/L Normal 4.0 - 11.0 E9/L [facility] HemeAutoSS SEROLOGYOrdered By: Corrine choi on 08-06-2021 HCG.beta subunit (U) [Moles/Vol] Positive (08/06/21 6:08 AM) Normal [facility] Man Sero URINALYSISOrdered By: Corrine Jc on [...] AM) Normal Negative [facility] UA Auto SS [place].plasma/[place]. RBC (Bld) [Mass ratio] 0-3 /HPF Normal 0-3/HPF [facility] UA A uto [...] [facility] UA Auto SS Urobilinogen Qn (U) [id number] {Lashay'U}/dL Normal 0.0 - 1.0 EU/dL [facility] UA Auto SS WBC Auto Ql (U) Negative (08/06/21 6:08 AM) Normal Negative [facility] UA Auto SS WBC LM.HPF (Urine sed) [#/Area] 0-5 /HPF Normal 0-5/HPF [facility] UA Auto SS GENITAL CULTUREon 07-16-2021 Genital Culture, Routine Final report Normal [facility] Comment on above: Performed By: #### C XGENIT ####[facility] [address] [place] [address]Dr. Lauren Quezada Result [address] [facility] Comment on above: Result Comment: Rout ine genital tori. Performed By: #### C XGENIT ####[facility] [address] [place] [address]Dr. Lauren Quezada CBC AUTO DIFFon 07-12-2021 BASO # 0.1 103/ul Normal 0.0-0.1 [facility] Comment on above: Performed By: #### C BC #### [facility] [address] [place] [address] [address] Lauren Quezada Basophils/100 WBC (Bld) 0.8 % Normal 0.2-2.0 [facility] Comment on above: Performed By: #### C BC #### [facility] [address] [place] [address] [address] Lauren Quezada EO # 0.1 103/ul Normal 0.0-0.7 [facility] Comment on above: Performed By: #### C BC #### [facility] [address] [place] [address] [address] Lauren Quezada Eosinophils/100 WBC (Bld) 1.5 % Normal 0.9-7.0 [facility] Comment on above: Performed By: #### C BC #### [facility] [address] [place] [address] [address] Lauren Quezada Erythrocyte distribution width (RBC) [Ratio] 13.7 % Normal 11.0-15.0 [facility] Comment on above: Performed By: #### C BC #### [facility] [address] [place] [address] Dr. Lauren Quezada Hematocrit (Bld) [Volume fraction] 31.5 % Critically low 36.0-48.0 [facility] Comment on above: Performed By: #### C BC #### [facility] [address] [place] [address] Dr. Lauren Quezada Hemoglobin (Bld) [Mass/Vol] 10.2 g/dL Critically low 12.0-16.0 [facility] Comment on above: Performed By: #### C BC #### [facility] [address] [place] [address] Dr. Lauren Quezada IG # 0.01 10e3/ul Normal 0.00-0.03 [facility] Comment on above: Performed By: #### C BC #### [facility] [address] [place] [address] Dr. Lauren Quezada IG % 0.2 % Normal 0.0-0.5 [facility] Comment on above: Performed By: #### C BC #### [facility] [address] [place] [address] Dr. Lauren Quezada LYMPH # 2.4 103/ul Normal 1.2-3.8 [facility] Comment on above: Performed By: #### C BC #### [facility] [address] [place] [address] Dr. Lauren Quezada Lymphocytes/100 WBC (Bld) 36.8 % Normal 20.5-60.0 [facility] [facility] Comment on above: Performed By: #### C BC #### [facility] [address] [place] [address] Dr. Lauren Quezada MANUAL DIFF REQ NO Normal [facility] Comment on above: Performed By: #### C BC #### [facility] [address] [place] [address] Dr. Lauren Quezada MCH (RBC) [Entitic mass] 27.6 pg Normal 26.7-34.0 [facility] Comment on above: Performed By: #### C BC #### [facility] [address] [place] [address] Dr. Lauren Quezada MCHC (RBC) [Mass/Vol] 32.4 g/dL Normal 29.9-35.2 [facility] Comment on above: Performed By: #### C BC #### [facility] [address] [place] [address] Dr. Lauren Quezada MCV (RBC) [Entitic vol] 85.1 fL Normal 81.0-99.0 [facility] Comment on above: Performed By: #### C BC #### [facility] [address] [place] [address] Dr. Lauren Quezada MONO # 0.9 103/ul Critically high 0.3-0.8 [facility] Comment on above: Performed By: #### C BC #### [facility] [address] [place] [address] Dr. Lauren Quezada Monocytes/100 WBC (Bld) 13.4 % Critically high 1.7-12. 0 [facility] Comment on above: Performed By: #### C BC #### [facility] [address] [place] [address] Dr. Lauren Quezada NEUT # 3.1 103/ul Normal 1.4-6.5 [facility] Comment on above: Performed By: #### C BC #### [facility] [address] [place] [address] Dr. Lauren Quezada Neutrophils/100 WBC (Bld) 47.3 % Normal 43.0-75.0 [facility] Comment on above: Performed By: #### C BC #### [facility] [address] [place] [address] Dr. Lauren Quezada Platelet mean volume (Bld) [Entitic vol] 10.6 fL Normal 9.5-13.5 [facility] Comment on above: Performed By: #### C BC #### [facility] [address] [place] [address] Dr. Lauren Quezada PLT 227 103/ul Normal 150-450 [facility] Comment on above: Performed By: #### C BC #### [facility] [address] [place] [address] Dr. Lauren Quezada RBC 3.70 106/ul Critically low 4.20-5.40 [facility] Comment on above: Performed By: #### C BC #### [facility] [address] [place] [address] Dr. Lauren Quezada WBC 6.5 103/ul Normal 4.0-11.0 [facility] Comment on above: Performed By: #### C BC #### [facility] [address] [place] [address] Dr. Lauren Quezada PREG QUANT HCGon 07-12-2021 HCG QUANT 86711 mIU/mL Normal [facility] Comment on above: Performed By: #### P REGQNT ####[facility] [address] [address]Dr. Lauren Quezada HCG RANGE SEE BELOW Normal [facility] Comment on above: Result Comment: 5-50 0-1 WEEK 40-300 1-2 WEEKS 100-1,000 2-3 WEEKS 500-6,000 3-4 WEEKS 5,000-200,000 1-2 MONTHS 10,000-100,000 2-3 MONTHS 3,000-50,000 2ND TRIMESTER 1,000-50,000 3RD TRIMESTER Performed By: #### P REGQNT ####[facility] [address] [place], [place] [address]Dr. Lauren Quezada PROF CHEM 8 (BAS METB)on Anion gap [Moles/Vol] 11.9 mmol/L Normal [facility] Comment on above: Performed By: #### B MP #### [facility] [address] [place] [address] Dr. Lauren Quezada Calcium [Mass/Vol] 8.7 mg/dL Normal 8.5-10.1 [facility] Comment on above: Performed By: #### B MP #### [facility] [address] [place] [address] Dr. Lauren Quezada Chloride [Moles/Vol] 105 mmol/L Normal 98-107 [facility] Comment on above: Performed By: #### B MP #### [facility] [address] [place] [address] Dr. Lauren Quezada CO2 [Moles/Vol] 26.7 mmol/L Normal 21.0-32.0 [facility] Comment on above: Performed By: #### B MP #### [facility] [address] [address] [address] Lauren Quezada Creatinine [Mass/Vol] 0.51 mg/dL Critically low 0.55-1.02 [facility] Comment on above: Performed By: #### B MP #### [facility] [address] [address] [address] Lauren Quezada EGFR-AF GUYANESE >60 Normal >=60 [facility] Comment on above: Performed By: #### B MP #### [facility] [address] [address] [address] Lauren Quezada EGFR-NON AF GUYANESE >60 Normal >=60 [facility] Comment on above: Performed By: #### B MP #### [facility] [address] [address] [address] Lauren Quezada Glucose [Mass/Vol] 77 mg/dL Normal 74-106 [facility] Comment on above: Performed By: #### B MP #### [facility] [address] [place] [address] Dr. Lauren Quezada Potassium [Moles/Vol] 3.6 mmol/L Normal 3.5-5.1 [facility] Comment on above: Performed By: #### B MP #### [facility] [address] [address] [address] Lauren Quezada Sodium [Moles/Vol] 140 mmol/L Normal 136-145 [facility] Comment on above: Performed By: #### B MP #### [facility] [address] [address] [address] Lauren Quezada Urea nitrogen [Mass/Vol] 10.0 mg/dL Normal 7.0-18.0 [facility] Comment on above: Performed By: #### B MP #### [facility] [address] [address] [address] Lauren Quezada Urea nitrogen/Creatinine [Mass ratio] 19.6 mg/mg Normal [facility] Comment on above: Performed By: #### B MP #### [facility] [address] [address] [address] Lauren Quezada US PREG TVon 07-12-2021 [...] ALON CASH Date: 2021-07-12 01:23 Normal [facility] WET PREPon 07-12-2021 CLUE CELLS NONE SEEN Normal NONE SEEN [facility] Comment on above: Performed By: #### W P #### [facility] [address] [address] [address] Lauren Quezada FUNGAL ELEMENTS NONE SEEN Normal NONE SEEN [facility] Comment on above: Performed By: #### W P #### [facility] [address] [address] [address] Lauren Quezada RBC -WET PREP NONE SEEN Normal NONE SEEN [facility] Comment on above: Performed By: #### W P #### [facility] [address] [address] [address] Lauren Quezada TRICHOMONAS NONE SEEN Normal NONE SEEN [facility] Comment on above: Performed By: #### W P #### [facility] [address] [address] [address] Lauren Quezada WBC- WET PREP NONE SEEN Normal NONE SEEN [facility] Comment on above: Performed By: #### W P #### [facility] [id number] Lauren Quezada WET PREP BACTERIA RARE Abnormal NONE SEEN [facility] Comment on above: Performed By: #### W P #### [facility] [address] [address] [address] Lauren Quezada CHEMISTRYOrdered By: SYSTEM SYSTEM [...] rate/Area] mL/min/1.73 m2 Normal >=59mL/min/ 1.73 m2 [facility] Chem S GFR/1.73 sq M.predicted among non-blacks MDRD (S/P/Bld) [Vol rate/Area] mL/min/1.73 m2 Normal >=59mL/min/ 1.73 m2 [facility] S Globulin (S) [Mass/Vol] 3.2 g/dL [...] 4.7 E12/L Normal 4.3 - 5.9 E12/L [facility] HemeAutoSS WBC corrected for nucl RBC Auto (Bld) [#/Vol] 9.9 E9/L Normal 4.0 - 11.0 E9/L [facility] HemeAutoSS SEROLOGYOrdered By: Megan beckford on 05-21-2021 Beta hCG Ql Negative (05/21/21 9:54 AM) Normal [facility] Man Sero URINALYSISOrdered [...] AM) Normal Negative [facility] UA Auto SS [place].plasma/[place]. RBC (Bld) [Mass ratio] 0-3 /HPF Normal 0-3/HPF [facility] UA A uto SS Mucus Ql (Urine sed) 1+ (05/21/21 11:17 AM) Normal [facility] UA Auto SS Nitrite Ql (U) Positive *ABN* (05/21/21 11:17 AM) Invalid Interpretation Code Negative [facility] UA Auto SS pH (U) 6.0 *NA* (05/21/21 11:17 AM) Invalid Interpretation Code 5.0 - 9.0 [facility] UA Auto SS Protein (U) [Mass/Vol] Negative (05/21/21 11:17 AM) Normal Negative [facility] UA Auto SS Specific gravity (U) [Rel density] 1.025 *NA* (05/21/21 11:17 AM) Invalid Interpretation Code 1.005 - 1.030 [facility] UA Auto SS UA Spec Desc Clean Catch (05/21/21 11:17 AM) Normal [facility] UA Auto SS Urobilinogen Qn (U) [id number] {[place]ash[place]'U}/dL Normal 0.0 - 1.0 EU/dL [facility] UA Auto SS WBC Auto Ql (U) Trace *ABN* (05/21/21 11:17 AM) Invalid Interpretation Code Negative [facility] UA Auto SS WBC LM.HPF (Urine sed) [#/Area] 0-5 /HPF Normal 0-5/HPF [facility] UA Auto SS Vital Signs Date Time Vital Sign Value Performing Clinician Facility 07-09-2023 10:44-0400 Body height 157.48 cm DO Dacia Blas Work Phone: [phone] [place] [address] 07-09-2023 10:44-0400 Body mass index (BMI) [Ratio] 33.5 kg/m2 DO Dacia Blas Work Phone: [phone] [place] [address] 07-09-2023 10:44-0400 Body weight 83.09 kg DO Dacia Blas Work Phone: [facility] 07-09-2023 10:44-0400 Diastolic blood pressure 82 mm[Hg] DO Dacia [employer] Work Phone: [facility] 07-09-2023 10:44-0400 Heart rate 78 /min DO Dacia [employer] Work Phone: [facility] 07-09-2023 10:44-0400 Respiratory rate 18 /min DO Dacia Blas Work Phone: [facility] 07-09-2023 10:44-0400 SaO2% (BldA) [Mass fraction] 99 % DO Dacia Blas Work Phone: [facility] 07-09-2023 10:44-0400 Systolic blood pressure 116 mm[Hg] DO Dacia Blas Work Phone: [facility] 06-28-2023 15:23-0400 Body height 157.48 cm DO Dacia [employer] Work Phone: [facility] 06-28-2023 15:23-0400 Body mass index (BMI) [Ratio] 32.7 kg/m2 DO Dacia Blas Work Phone: [facility] 06-28-2023 15:23-0400 Body weight 81.19 kg DO Dacia Blas Work Phone: [facility] 06-28-2023 15:23-0400 Diastolic blood pressure 78 mm[Hg] DO Dacia Blas Work Phone: [facility] 06-28-2023 15:23-0400 Heart rate 80 /min DO Dacia Blas Work Phone: [facility] 06-28-2023 15:23-0400 SaO2% (BldA) [Mass fraction] 99 % DO Dacia Blas Work Phone: [facility] 06-28-2023 15:23-0400 Systolic blood pressure 130 mm[Hg] DO Dacia Blas Work Phone: [facility] 06-25-2023 07:30-0400 Body temperature 98 [degF] DO Dacia Blas Work Phone: [facility] 06-25-2023 07:30-0400 Diastolic blood pressure 70 mm[Hg] DO Dacia Blas Work Phone: [facility] 06-25-2023 07:30-0400 Heart rate 72 /min DO Dacia Blas Work Phone: [facility] 06-25-2023 07:30-0400 Respiratory rate 20 /min DO Dacia Blas Work Phone: [facility] 06-25-2023 07:30-0400 SaO2% (BldA) [Mass fraction] 97 % DO Dacia Blas Work Phone: [facility] 06-25-2023 07:30-0400 Systolic blood pressure 106 mm[Hg] DO Dacia Blas Work Phone: [facility] 06-24-2023 14:38-0400 Body height 157.48 cm DO Dacia Blas Work Phone: [facility] 06-23-2023 23:57-0400 Body weight 82.2 kg DO Dacia Blas Work Phone: [facility] 06-02-2023 09:53-0400 Body height 158.12 cm [facility] 06-02-2023 09:53-0400 Body mass index (BMI) [Ratio] 33.5 kg/m2 [facility] 06-02-2023 09:53-0400 Body weight 83.68 kg [facility] 06-02-2023 09:53-0400 Diastolic blood pressure 70 mm[Hg] [facility] 06-02-2023 09:53-0400 Heart rate 73 /min [facility] 06-02-2023 09:53-0400 Respiratory rate 18 /min [facility] 06-02-2023 09:53-0400 SaO2% (BldA) [Mass fraction] 99 % [facility] 06-02-2023 09:53-0400 Systolic blood pressure 108 mm[Hg] [facility] 05-24-2023 15:39-0400 Body height 158.12 cm [facility] 05-24-2023 15:39-0400 Body mass index (BMI) [Ratio] 34 kg/m2 [facility] 05-24-2023 15:39-0400 Body weight 85.02 kg [facility] 05-24-2023 15:39-0400 Diastolic blood pressure 70 mm[Hg] [facility] 05-24-2023 15:39-0400 Heart rate 81 /min [facility] 05-24-2023 15:39-0400 Respiratory rate 18 /min [facility] 05-24-2023 15:39-0400 SaO2% (BldA) [Mass fraction] 97 % [facility] 05-24-2023 15:39-0400 Systolic blood pressure 106 mm[Hg] [facility] 05-18-2023 05:34-0400 Body temperature 98.24 [degF] Eren Haider [facility] 05-18-2023 05:34-0400 Diastolic blood pressure 87 mm[Hg] Eren Vitaly [facility] 05-18-2023 05:34-0400 Heart rate 89 /min Eren Vitaly [facility] 05-18-2023 05:34-0400 Respiratory rate 16 /min Eren Vitaly [facility] 05-18-2023 05:34-0400 SaO2% (BldA) [Mass fraction] 97 % Eren Vitaly [facility] 05-18-2023 05:34-0400 Systolic blood pressure 121 mm[Hg] Eren Vitaly [facility] 04-09-2023 10:56-0500 Body height 158.12 cm [facility] 04-09-2023 10:56-0500 Body mass index (BMI) [Ratio] 33.8 kg/m2 [facility] 04-09-2023 10:56-0500 Body weight 84.56 kg [facility] 04-09-2023 10:56-0500 Diastolic blood pressure 70 mm[Hg] [facility] 04-09-2023 10:56-0500 Heart rate 82 /min [facility] 04-09-2023 10:56-0500 Respiratory rate 18 /min [facility] 04-09-2023 10:56-0500 SaO2% (BldA) [Mass fraction] 99 % [facility] 04-09-2023 10:56-0500 Systolic blood pressure 112 mm[Hg] [facility] 01-18-2023 09:00-0500 Body height 158.12 cm Dacia Blas Other [employer] Other 01-18-2023 09:00-0500 Body mass index (BMI) [Ratio] 34.87 kg/m2 Dacia Blas Other [employer] Other 01-18-2023 09:00-0500 Body weight 87.18 kg Dacia Blas Other [employer] Other 01-18-2023 09:00-0500 Diastolic blood pressure 66 mm[Hg] Daciaziggy Blas Other [employer] Other 01-18-2023 09:00-0500 Respiratory rate 18 /min Daciaflor Blas Other [employer] Other 01-18-2023 09:00-0500 SaO2% (BldA) [Mass fraction] 97 % Daciaflor Blas Other [employer] Other 01-18-2023 09:00-0500 Systolic blood pressure 98 mm[Hg] Dacia Blas Other [employer] Other 11-19-2022 10:40-0400 Body temperature 98.06 [degF] Coy Soriano [facility] 11-19-2022 10:40-0400 Diastolic blood pressure 82 mm[Hg] Coy Soriano [facility] 11-19-2022 10:40-0400 Heart rate 81 /min Coy Bo [facility] 11-19-2022 10:40-0400 Respiratory rate 18 /min Coy Soriano [facility] 11-19-2022 10:40-0400 SaO2% (BldA) [Mass fraction] 98 % Coy Soriano [facility] 11-19-2022 10:40-0400 Systolic blood pressure 126 mm[Hg] Coy Soriano [facility] 10-11-2022 07:52-0400 Diastolic blood pressure 55 mm[Hg] [employer]ETING [employer]AD Елена Royer Work Phone: [facility] 10-11-2022 07:52-0400 Heart rate 99 /min [employer]ING [employer] Елена Royer Work Phone: [facility] 10-11-2022 07:52-0400 Respiratory rate 18 /min [employer]ING [employer] LE[employer] Елена Royer Work Phone: [facility] 10-11-2022 07:52-0400 SaO2% (BldA) [Mass fraction] 98 % [employer]ING [employer] LE[employer] Елена Royer Work Phone: [facility] 10-11-2022 07:52-0400 Systolic blood pressure 116 mm[Hg] MARKETING TE[employer] LEAD Елена Royer Work Phone: [facility] 10-11-2022 05:41-0400 Body height 157.48 cm MARKETING TE[employer] LEAD Елена Royer Work Phone: [facility] 10-11-2022 05:41-0400 Body temperature 99.4 [degF] MARKETING TE[employer] LEAD Елена Royer Work Phone: [facility] 10-11-2022 05:41-0400 Body weight 79.37 kg MARKETING [employer] LEAD Елена Royer Work Phone: [facility] 07-24-2022 03:01-0400 Body temperature 97.6 [degF] MARKETING TE[employer] LEAD Елена Royer Work Phone: [facility] 07-24-2022 03:01-0400 Diastolic blood pressure 74 mm[Hg] MARKETING TE[employer] LEAD Елена Royer Work Phone: [facility] 07-24-2022 03:01-0400 Heart rate 85 /min [employer]ING [employer] Елена Royer Work Phone: [facility] 07-24-2022 03:01-0400 Respiratory rate 18 /min MARK[employer]ING TE[employer] LEAD Елена Royer Work Phone: [facility] 07-24-2022 03:01-0400 SaO2% (BldA) [Mass fraction] 99 % MARKETING TEAM LEADSilverio Linton Work Phone: [facility] 07-24-2022 03:01-0400 Systolic blood pressure 143 mm[Hg] MARKETING TEAM LEADSilverio Linton Work Phone: [facility] 07-24-2022 03:00-0400 Body height 157.48 cm MARKETING TE[employer] LEADSilverio Linton Work Phone: [facility] 07-24-2022 03:00-0400 Body weight 90.8 kg MARKETING TE[employer] LEADSilverio Linton Work Phone: [facility] 08-06-2021 09:40-0400 Diastolic blood pressure 72 mm[Hg] Eren Vitaly [facility] 08-06-2021 09:40-0400 Heart rate 80 /min Eren Vitaly [facility] 08-06-2021 09:40-0400 Respiratory rate 16 /min Eren Vitaly [facility] 08-06-2021 09:40-0400 SaO2% (BldA) [Mass fraction] 99 % Eren Vitaly [facility] 08-06-2021 09:40-0400 Systolic blood pressure 108 mm[Hg] Eren Vitaly [facility] 08-06-2021 07:15-0400 Diastolic blood pressure 65 mm[Hg] Eren Vitaly [facility] 08-06-2021 07:15-0400 Heart rate 86 /min Eren Vitaly [facility] 08-06-2021 07:15-0400 Respiratory rate 16 /min Eren Vitaly [facility] 08-06-2021 07:15-0400 SaO2% (BldA) [Mass fraction] 99 % Eren Vitaly [facility] 08-06-2021 07:15-0400 Systolic blood pressure 103 mm[Hg] Eren Vitaly [facility] 08-06-2021 05:44-0400 Body temperature 97.88 [degF] Eren Vitaly [facility] 08-06-2021 05:44-0400 Diastolic blood pressure 74 mm[Hg] Eren Vitaly [facility] 08-06-2021 05:44-0400 Heart rate 72 /min Eren Vitaly [facility] 08-06-2021 05:44-0400 Respiratory rate 16 /min Eren Vitaly [facility] 08-06-2021 05:44-0400 SaO2% (BldA) [Mass fraction] 100 % Eren Vitaly [facility] 08-06-2021 05:44-0400 Systolic blood pressure 131 mm[Hg] Eren Vitaly [facility] 05-21-2021 11:49-0400 Diastolic blood pressure 58 mm[Hg] [facility] 05-21-2021 11:49-0400 Heart rate 90 /min [facility] 05-21-2021 11:49-0400 Mean blood pressure 79 mm[Hg] [facility] 05-21-2021 11:49-0400 Respiratory rate 16 /min [facility] 05-21-2021 11:49-0400 SaO2% (BldA) [Mass fraction] 98 % [facility] 05-21-2021 11:49-0400 Systolic blood pressure 120 mm[Hg] [facility] 05-21-2021 10:59-0400 Diastolic blood pressure 70 mm[Hg] [facility] 05-21-2021 10:59-0400 Heart rate 98 /min [facility] 05-21-2021 10:59-0400 Mean blood pressure 83 mm[Hg] [facility] 05-21-2021 10:59-0400 Respiratory rate 16 /min [facility] 05-21-2021 10:59-0400 SaO2% (BldA) [Mass fraction] 100 % [facility] 05-21-2021 10:59-0400 Systolic blood pressure 109 mm[Hg] [facility] 05-21-2021 09:34-0400 Body temperature 98.06 [degF] [facility] 05-21-2021 09:34-0400 Diastolic blood pressure 58 mm[Hg] [facility] 05-21-2021 09:34-0400 Heart rate 101 /min [facility] 05-21-2021 09:34-0400 Respiratory rate 18 /min [facility] 05-21-2021 09:34-0400 SaO2% (BldA) [Mass fraction] 101 % [facility] 05-21-2021 09:34-0400 Systolic blood pressure 119 mm[Hg] [facility] Encounters Encounter Date Encounter Type Care Provider Facility Start: 08-19-2023 End: 08-19-2023 ambulatory Sanjeev Ramos Facility:[facility] Start: 08-19-2023 End: 08-19-2023 Lab Drop off Sanjeev Ramos [facility] Start: 08-05-2023 End: 08-05-2023 ambulatory Sanjeev Ramos Facility:[facility] Start: 08-05-2023 End: 08-05-2023 Lab Drop off Sanjeev Ramos [facility] Start: 07-13-2023 End: 07-13-2023 Lab Drop off Sanjeev Ramos [facility] Start: 07-13-2023 End: 07-13-2023 ambulatory Sanjeev De Richard Facility:[facility] Start: 07-09-2023 End: 07-09-2023 ambulatory DO Dacia A Wan Work Phone: [facility] Work Phone: Start: 07-09-2023 End: 07-09-2023 Patient encounter procedure DO Dacia Wan Work Phone: [facility] Work Phone: Start: 06-28-2023 End: 06-28-2023 ambulatory DO Dacia A Wan Work Phone: [facility] Work Phone: Start: 06-28-2023 End: 06-28-2023 Patient encounter procedure DO Dacia Wan Work Phone: [facility] Work Phone: Start: 06-28-2023 Non-patient / Non-visit DO Dacia Blas Work Phone: [facility] Work Phone: Start: 06-24-2023 End: 06-25-2023 Non-patient / Non-visit DO Dacia Blas Work Phone: [facility] Work Phone: Start: 06-23-2023 End: 06-25-2023 Evaluation and management of inpatient DO Dacia Blas Work Phone: [facility] Work Phone: Start: 06-23-2023 ambulatory David Rosado acility:[facility] Start: 06-02-2023 End: 06-02-2023 ambulatory [facility] Work Phone: Start: 06-02-2023 End: 06-02-2023 Patient encounter procedure [facility] Work Phone: Start: 05-24-2023 End: 05-24-2023 ambulatory [facility] Work Phone: Start: 05-24-2023 End: 05-24-2023 Patient encounter procedure [facility] Work Phone: Start: 05-18-2023 End: 05-18-2023 Emergency department patient visit Eren SOxana Haider [facility] Start: 04-09-2023 End: 04-09-2023 Patient encounter procedure [facility] Work Phone: Start: 01-18-2023 Office outpatient ne w 30 minutes Dacia [facility] Start: 01-18-2023 End: 01-18-2023 ambulatory Daciaziggy Blas [facility] [employer] Other Start: 01-18-2023 End: 01-18-2023 Departed Referred DO Dacia Blas Work Phone: [facility] [place] Work Phone: Start: 01-06-2023 End: 01-06-2023 ambulatory Sanjeev Ramos Facility:[facility] Start: 01-06-2023 End: 01-06-2023 Lab Drop off Sanjeev Ramos [facility] Start: 11-19-2022 End: 11-19-2022 ambulatory Lefty GARCIA Facility:[facility] Start: 11-19-2022 End: 11-19-2022 Emergency department patient visit Coybeulah Soriano [facility] Start: 10-11-2022 End: 10-11-2022 Emergency department patient visit ZANDRA Linton Work Phone: [facility] Work Phone: Start: 07-24-2022 End: 07-24-2022 Emergency department patient visit MARKETING TEAM LEADSilverio Linton Work Phone: [facility] Work Phone: Start: 12-01-2021 End: 12-01-2021 ambulatory ЕЛЕНА LINTON Facility:[facility] Start: 10-27-2021 Encounter for genera l adult medical examination without abnormal findings ЕЛЕНА LINTON [facility] Start: 09-11-2021 End: 09-12-2021 ambulatory ЕЛЕНА LINTON Facility:[facility] Start: 09-11-2021 End: 09-12-2021 Encounter for general adult medical examination without abnormal findings ЕЛЕНА LINTON Facility:[facility] Start: 09-10-2021 End: 09-10-2021 Departed Referred [facility] [place] Start: 08-06-2021 End: 08-06-2021 Emergency department patient visit Eren Haider [facility] Start: 07-12-2021 End: 07-12-2021 ambulatory ROSY SEVERINO Facility:[facility] Start: 05-21-2021 End: 05-21-2021 Emergency department patient visit Samantha Perkins [facility] Procedures Date Procedure Procedure Detail Performing Clinician Start: 10-11-2022 SARS-CoV-2, Influenz a & RSV (PCR) MARKETING TEAM LEADSilverio Linton Work Phone: Start: 07-24-2022 Plain X-ray of right shoulder ZANDRA Linton Work Phone: Urine culture Plan of Treatment Date Care Activity Detail Author Start: 06-25-2023 [facility] Start: 06-23-2023 [facility] Start: 05-24-2023 Patient referral [facility] Work Phone: Start: 07-24-2022 Plain X-ray of right shoulder XR shoulder RT min 2V* [facility] Start: 07-24-2022 XR Shoulder - right Views [facility] Drugs identified in Urine [facility] Patient Education [facility] Work Phone: Patient referral [facility] Work Phone: Immunizations Immunization Date Immunization Notes Care Provider Maicol cortez 09-17-2020 tetanus toxoid, reduced diphtheria toxoid, and acellular pertussis vaccine, adsorbed; Translations: [facility] (Tdap[facility] NEGATED: Highlighted row has not occurred!01-18-2023 Flu Shot - Documentation Purposes Only Patient Objection Dacia Blas Other itravel Other Payers Date Payer Category Payer Blue Cross Blue Shield [id number] 2023 Unknown [id number] 2022 Unknown [id number] 2022 Self-pay [id number] 1996 Unknown [id number] 1996 Unknown [id number] 1996 Unknown [id number] 1996 Unknown [id number] [id number] 1996 Unknown [id number] [id number] 1996 Unknown [id number] [id number] 1996 Unknown [id number] [id number] 1996 Unknown [id number] [id number] 1996 Unknown [id number] 2.840.1.142089.3.579.2.727 1996 Unknown [id number] [id number] 1959 Unknown [id number] Unknown Regular Insurance [id number] Unknown HCAP/HFA/FAP Active [id number] Unknown [id number] Unknown [id number] Unknown [id number] Unknown [id number] Social History Date Type Detail Facility Start: 05-13-2020 End: 04-09-2023 Tobacco smoking status Never smoked tobacco (finding) [facility] Tobacco smoking status Never [facility] Sex Assigned At Female [facility] Start: 1995 Sex Assigned At Female F [facility] Start: 07-24-2022 End: 06-24-2023 Tobacco smoking status NHIS Smoker (finding) [facility] Start: 10-11-2022 End: 10-11-2022 Tobacco smoking status NHIS Current some day smoker [facility] Tobacco Current vaping o r e-cigarette use Smokeless Tobacco Use:. [facility] Tobacco smoking status No Smokin g Status Entered [facility] Goals Date Patient Goal Desired Activity /State Functional Status Date Assessment Result Facility 06-25-2023 Functional status Patient at Baseline [facility] Work Phone: 05-18-2023 Functional Status N/A [facility] 11-19-2022 Functional Status N/A [facility] 08-06-2021 Functional Status N/A [facility] Mental Status Date Assessment Result Facility 06-25-2023 Cognitive function Cognitive Sta tus Patient at Baseline [facility] Work Phone: Clinical Notes 05-21-2021 to 08-19-2023 Note Date & Type Note Facility 08-19-2023 Evaluation + Plan note Diagnostic Tests PendingRPR with Conf Rfx 08/19/23Rubella Antibody IgG 08/19/23epatitis B Surface Antigen 08/19/23IV Screen 4th Generation wRfx 08/19/23Urine Culture 08/19/23 [facility] 06-25-2023 Discharge summary Note Date/Time June 25, 2023 12:05 pm [facility] [address] [place] [address] Discharge Summary Signed Patient: Akosua Ortiz MR#: [id number] : 1995 Acct:[id number] Age/Sex: 27 / F Adm Date: 4 Loc: Room: [address] [place] [address]: Holden Segal MD Copies to: MD Dacia Ojeda, DO~ Providers Date of Discharge: 06/25/23 Discharging Provider: Holden Segal Primary Care Provider: Dacia Blas Discharge [...] Instructions: Important Contact Information You can call [facility] Inpatient Behavioral Health at [phone] any time day or night if you have emergent questions or question regarding discharge instructions. If at any time you are feeling an increase inyour psychiatric symptoms, call your physician or behavioral healthcare provider. If any time you have thoughts of harming yourself or others contact one of the following: Call (available 31/08) Crisis Text Line (available 31/08) text 4HOPE to [phone] [facility] Hope Line (available 8 a.m. Midnight) call [phone] ([phone]) Regular Diet No Activity Restrictions Instructions: Bipolar Disorder (DC), [facility] [place] Instructions, Know your Meds [...] signed by Holden Segal MD> 06/25/23 1207 [facility] Work Phone: 1(563) 824-779305-16-2024 History and physical note Author Holden Segal [facility] June 24, 2023 12:05pm Note Date/Time June 24, 2023 12:04 pm [facility] [address] [place] [address] Psychiatry H&P Signed Patient: Akosua Ortiz MR#: [id number] : 1995 Acct:[id number] Age/Sex: 27 / F Adm Date: 4 Loc: 1S Room: [address] [place] [address] Type: ADM IN Attending Dr: Holden Segal [...] Cloudy A Urine pH 6.0 Ur Specific [place] 1.020 Urine Protein Negative Urine Glucose (UA) [...] <Electronically signed by Holden Segal MD> 06/24/23 1205 [facility] Work Phone: 1(220) 782-329804-15-2024 Hospital Discharge instructionsAmbulatory Orders* Referral to Behavioral Health Time Frame: 05/24/23, Location: None Selected [facility] Work Phone: 1(772) 544-259004-09-2024 Evaluation + Plan noteExtracted from: Title:ED Note Author:Eren Haider DO Date :05/18/23 Encounter for test with result negative (Z32.02: Encounter for test, result negative) Orders: U Beta Hcg Qual [facility]04-09-2024 Hospital Discharge instructions Patient Education 05/18/2023 06:09:27 [...] provider. Document Revised: 10/28/2020 Document Reviewed: 10/28/2020 [employer] Patient Education 2022 [employer]. Follow Up Care 05/18/2023 05:31:15 With:LIA LINTON Address:Unknown When:Within 3 Day(s) [facility]12-11-2023 Evaluation note* Encounter Date Diagnosis Assessment Notes [...] - Z79.899) ?positive on benzodiazepines, will send [employer] Other 11-29-2023 Evaluation + Plan note Diagnostic Tests Pending * PAP [id number] 01/06/23 [facility]10-12-2023 Evaluation + Plan noteExtracted from: Title:ED Note Author:Bo JANE Coy M. 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: Photokeratitis, bilateral) Orders: erythromycin ophthalmic, 1/4 inch ribbon, Eye-Both, As Directed for 5 day(s), 3.5 gm, Refill(s) 0, [facility], 157, cm, 11/19/22 10:43:00 EDT, Height/Length Dosing, 87.7, kg, 11/19/22 10:43:00 EDT, Weight Dosing fluorescein ophthalmic, 1 mg, 1 EA, Test, OPTH, Once, Stop date 11/19/22 10:45:00 EDT, STAT, Start date 11/19/22 10:45:00 EDT tetracaine ophthalmic, 2 drop(s), Soln-Opth, Eye-Both, Once, Stop date 11/19/22 10:45:00 EDT, STAT, Start date 11/19/22 10:45:00 EDT [facility]10-12-2023 Hospital Discharge instructions Patient Education 11/19/2022 11:50:54 [...] Follow these instructions at home: Medicines Take ygng-evj-kndrosa and prescription medicines only as told by [...] provider. Document Revised: 12/08/2019 Document Reviewed: 12/08/2019 [employer] Patient Education 2022 [employer]. 11/19/2022 11:50:54 How to Use Eye Drops [...] shaking eye drops prior to using them. 3.historic interpreter front of a mirror so that you [...] and water for at least 20 seconds. 2.historic interpreter front of a mirror so that you [...] provider. Document Revised: 05/28/2021 Document Reviewed: 05/28/2021 [employer] Patient Education 2022 [employer]. Follow Up Care 11/19/2022 10:32:09 With:Occupational Health: [facility] [phone] Address:Unknown When:11/22/2022 11:46:37 Comments:follow-up occupational health for your Workmen's Comp claim. With:Ree Bell Address: [address] [place], [place] [id number] Business (1) When:11/21/2022 11:47:08 Comments:Repeat exam in 48 hours, return to the ED with new or worsening symptoms. Use ibuprofen for discomfort. Use eye ointment as prescribed. [facility]06-29-2022 Evaluation + Plan noteExtracted from: Title:ED Note [...] work-up, vitals were discussed with the on-call DRESS CAP MAKER Dr. Gray. As her was performed at [facility] she reports they would have sent pathology to assure that they obtain products of conception. Her care will be determined by the results of this. He reports that she needs to call the [facility] office today to follow-up on the pathology report so that they can continue appropriate care depending on those results. I discussed findings and recommendations of my DRESS CAP MAKER with the patient. She does show me [...] patient was discharged home. Coy Soriano DO [facility]06-29-2022 Hospital Discharge instructions Patient Education 08/06/2021 09:24:07 [...] that this is safe. General instructions Take pgvt-yzs-debkpfk and prescription medicines only as told by [...] 11/04/2005 Document Revised: 05/16/2019 Document Reviewed: 04/29/2017 Elsevier Patient Education 2020 Everstring. Follow Up Care 08/06/2021 05:36:46 With:[facility] [...] worsening symptoms. [facility]04-13-2022 Hospital Discharge instructions Patient Education 05/21/2021 12:12:36 [...] Treatment for this condition includes: Antibiotic medicine. Tcxg-hce-jqhmrqt medicines to treat discomfort. Drinking enough water [...] Follow these instructions at home: Medicines Take kmzj-ood-yxzjrbz and prescription medicines only as told by [...] 11/04/2005 Document Revised: 01/12/2019 Document Reviewed: 08/04/2018 [employer] Patient Education 2020 Ever[employer]. Follow Up Care 05/21/2021 09:33:16 With:LIA LINTON Address:Unknown When:05/24/2021 12:01:45 [facility]04-13-2022 Evaluation + Plan noteExtracted from: Title:ED Note Author:Silvestre Gregory PA-C te:05/21/21 UTI (urinary tract infection ) (N39.0: Urinary tract infection, site not specified) Orders: cephalexin, 500 mg = 1 cap(s), Oral, q12hr, X 7 day(s), # 14 cap(s), Refills(s) 0, Pharmacy: [facility], 157, cm, 05/21/21 9:37:00 EDT, Height/Length Dosing, 93.6, kg, 05/21/21 9:37:00 EDT, Weight Dosing ketorolac, 30 mg = 1 mL, Injection, IV Push, Once, Stop date 05/21/21 11:09:00 EDT, STAT, Start date 05/21/21 11:09:00 EDT, 05/21/21 11:09:00 EDT naproxen, 500 mg = 1 tab(s), Oral, BID, PRN for pain, # 20 tab(s), Refills(s) 0, Pharmacy: [facility], 157, cm, 05/21/21 9:37:00 EDT, Height/Length Dosing, 93.6, kg, 05/21/21 9:37:00 EDT, Weight Dosing ondansetron, 4 mg = 1 tab(s), Oral, TID, # 15 tab(s), Refills(s) 0, Pharmacy: [facility], 157, cm, 05/21/21 9:37:00 [...] Culture 05/21/21 [facility] note[facility] assessment information available [facility] Work Phone: Evaluation note* Diagnosis Onset Date Resolution Status Generalized anxiety disorder acute Panic attacks acute Bipolar disorder acute [facility] Work Phone: Evaluation note* Diagnosis Onset Date Resolution Status Generalized anxiety disorder acute Panic attacks acute Bipolar disorder acute Bipolar disorder acute URI (upper respiratory infection) acute Bipolar disorder acute [facility] Work Phone: Evaluation note* Diagnosis Onset Date Resolution Status URI (upper respiratory infection) acute Generalized anxiety disorder acute Vitamin D insufficiency none active Hospital discharge follow-up noneactive [facility] Work Phone: History general Narrative - Reported* Type Description Date Medical History adhd Medical History bipolar Medical History anxiety Surgical History Hospitalization History see above Hospitalization History child [facility] [employer] Other Hospital course Narrative No data available for this section [facility] No data available for this section [facility] No data available for this section [facility] Chief Complaint and Reason for Visit Chief [...] Primary Care Provider Active Елена Linton APRN FURNITURE MOVER HELPER-C Attending Provider Heladio gandhi Team Status: Active Member Role Status Dates NON STAFF Primary Care Provider Active Team Status: Active Member Role Status Dates Елнеа Linton APRN FURNITURE MOVER HELPER-C Primary Care Provider Active Team Status: Inactive Member Role Status Dates Елена Linton APRN FURNITURE MOVER HELPER-C Primary Care Provider Active Marguerite Reyna DO Emergency Provider Active Team Status: Active Member Role Status Dates PHYSICIAN NO FAMILY Primary Care Provider Active Team Status: Inactive Member Role Status Dates PHYSICIAN NO FAMILY Primary Care Provider Active Marguerite Reyna DO Emergency Provider Active Team Status: [...] 2023 Team Status: Inactive Member Role Status Karen Blas DO Primary Care Provider Active Start: June 23, 2023 End: June 25, 2023 Gurjit Winter , DO Emergency Provider Active Start: June 23, 2023 End: June 25, 2023 Holden Segal MD Admit Provider, Atte nding Provider Active Start: June 23, 2023 End: June 25, 2023 Team Status: Active Member Role Status Karen Blas , DO Primary Care Provider Active Start: June 24, 2023 Gurjit Winter , Emergency Provider Active Start: June 24, 2023 Holden Segal MD Admit Provider, Atte nding Provider, Other Provider Active Start: June 24, 2023 Team Status: Active Member Role Status Karen Blas DO Primary Care Provider Active Start: June 28, 2023 Griselda Munoz LPN Attending Provider Active Sta rt: June 28, 2023 Team Status: Inactive Member Role Status Karen Blas DO Primary Care Provider Active Start: June 28, 2023 End: June 28, 2023 Lonnie Pemberton APRN Attending Provider Active Start: June 28, 2023 End: June 28, 2023 Team Status: Active Member Role Status Karen Blas DO Primary Care Provider Active Start: June 24, 2023 End: June 25, 2023 Gurjit Winter , Emergency Provider Active Start: June 24, 2023 End: June 25, 2023 Holden Segal MD Admit Provider, Atte nding Provider, Other Provider Active Start: June 24, 2023 End: June 25, 2023 Team Status: Inactive Member Role Status Karen Blas DO Primary Care Provider Active Start: July 09, 2023 End: July 09, 2023 Lonnie Pemberton APRN Attending Provider Active Start: July 09, 2023 End: July 09, 2023 Goals (unrecognized section and content) Goals may be documented in a n alternate section INFORMATION SOURCE (unrecogn ized section and content) DATE CREATED AUTHOR 12/02/2021 Nick Starkey [facility] DATE CREATED AUTHOR AUTHOR'S ORGANIZ ATION 08/25/2023 [facility] DATE CREATED AUTHOR AUTHOR'S ORGANIZ ATION 08/26/2023 Carlos Alberto Malin [facility] DATE CREATED AUTHOR AUTHOR'S ORGANIZ ATION 08/29/2023 [facility] REASON FOR VISIT (unrecogniz ed section and [...] BE BASED ON THE PRIMARY CLINICAL RECORDS. [employer] provides no warranty or guarantee of the accuracy or completeness of information in this document.
--- NOTE | 2023-09-02 01:37 | ED.GENADUL1 ---
HPI HPI - General Adult General Chief complaint: Headache Stated complaint: NEED COVID TEST Time Seen by Provider: 09/02/23 01:23 Source: patient Mode of arrival: walk-in Limitations: no limitations History of Present Illness HPI narrative: 28-year-old female presents for some bodyaches and headache. She is worried she has COVID. She was around a friend who has COVID and her symptoms started within the last day. No vomiting or diarrhea. She states she is 8 weeks . Related Data Home Medications ?Medication ?Instructions ?Recorded ?Confirmed alprazolam 0.5 mg tablet 0.5 mg PO DAILY PRN anxiety 05/26/23 05/26/23 norethindrone 1 mg-ethinyl 1 tab PO DAILY 05/26/23 05/26/23 estradiol 20 mcg (24)-iron 75 mg (4) tablet (Yovany 24 Fe) quetiapine 50 mg tablet,extended 50 mg PO DAILY 05/26/23 05/26/23 release 24 hr Allergies Allergy/AdvReac Type Severity Reaction Status Date / Time Penicillins AdvReac Intermediate Hives Verified 08/12/23 05:43 Opioid HPI Opioid Management Most Recent Opioid Data: No Data to Display Review of Systems ROS Narrative A ten point review of systems is negative except as noted above. PFSH PFSH Social History Smoking status: Current every day smoker Exam Narrative Exam Narrative: Nurses note and vital signs reviewed and patient is not hypoxic. General: The patient appears well and in no apparent distress. Patient is resting comfortably on cart. Skin: Warm, dry, no pallor noted. There is no rash noted. Head: Normocephalic, atraumatic Eye: Normal conjunctiva, no drainage Ears, Nose, Mouth, and Throat: oral mucosa is moist. Nares patent. Cardiovascular: Regular Rate and Rhythm Respiratory: Patient is in no distress, no accessory muscle use, lungs are clear to auscultation, no wheezing, rales or rhonchi Back: non-tender GI: Soft and nontender Musculoskeletal: The patient has no evidence of calf tenderness, no pitting edema, symmetrical pulses noted bilaterally Neurological: A&O, normal speech Psychiatric: Cooperative Constitutional Vital Signs, click to edit/add: Last Vital Signs Temp 98.7 F 09/02/23 01:22 Pulse 113 H 09/02/23 01:22 Resp 16 09/02/23 01:22 BP 121/74 09/02/23 01:22 Pulse Ox 95 09/02/23 01:22 O2 Del Method Room Air 09/02/23 01:22 Course Vital Signs Vital signs: Vital Signs Temperature 98.7 F 09/02/23 01:22 Pulse Rate 113 H 09/02/23 01:22 Respiratory Rate 16 09/02/23 01:22 Blood Pressure 121/74 09/02/23 01:22 Pulse Oximetry 95 09/02/23 01:22 Oxygen Delivery Method Room Air 09/02/23 01:22 Temperature 98.7 F 09/02/23 01:22 Pulse Rate 113 H 09/02/23 01:22 Respiratory Rate 16 09/02/23 01:22 Blood Pressure 121/74 09/02/23 01:22 Pulse Oximetry 95 09/02/23 01:22 Oxygen Delivery Method Room Air 09/02/23 01:22 Medical Decision Making MDM Narrative Medical decision making narrative: COVID test is positive and she was informed. No further testing is indicated. Treatment diagnosis and follow-up were discussed with the patient. Differential Diagnosis Differential Diagnosis: COVID, viral illness Lab Data Lab results reviewed: Yes I reviewed the patient's lab results Labs: Lab Results 09/02/23 Range/Units 01:30 SARS-CoV-2 Ag (CV2AG) Positive A (NEGATIVE) Discharge Plan Discharge Stand Alone Forms: Portal Instructions Chief Complaint: Headache Clinical Impression: COVID-19 Patient Disposition: Home, Self-Care Time of Disposition Decision: 01:56 Condition: Good Mode of Transportation: Private Vehicle Prescriptions / Home Meds: No Action quetiapine 50 mg tablet extended release 24 hr 50 mg PO DAILY Yovany 24 Fe 1 mg-20 mcg (24)/75 mg (4) tablet 1 tab PO DAILY alprazolam 0.5 mg tablet 0.5 mg PO DAILY PRN (Reason: anxiety) Print Language: Trinidadian Instructions: Droplet Precautions (ED), COVID-19 (Coronavirus Disease 2019) (ED), Face Coverings (Masks) and COVID-19 (ED), How to Recover from COVID-19 at Home (ED) Referrals: Dacia Blas DO [Primary Care Provider] - 1 week
[2023-09-02 01:52] LABS: Internal Control Within Normal Limits; SARS-CoV-2 Ag POSITIVE (NEGATIVE)
== END 2023-09-02 02:04 | disposition home or self-care (01) ==
PROVIDERS: Emergency Provider Emergency Medicine; PCP Family Medicine
DX: O98.511 Other viral diseases complicating pregnancy, first trimester (principal); U07.1 COVID-19; O99.331 Smoking (tobacco) complicating pregnancy, first trimester; F17.200 Nicotine dependence, unspecified, uncomplicated; Z3A.08 8 weeks gestation of pregnancy
CPT/HCPCS: 87811; 99283